=== PATIENT | male | born 1960 | race Hispanic/Latino ===

== ENCOUNTER → 2022-01-26 | Outpatient (CLI) | payer OTHER, MEDICARE ==
[~2022-01-26] MED LIST: LIDOCAINE HCL 4% LTA SOL 4 ML VIAL ONE
== END ==
LOC: WHH 10:49
PROVIDERS: ATTEND Family Medicine
DX: T87.89 Other complications of amputation stump (principal); E11.621 Type 2 diabetes mellitus with foot ulcer; I70.235 Atherosclerosis of native arteries of right leg with ulceration of other part of foot; L97.515 Non-pressure chronic ulcer of other part of right foot with muscle involvement without evidence of necrosis; I70.202 Unspecified atherosclerosis of native arteries of extremities, left leg; E11.51 Type 2 diabetes mellitus with diabetic peripheral angiopathy without gangrene; I10 Essential (primary) hypertension; E78.5 Hyperlipidemia, unspecified; E66.9 Obesity, unspecified; F17.210 Nicotine dependence, cigarettes, uncomplicated; Z79.84 Long term (current) use of oral hypoglycemic drugs; Z79.899 Other long term (current) drug therapy; Y83.5 Amputation of limb(s) as the cause of abnormal reaction of the patient, or of later complication, without mention of misadventure at the time of the procedure
CPT/HCPCS: 15275; A6196; A6207; Q4133

== ENCOUNTER → 2022-02-02 | Outpatient (CLI) | payer OTHER, MEDICARE | END | disposition home or self-care (01) | LOC: WHH 10:39 | PROVIDERS: ATTEND Family Medicine | DX: T87.89 Other complications of amputation stump (principal); E11.621 Type 2 diabetes mellitus with foot ulcer; I70.235 Atherosclerosis of native arteries of right leg with ulceration of other part of foot; L97.515 Non-pressure chronic ulcer of other part of right foot with muscle involvement without evidence of necrosis; I70.202 Unspecified atherosclerosis of native arteries of extremities, left leg; E11.51 Type 2 diabetes mellitus with diabetic peripheral angiopathy without gangrene; I10 Essential (primary) hypertension; E78.5 Hyperlipidemia, unspecified; E66.9 Obesity, unspecified; F17.210 Nicotine dependence, cigarettes, uncomplicated; Z79.84 Long term (current) use of oral hypoglycemic drugs; Z79.899 Other long term (current) drug therapy; Y83.5 Amputation of limb(s) as the cause of abnormal reaction of the patient, or of later complication, without mention of misadventure at the time of the procedure | CPT/HCPCS: 15275; A6197; A6207; Q4133 ==

== ENCOUNTER → 2022-02-09 | Outpatient (CLI) | payer OTHER, MEDICARE | END | disposition home or self-care (01) | LOC: WHH 08:48 | PROVIDERS: ATTEND Family Medicine | DX: T87.89 Other complications of amputation stump (principal); E11.621 Type 2 diabetes mellitus with foot ulcer; I70.235 Atherosclerosis of native arteries of right leg with ulceration of other part of foot; L97.515 Non-pressure chronic ulcer of other part of right foot with muscle involvement without evidence of necrosis; I70.202 Unspecified atherosclerosis of native arteries of extremities, left leg; E11.51 Type 2 diabetes mellitus with diabetic peripheral angiopathy without gangrene; I10 Essential (primary) hypertension; E78.5 Hyperlipidemia, unspecified; E66.9 Obesity, unspecified; F17.210 Nicotine dependence, cigarettes, uncomplicated; Z79.84 Long term (current) use of oral hypoglycemic drugs; Z79.899 Other long term (current) drug therapy; Y83.5 Amputation of limb(s) as the cause of abnormal reaction of the patient, or of later complication, without mention of misadventure at the time of the procedure | CPT/HCPCS: 15275; A6197; A6207; Q4133 ==

== ENCOUNTER → 2022-02-16 | Outpatient (CLI) | payer OTHER, MEDICARE | END | disposition home or self-care (01) | LOC: WHH 10:15 | PROVIDERS: ATTEND Family Medicine | DX: T87.89 Other complications of amputation stump (principal); E11.621 Type 2 diabetes mellitus with foot ulcer; I70.235 Atherosclerosis of native arteries of right leg with ulceration of other part of foot; L97.515 Non-pressure chronic ulcer of other part of right foot with muscle involvement without evidence of necrosis; I70.202 Unspecified atherosclerosis of native arteries of extremities, left leg; E11.51 Type 2 diabetes mellitus with diabetic peripheral angiopathy without gangrene; I10 Essential (primary) hypertension; E78.5 Hyperlipidemia, unspecified; E66.9 Obesity, unspecified; F17.210 Nicotine dependence, cigarettes, uncomplicated; Z79.84 Long term (current) use of oral hypoglycemic drugs; Z79.899 Other long term (current) drug therapy; Y83.5 Amputation of limb(s) as the cause of abnormal reaction of the patient, or of later complication, without mention of misadventure at the time of the procedure | CPT/HCPCS: 15275; A6197; A6207; Q4133 ==

== ENCOUNTER → 2022-02-23 | Outpatient (CLI) | payer OTHER, MEDICARE | END | disposition home or self-care (01) | LOC: WHH 09:13 | PROVIDERS: ATTEND Family Medicine | DX: T87.89 Other complications of amputation stump (principal); E11.621 Type 2 diabetes mellitus with foot ulcer; I70.235 Atherosclerosis of native arteries of right leg with ulceration of other part of foot; L97.515 Non-pressure chronic ulcer of other part of right foot with muscle involvement without evidence of necrosis; I70.202 Unspecified atherosclerosis of native arteries of extremities, left leg; E11.51 Type 2 diabetes mellitus with diabetic peripheral angiopathy without gangrene; I10 Essential (primary) hypertension; E78.5 Hyperlipidemia, unspecified; E66.9 Obesity, unspecified; F17.210 Nicotine dependence, cigarettes, uncomplicated; Z79.84 Long term (current) use of oral hypoglycemic drugs; Z79.899 Other long term (current) drug therapy; Y83.5 Amputation of limb(s) as the cause of abnormal reaction of the patient, or of later complication, without mention of misadventure at the time of the procedure | CPT/HCPCS: 15275; A6197; A6207; Q4133 ==

== ENCOUNTER → 2022-03-03 | Outpatient (CLI) | payer OTHER, MEDICARE | END | disposition home or self-care (01) | LOC: WHH 09:03 | PROVIDERS: ATTEND Family Medicine | DX: T87.89 Other complications of amputation stump (principal); E11.621 Type 2 diabetes mellitus with foot ulcer; I70.235 Atherosclerosis of native arteries of right leg with ulceration of other part of foot; L97.515 Non-pressure chronic ulcer of other part of right foot with muscle involvement without evidence of necrosis; I70.202 Unspecified atherosclerosis of native arteries of extremities, left leg; E11.51 Type 2 diabetes mellitus with diabetic peripheral angiopathy without gangrene; I10 Essential (primary) hypertension; E78.5 Hyperlipidemia, unspecified; E66.9 Obesity, unspecified; F17.210 Nicotine dependence, cigarettes, uncomplicated; Z79.84 Long term (current) use of oral hypoglycemic drugs; Z79.899 Other long term (current) drug therapy; Y83.5 Amputation of limb(s) as the cause of abnormal reaction of the patient, or of later complication, without mention of misadventure at the time of the procedure | CPT/HCPCS: 15275; A6197; A6207; Q4133 ==

== ENCOUNTER → 2022-03-09 | Outpatient (CLI) | payer OTHER, MEDICARE | END | disposition home or self-care (01) | LOC: WHH 08:30 | PROVIDERS: ATTEND Family Medicine | DX: T87.89 Other complications of amputation stump (principal); E11.621 Type 2 diabetes mellitus with foot ulcer; I70.235 Atherosclerosis of native arteries of right leg with ulceration of other part of foot; L97.515 Non-pressure chronic ulcer of other part of right foot with muscle involvement without evidence of necrosis; I70.202 Unspecified atherosclerosis of native arteries of extremities, left leg; E11.51 Type 2 diabetes mellitus with diabetic peripheral angiopathy without gangrene; I10 Essential (primary) hypertension; E78.5 Hyperlipidemia, unspecified; E66.9 Obesity, unspecified; F17.210 Nicotine dependence, cigarettes, uncomplicated; Z79.84 Long term (current) use of oral hypoglycemic drugs; Z79.899 Other long term (current) drug therapy; Y83.5 Amputation of limb(s) as the cause of abnormal reaction of the patient, or of later complication, without mention of misadventure at the time of the procedure | CPT/HCPCS: 15275; 87070; 87077 ×2; 87186 ×2; A6197; A6207; Q4133 ==

== ENCOUNTER → 2022-03-16 | Outpatient (CLI) | payer OTHER, MEDICARE | END | disposition home or self-care (01) | LOC: WHH 10:06 | PROVIDERS: ATTEND Family Medicine | DX: T87.89 Other complications of amputation stump (principal); E11.621 Type 2 diabetes mellitus with foot ulcer; I70.235 Atherosclerosis of native arteries of right leg with ulceration of other part of foot; L97.515 Non-pressure chronic ulcer of other part of right foot with muscle involvement without evidence of necrosis; I70.202 Unspecified atherosclerosis of native arteries of extremities, left leg; E11.51 Type 2 diabetes mellitus with diabetic peripheral angiopathy without gangrene; I10 Essential (primary) hypertension; E78.5 Hyperlipidemia, unspecified; E66.9 Obesity, unspecified; F17.210 Nicotine dependence, cigarettes, uncomplicated; Z68.31 Body mass index [BMI] 31.0-31.9, adult; Z79.84 Long term (current) use of oral hypoglycemic drugs; Z79.899 Other long term (current) drug therapy; Y83.5 Amputation of limb(s) as the cause of abnormal reaction of the patient, or of later complication, without mention of misadventure at the time of the procedure | CPT/HCPCS: 15275; A4450; A6197; A6207; Q4133 ==

== ENCOUNTER → 2022-03-23 | Outpatient (CLI) | payer OTHER, MEDICARE | END | disposition home or self-care (01) | LOC: WHH 10:01 | PROVIDERS: ATTEND Family Medicine | DX: T87.89 Other complications of amputation stump (principal); E11.621 Type 2 diabetes mellitus with foot ulcer; I70.235 Atherosclerosis of native arteries of right leg with ulceration of other part of foot; L97.515 Non-pressure chronic ulcer of other part of right foot with muscle involvement without evidence of necrosis; I70.202 Unspecified atherosclerosis of native arteries of extremities, left leg; E11.51 Type 2 diabetes mellitus with diabetic peripheral angiopathy without gangrene; I10 Essential (primary) hypertension; E78.5 Hyperlipidemia, unspecified; E66.9 Obesity, unspecified; F17.210 Nicotine dependence, cigarettes, uncomplicated; Z68.31 Body mass index [BMI] 31.0-31.9, adult; Z79.84 Long term (current) use of oral hypoglycemic drugs; Z79.899 Other long term (current) drug therapy; Y83.5 Amputation of limb(s) as the cause of abnormal reaction of the patient, or of later complication, without mention of misadventure at the time of the procedure | CPT/HCPCS: 15275; A6196; A6207; Q4133 ==

== ENCOUNTER → 2022-03-30 | Outpatient (CLI) | payer OTHER, MEDICARE | END | disposition home or self-care (01) | LOC: WHH 08:14 | PROVIDERS: ATTEND Family Medicine | DX: T87.89 Other complications of amputation stump (principal); E11.621 Type 2 diabetes mellitus with foot ulcer; I70.235 Atherosclerosis of native arteries of right leg with ulceration of other part of foot; L97.515 Non-pressure chronic ulcer of other part of right foot with muscle involvement without evidence of necrosis; L84 Corns and callosities; I70.202 Unspecified atherosclerosis of native arteries of extremities, left leg; E11.51 Type 2 diabetes mellitus with diabetic peripheral angiopathy without gangrene; I10 Essential (primary) hypertension; E78.5 Hyperlipidemia, unspecified; E66.9 Obesity, unspecified; F17.210 Nicotine dependence, cigarettes, uncomplicated; Z68.31 Body mass index [BMI] 31.0-31.9, adult; Z79.84 Long term (current) use of oral hypoglycemic drugs; Z79.899 Other long term (current) drug therapy; Y83.5 Amputation of limb(s) as the cause of abnormal reaction of the patient, or of later complication, without mention of misadventure at the time of the procedure | CPT/HCPCS: 11042; A6021; A6197 ==

== ENCOUNTER → 2022-04-13 | Outpatient (CLI) | payer OTHER, MEDICARE | END | disposition home or self-care (01) | LOC: WHH 08:58 | PROVIDERS: ATTEND Family Medicine | DX: T87.89 Other complications of amputation stump (principal); E11.621 Type 2 diabetes mellitus with foot ulcer; I70.235 Atherosclerosis of native arteries of right leg with ulceration of other part of foot; L97.515 Non-pressure chronic ulcer of other part of right foot with muscle involvement without evidence of necrosis; I70.202 Unspecified atherosclerosis of native arteries of extremities, left leg; E11.51 Type 2 diabetes mellitus with diabetic peripheral angiopathy without gangrene; I10 Essential (primary) hypertension; E78.5 Hyperlipidemia, unspecified; E66.9 Obesity, unspecified; F17.210 Nicotine dependence, cigarettes, uncomplicated; Z68.31 Body mass index [BMI] 31.0-31.9, adult; Z79.84 Long term (current) use of oral hypoglycemic drugs; Z79.899 Other long term (current) drug therapy; Y83.5 Amputation of limb(s) as the cause of abnormal reaction of the patient, or of later complication, without mention of misadventure at the time of the procedure | CPT/HCPCS: 11042; A6021; A6197 ==

== ENCOUNTER → 2022-05-11 | Outpatient (CLI) | payer OTHER, MEDICARE | END | disposition home or self-care (01) | LOC: WHH 09:12 | PROVIDERS: ATTEND Family Medicine | DX: T87.89 Other complications of amputation stump (principal); E11.621 Type 2 diabetes mellitus with foot ulcer; I70.235 Atherosclerosis of native arteries of right leg with ulceration of other part of foot; L97.515 Non-pressure chronic ulcer of other part of right foot with muscle involvement without evidence of necrosis; I70.202 Unspecified atherosclerosis of native arteries of extremities, left leg; E11.51 Type 2 diabetes mellitus with diabetic peripheral angiopathy without gangrene; I10 Essential (primary) hypertension; E78.5 Hyperlipidemia, unspecified; E66.9 Obesity, unspecified; F17.210 Nicotine dependence, cigarettes, uncomplicated; Z68.30 Body mass index [BMI] 30.0-30.9, adult; Z79.84 Long term (current) use of oral hypoglycemic drugs; Z79.899 Other long term (current) drug therapy; Y83.5 Amputation of limb(s) as the cause of abnormal reaction of the patient, or of later complication, without mention of misadventure at the time of the procedure | CPT/HCPCS: 11042; A6021; A6197; A4450 ==

== ENCOUNTER → 2022-05-18 | Outpatient (CLI) | payer OTHER, MEDICARE | END | disposition home or self-care (01) | LOC: WHH 07:54 | PROVIDERS: ATTEND Family Medicine | DX: T87.89 Other complications of amputation stump (principal); E11.621 Type 2 diabetes mellitus with foot ulcer; I70.235 Atherosclerosis of native arteries of right leg with ulceration of other part of foot; L97.515 Non-pressure chronic ulcer of other part of right foot with muscle involvement without evidence of necrosis; I70.202 Unspecified atherosclerosis of native arteries of extremities, left leg; E11.51 Type 2 diabetes mellitus with diabetic peripheral angiopathy without gangrene; I10 Essential (primary) hypertension; E78.5 Hyperlipidemia, unspecified; E66.9 Obesity, unspecified; F17.210 Nicotine dependence, cigarettes, uncomplicated; Z68.30 Body mass index [BMI] 30.0-30.9, adult; Z79.84 Long term (current) use of oral hypoglycemic drugs; Z79.899 Other long term (current) drug therapy; Y83.5 Amputation of limb(s) as the cause of abnormal reaction of the patient, or of later complication, without mention of misadventure at the time of the procedure | CPT/HCPCS: 11042; A6021; A6197 ==

== ENCOUNTER → 2022-05-25 | Outpatient (CLI) | payer OTHER, MEDICARE | END | disposition home or self-care (01) | LOC: WHH 08:28 | PROVIDERS: ATTEND Family Medicine | DX: T87.89 Other complications of amputation stump (principal); E11.621 Type 2 diabetes mellitus with foot ulcer; I70.235 Atherosclerosis of native arteries of right leg with ulceration of other part of foot; L97.515 Non-pressure chronic ulcer of other part of right foot with muscle involvement without evidence of necrosis; I70.202 Unspecified atherosclerosis of native arteries of extremities, left leg; E11.51 Type 2 diabetes mellitus with diabetic peripheral angiopathy without gangrene; I10 Essential (primary) hypertension; E78.5 Hyperlipidemia, unspecified; E66.9 Obesity, unspecified; F17.210 Nicotine dependence, cigarettes, uncomplicated; Z68.30 Body mass index [BMI] 30.0-30.9, adult; Z79.84 Long term (current) use of oral hypoglycemic drugs; Z79.899 Other long term (current) drug therapy; Y83.5 Amputation of limb(s) as the cause of abnormal reaction of the patient, or of later complication, without mention of misadventure at the time of the procedure | CPT/HCPCS: 11042; A6021; A6197 ==

== ENCOUNTER → 2022-06-01 | Outpatient (CLI) | payer OTHER, MEDICARE ==
[~2022-06-01] MED LIST changes: -LIDOCAINE HCL 4% LTA SOL 4 ML VIAL ONE; +LIDOCAINE HCL 4% LTA SOL 4 ML VIAL TP ONE
== END | disposition home or self-care (01) ==
LOC: WHH 08:17
PROVIDERS: ATTEND Family Medicine
DX: T87.89 Other complications of amputation stump (principal); E11.621 Type 2 diabetes mellitus with foot ulcer; I70.235 Atherosclerosis of native arteries of right leg with ulceration of other part of foot; L97.515 Non-pressure chronic ulcer of other part of right foot with muscle involvement without evidence of necrosis; I70.202 Unspecified atherosclerosis of native arteries of extremities, left leg; E11.51 Type 2 diabetes mellitus with diabetic peripheral angiopathy without gangrene; I10 Essential (primary) hypertension; E78.5 Hyperlipidemia, unspecified; E66.9 Obesity, unspecified; F17.210 Nicotine dependence, cigarettes, uncomplicated; Z68.30 Body mass index [BMI] 30.0-30.9, adult; Z79.84 Long term (current) use of oral hypoglycemic drugs; Z79.899 Other long term (current) drug therapy; Y83.5 Amputation of limb(s) as the cause of abnormal reaction of the patient, or of later complication, without mention of misadventure at the time of the procedure
CPT/HCPCS: 11042; A6021; A6197

== ENCOUNTER → 2022-06-09 | Outpatient (CLI) | payer OTHER, MEDICARE | END | disposition home or self-care (01) | LOC: WHH 08:14 | PROVIDERS: ATTEND Family Medicine | DX: T87.89 Other complications of amputation stump (principal); E11.621 Type 2 diabetes mellitus with foot ulcer; I70.235 Atherosclerosis of native arteries of right leg with ulceration of other part of foot; L97.515 Non-pressure chronic ulcer of other part of right foot with muscle involvement without evidence of necrosis; I70.202 Unspecified atherosclerosis of native arteries of extremities, left leg; E11.51 Type 2 diabetes mellitus with diabetic peripheral angiopathy without gangrene; I10 Essential (primary) hypertension; E78.5 Hyperlipidemia, unspecified; E66.9 Obesity, unspecified; F17.210 Nicotine dependence, cigarettes, uncomplicated; Z68.30 Body mass index [BMI] 30.0-30.9, adult; Z79.84 Long term (current) use of oral hypoglycemic drugs; Z79.899 Other long term (current) drug therapy; Y83.5 Amputation of limb(s) as the cause of abnormal reaction of the patient, or of later complication, without mention of misadventure at the time of the procedure | CPT/HCPCS: 11042; A6021; A6197 ==

== ENCOUNTER → 2022-06-15 | Outpatient (CLI) | payer OTHER, MEDICARE | END | disposition home or self-care (01) | LOC: WHH 08:19 | PROVIDERS: ATTEND Family Medicine | DX: T87.89 Other complications of amputation stump (principal); E11.621 Type 2 diabetes mellitus with foot ulcer; I70.235 Atherosclerosis of native arteries of right leg with ulceration of other part of foot; L97.515 Non-pressure chronic ulcer of other part of right foot with muscle involvement without evidence of necrosis; I70.202 Unspecified atherosclerosis of native arteries of extremities, left leg; E11.51 Type 2 diabetes mellitus with diabetic peripheral angiopathy without gangrene; I10 Essential (primary) hypertension; E78.5 Hyperlipidemia, unspecified; E66.9 Obesity, unspecified; F17.210 Nicotine dependence, cigarettes, uncomplicated; Z68.30 Body mass index [BMI] 30.0-30.9, adult; Z79.84 Long term (current) use of oral hypoglycemic drugs; Z79.899 Other long term (current) drug therapy; Y83.5 Amputation of limb(s) as the cause of abnormal reaction of the patient, or of later complication, without mention of misadventure at the time of the procedure | CPT/HCPCS: 11042; A6021; A6197 ==

== ENCOUNTER → 2022-06-22 | Outpatient (CLI) | payer OTHER, MEDICARE | END | disposition home or self-care (01) | LOC: WHH 08:24 | PROVIDERS: ATTEND Family Medicine | DX: T87.89 Other complications of amputation stump (principal); E11.621 Type 2 diabetes mellitus with foot ulcer; I70.235 Atherosclerosis of native arteries of right leg with ulceration of other part of foot; L97.515 Non-pressure chronic ulcer of other part of right foot with muscle involvement without evidence of necrosis; I70.202 Unspecified atherosclerosis of native arteries of extremities, left leg; E11.51 Type 2 diabetes mellitus with diabetic peripheral angiopathy without gangrene; I10 Essential (primary) hypertension; E78.5 Hyperlipidemia, unspecified; E66.9 Obesity, unspecified; F17.210 Nicotine dependence, cigarettes, uncomplicated; Z68.30 Body mass index [BMI] 30.0-30.9, adult; Z79.84 Long term (current) use of oral hypoglycemic drugs; Z79.899 Other long term (current) drug therapy; Y83.5 Amputation of limb(s) as the cause of abnormal reaction of the patient, or of later complication, without mention of misadventure at the time of the procedure | CPT/HCPCS: 11042; A6197; A6022; A4450 ==

== ENCOUNTER → 2022-06-29 | Outpatient (CLI) | payer OTHER, MEDICARE | END | disposition home or self-care (01) | LOC: WHH 08:16 | PROVIDERS: ATTEND Family Medicine | DX: T87.89 Other complications of amputation stump (principal); E11.621 Type 2 diabetes mellitus with foot ulcer; I70.235 Atherosclerosis of native arteries of right leg with ulceration of other part of foot; L97.515 Non-pressure chronic ulcer of other part of right foot with muscle involvement without evidence of necrosis; I70.202 Unspecified atherosclerosis of native arteries of extremities, left leg; E11.51 Type 2 diabetes mellitus with diabetic peripheral angiopathy without gangrene; I10 Essential (primary) hypertension; E78.5 Hyperlipidemia, unspecified; E66.9 Obesity, unspecified; F17.210 Nicotine dependence, cigarettes, uncomplicated; Z68.30 Body mass index [BMI] 30.0-30.9, adult; Z79.84 Long term (current) use of oral hypoglycemic drugs; Z79.899 Other long term (current) drug therapy; Y83.5 Amputation of limb(s) as the cause of abnormal reaction of the patient, or of later complication, without mention of misadventure at the time of the procedure | CPT/HCPCS: 11042; A6197; A6022 ==

== ENCOUNTER → 2022-07-06 | Outpatient (CLI) | payer OTHER, MEDICARE ==
[~2022-07-06] MED LIST changes: +HONEY 1 APPL/ML TUBE TP ONE
== END | disposition home or self-care (01) ==
LOC: WHH 08:23
PROVIDERS: ATTEND Family Medicine
DX: T87.89 Other complications of amputation stump (principal); E11.621 Type 2 diabetes mellitus with foot ulcer; I70.235 Atherosclerosis of native arteries of right leg with ulceration of other part of foot; L97.515 Non-pressure chronic ulcer of other part of right foot with muscle involvement without evidence of necrosis; I70.202 Unspecified atherosclerosis of native arteries of extremities, left leg; E11.51 Type 2 diabetes mellitus with diabetic peripheral angiopathy without gangrene; I10 Essential (primary) hypertension; E78.5 Hyperlipidemia, unspecified; E66.9 Obesity, unspecified; F17.210 Nicotine dependence, cigarettes, uncomplicated; Z68.30 Body mass index [BMI] 30.0-30.9, adult; Z79.84 Long term (current) use of oral hypoglycemic drugs; Z79.899 Other long term (current) drug therapy; Y83.5 Amputation of limb(s) as the cause of abnormal reaction of the patient, or of later complication, without mention of misadventure at the time of the procedure
CPT/HCPCS: G0463; A6197; A4450

== ENCOUNTER → 2022-07-13 | Outpatient (CLI) | payer OTHER, MEDICARE | END | disposition home or self-care (01) | LOC: WHH 08:05 | PROVIDERS: ATTEND Family Medicine | DX: T87.89 Other complications of amputation stump (principal); E11.621 Type 2 diabetes mellitus with foot ulcer; I70.235 Atherosclerosis of native arteries of right leg with ulceration of other part of foot; L97.518 Non-pressure chronic ulcer of other part of right foot with other specified severity; I70.202 Unspecified atherosclerosis of native arteries of extremities, left leg; E11.51 Type 2 diabetes mellitus with diabetic peripheral angiopathy without gangrene; I10 Essential (primary) hypertension; E78.5 Hyperlipidemia, unspecified; E66.9 Obesity, unspecified; F17.210 Nicotine dependence, cigarettes, uncomplicated; Z68.30 Body mass index [BMI] 30.0-30.9, adult; Z79.84 Long term (current) use of oral hypoglycemic drugs; Z79.899 Other long term (current) drug therapy; Y83.5 Amputation of limb(s) as the cause of abnormal reaction of the patient, or of later complication, without mention of misadventure at the time of the procedure | CPT/HCPCS: G0463 ==

== ENCOUNTER → 2023-04-12 | Outpatient (CLI) | payer MEDICARE, OTHER ==
[~2023-04-12] MED LIST changes: -HONEY 1 APPL/ML TUBE TP ONE
== END | disposition home or self-care (01) ==
LOC: WHH 08:14
PROVIDERS: ATTEND Nurse Practitioner Family
DX: T87.89 Other complications of amputation stump (principal); E11.621 Type 2 diabetes mellitus with foot ulcer; I70.235 Atherosclerosis of native arteries of right leg with ulceration of other part of foot; L97.511 Non-pressure chronic ulcer of other part of right foot limited to breakdown of skin; L84 Corns and callosities; I70.202 Unspecified atherosclerosis of native arteries of extremities, left leg; E11.51 Type 2 diabetes mellitus with diabetic peripheral angiopathy without gangrene; I10 Essential (primary) hypertension; E78.5 Hyperlipidemia, unspecified; E66.9 Obesity, unspecified; Z68.33 Body mass index [BMI] 33.0-33.9, adult; Z89.432 Acquired absence of left foot; Z87.891 Personal history of nicotine dependence; Z79.82 Long term (current) use of aspirin; Z79.84 Long term (current) use of oral hypoglycemic drugs; Z79.899 Other long term (current) drug therapy; Y83.5 Amputation of limb(s) as the cause of abnormal reaction of the patient, or of later complication, without mention of misadventure at the time of the procedure
CPT/HCPCS: 11055; A6250

== ENCOUNTER → 2023-04-26 | Outpatient (CLI) | payer OTHER | END | disposition home or self-care (01) | LOC: WHH 08:22 | PROVIDERS: ATTEND Nurse Practitioner Family | DX: L84 Corns and callosities (principal); T87.89 Other complications of amputation stump; E11.621 Type 2 diabetes mellitus with foot ulcer; I70.235 Atherosclerosis of native arteries of right leg with ulceration of other part of foot; L97.511 Non-pressure chronic ulcer of other part of right foot limited to breakdown of skin; I70.202 Unspecified atherosclerosis of native arteries of extremities, left leg; I10 Essential (primary) hypertension; E78.5 Hyperlipidemia, unspecified; E66.9 Obesity, unspecified; Z68.33 Body mass index [BMI] 33.0-33.9, adult; Z89.432 Acquired absence of left foot; Z87.891 Personal history of nicotine dependence; Z79.84 Long term (current) use of oral hypoglycemic drugs; Z79.899 Other long term (current) drug therapy; Y83.5 Amputation of limb(s) as the cause of abnormal reaction of the patient, or of later complication, without mention of misadventure at the time of the procedure | CPT/HCPCS: 11055 ==

== ENCOUNTER → 2024-06-22 | Outpatient (CLI) | payer OTHER ==
[2024-06-22 10:43] LABS: BASOPHILS # (AUTO) 0.06 K/uL (0.00-0.20); BASOPHILS % (AUTO) 0.5 % (0.0-5.0); EOSINOPHILS # (AUTO) 0.23 K/uL (0.00-0.70); HEMATOCRIT 45.5 % (42-54); IMMATURE GRANULOCYTE ABSOLUTE 0.05 K/uL (0-1); LYMPHOCYTES # (AUTO) 0.8 K/uL (1.0-4.8); MEAN CORPUSCULAR HGB CONC 32.3 g/dL (32.0-36.0); MEAN CORPUSCULAR VOLUME 83.6 fL (79-99); MONOCYTES # (AUTO) 0.9 K/uL (0.1-1.0); MONOCYTES % (AUTO) 7.9 % (3.0-13.0); NEUTROPHILS # (AUTO) 9.5 K/uL (1.8-7.7); NEUTROPHILS % (AUTO) 82.2 % (40.0-77.0); PLATELET COUNT (AUTO) 248 K/uL (130-400); RED BLOOD CELL COUNT(AUTO) 5.44 MIL/uL (4.50-6.20); RED CELL DISTRIBUTION WIDTH 13.7 % (11.0-15.5); WHITE BLOOD COUNT (AUTO) 11.6 K/uL (4.8-10.8)
[2024-06-22 10:51] LABS: HEMOGLOBIN A1C 10.7 % (4.0-6.0)
[2024-06-22 10:58] LABS: BILIRUBIN,TOTAL 0.8 mg/dL (0.2-1.0); CREATININE 2.2 mg/dL (0.5-1.3); POTASSIUM 5.5 mmol/L (3.5-5.1); TOTAL PROTEIN, SERUM 8.7 g/dL (6.0-8.3)
[2024-06-22 11:55] LABS: ERYTHROCYTE SEDIMENTATION RATE 65 MM/HR (0-20)
== END | disposition home or self-care (01) ==
LOC: WHH 08:19
PROVIDERS: ATTEND Family Medicine
DX: E11.621 Type 2 diabetes mellitus with foot ulcer (principal); I70.245 Atherosclerosis of native arteries of left leg with ulceration of other part of foot; L97.525 Non-pressure chronic ulcer of other part of left foot with muscle involvement without evidence of necrosis; I70.201 Unspecified atherosclerosis of native arteries of extremities, right leg; E11.22 Type 2 diabetes mellitus with diabetic chronic kidney disease; I12.9 Hypertensive chronic kidney disease with stage 1 through stage 4 chronic kidney disease, or unspecified chronic kidney disease; N18.9 Chronic kidney disease, unspecified; E11.51 Type 2 diabetes mellitus with diabetic peripheral angiopathy without gangrene; E11.42 Type 2 diabetes mellitus with diabetic polyneuropathy; E78.5 Hyperlipidemia, unspecified; N40.0 Benign prostatic hyperplasia without lower urinary tract symptoms; E66.9 Obesity, unspecified; Z68.33 Body mass index [BMI] 33.0-33.9, adult; Z87.891 Personal history of nicotine dependence
CPT/HCPCS: 11042; 71045; 83036; 80053; 85025; 85651; 87070; 87076; 87086 ×3; 87186 ×3; 86140; 36415; 73630; 93005; A4450; A6260

== ENCOUNTER → 2024-06-29 | Outpatient (CLI) | payer OTHER | END | disposition home or self-care (01) | LOC: WHH 08:13 | PROVIDERS: ATTEND Family Medicine | DX: E11.621 Type 2 diabetes mellitus with foot ulcer (principal); I70.245 Atherosclerosis of native arteries of left leg with ulceration of other part of foot; L97.525 Non-pressure chronic ulcer of other part of left foot with muscle involvement without evidence of necrosis; I70.201 Unspecified atherosclerosis of native arteries of extremities, right leg; E11.22 Type 2 diabetes mellitus with diabetic chronic kidney disease; I12.9 Hypertensive chronic kidney disease with stage 1 through stage 4 chronic kidney disease, or unspecified chronic kidney disease; N18.9 Chronic kidney disease, unspecified; E11.51 Type 2 diabetes mellitus with diabetic peripheral angiopathy without gangrene; E11.42 Type 2 diabetes mellitus with diabetic polyneuropathy; E78.5 Hyperlipidemia, unspecified; N40.0 Benign prostatic hyperplasia without lower urinary tract symptoms; E66.9 Obesity, unspecified; Z68.33 Body mass index [BMI] 33.0-33.9, adult; Z87.891 Personal history of nicotine dependence; Z79.82 Long term (current) use of aspirin; Z79.899 Other long term (current) drug therapy | CPT/HCPCS: 11042; A4450 ==

== ENCOUNTER → 2024-07-06 | Outpatient (CLI) | payer OTHER | END | disposition home or self-care (01) | LOC: RAH 08:05 | PROVIDERS: ATTEND Family Medicine | DX: M79.89 Other specified soft tissue disorders (principal); E11.621 Type 2 diabetes mellitus with foot ulcer | CPT/HCPCS: 73718 ==

== ENCOUNTER → 2024-07-06 | Outpatient (CLI) | payer OTHER | END | disposition home or self-care (01) | LOC: WHH 08:13 | PROVIDERS: ATTEND Family Medicine | DX: E11.621 Type 2 diabetes mellitus with foot ulcer (principal); I70.245 Atherosclerosis of native arteries of left leg with ulceration of other part of foot; L97.525 Non-pressure chronic ulcer of other part of left foot with muscle involvement without evidence of necrosis; I70.201 Unspecified atherosclerosis of native arteries of extremities, right leg; E11.42 Type 2 diabetes mellitus with diabetic polyneuropathy; E11.51 Type 2 diabetes mellitus with diabetic peripheral angiopathy without gangrene; E11.22 Type 2 diabetes mellitus with diabetic chronic kidney disease; I12.9 Hypertensive chronic kidney disease with stage 1 through stage 4 chronic kidney disease, or unspecified chronic kidney disease; N18.9 Chronic kidney disease, unspecified; E78.5 Hyperlipidemia, unspecified; N40.0 Benign prostatic hyperplasia without lower urinary tract symptoms; E66.9 Obesity, unspecified; Z68.33 Body mass index [BMI] 33.0-33.9, adult; Z87.891 Personal history of nicotine dependence; Z79.82 Long term (current) use of aspirin; Z79.899 Other long term (current) drug therapy | CPT/HCPCS: 11042; A6250; A4450 ==

== ENCOUNTER → 2024-07-13 | Outpatient (CLI) | payer OTHER | END | disposition home or self-care (01) | LOC: WHH 08:52 | PROVIDERS: ATTEND Family Medicine | DX: E11.621 Type 2 diabetes mellitus with foot ulcer (principal); I70.245 Atherosclerosis of native arteries of left leg with ulceration of other part of foot; L97.526 Non-pressure chronic ulcer of other part of left foot with bone involvement without evidence of necrosis; I70.201 Unspecified atherosclerosis of native arteries of extremities, right leg; E11.51 Type 2 diabetes mellitus with diabetic peripheral angiopathy without gangrene; E11.42 Type 2 diabetes mellitus with diabetic polyneuropathy; E11.22 Type 2 diabetes mellitus with diabetic chronic kidney disease; I12.9 Hypertensive chronic kidney disease with stage 1 through stage 4 chronic kidney disease, or unspecified chronic kidney disease; N18.9 Chronic kidney disease, unspecified; N40.0 Benign prostatic hyperplasia without lower urinary tract symptoms; E78.5 Hyperlipidemia, unspecified; E66.9 Obesity, unspecified; Z68.33 Body mass index [BMI] 33.0-33.9, adult; Z87.891 Personal history of nicotine dependence; Z79.82 Long term (current) use of aspirin; Z79.899 Other long term (current) drug therapy; Z89.432 Acquired absence of left foot; Z89.431 Acquired absence of right foot | CPT/HCPCS: 87086; 87186; 87070; G0463 ==

== ENCOUNTER → 2024-07-20 | Outpatient (CLI) | payer OTHER | END | disposition home or self-care (01) | LOC: WHH 08:58 | PROVIDERS: ATTEND Family Medicine | DX: E11.621 Type 2 diabetes mellitus with foot ulcer (principal); I70.245 Atherosclerosis of native arteries of left leg with ulceration of other part of foot; L97.526 Non-pressure chronic ulcer of other part of left foot with bone involvement without evidence of necrosis; I70.201 Unspecified atherosclerosis of native arteries of extremities, right leg; E11.51 Type 2 diabetes mellitus with diabetic peripheral angiopathy without gangrene; E11.42 Type 2 diabetes mellitus with diabetic polyneuropathy; E11.22 Type 2 diabetes mellitus with diabetic chronic kidney disease; I12.9 Hypertensive chronic kidney disease with stage 1 through stage 4 chronic kidney disease, or unspecified chronic kidney disease; N18.9 Chronic kidney disease, unspecified; N40.0 Benign prostatic hyperplasia without lower urinary tract symptoms; E78.5 Hyperlipidemia, unspecified; E66.9 Obesity, unspecified; Z68.33 Body mass index [BMI] 33.0-33.9, adult; Z87.891 Personal history of nicotine dependence; Z79.82 Long term (current) use of aspirin; Z79.899 Other long term (current) drug therapy; Z89.432 Acquired absence of left foot; Z89.431 Acquired absence of right foot | CPT/HCPCS: G0463; A6196 ==

== ENCOUNTER → 2024-07-27 | Outpatient (CLI) | payer OTHER | END | disposition home or self-care (01) | LOC: WHH 08:03 | PROVIDERS: ATTEND Family Medicine | DX: E11.621 Type 2 diabetes mellitus with foot ulcer (principal); I70.245 Atherosclerosis of native arteries of left leg with ulceration of other part of foot; L97.526 Non-pressure chronic ulcer of other part of left foot with bone involvement without evidence of necrosis; I70.201 Unspecified atherosclerosis of native arteries of extremities, right leg; E11.51 Type 2 diabetes mellitus with diabetic peripheral angiopathy without gangrene; E11.42 Type 2 diabetes mellitus with diabetic polyneuropathy; E11.22 Type 2 diabetes mellitus with diabetic chronic kidney disease; I12.9 Hypertensive chronic kidney disease with stage 1 through stage 4 chronic kidney disease, or unspecified chronic kidney disease; N18.9 Chronic kidney disease, unspecified; N40.0 Benign prostatic hyperplasia without lower urinary tract symptoms; E78.5 Hyperlipidemia, unspecified; E66.9 Obesity, unspecified; Z68.33 Body mass index [BMI] 33.0-33.9, adult; Z87.891 Personal history of nicotine dependence; Z79.82 Long term (current) use of aspirin; Z79.899 Other long term (current) drug therapy; Z89.432 Acquired absence of left foot; Z89.431 Acquired absence of right foot | CPT/HCPCS: G0463; A6250; A6196 ==

== ENCOUNTER → 2024-08-01 | Outpatient (CLI) | payer OTHER ==
[~2024-08-01] MED LIST changes: +ASPI-1197 PO; +ATOR10TA69 PO; +EMPA25TA PO; -LIDOCAINE HCL 4% LTA SOL 4 ML VIAL TP ONE; +LISI10TA24 PO; +NIFE20CA9 PO
== END | disposition home or self-care (01) ==
LOC: WHH 08:30
PROVIDERS: ATTEND Family Medicine
DX: E11.621 Type 2 diabetes mellitus with foot ulcer (principal); I70.245 Atherosclerosis of native arteries of left leg with ulceration of other part of foot; L97.526 Non-pressure chronic ulcer of other part of left foot with bone involvement without evidence of necrosis; I70.201 Unspecified atherosclerosis of native arteries of extremities, right leg; E11.51 Type 2 diabetes mellitus with diabetic peripheral angiopathy without gangrene; E11.42 Type 2 diabetes mellitus with diabetic polyneuropathy; I12.9 Hypertensive chronic kidney disease with stage 1 through stage 4 chronic kidney disease, or unspecified chronic kidney disease; N18.9 Chronic kidney disease, unspecified; N40.0 Benign prostatic hyperplasia without lower urinary tract symptoms; E78.5 Hyperlipidemia, unspecified; E66.9 Obesity, unspecified; Z68.33 Body mass index [BMI] 33.0-33.9, adult; Z87.891 Personal history of nicotine dependence; Z89.432 Acquired absence of left foot; Z89.431 Acquired absence of right foot; Z79.82 Long term (current) use of aspirin; Z79.899 Other long term (current) drug therapy
CPT/HCPCS: 82948 ×2; G0277; A6197

== ENCOUNTER → 2024-08-02 | Outpatient (CLI) | payer OTHER | END | disposition home or self-care (01) | LOC: WHH 07:57 | PROVIDERS: ATTEND Family Medicine | DX: E11.621 Type 2 diabetes mellitus with foot ulcer (principal); I70.245 Atherosclerosis of native arteries of left leg with ulceration of other part of foot; L97.526 Non-pressure chronic ulcer of other part of left foot with bone involvement without evidence of necrosis; I70.201 Unspecified atherosclerosis of native arteries of extremities, right leg; E11.51 Type 2 diabetes mellitus with diabetic peripheral angiopathy without gangrene; E11.42 Type 2 diabetes mellitus with diabetic polyneuropathy; E11.22 Type 2 diabetes mellitus with diabetic chronic kidney disease; I12.9 Hypertensive chronic kidney disease with stage 1 through stage 4 chronic kidney disease, or unspecified chronic kidney disease; N18.9 Chronic kidney disease, unspecified; E78.5 Hyperlipidemia, unspecified; E66.9 Obesity, unspecified; Z68.33 Body mass index [BMI] 33.0-33.9, adult; Z87.891 Personal history of nicotine dependence; Z89.432 Acquired absence of left foot; Z89.431 Acquired absence of right foot; Z79.899 Other long term (current) drug therapy | CPT/HCPCS: 82948 ×2; G0277; A6197 ==

== ENCOUNTER → 2024-08-03 | Outpatient (CLI) | payer OTHER | END | disposition home or self-care (01) | LOC: WHH 08:10 | PROVIDERS: ATTEND Family Medicine | DX: E11.621 Type 2 diabetes mellitus with foot ulcer (principal); I70.245 Atherosclerosis of native arteries of left leg with ulceration of other part of foot; L97.526 Non-pressure chronic ulcer of other part of left foot with bone involvement without evidence of necrosis; I70.201 Unspecified atherosclerosis of native arteries of extremities, right leg; E11.51 Type 2 diabetes mellitus with diabetic peripheral angiopathy without gangrene; E11.42 Type 2 diabetes mellitus with diabetic polyneuropathy; E11.22 Type 2 diabetes mellitus with diabetic chronic kidney disease; I12.9 Hypertensive chronic kidney disease with stage 1 through stage 4 chronic kidney disease, or unspecified chronic kidney disease; N18.9 Chronic kidney disease, unspecified; N40.0 Benign prostatic hyperplasia without lower urinary tract symptoms; E78.5 Hyperlipidemia, unspecified; E66.9 Obesity, unspecified; Z68.33 Body mass index [BMI] 33.0-33.9, adult; Z87.891 Personal history of nicotine dependence; Z79.82 Long term (current) use of aspirin; Z89.432 Acquired absence of left foot; Z89.431 Acquired absence of right foot; Z79.899 Other long term (current) drug therapy | CPT/HCPCS: 82948; G0277; A6021; A6196 ==

== ENCOUNTER 2024-08-04 23:41 | Inpatient (IN) | payer OTHER, MEDICARE ==
[~2024-08-04] VITALS: Ht 160 cm; Wt 102.5 kg
[2024-08-05] VITALS (7 sets, daily range): BP systolic 112–130; BP diastolic 51–70; PULSE 76–116; RESP 18–24; TEMP 98.1–101.3; O2SAT 99
[2024-08-05] MEDS: [UNRECOGNIZED DRUG - OTHER] IV ONE (00:07)
[2024-08-05] MEDS: acetaMINOPHEN 500 MG TABLET PO ONE (00:08)
[2024-08-05] MEDS: ondanSETRON 4MG INJ IVP ONE (00:08)
[2024-08-05 00:24] LABS: BASOPHILS # (AUTO) 0.04 K/uL (0.00-0.20); BASOPHILS % (AUTO) 0.3 % (0.0-5.0); EOSINOPHILS # (AUTO) 0.12 K/uL (0.00-0.70); EOSINOPHILS % (AUTO) 0.8 % (0.0-8.0); HEMATOCRIT 38.7 % (42-54); IMMATURE GRANULOCYTE ABSOLUTE 0.06 K/uL (0-1); LYMPHOCYTES # (AUTO) 0.9 K/uL (1.0-4.8); LYMPHOCYTES % (AUTO) 5.9 % (21.0-51.0); MEAN CORPUSCULAR HEMOGLOBIN 26.5 pg (27.0-33.0); MEAN CORPUSCULAR HGB CONC 33.6 g/dL (32.0-36.0); MONOCYTES # (AUTO) 1.4 K/uL (0.1-1.0); MONOCYTES % (AUTO) 9.3 % (3.0-13.0); NEUTROPHILS # (AUTO) 12.2 K/uL (1.8-7.7); NEUTROPHILS % (AUTO) 83.3 % (40.0-77.0); PLATELET COUNT (AUTO) 237 K/uL (130-400); RED CELL DISTRIBUTION WIDTH 14.2 % (11.0-15.5); WHITE BLOOD COUNT (AUTO) 14.6 K/uL (4.8-10.8)
[2024-08-05] MEDS: ZOSYN 3.375GM +NS 50ML IV ONE (00:42)
[2024-08-05 00:45] LABS: CREATININE 2.4 mg/dL (0.5-1.3); POTASSIUM 3.8 mmol/L (3.5-5.1)
--- NOTE | 2024-08-05 00:45 | ERN ---
General Chief Complaint: Sepsis Stated Complaint: HIGH BLOOD SUGAR, CHILLS, NAUSEA, FEVER Time Seen by MD: 23:49 History of Present Illness Initial Comments 64-year-old male who presents for chills and fever. Patient reports that tonight he developed chills, episodes of nausea with vomiting and generalized aches. She denies any cough, sore throat, earaches, diarrhea, abdominal pain, or dysuria. He does have an ulcer to the bottom of his left foot which is well healing. No sick contacts. Medical history: Bilateral metatarsal amputation, diabetes, hypertension Allergies: Coded Allergies: No Allergy Information Available (Verified Allergy, Unknown, 06/01/22) No Known Drug Allergies (Unverified Allergy, Unknown, 08/05/24) Past Medical History Past Medical History: Diabetes-Type I, Diabetes-Type II, Hypertension, Other Medical History Other: ESBL, GNB Past Surgical History: Other Surgical History Other: FEET ROS Dictation CONSTITUTIONAL: Fever and chills HEAD/FACE: No signs of trauma. EENT: No eye pain, no blurred vision, no tearing, no double vision, no ear pain, no ear discharge, no nose pain, no nasal congestion, no throat pain, no throat swelling, no mouth pain. RESPIRATORY: No cough, no orthopnea, no SOB, no stridor, no wheezing. CARDIOVASCULAR: No chest pain, no edema, no palpitations, no syncope. GASTROINTESTINAL/ABDOMINAL: Vomits GENITOURINARY: No abnormal discharge, no dysuria, no frequent urination, no hematuria. No complaints of pain in the genitals. MUSCULOSKELETAL: No back pain, no gout, no joint pain, no joint swelling, no muscle pain, no muscle stiffness, no neck pain. INTEGUMENTARY: No change in color, no change in hair/nails, no dryness, no lesion, no lumps, no rash. NEUROLOGICAL/PSYCH: No anxiety, not depressed, no emotional problem, no headache, no numbness, no pre-existing deficit, no history of seizures, no tremors, no weakness. HEMATOLOGIC/LYMPHATIC: Not anemic, no history of blood clots, no apparent bleeding, no bruising, glands not swollen. All Systems Negative, Except as Noted. Physical Exam Physical Exam Dictation VITAL SIGNS: Reviewed. GENERAL APPEARANCE: Moderate distress HEAD AND FACE: Non-traumatic. EYES: PERRL, pink conjunctivas, eyelid no trauma, anterior chamber clear. EARS: Pinnas intact and no signs of trauma or erythema. Ear canals clear and no discharge. TMs no erythema. NOSE: No discharge, no bleeding. OROPHARYNX: Mouth normal, teeth no caries, tongue pink. Pharynx clear, no erythema. Tonsils no exudates, no abscesses noted. Mucous membrane moist. NECK: Supple, non-tender, no thyromegaly, no masses, no JVD, no bruits. BREAST: Deferred. CHEST: No tenderness, no crepitus, no paradoxical movement, no retractions. LUNGS: Clear, well-ventilated, symmetric, no rales, no wheezing, no rhonchi, no stridor, good breath sounds bilaterally. HEART: Regular rate, regular rhythm, no murmur, no gallops. VASCULAR: No peripheral edema. ABDOMEN: Soft, positive bowel sounds, nondistended, no guarding, nontender, no rebound, no masses no hepatomegaly, no splenomegaly, no Marshall's sign, no hernias. RECTAL: Deferred. GENITAL: Deferred. NEUROLOGICAL: Normal speech, gross motor function intact, gross sensory function intact. MUSCULOSKELETAL: Neck nontender, full range of motion, back nontender, full range of motion. EXTREMITIES: Nontender, full range of motion. SKIN: Color pink, dry, no turgor, no rash, no lacerations, no abrasions, no contusions. LYMPHATICS: Deferred. Results Laboratory and Microbiology Lab and Micro Result Laboratory Tests Test 08/05/24 00:03 08/05/24 00:50 White Blood Count 14.6 K/uL (4.8-10.8) H Red Blood Count 4.90 MIL/uL (4.50-6.20) Hemoglobin 13.0 g/dL (14.0-18.0) L Hematocrit 38.7 % (42-54) L Mean Corpuscular Volume 79.0 fL (79-99) Mean Corpuscular Hemoglobin 26.5 pg (27.0-33.0) L Mean Corpuscular Hemoglobin Concent 33.6 g/dL (32.0-36.0) Red Cell Distribution Width 14.2 % (11.0-15.5) Platelet Count 237 K/uL (130-400) Mean Platelet Volume 10.1 fL (7.5-10.5) Immature Granulocyte % (Auto) 0.4 % (0-1) Neutrophils (%) (Auto) 83.3 % (40.0-77.0) H Lymphocytes (%) (Auto) 5.9 % (21.0-51.0) L Monocytes (%) (Auto) 9.3 % (3.0-13.0) Eosinophils (%) (Auto) 0.8 % (0.0-8.0) Basophils (%) (Auto) 0.3 % (0.0-5.0) Neutrophils # (Auto) 12.2 K/uL (1.8-7.7) H Lymphocytes # (Auto) 0.9 K/uL (1.0-4.8) L Monocytes # (Auto) 1.4 K/uL (0.1-1.0) H Eosinophils # (Auto) 0.12 K/uL (0.00-0.70) Basophils # (Auto) 0.04 K/uL (0.00-0.20) Absolute Immature Granulocyte (auto 0.06 K/uL (0-1) Nucleated Red Blood Cells 0.0 % (0.0-0.19) White Cell Morphology Comment See comments Sodium Level 129 mmol/L (136-145) L Potassium Level 3.8 mmol/L (3.5-5.1) Chloride Level 94 mmol/L (101-111) L Carbon Dioxide Level 26 mmol/L (21-32) Blood Urea Nitrogen 44 mg/dL (7-18) H Creatinine 2.4 mg/dL (0.5-1.3) H Glomerular Filtration Rate Calc 29 mL/min (>90) Random Glucose 288 mg/dL (70-105) H Lactic Acid Level 2.3 mmol/L (0.8-2.5) Total Calcium 9.0 mg/dL (8.5-10.1) Total Bilirubin 1.1 mg/dL (0.2-1.0) H Direct Bilirubin 0.2 mg/dL (0.0-0.3) Aspartate Amino Transf (AST/SGOT) 15 U/L (10-37) Alanine Aminotransferase (ALT/SGPT) 23 U/L (12-78) Alkaline Phosphatase 114 U/L (50-136) Total Creatine Kinase 154 U/L (21-232) Troponin I High Sensitivity 38 ng/L (4-75) Total Protein 8.7 g/dL (6.0-8.3) H Albumin 3.0 g/dL (3.5-5.0) L Procalcitonin 0.64 ng/mL (0.05-0.5) H Urine Color LIGHT-YELLOW (YELLOW) Urine Appearance CLEAR (CLEAR) Urine pH 5.5 (5.0-8.0) Urine Specific [place] 1.021 (1.001-1.031) Urine Protein 70 mg/dL (NEGATIVE) H Urine Glucose (UA) >=1000 mg/dL (NEGATIVE) H Urine Ketones NEGATIVE mg/dL (NEGATIVE) Urine Occult Blood SMALL (NEGATIVE) H Urine Nitrate NEGATIVE (NEGATIVE) Urine Bilirubin NEGATIVE mg/dL (NEGATIVE) Urine Urobilinogen 0.2 mg/dL (0.2-1.0) Urine Leukocyte Esterase NEGATIVE Alex/uL Urine RBC 0-1 /HPF (0-1) Urine WBC 2-5 /HPF (0-1) H Urine Squamous Epithelial Cells RARE /HPF (0-2) Urine Bacteria None /HPF (None Seen) Influenza Type A Antigen Negative For Type A Influenza Type B Antigen Negative For Type B SARS-CoV-2 Antigen (Rapid) PRESUMPTIVE NEGATIVE MDM CC: Fever, body aches Historian: Patient Comorbidities: Diabetes, hypertension Initial concern for sepsis including pyelonephritis, URI, GI infection. Initial vital signs: Heart rate 102.6, pulse 112. Blood pressure stable. Labs show leukocytosis 14.6 1000 with a left shift and no bands. Chemistry panel shows a sodium 129 and a chloride at 94, consistent with dehydration. Creatinine is 2.4 and BUN is 44. Elevated blood glucose 288. Lactic acid 2.3. I have performed an external chart review, I did find a previous set of labs from about a year ago that showed a creatinine at 2.2, he likely has CKD. Liver enzymes are all stable. Troponin is stable. Procalcitonin elevated at 0.64. Urinalysis shows glucose but otherwise no overt signs of infection. Chest x-ray: No cardiomegaly or focal infiltrates as interpreted by me. Patient has fever of unknown source. He received 30 cc/kg of normal saline as well as Zosyn and vancomycin. He has received Toradol and Tylenol here in the ER with some Zofran. On sepsis focused re-evaluation after the fluids and antibiotics the patient has stable perfusion, stable vital signs. I consulted Dr. Esposito for admission. He agrees. Patient agrees. ED Course Orders Procedure Category Date Status Time Cbc With Differential LAB 08/04/24 Complete 23:58 Blood Cult BÁRBARA 08/04/24 In Process 23:58 Culture Urine BÁRBARA 08/04/24 In Process 23:58 0.9%Nacl 1000ml (Ns PHA 08/05/24 In Process 1000ml) 00:00 Creatine Kinase, Total LAB 08/04/24 Complete 23:58 Troponin I High LAB 08/04/24 Complete Sensitivity 23:58 Lactic Acid LAB 08/04/24 Complete 23:58 Basic Metabolic Panel LAB 08/04/24 Complete 23:58 Hepatic Function Panel LAB 08/04/24 Complete 23:58 Influenza Type A & B, LAB 08/04/24 Complete Rapid 23:58 Covid19 (Sars Antigen LAB 08/04/24 Complete Rapid) 23:58 Acetaminophen 500mg PHA 08/05/24 Complete Tab (Tylenol 500mg T 00:00 Ondansetron 4mg Inj PHA 08/05/24 Complete (Zofran 4mg Inj) 00:00 Procalcitonin LAB 08/04/24 Complete 23:58 Chest 1vw RAD 08/05/24 Taken 00:07 Vancomycin 1g/250ml PHA 08/05/24 Complete Kit (Vancomycin 1g/2 00:30 Zosyn 3.375gm+Ns 50ml PHA 08/05/24 Complete (Zosyn 3.375gm+Ns 00:30 Ketorolac PHA 08/05/24 Complete Tromethamine 15mg/Ml 01:00 Urinalysis LAB 08/05/24 Complete W/Microscopic 00:50 Vital Signs(Adult CPOE 08/05/24 Transmitted Hospitalist) 01:59 Nurse To Enter Home CPOE 08/05/24 Transmitted Medication 01:59 Admit Orders ADM 08/05/24 Transmitted 01:59 Current Medications Medications (Trade) Dose Ordered Sig/Violeta Route PRN Reason Start Time Stop Time Status Last Admin Dose Admin Acetaminophen (TYLenol 500MG TAB) 1,000 mg ONCE ONCE PO 08/05/24 00:00 08/05/24 00:01 DC 08/05/24 00:08 Ketorolac Tromethamine (toRADol) 15 mg ONCE ONCE IM 08/05/24 01:00 11/2/24 01:01 DC 08/05/24 01:02 Ondansetron HCl (zoFRAN 4MG INJ) 4 mg ONCE ONCE IVP 08/05/24 00:00 08/05/24 00:01 DC 08/05/24 00:08 Piperacillin Sod/ Tazobactam Sod (Zosyn 3.375gm+NS 50ml) 3.375 gm ONCE ONCE IV 08/05/24 00:30 08/05/24 00:31 DC 08/05/24 00:42 Sodium Chloride 2,817 ml @ 939 mls/hr ONCE ONCE IV 08/05/24 00:00 08/05/24 02:59 08/05/24 00:07 Vancomycin HCl (Vancomycin 1g/ 250ml Kit) 1 gm ONCE ONCE IV 08/05/24 00:30 08/05/24 00:31 DC 08/05/24 01:02 Vital Signs Date Time Temp Pulse Resp B/P (MAP) Pulse Ox O2 Delivery O2 Flow Rate FiO2 08/05/24 00:15 100.9 113 16 134/68 97 Room Air* 0 21 08/05/24 00:08 100.9 08/04/24 23:44 102.6 112 20 124/68 98 Room Air DX & DISP Disposition: Inpatient Departure Impression: Primary Impression: Sepsis Additional Impressions: CKD (chronic kidney disease), Dehydration, Diabetes mellitus with hyperglycemia, Hyponatremia Critical Time: 30 minutes (Critical Care Procedure NoteAuthorized and Performed by: meTotal critical care time: Approximately 36 minutesDue to a high probability of clinically significant, life threatening deterioration, the patient required my highest level of preparedness to intervene emergently and I personally spent this critical care time directly and personally managing the patient. This critical care time included obtaining a history; examining the patient; pulse oximetry; ordering and review of studies; arranging urgent treatment with development of a management plan; evaluation of patient's response to treatment; frequent reassessment; and, discussions with other providers.This critical care time was performed to assess and manage the high probability of imminent, life-threatening deterioration that could result in multi-organ failure. It was exclusive of separately billable procedures and treating other patients and teaching time.Please see MDM section and the rest of the note for further information on patient assessment and treatment.) Condition: Stable Referrals: IGOR AMES MD (PCP) DEANNA GONSALVES DO Aug 05, 2024 00:45
[2024-08-05 00:49] LABS: BILIRUBIN,DIRECT 0.2 mg/dL (0.0-0.3); BILIRUBIN,TOTAL 1.1 mg/dL (0.2-1.0); TOTAL PROTEIN, SERUM 8.7 g/dL (6.0-8.3)
[2024-08-05] MEDS: ketOROlac 15MG/ML VIAL (15MG/ML) IM ONE (01:02)
[2024-08-05] MEDS: VANCOMYCIN KIT 1 GM/250 ML IV.KIT IV ONE (01:02)
[2024-08-05 01:32] LABS: APPEARANCE,URINE CLEAR (CLEAR); BILIRUBIN,URINE NEGATIVE (NEGATIVE); COLOR,URINE LIGHT-YELLOW (YELLOW); GLUCOSE, URINE (UA) >=1000 mg/dL (NEGATIVE); KETONES,URINE NEGATIVE (NEGATIVE); LEUKOCYTE ESTERASE ,URINE NEGATIVE Leu/uL (NEGATIVE); MUCUS,URINE RARE LPF (None Seen); NITRATE,URINE NEGATIVE (NEGATIVE); OCCULT BLOOD,URINE SMALL (NEGATIVE); PH,URINE 5.5 (5.0-8.0); PROTEIN,URINE 70 mg/dL (NEGATIVE); RBC,URINE 0-1 /HPF (0-1); SQUAMOUS EPITHELIAL CELL,UR RARE /HPF (0-2); UROBILINOGEN,URINE 0.2 mg/dL (0.2-1.0)
[2024-08-05 01:34] LABS: COVID19 (SARS ANTIGEN RAPID) PRESUMPTIVE NEGATIVE (NEGATIVE); INFLUENZA TYPE A Negative For Type A (NEGATIVE); INFLUENZA TYPE B Negative For Type B (NEGATIVE)
[2024-08-05] MEDS ORDERED: VANCOMYCIN PROTOCOL PER PHARMACY IV SCH (02:30)
[2024-08-05] MEDS ORDERED: DEXTROSE 50%-WATER 50 ML DISP.SYRIN IV PRN (02:30)
[2024-08-05] MEDS ORDERED: GLUCAGON 1MG KIT 1 MG ML IM PRN (02:30)
[2024-08-05] MEDS: ceFEPime HCL 1 GM VIAL IVPB SCH (02:32)
--- NOTE | 2024-08-05 03:54 | NUR ---
PATIENT SLEEPING, NO DISTRESS.
--- NOTE | 2024-08-05 05:28 | NUR ---
NURSE BUSY FOR REPORT AT THIS TIME.
[2024-08-05 06:18] LABS: HEMATOCRIT 34.4 % (42-54); MEAN CORPUSCULAR HEMOGLOBIN 26.2 pg (27.0-33.0); MEAN CORPUSCULAR HGB CONC 32.8 g/dL (32.0-36.0); MEAN CORPUSCULAR VOLUME 79.6 fL (79-99); RED BLOOD CELL COUNT(AUTO) 4.32 MIL/uL (4.50-6.20); WHITE BLOOD COUNT (AUTO) 12.2 K/uL (4.8-10.8)
[2024-08-05 06:19] LABS: CREATININE 2.2 mg/dL (0.5-1.3); MAGNESIUM 1.6 mg/dL (1.80-2.40); POTASSIUM 3.9 mmol/L (3.5-5.1)
[2024-08-05] MEDS: INSULIN LISpro 100 UNIT/ML 3ML SQ SCH (06:24)
--- NOTE | 2024-08-05 08:22 | HMCIMG ---
PORTABLE CHEST RADIOGRAPH INDICATION: fever COMPARISON: 06/22/2024 FINDINGS: pvc monitor leads overlie the field of view. Heart size is normal. The pulmonary vascularity and sriram appear normal. No abnormal pulmonary parenchymal opacity or consolidation identified. No significant pleural effusion noted. No pneumothorax detected. IMPRESSION: No radiographic evidence for any acute cardiopulmonary process.
[2024-08-05] MEDS: ENOXAPARIN SODIUM 30 MG/0.3 ML SQ SCH (08:54)
--- NOTE | 2024-08-05 12:07 | NUR ---
PATIENT LEFT FLOOR FOR MRI PROCEDURE Addendum: 08/05/24 at 1207 by DEVIN CARMEN LVN RN MRI SCAN
[2024-08-05] MEDS ORDERED: ATOR10TA69 PO (12:50)
[2024-08-05] MEDS ORDERED: EMPA25TA PO (12:50)
[2024-08-05] MEDS ORDERED: ASPI-1197 PO (12:50)
[2024-08-05] MEDS ORDERED: NIFE20CA9 PO (12:50)
[2024-08-05] MEDS ORDERED: LISI10TA24 PO (12:52)
--- NOTE | 2024-08-05 12:54 | HMCIMG ---
MRI LEFT ANKLE WITHOUT CONTRAST INDICATION: Plantar soft tissue ulcer. COMPARISON: None TECHNIQUE: Long and short axis fat and water weighted sequences were obtained through the left ankle. FINDINGS: Transmetatarsal amputation changes. Abnormal coalescent low T1 signal obscuring the cortices of the plantar lateral fifth metatarsal stump, and subjacent reactive marrow edema noted. 1 cm perhaps infected fluid collection overlies the same level. No high-grade ligamentous or tendinous abnormality detected. Midfoot alignment is well maintained, and Lisfranc ligament is intact. Subcentimeter plantar calcaneal spur without plantar fasciitis. Subcentimeter traction enthesophyte arises off the posterior calcaneus at the Achilles tendon attachment. Generalized mild midfoot osteoarthropathy. No abnormal soft tissue mass or ganglion. No evidence for muscle atrophy, fatty infiltration, or denervation myoedema. No evidence for fracture. IMPRESSION: Acute osteomyelitis involving the residual fifth metatarsal bone as described, including overlying 1.0 cm, perhaps infected, fluid collection.
[2024-08-05] MEDS: acetaMINOPHEN 325 MG TAB PO PRN (13:14)
--- NOTE | 2024-08-05 13:46 | CONS ---
CONSULTATION NOTE Date of Service: Aug 05, 2024 Reason for Consultation: Abnormal Renal Function HISTORY OF PRESENT ILLNESS: 64 y/o male with a PMH of Diabetes type II, HTN, Anemia and partial amputation to L foot. Presented to the ER due to episodes of nausea with vomiting and ge neralized aches. Also has wound to Right foot and hyponatremic. When speaking to patient stating does no see a Nephrologists o/p. Last known renal function [id number] GFR 32 and Cr 2.2. Denies fever chills and pain. REVIEW OF SYSTEMS CONSTITUTIONAL: Denies fever, chills, or fatigue. HEAD/FACE: No signs of trauma. EENT: Denies eye pain, blurred vision, double vision, or light sensitivity. RESPIRATORY: Denies shortness of breath, cough, wheezing CARDIOVASCULAR: Denies chest pain, palpitation, syncope GASTROINTESTINAL/ABDOMINAL: Denies abdominal pain, constipation, diarrhea, nausea or vomiting GENITOURINARY: Denies dysuria or hematuria. MUSCULOSKELETAL: Denies joint pain, tenderness, or trauma. INTEGUMENTARY: Denies rash or itchiness NEUROLOGICAL/PSYCH: Denies anxiety, depression, heat or cold intolerance. PAST MEDICAL HISTORY: Refer to HPI Coded Allergies: No Allergy Information Available (Verified Allergy, Unknown, 06/01/22) No Known Drug Allergies (Unverified Allergy, Unknown, 08/05/24) PHYSICAL EXAM EYES: Anicteric. Pupils equal and reactive. HENT: No oral thrush seen, moist Oral mucosa NECK: Supple, no JVD or thyromegaly. LUNGS: Good air entry. No rales, no rhonchi. CARDIOVASCULAR: S1, S2 regular. No murmur heard. ABDOMEN: Soft, non tender, bowel sounds present, no organomegaly CENTRAL NERVOUS SYSTEM: Awake, alert, oriented x 3. No focal deficits. SKIN: No rashes, no swelling. LYMPHATICS: No peripheral lymphadenopathy MUSCULOSKELETAL: No joint swelling, erythema or tenderness. EXTREMITIES: No cyanosis or clubbing BACK: No deformity, no pressure ulcer. GENITOURINARY: No dysuria or hematuria Vital Sign (Last 24 Hours) 08/05/24 08/05/24 06:37 12:00 Temp 98.8 Pulse 90 Resp 18 B/P (MAP) 125/70 Pulse Ox 98 O2 Delivery Room Air O2 Flow Rate 0 FiO2 21 Intake & Output (last 24hrs) 08/04/24 08/04/24 08/05/24 15:00 23:00 07:00 Output Total 775 ml Balance -775 ml LABS: Laboratory: Test 08/05/24 10:45 08/05/24 05:55 08/05/24 00:50 08/05/24 00:03 Range/Units Whole Blood Glucose 224 H 70-110 MG/DL White Blood Count 12.2 H 4.8-10.8 K/uL Red Blood Count 4.32 L 4.50-6.20 MIL/uL Hemoglobin 11.3 L 14.0-18.0 g/dL Hematocrit 34.4 L 42-54 % Mean Corpuscular Volume 79.6 79-99 fL Mean Corpuscular Hemoglobin 26.2 L 27.0-33.0 pg Mean Corpuscular Hemoglobin Concent 32.8 32.0-36.0 g/dL Red Cell Distribution Width 14.0 11.0-15.5 % Platelet Count 206 130-400 K/uL Mean Platelet Volume 10.2 7.5-10.5 fL Nucleated Red Blood Cells 0.0 0.0-0.19 % Sodium Level 134 L 136-145 mmol/L Potassium Level 3.9 3.5-5.1 mmol/L Chloride Level 101 101-111 mmol/L Carbon Dioxide Level 26 21-32 mmol/L Blood Urea Nitrogen 40 H 7-18 mg/dL Creatinine 2.2 H 0.5-1.3 mg/dL Glomerular Filtration Rate Calc 32 >90 mL/min Random Glucose 193 H 70-105 mg/dL Lactic Acid Level 1.1 0.8-2.5 mmol/L Total Calcium 8.3 L 8.5-10.1 mg/dL Magnesium Level 1.60 L 1.80-2.40 mg/dL Urine Color LIGHT-YELLOW YELLOW Urine Appearance CLEAR CLEAR Urine pH 5.5 5.0-8.0 Urine Specific [place] 1.021 1.001-1.031 Urine Protein 70 H NEGATIVE mg/dL Urine Glucose (UA) >=1000 H NEGATIVE mg/dL Urine Ketones NEGATIVE NEGATIVE mg/dL Urine Occult Blood SMALL H NEGATIVE Urine Nitrate NEGATIVE NEGATIVE Urine Bilirubin NEGATIVE NEGATIVE mg/dL Urine Urobilinogen 0.2 0.2-1.0 mg/dL Urine Leukocyte Esterase NEGATIVE NEGATIVE Alex/uL Urine RBC 0-1 0-1 /HPF Urine WBC 2-5 H 0-1 /HPF Urine Squamous Epithelial Cells RARE 0-2 /HPF Urine Bacteria None None Seen /HPF Influenza Type A Antigen Negative For Type A NEGATIVE Influenza Type B Antigen Negative For Type B NEGATIVE SARS-CoV-2 Antigen (Rapid) PRESUMPTIVE NEGATIVE NEGATIVE Immature Granulocyte % (Auto) 0.4 0-1 % Neutrophils (%) (Auto) 83.3 H 40.0-77.0 % Lymphocytes (%) (Auto) 5.9 L 21.0-51.0 % Monocytes (%) (Auto) 9.3 3.0-13.0 % Eosinophils (%) (Auto) 0.8 0.0-8.0 % Basophils (%) (Auto) 0.3 0.0-5.0 % Neutrophils # (Auto) 12.2 H 1.8-7.7 K/uL Lymphocytes # (Auto) 0.9 L 1.0-4.8 K/uL Monocytes # (Auto) 1.4 H 0.1-1.0 K/uL Eosinophils # (Auto) 0.12 0.00-0.70 K/uL Basophils # (Auto) 0.04 0.00-0.20 K/uL Absolute Immature Granulocyte (auto 0.06 0-1 K/uL White Cell Morphology Comment See comments Total Bilirubin 1.1 H 0.2-1.0 mg/dL Direct Bilirubin 0.2 0.0-0.3 mg/dL Aspartate Amino Transf (AST/SGOT) 15 10-37 U/L Alanine Aminotransferase (ALT/SGPT) 23 12-78 U/L Alkaline Phosphatase 114 50-136 U/L Total Creatine Kinase 154 21-232 U/L Troponin I High Sensitivity 38 4-75 ng/L Total Protein 8.7 H 6.0-8.3 g/dL Albumin 3.0 L 3.5-5.0 g/dL Procalcitonin 0.64 H 0.05-0.5 ng/mL DIAGNOSTICS / RADIOLOGY: PORTABLE CHEST RADIOGRAPH INDICATION: fever COMPARISON: 06/22/2024 FINDINGS: alarm security or surveillance monitor leads overlie the field of view. Heart size is normal. The pulmonary vascularity and sriram appear normal. No abnormal pulmonary parenchymal opacity or consolidation identified. No significant pleural effusion noted. No pneumothorax detected. IMPRESSION: No radiographic evidence for any acute cardiopulmonary process. ASSESSMENT: DUARTE on CKD3b, last known renal function [id number] GFR 32 and Cr. 2.2, presented with a Cr 2.4 and GFR 29 HTN likely renal manifestation Dm2 with likely nephropathy Mild Anemia Hyponatremia ATN dehydration PLAN: Monitor Renal Function Dose to renal function Fluid intake 1.5L QD Monitor I's and O's Renal diet Continue anti-microbials No need PATTERN CHART WRITER KELLEN FARMER Aug 05, 2024 13:46
[2024-08-05] MEDS: morPHINE 2 MG SYG IVP PRN (16:26)
--- NOTE | 2024-08-05 16:57 | NUR ---
DR LOZANO MADE AWARE OF MRI RESULTS, ORDERS TO CONTINUE ANTIBIOTICS.
--- NOTE | 2024-08-05 18:05 | NUR ---
INITIAL/DCP HOME Met w pt and spouse this afternoon to discuss dcp. Pt admitted w a dx of sepsis. EC is spouse Ene Kolb [phone]. PCP Dr Saxena. Pt lives w his . He uses a cane or rollator for ambulation. He is independent w ADLs. Pt mentions that he was receiving HH for woundcare but can not recall name of agency. He sees Dr Long @ the wound care center. Other DME includes: wc, chair. Discharge goal is to return home. Addendum: 08/05/24 at 1809 by JALEN LAIRD CM Amended: Links added.
[2024-08-05] MEDS: atorVAStatin 10 MG TABLET PO SCH (19:43)
[2024-08-05] MEDS: VANCOMYCIN 750MG VIAL IVPB SCH (23:54)
[2024-08-06] VITALS (8 sets, daily range): BP systolic 110–160; BP diastolic 52–74; PULSE 85–105; RESP 19–20; TEMP 98.2–100.6; O2SAT 94–96
[2024-08-06] MEDS: ondanSETRON 4MG INJ IVP PRN (01:28)
--- NOTE | 2024-08-06 04:21 | HP ---
DATE OF SERVICE: 08/05/2024 HISTORY AND PHYSICAL PRESENTING COMPLAINT: Elevated blood glucose, chills, and fever. HISTORY OF PRESENT ILLNESS: This is A 64-year-old male with history of morbid obesity, hypertension, and diabetes mellitus, who presented to the Emergency Room with the above complaint. The patient claims he has been having fever and chills at home. T-max in the ER was 102.6. Still complain of some nausea and vomiting. The patient noticed left foot ulcer with purulent drainage, had been admitted. Influenza and COVID antigen came back negative. Denied dysuria or urinary frequency. PAST MEDICAL HISTORY: * Diabetes mellitus. * Morbid obesity. * Hypertension. * Bilateral foot osteomyelitis. PAST SURGICAL HISTORY: * Bilateral transmetatarsal amputation. * Angiogram of lower extremities. ALLERGIES: No known drug allergy. MEDICATIONS: To be reviewed. SOCIAL HISTORY: No alcohol, tobacco or illicit drug use. FAMILY HISTORY: Positive for diabetes mellitus. REVIEW OF SYSTEMS: CONSTITUTIONAL: Positive for fever and chills. No weight loss or night sweats. EYES: No eye pain, no photophobia or diplopia. HENT: No sore throat, no rhinorrhea or earache. NECK: No neck pain or neck swelling. RESPIRATORY: No cough, no hemoptysis or pleuritic pain. CARDIOVASCULAR: No chest pain, no palpitation or orthopnea. GASTROINTESTINAL: Positive for nausea and vomiting. No diarrhea, no abdominal pain. GENITOURINARY: No dysuria, urgency or urinary frequency. CENTRAL NERVOUS SYSTEM: No headache, dizziness or slurred speech. PSYCHIATRY: No depression. No suicidal ideation. MUSCULOSKELETAL: Positive for left foot ulcer and drainage. PHYSICAL EXAMINATION: GENERAL: Elderly male, awake, ill looking. VITAL SIGNS: Temperature 102.6, pulse 112, respiratory rate 20, and BP 124/68. EYES: No icterus. No conjunctival hemorrhage. HENT: No oral thrush seen. Moist oral mucosa. NECK: Supple, no JVD or thyromegaly. LUNGS: Good air entry. No rales, no rhonchi. CARDIOVASCULAR: S1, S2 regular. No murmur heard. ABDOMEN: Obese, soft, and nontender. Bowel sounds present. CENTRAL NERVOUS SYSTEM: Awake, alert and oriented x 3. No focal deficits. SKIN: No rashes, no itchiness. LYMPHATIC: There is left inguinal lymphadenopathy. BACK: No deformity, no pressure ulcer. EXTREMITIES: Ulcer involving mid lateral aspect of the left foot, which has some purulent drainage. LABORATORY DATA: Sodium 134, potassium 3.9, BUN 40, and creatinine 2.2. WBC 14.6, hemoglobin 13.0, and platelet 237. Urinalysis: Wbc 5, leukocyte esterase negative. Influenza antigen negative. COVID antigen negative. ASSESSMENT: A 64-year-old male presenting with fever and chills. CURRENT PROBLEMS: Include: * Sepsis. * Possible left foot osteomyelitis. * Left foot diabetic ulcer and abscess. * [id number] renal failure. * Obesity. * Hypertension. * Diabetes mellitus. PLAN: * Admit the patient to medical floor. * Obtain MRI of the left foot. * Start the patient on cefepime. * Start the patient on vancomycin. * Wound culture will be sent. * Tylenol as needed for pain or fever. * Zofran as needed for nausea and vomiting. * Home medication will be reconciled. * Monitor electrolytes and correct as needed. TID: [id number] RECEIPT: [id number]
[2024-08-06 05:28] LABS: HEMATOCRIT 32.7 % (42-54); MEAN CORPUSCULAR HEMOGLOBIN 26.1 pg (27.0-33.0); MEAN CORPUSCULAR HGB CONC 32.4 g/dL (32.0-36.0); MEAN CORPUSCULAR VOLUME 80.5 fL (79-99); RED BLOOD CELL COUNT(AUTO) 4.06 MIL/uL (4.50-6.20); RED CELL DISTRIBUTION WIDTH 14.2 % (11.0-15.5); WHITE BLOOD COUNT (AUTO) 14.5 K/uL (4.8-10.8)
[2024-08-06 05:41] LABS: CREATININE 2.1 mg/dL (0.5-1.3); MAGNESIUM 1.5 mg/dL (1.80-2.40); POTASSIUM 3.8 mmol/L (3.5-5.1)
[2024-08-06] MEDS: ASPIRIN 81MG CHEW TAB PO SCH (08:28)
[2024-08-06] MEDS: nifeDIPine ER 30 MG TAB PO SCH (08:28)
[2024-08-06] MEDS: EMPAGLIFLOZIN 25MG TABLET PO SCH (08:28)
[2024-08-06] MEDS: LISINOPRIL 10 MG TABLET PO SCH (08:28)
--- NOTE | 2024-08-06 08:55 | PN ---
INFECTIOUS DISEASE PROGRESS NOTE Date of Service: Aug 06, 2024 SUBJECTIVE: Patient was seen and examined at bedside in room 401. Patient is awake, alert and competent to make decisions. Left foot MRI came back positive for acute osteomyelitis involving the residual 5th metatarsal bone. Patient was updated with these findings. Patient declined consult with Dr. Burger. Offerred to refer him with another orthopedic surgeon but patient declined any other orthopedic surgeon referral until he gets evaluated by Dr. Darshan Long with the wound care who has been managing his left foot wound as outpatient. Nursing to contact the wound care team. Family member are present at bedside and aware o f patient's decision. Patient had a low-grade fever at midnight last night of 100.4, no fever this morning temperature is 98.2. The WBC remains slightly elevated at 14.5. No reports of nausea or vomiting. Patient continues on cefepime and vancomycin IV. We will continue to monitor patient. PHYSICAL EXAM EYES: Anicteric. Pupils equal and reactive. HENT: No oral thrush seen, moist Oral mucosa NECK: Supple, no JVD or thyromegaly. LUNGS: Good air entry. No rales, no rhonchi. CARDIOVASCULAR: S1, S2 regular. No murmur heard. ABDOMEN: Soft, non tender, bowel sounds present, no organomegaly. CENTRAL NERVOUS SYSTEM: Awake, alert, oriented x 3. SKIN: No rashes, no swelling. LYMPHATICS: No peripheral lymphadenopathy. MUSCULOSKELETAL: No joint swelling, erythema or tenderness. EXTREMITIES: No cyanosis or clubbing. BACK: No deformity, no pressure ulcer. GENITOURINARY: No dysuria or hematuria. Vital Sign (Last 12 Hours) 08/06/24 08/06/24 08/06/24 00:00 04:00 08:08 Temp 100.4 99.9 98.2 Pulse 103 89 85 Resp 20 20 19 B/P (MAP) 110/52 131/65 139/72 Pulse Ox 95 97 96 O2 Delivery Room Air Room Air Room Air Intake & Output (last 24hrs) 08/05/24 08/05/24 08/06/24 15:00 23:00 07:00 Intake Total 1000 ml Output Total 900 ml 1200 ml Balance -900 ml 1000 ml -1200 ml LABS: Laboratory: Test 08/06/24 05:38 08/06/24 05:06 08/05/24 05:55 08/05/24 00:50 Range/Units Whole Blood Glucose 179 H 70-110 MG/DL White Blood Count 14.5 H 4.8-10.8 K/uL Red Blood Count 4.06 L 4.50-6.20 MIL/uL Hemoglobin 10.6 L 14.0-18.0 g/dL Hematocrit 32.7 L 42-54 % Mean Corpuscular Volume 80.5 79-99 fL Mean Corpuscular Hemoglobin 26.1 L 27.0-33.0 pg Mean Corpuscular Hemoglobin Concent 32.4 32.0-36.0 g/dL Red Cell Distribution Width 14.2 11.0-15.5 % Platelet Count 225 130-400 K/uL Mean Platelet Volume 10.0 7.5-10.5 fL Nucleated Red Blood Cells 0.0 0.0-0.19 % Sodium Level 133 L 136-145 mmol/L Potassium Level 3.8 3.5-5.1 mmol/L Chloride Level 99 L 101-111 mmol/L Carbon Dioxide Level 22 21-32 mmol/L Blood Urea Nitrogen 35 H 7-18 mg/dL Creatinine 2.1 H 0.5-1.3 mg/dL Glomerular Filtration Rate Calc 34 >90 mL/min Random Glucose 172 H 70-105 mg/dL Total Calcium 8.5 8.5-10.1 mg/dL Magnesium Level 1.50 L 1.80-2.40 mg/dL Lactic Acid Level 1.1 0.8-2.5 mmol/L Urine Color LIGHT-YELLOW YELLOW Urine Appearance CLEAR CLEAR Urine pH 5.5 5.0-8.0 Urine Specific [place] 1.021 1.001-1.031 Urine Protein 70 H NEGATIVE mg/dL Urine Glucose (UA) >=1000 H NEGATIVE mg/dL Urine Ketones NEGATIVE NEGATIVE mg/dL Urine Occult Blood SMALL H NEGATIVE Urine Nitrate NEGATIVE NEGATIVE Urine Bilirubin NEGATIVE NEGATIVE mg/dL Urine Urobilinogen 0.2 0.2-1.0 mg/dL Urine Leukocyte Esterase NEGATIVE NEGATIVE Alex/uL Urine RBC 0-1 0-1 /HPF Urine WBC 2-5 H 0-1 /HPF Urine Squamous Epithelial Cells RARE 0-2 /HPF Urine Bacteria None None Seen /HPF Influenza Type A Antigen Negative For Type A NEGATIVE Influenza Type B Antigen Negative For Type B NEGATIVE SARS-CoV-2 Antigen (Rapid) PRESUMPTIVE NEGATIVE NEGATIVE Test 08/05/24 00:03 Range/Units Immature Granulocyte % (Auto) 0.4 0-1 % Neutrophils (%) (Auto) 83.3 H 40.0-77.0 % Lymphocytes (%) (Auto) 5.9 L 21.0-51.0 % Monocytes (%) (Auto) 9.3 3.0-13.0 % Eosinophils (%) (Auto) 0.8 0.0-8.0 % Basophils (%) (Auto) 0.3 0.0-5.0 % Neutrophils # (Auto) 12.2 H 1.8-7.7 K/uL Lymphocytes # (Auto) 0.9 L 1.0-4.8 K/uL Monocytes # (Auto) 1.4 H 0.1-1.0 K/uL Eosinophils # (Auto) 0.12 0.00-0.70 K/uL Basophils # (Auto) 0.04 0.00-0.20 K/uL Absolute Immature Granulocyte (auto 0.06 0-1 K/uL White Cell Morphology Comment See comments Total Bilirubin 1.1 H 0.2-1.0 mg/dL Direct Bilirubin 0.2 0.0-0.3 mg/dL Aspartate Amino Transf (AST/SGOT) 15 10-37 U/L Alanine Aminotransferase (ALT/SGPT) 23 12-78 U/L Alkaline Phosphatase 114 50-136 U/L Total Creatine Kinase 154 21-232 U/L Troponin I High Sensitivity 38 4-75 ng/L Total Protein 8.7 H 6.0-8.3 g/dL Albumin 3.0 L 3.5-5.0 g/dL Procalcitonin 0.64 H 0.05-0.5 ng/mL ASSESSMENT: Left foot osteomyelitis. Left foot diabetic ulcer and abscess. Sepsis. Leukocytosis. Diabetes mellitus. Acute on chronic renal failure. PLAN: Patient declined consult with Dr. Burger and declining any other orthopedic surgeon referral until he gets evaluated by Dr. Darshan Long with the wound care. Continue vancomycin. Continue cefepime IV. Continue pain management. Continue wound care. We will follow up on the wound cultures. Pending evaluation of the wound care team. Glucometer checks a.c./hs and cover with insulin per sliding scale protocol.. We will monitor electrolytes. This case was reviewed and discussed with my supervising physician and the above assessment and plan was formulated and agreed upon. ATTESTATION BY PHYSICIAN I have seen and examined the patient. I reviewed the documentation, medical decision making, and treatment plan as noted by the mid-level provider above. I agree with the findings and plan of care. PANCHITO LOZANO MD, [facility] Aug 06, 2024 08:54
[2024-08-06] MEDS: ceFEPime HCL 1 GM VIAL IVPB SCH (10:15)
[2024-08-06] MEDS: MAGNESIUM 2GM PREMIX 50ML 50 ML IV PRN (13:07)
--- NOTE | 2024-08-06 13:40 | PN ---
PROGRESS NOTE Date of Service: Aug 06, 2024 Time of Service: 13:35 SUBJECTIVE: No new concerns. Examined at bedside. Denies fever chills and pain. No acute events reported in the last 24hours. REVIEW OF SYSTEMS CONSTITUTIONAL: Denies fever, chills, or fatigue. HEAD/FACE: No signs of trauma. EENT: Denies eye pain, blurred vision, double vision, or light sensitivity. RESPIRATORY: Denies shortness of breath, cough, wheezing CARDIOVASCULAR: Denies chest pain, palpitation, syncope GASTROINTESTINAL/ABDOMINAL: Denies abdominal pain, constipation, diarrhea, nausea or vomiting GENITOURINARY: Denies dysuria or hematuria. MUSCULOSKELETAL: Denies joint pain, tenderness, or trauma. INTEGUMENTARY: Denies rash or itchiness NEUROLOGICAL/PSYCH: Denies anxiety, depression, heat or cold intolerance. PHYSICAL EXAM EYES: Anicteric. Pupils equal and reactive. HENT: No oral thrush seen, moist Oral mucosa NECK: Supple, no JVD or thyromegaly. LUNGS: Good air entry. No rales, no rhonchi. CARDIOVASCULAR: S1, S2 regular. No murmur heard. ABDOMEN: Soft, non tender, bowel sounds present, no organomegaly CENTRAL NERVOUS SYSTEM: Awake, alert, oriented x 3. No focal deficits. SKIN: No rashes, no swelling. LYMPHATICS: No peripheral lymphadenopathy MUSCULOSKELETAL: No joint swelling, erythema or tenderness. EXTREMITIES: No cyanosis or clubbing BACK: No deformity, no pressure ulcer. GENITOURINARY: No dysuria or hematuria Vital Signs (last 8hr) Date Time Temp Pulse Resp B/P (MAP) Pulse Ox O2 Delivery O2 Flow Rate FiO2 08/06/24 12:09 99.0 85 19 140/66 96 Room Air 08/06/24 08:08 98.2 85 19 139/72 96 Room Air 08/06/24 08:00 96 Room Air* 0 21 LABS: Laboratory: Test 08/06/24 11:22 08/06/24 05:06 08/05/24 05:55 08/05/24 00:50 Range/Units Whole Blood Glucose 171 H 70-110 MG/DL White Blood Count 14.5 H 4.8-10.8 K/uL Red Blood Count 4.06 L 4.50-6.20 MIL/uL Hemoglobin 10.6 L 14.0-18.0 g/dL Hematocrit 32.7 L 42-54 % Mean Corpuscular Volume 80.5 79-99 fL Mean Corpuscular Hemoglobin 26.1 L 27.0-33.0 pg Mean Corpuscular Hemoglobin Concent 32.4 32.0-36.0 g/dL Red Cell Distribution Width 14.2 11.0-15.5 % Platelet Count 225 130-400 K/uL Mean Platelet Volume 10.0 7.5-10.5 fL Nucleated Red Blood Cells 0.0 0.0-0.19 % Sodium Level 133 L 136-145 mmol/L Potassium Level 3.8 3.5-5.1 mmol/L Chloride Level 99 L 101-111 mmol/L Carbon Dioxide Level 22 21-32 mmol/L Blood Urea Nitrogen 35 H 7-18 mg/dL Creatinine 2.1 H 0.5-1.3 mg/dL Glomerular Filtration Rate Calc 34 >90 mL/min Random Glucose 172 H 70-105 mg/dL Total Calcium 8.5 8.5-10.1 mg/dL Magnesium Level 1.50 L 1.80-2.40 mg/dL Lactic Acid Level 1.1 0.8-2.5 mmol/L Urine Color LIGHT-YELLOW YELLOW Urine Appearance CLEAR CLEAR Urine pH 5.5 5.0-8.0 Urine Specific [place] 1.021 1.001-1.031 Urine Protein 70 H NEGATIVE mg/dL Urine Glucose (UA) >=1000 H NEGATIVE mg/dL Urine Ketones NEGATIVE NEGATIVE mg/dL Urine Occult Blood SMALL H NEGATIVE Urine Nitrate NEGATIVE NEGATIVE Urine Bilirubin NEGATIVE NEGATIVE mg/dL Urine Urobilinogen 0.2 0.2-1.0 mg/dL Urine Leukocyte Esterase NEGATIVE NEGATIVE Alex/uL Urine RBC 0-1 0-1 /HPF Urine WBC 2-5 H 0-1 /HPF Urine Squamous Epithelial Cells RARE 0-2 /HPF Urine Bacteria None None Seen /HPF Influenza Type A Antigen Negative For Type A NEGATIVE Influenza Type B Antigen Negative For Type B NEGATIVE SARS-CoV-2 Antigen (Rapid) PRESUMPTIVE NEGATIVE NEGATIVE Test 08/05/24 00:03 Range/Units Immature Granulocyte % (Auto) 0.4 0-1 % Neutrophils (%) (Auto) 83.3 H 40.0-77.0 % Lymphocytes (%) (Auto) 5.9 L 21.0-51.0 % Monocytes (%) (Auto) 9.3 3.0-13.0 % Eosinophils (%) (Auto) 0.8 0.0-8.0 % Basophils (%) (Auto) 0.3 0.0-5.0 % Neutrophils # (Auto) 12.2 H 1.8-7.7 K/uL Lymphocytes # (Auto) 0.9 L 1.0-4.8 K/uL Monocytes # (Auto) 1.4 H 0.1-1.0 K/uL Eosinophils # (Auto) 0.12 0.00-0.70 K/uL Basophils # (Auto) 0.04 0.00-0.20 K/uL Absolute Immature Granulocyte (auto 0.06 0-1 K/uL White Cell Morphology Comment See comments Total Bilirubin 1.1 H 0.2-1.0 mg/dL Direct Bilirubin 0.2 0.0-0.3 mg/dL Aspartate Amino Transf (AST/SGOT) 15 10-37 U/L Alanine Aminotransferase (ALT/SGPT) 23 12-78 U/L Alkaline Phosphatase 114 50-136 U/L Total Creatine Kinase 154 21-232 U/L Troponin I High Sensitivity 38 4-75 ng/L Total Protein 8.7 H 6.0-8.3 g/dL Albumin 3.0 L 3.5-5.0 g/dL Procalcitonin 0.64 H 0.05-0.5 ng/mL DIAGNOSTICS / RADIOLOGY: PORTABLE CHEST RADIOGRAPH INDICATION: fever COMPARISON: 06/22/2024 FINDINGS: cafeteria monitor leads overlie the field of view. Heart size is normal. The pulmonary vascularity and sriram appear normal. No abnormal pulmonary parenchymal opacity or consolidation identified. No significant pleural effusion noted. No pneumothorax detected. IMPRESSION: No radiographic evidence for any acute cardiopulmonary process. ASSESSMENT: DUARTE on CKD3b, last known renal function [id number] GFR 32 and Cr. 2.2, presented with a Cr 2.4 and GFR 29 HTN likely renal manifestation Dm2 with likely nephropathy Mild Anemia Hyponatremia ATN dehydration PLAN: Monitor Renal Function: somewhat improvement in the last 24hours Dose to renal function Fluid intake 1.5L QD Monitor I's and O's Renal diet Continue anti-microbials No need SECURITY COORDINATOR KELLEN FARMER Aug 06, 2024 13:40
[2024-08-06] MEDS: HONEY 1 APPL/ML TUBE TP SCH (15:08)
[2024-08-06] MEDS: traMADol HCL 50 MG TABLET PO PRN (15:08)
--- NOTE | 2024-08-06 16:39 | NUR ---
PER DR LOZANO AND DR LARSON CONSULT DR OCHOA BECAUSE THAT IS WHO THE PATIENT SEES. DR OCHOA IS AWARE PATIENT IS HERE. TRAFFIC MANAGER LAUNCHING PAD MECHANIC IS DR Korin AUGUSTIN. SPOKE WITH DR Lenny AUGUSTIN. IS AWARE OF CONSULT AND WILL SEE PATIENT FIRST THING IN THE MORNING.
[2024-08-06] MEDS: GABApentin 100 MG CAPSULE PO SCH (22:32)
[2024-08-07] VITALS (8 sets, daily range): BP systolic 122–148; BP diastolic 54–76; PULSE 98–117; RESP 18–20; TEMP 97.6–100.7; O2SAT 94–95
--- NOTE | 2024-08-07 09:57 | CONS ---
[facility] CARDIOLOGY CONSULTATION NOTE Date Patient Seen: Aug 07, 2024 Time of Visit: 09:31 Reason for Consultation: [PVD ] History of Present Illness: [64-year-old male patient that follows up clinic with Dr. Owusu ( last seen 07-26-24 ) with a past medical history of hypertension, hyperlipidemia, type 2 diabetes mellitus, CKD stage IIIB , PAD status post directional atherectomy and angioplasty in the proximal mid and distal left SFA done in 2019, directional atherectomy ([employer]) and DCB angioplasty ([employer]tr[employer] InPact 6.0x40mm) to the ostial left SFA done 02/14/[address] Combs, directional atherectomy ([employer]) and DCB angioplasty of the distal right SFA done on 05/01/[address] Owusu, residual bilateral infrapopliteal disease, and s/p bi lateral TMAs, who on his lasT clinic visit was endorsing a non-healing ulcer affecting the left foot of 1 1/2 month in duration. The ulcer began as a blister and over the ensuing timeframe, progressively worsened, increased in size, and has failed to heal despite routine wound care, he has a prior Left lower extremity arterial Doppler 05/24/2024: Monophasic waveforms throughout the left lower extremity arterial system with the exception of the left mid SFA and left posterior tibial artery which identifies occlusion. On the patient's last evaluation by Dr. Owusu at clinic the patient was referred for a lower extremity peripheral angiogram with possible intervention on 08/09/2024 but the patient presented to the ED on 08/05/2024 endorsing new onset of chills and fever upon initial assessment the patient was found with a glucose above 300 mg, and presence of left foot ulcer with purulent discharge , the patient underwent left foot MRI that revealed acute osteomyelitis involving the residual 5th metatarsal bone including overlying 1.0 cm, perhaps infected, fluid collection. Remarkable lab results with a creatinine of 2.2 that has downtrended 2.1, presenting WBC 14.6, glucose averaging 250-300 mg troponin 38, upon physical exam in his remarkable left foot DP pulses are almost nonpalpable the foot appears to be warm. Since admission the patient was started on broad-spectrum antibiotics, currently no fevers have reported, the patient is endorsing [id number] left foot pain. Cardiology was consulted for PVD Past Medical History: [Refer to chart ] Past Surgical History: [Refer to HPI ] Family History: [Refer to HPI ] Social History: [Refer to HPI ] Habits: [Never] smoker. [Denies] alcohol consumption. [Denies] illicit drug use Review of Systems: A review of 12 point systems was negative set per HPI Physical Examination: GENERAL: [No acute distress.] HEAD: [Normal with no signs of head trauma.] EYES: [PERRLA, EOMI, conjunctiva and sclera normal.] ENT: [Hearing grossly intact, normal oropharynx.] NECK: [Supple without JVD. There is no tenderness, lymphadenopathy, or masses. No thyromegaly. Normal carotid upstrokes without bruits.] LUNGS: [Clear breath sounds bilaterally. No wheezes, or rhonchi.] HEART: [Normal rate and rhythm. Normal S1 and S2 without mumurs, gallop or rub.] VASC: [Peripheral pulses +2 bilaterally.] ABD: [Bowel sounds normal, soft, nontender, no masses, no organomegaly. No a udible bruits.] : [Not examined] LYMPH: [No lymphadenopathy noted.] EXT: [Faint pulses noted in left popliteal and dorsalis pedis arteries left foot is wrapped in the dressing.] SKIN: [No rashes or lesions noted.] NEURO: [Awake, alert, and oriented x3. No focal sensory or strength deficits noted.] Vital Signs (last 8hr) Date Time Temp Pulse Resp B/P (MAP) Pulse Ox O2 Delivery O2 Flow Rate FiO2 08/07/24 07:00 98.2 104 20 130/70 93 Room Air 21 08/07/24 04:00 99.9 110 20 148/54 92 Room Air Laboratory: [ ] Hematology Labs: Test 08/06/24 05:06 Range/Units White Blood Count 14.5 H 4.8-10.8 K/uL Red Blood Count 4.06 L 4.50-6.20 MIL/uL Hemoglobin 10.6 L 14.0-18.0 g/dL Hematocrit 32.7 L 42-54 % Mean Corpuscular Volume 80.5 79-99 fL Mean Corpuscular Hemoglobin 26.1 L 27.0-33.0 pg Mean Corpuscular Hemoglobin Concent 32.4 32.0-36.0 g/dL Red Cell Distribution Width 14.2 11.0-15.5 % Platelet Count 225 130-400 K/uL Mean Platelet Volume 10.0 7.5-10.5 fL Nucleated Red Blood Cells 0.0 0.0-0.19 % Chemistry Labs: Test 08/07/24 05:10 08/07/24 03:32 08/06/24 05:06 Range/Units Whole Blood Glucose 204 H 70-110 MG/DL Magnesium Level 1.90 1.80-2.40 mg/dL Sodium Level 133 L 136-145 mmol/L Potassium Level 3.8 3.5-5.1 mmol/L Chloride Level 99 L 101-111 mmol/L Carbon Dioxide Level 22 21-32 mmol/L Blood Urea Nitrogen 35 H 7-18 mg/dL Creatinine 2.1 H 0.5-1.3 mg/dL Glomerular Filtration Rate Calc 34 >90 mL/min Random Glucose 172 H 70-105 mg/dL Total Calcium 8.5 8.5-10.1 mg/dL Diagnostics / Radiology: [Copy/Paste Echos/Imaging Report here] Assessment: [Left foot osteomyelitis. Peripheral arterial disease Left foot diabetic ulcer on abscess. Sepsis. Leukocytosis. Diabetes mellitus. CKD stage IIIB Type 2 diabetes mellitus Hypertension Hyperlipidemia ] Plan: [#PAD, Vee V Status post directional atherectomy and angioplasty in the proximal mid and distal left SFA done in 2019, directional atherectomy ([employer]) and DCB angioplasty ([employer]tr[employer] InPact 6.0x40mm) to the ostial left SFA done 02/14/[address] Combs, Directional atherectomy ([employer]) and DCB angioplasty of the distal right SFA done on 05/01/[address] Owusu, residual bilateral infrapopliteal disease, and s/p bilateral TMAs Left lower extremity arterial Doppler 05/24/2024: Monophasic waveforms throughout the left lower extremity arterial system with the exception of the left mid SFA and left posterior tibial artery which identifies occlusion The patient was scheduled to undergo peripheral angiogram with possible intervention by Dr. Owusu on 10/09/2023 The patient presented to the emergency department on 08/05/2024 endorsing new onset of chills and fever with purulent Discharge from left foot ulcer on initial assessment he was found hyperglycemic (> 300 mg) Presenting lab results with WBCs 14.6, glucose 331, creatinine 2.2. Troponin 38 Left foot MRI revealed 5th digit osteomyelitis and concern for abscess At this time we will recommend the patient continue antibiotic and wound care with tight glycemic control We will continue watching his kidney function, nephrology is following along We will discuss this case with to plan for peripheral angiogram but we will need to control his sepsis and severe hyperglycemia and renal function prior to proceeding At this time there is no need for further testing, the patient has a prior arterial Doppler from 05/24/2024, as noted above Start IV heparin infusion as per protocol Continue ASA 81 mg daily Plavix 75 mg daily , and atorvastatin 40 mg daily Thank you for this consult cardiology will continue to follow along Darwin Rowe MD ] ATTESTATION BY PHYSICIAN I have seen and examined the patient, reviewed the above documentation, participated in medical decision making, made necessary modifications, and agree with the treatment plan as documented by my mid-level provider above. MD DEMETRIA Buckley JAMES R MD Aug 07, 2024 09:57
[2024-08-07] MEDS: HONEY 1 APPL/ML TUBE TP SCH (11:09)
[2024-08-07] MEDS: acetaMINOPHEN 325 MG TAB PO PRN (13:15)
--- NOTE | 2024-08-07 13:56 | PN ---
INFECTIOUS DISEASE PROGRESS NOTE Date of Service: Aug 07, 2024 SUBJECTIVE: Patient was seen and examined at bedside in room 401. Patient is awake, alert and oriented x3. Patient is sitting up on the edge of the bed having lunch. Patient had a low-grade fever of 100.8 last night and current temperature is 98.2. WBC remains slightly elevated at 14.5. Patient continues on cefepime and vancomycin. No reports of nausea or vomiting. Cardiology has evaluated patient and has recommended for patient to be started on heparin drip. Patient continues to declined glue plant operator evaluation until seen by Dr. Darshan Long with the wound care team. We will continue to monitor patient. PHYSICAL EXAM EYES: Anicteric. Pupils equal and reactive. HENT: No oral thrush seen, moist Oral mucosa. NECK: Supple, no JVD or thyromegaly. LUNGS: Good air entry. No rales, no rhonchi. CARDIOVASCULAR: S1, S2 regular. No murmur heard. ABDOMEN: Soft, non tender, bowel sounds present, no organomegaly. CENTRAL NERVOUS SYSTEM: Awake, alert, oriented x 3. SKIN: No rashes, no swelling. LYMPHATICS: No peripheral lymphadenopathy. MUSCULOSKELETAL: No joint swelling, erythema or tenderness. EXTREMITIES: No cyanosis or clubbing. Left foot diabetic ulcer with osteomyelitis. BACK: No deformity, no pressure ulcer. GENITOURINARY: No dysuria or hematuria. Vital Sign (Last 12 Hours) 08/07/24 08/07/24 04:00 07:00 Temp 99.9 98.2 Pulse 110 104 Resp 20 20 B/P (MAP) 148/54 130/70 Pulse Ox 92 93 O2 Delivery Room Air Room Air FiO2 21 Intake & Output (last 24hrs) 08/06/24 08/06/24 08/07/24 15:00 23:00 07:00 Intake Total 400 ml Output Total 400 ml 500 ml Balance 0 ml -500 ml LABS: Laboratory: Test 08/07/24 09:55 08/07/24 03:32 08/06/24 05:06 Range/Units Whole Blood Glucose 244 H 70-110 MG/DL Magnesium Level 1.90 1.80-2.40 mg/dL White Blood Count 14.5 H 4.8-10.8 K/uL Red Blood Count 4.06 L 4.50-6.20 MIL/uL Hemoglobin 10.6 L 14.0-18.0 g/dL Hematocrit 32.7 L 42-54 % Mean Corpuscular Volume 80.5 79-99 fL Mean Corpuscular Hemoglobin 26.1 L 27.0-33.0 pg Mean Corpuscular Hemoglobin Concent 32.4 32.0-36.0 g/dL Red Cell Distribution Width 14.2 11.0-15.5 % Platelet Count 225 130-400 K/uL Mean Platelet Volume 10.0 7.5-10.5 fL Nucleated Red Blood Cells 0.0 0.0-0.19 % Sodium Level 133 L 136-145 mmol/L Potassium Level 3.8 3.5-5.1 mmol/L Chloride Level 99 L 101-111 mmol/L Carbon Dioxide Level 22 21-32 mmol/L Blood Urea Nitrogen 35 H 7-18 mg/dL Creatinine 2.1 H 0.5-1.3 mg/dL Glomerular Filtration Rate Calc 34 >90 mL/min Random Glucose 172 H 70-105 mg/dL Total Calcium 8.5 8.5-10.1 mg/dL ASSESSMENT: Left foot osteomyelitis. Left foot diabetic ulcer and abscess. Sepsis. Leukocytosis. Diabetes mellitus. Acute on chronic renal failure. PLAN: Patient declined consult with Dr. Burger and declining any other glue plant operator referral until he gets evaluated by Dr. Darshan Long with the wound care. Continue vancomycin. Continue cefepime IV. We will follow up on the wound cultures collected. Cardiology has been consulted and recommended heparin drip per protocol. Continue pain management. Continue wound care. Pending evaluation of the wound care team. Glucometer checks a.c./hs and cover with insulin per sliding scale protocol.. We will monitor electrolytes. This case was reviewed and discussed with my supervising physician and the above assessment and plan was formulated and agreed upon. ATTESTATION BY PHYSICIAN I have seen and examined the patient. I reviewed the documentation, medical decision making, and treatment plan as noted by the mid-level provider above. I agree with the findings and plan of care. PANCHITO LOZANO MD, [facility] Aug 07, 2024 13:56
--- NOTE | 2024-08-07 15:56 | NUR ---
[facility] Consult: Patient assessed by wound healing team. See wound assessment. Assessment and recommendations provided to primary nurse. Education provided. Wound care done. Addendum: 08/08/24 at 1544 by DAVID VALDEZ RN RN/ Amended: Links added.
--- NOTE | 2024-08-07 19:30 | NUR ---
rug dry room attendant let dr. rangel know about consult. he will see the patient today.
[2024-08-07] MEDS: atorVAStatin 40 MG TABLET PO SCH (20:26)
[2024-08-07] MEDS: HEParin 25,000 UNITS/250ML D5W 250 ML IV SCH (20:37)
[2024-08-07] MEDS: HEParin 5,000 UNIT VIAL ONE (20:42)
--- NOTE | 2024-08-07 20:55 | PN ---
FOLLOWUP NOTE SUBJECTIVE: The patient offers no major complaints. No major events reported by nurses. OBJECTIVE: GENERAL: The patient is not in any major acute distress. VITAL SIGNS: Blood pressure 130/70, respirations 20, pulse 104, temperature 98.2. LUNGS: Clear on auscultation and inspection. HEART: Normal cardiac sound. ABDOMEN: Soft, nondistended. EXTREMITIES: No edema. LABORATORY DATA: The WBC count is 14.5, hemoglobin 10.6. Sodium of 133, potassium 3.8, BUN 35, creatinine of 2.1. ASSESSMENT: * Acute kidney injury due to acute tubular necrosis. The patient is admitted with sepsis. Renal function is improving. * Diabetes mellitus, type 2. * Diabetic foot infection, affecting the left foot with an ulcer and abscess. * Hypertension. PLAN: The plan is to continue present plan of care. Adequate hydration. Continue antimicrobials. Wound care. Monitor renal function and electrolytes on and off. Further recommendations as I follow the patient. TID: [id number] RECEIPT: [id number]
[2024-08-08] VITALS (8 sets, daily range): BP systolic 102–146; BP diastolic 48–68; PULSE 77–115; RESP 17–20; TEMP 97.9–102.8; O2SAT 94–95
[2024-08-08] MEDS ORDERED: VANCOMYCIN HCL 1.25 GM/250 ML BAG IV SCH
[2024-08-08] MEDS: VANCOMYCIN 1.25 GM/250 ML BAG 250 ML IV SCH (00:32)
[2024-08-08 03:29] LABS: BASOPHILS # (AUTO) 0.04 K/uL (0.00-0.20); BASOPHILS % (AUTO) 0.3 % (0.0-5.0); EOSINOPHILS # (AUTO) 0.02 K/uL (0.00-0.70); EOSINOPHILS % (AUTO) 0.1 % (0.0-8.0); HEMATOCRIT 31.7 % (42-54); IMMATURE GRANULOCYTE ABSOLUTE 0.13 K/uL (0-1); LYMPHOCYTES # (AUTO) 0.6 K/uL (1.0-4.8); LYMPHOCYTES % (AUTO) 3.9 % (21.0-51.0); MEAN CORPUSCULAR HEMOGLOBIN 26.3 pg (27.0-33.0); MEAN CORPUSCULAR HGB CONC 33.1 g/dL (32.0-36.0); MEAN CORPUSCULAR VOLUME 79.3 fL (79-99); MONOCYTES # (AUTO) 1.7 K/uL (0.1-1.0); MONOCYTES % (AUTO) 10.9 % (3.0-13.0); NEUTROPHILS # (AUTO) 13.2 K/uL (1.8-7.7); PLATELET COUNT (AUTO) 230 K/uL (130-400); RED CELL DISTRIBUTION WIDTH 14.4 % (11.0-15.5); WHITE BLOOD COUNT (AUTO) 15.8 K/uL (4.8-10.8)
[2024-08-08 03:36] LABS: CREATININE 2.2 mg/dL (0.5-1.3); POTASSIUM 3.8 mmol/L (3.5-5.1)
[2024-08-08 03:39] LABS: INR 1.23 (0.85-1.15); PROTHROMBIN TIME 13.1 SEC (9.6-11.6)
[2024-08-08 03:41] LABS: PARTIAL THROMBOPLASTIN TIME 76.9 SEC (26.3-35.5)
--- NOTE | 2024-08-08 07:39 | CONS ---
CONSULTATION NOTE Date of Service: Aug 08, 2024 Reason for Consultation: 64 years old male was seen in consultation courtesy of Dr. Loo for evaluation of ulceration and osteomyelitis of the lateral foot left Requesting Physician:Dr. Loo HISTORY OF PRESENT ILLNESS: Patient has a history of bilateral transmetatarsal amputation secondary to peripheral vascular disease and secondary to diabetes on control and poor compliance the patient developed ulceration to the left transmetatarsal foot ulcer on the lateral aspect of the foot was noted been [facility] with hyperbaric treatments and local wound care ulcer IV antibiotics he was a former patient of Dr. Burger. At this time the patient requesting a 2nd opinion for the treatment of his foot. Patient has been admitted to the hospital secondary to fever chills and uncontrolled blood sugars. REVIEW OF SYSTEMS CONSTITUTIONAL: Denies fever, chills, or fatigue. HEAD/FACE: No signs of trauma. EENT: Denies eye pain, blurred vision, double vision, or light sensitivity. RESPIRATORY: Denies shortness of breath, cough, wheezing CARDIOVASCULAR: Denies chest pain, palpitation, syncope underlying peripheral vascular disease. GASTROINTESTINAL/ABDOMINAL: Denies abdominal pain, constipation, diarrhea, nausea or vomiting GENITOURINARY: Denies dysuria or hematuria. MUSCULOSKELETAL: Denies joint pain, tenderness, or trauma. INTEGUMENTARY: Ulceration lateral aspect plantar foot left. NEUROLOGICAL/PSYCH: Denies anxiety, depression, heat or cold intolerance. PAST MEDICAL HISTORY: Diabetes hypertension PAST SURGICAL HISTORY: Bilateral transmetatarsal amputations bilateral feet. PAST SOCIAL HISTORY: He denies any smoking or drinking or illicit drugs. FAMILY HISTORY: Noncontributory Coded Allergies: No Known Drug Allergies (Unverified Allergy, Unknown, 08/05/24) PHYSICAL EXAM EYES: Anicteric. Pupils equal and reactive. HENT: No oral thrush seen, moist Oral mucosa NECK: Supple, no JVD or thyromegaly. LUNGS: Good air entry. No rales, no rhonchi. CARDIOVASCULAR: S1, S2 regular. No murmur heard. Peripheral vascular disease bilateral lower extremity nonpalpable pulses by hand. ABDOMEN: Soft, non tender, bowel sounds present, no organomegaly CENTRAL NERVOUS SYSTEM: Awake, alert, oriented x 3. No focal deficits. SKIN: No rashes, no swelling. Ulceration to the plantar lateral aspect of the left foot. LYMPHATICS: No peripheral lymphadenopathy MUSCULOSKELETAL: No joint swelling, erythema or tenderness. Positive acute osteomyelitis on the MRI results for the 5th metatarsal bone lateral aspect EXTREMITIES: No cyanosis or clubbing BACK: No deformity, no pressure ulcer. GENITOURINARY: No dysuria or hematuria Vital Sign (Last 24 Hours) 08/07/24 19:10 O2 Flow Rate 0 FiO2 21 Intake & Output (last 24hrs) 08/07/24 08/07/24 08/08/24 15:00 23:00 07:00 Intake Total 1189.0 ml Output Total 600 ml 900 ml Balance -600 ml 289.0 ml LABS: Laboratory: Test 08/08/24 05:27 08/08/24 03:22 08/07/24 22:50 Range/Units Whole Blood Glucose 207 H 70-110 MG/DL White Blood Count 15.8 H 4.8-10.8 K/uL Red Blood Count 4.00 L 4.50-6.20 MIL/uL Hemoglobin 10.5 L 14.0-18.0 g/dL Hematocrit 31.7 L 42-54 % Mean Corpuscular Volume 79.3 79-99 fL Mean Corpuscular Hemoglobin 26.3 L 27.0-33.0 pg Mean Corpuscular Hemoglobin Concent 33.1 32.0-36.0 g/dL Red Cell Distribution Width 14.4 11.0-15.5 % Platelet Count 230 130-400 K/uL Mean Platelet Volume 9.9 7.5-10.5 fL Immature Granulocyte % (Auto) 0.8 0-1 % Neutrophils (%) (Auto) 84.0 H 40.0-77.0 % Lymphocytes (%) (Auto) 3.9 L 21.0-51.0 % Monocytes (%) (Auto) 10.9 3.0-13.0 % Eosinophils (%) (Auto) 0.1 0.0-8.0 % Basophils (%) (Auto) 0.3 0.0-5.0 % Neutrophils # (Auto) 13.2 H 1.8-7.7 K/uL Lymphocytes # (Auto) 0.6 L 1.0-4.8 K/uL Monocytes # (Auto) 1.7 H 0.1-1.0 K/uL Eosinophils # (Auto) 0.02 0.00-0.70 K/uL Basophils # (Auto) 0.04 0.00-0.20 K/uL Absolute Immature Granulocyte (auto 0.13 0-1 K/uL Nucleated Red Blood Cells 0.0 0.0-0.19 % Prothrombin Time 13.1 H 9.6-11.6 SEC Prothromb Time International Ratio 1.23 H 0.85-1.15 Activated Partial Thromboplast Time 76.9 H 26.3-35.5 SEC Sodium Level 124 L 136-145 mmol/L Potassium Level 3.8 3.5-5.1 mmol/L Chloride Level 93 L 101-111 mmol/L Carbon Dioxide Level 22 21-32 mmol/L Blood Urea Nitrogen 34 H 7-18 mg/dL Creatinine 2.2 H 0.5-1.3 mg/dL Glomerular Filtration Rate Calc 32 >90 mL/min Random Glucose 217 H 70-105 mg/dL Total Calcium 8.5 8.5-10.1 mg/dL Magnesium Level 2.00 1.80-2.40 mg/dL Vancomycin Level Trough 9.2 L 10.0-20.0 UG/ML DIAGNOSTICS / RADIOLOGY: PORTABLE CHEST RADIOGRAPH INDICATION: fever COMPARISON: 06/22/2024 FINDINGS: distribution clerk leads overlie the field of view. Heart size is normal. The pulmonary vascularity and sriram appear normal. No abnormal pulmonary parenchymal opacity or consolidation identified. No significant pleural effusion noted. No pneumothorax detected. IMPRESSION: No radiographic evidence for any acute cardiopulmonary process. ASSESSMENT: DUARTE on CKD3b, last known renal function [id number] GFR 32 and Cr. 2.2, presented with a Cr 2.4 and GFR 29 HTN likely renal manifestation Dm2 with likely nephropathy Mild Anemia Hyponatremia ATN dehydration Osteomyelitis of the 5th metatarsal left foot Diabetic foot ulcer PLAN: Plan to discuss case with the patient patient may need surgery removal of the 5th metatarsal debridement of the bone and incision and drainage of possible abscess on the lateral aspect of the foot he will need continued IV antibiotics and local wound care prognosis is guarded secondary to underlying medical problems. Discussed the patient to plan the surgery either tomorrow or . Case on prognosis has been explained to the patient we will inform him of results and plan. Possible plan for surgery tomorrow or . BETTY QUINTEROS DPM Aug 08, 2024 07:39
--- NOTE | 2024-08-08 08:00 | NUR ---
PODIATRY CONSULT DR. Tamie QUINTEROS CONSULT. NO NEW ORDERS GIVEN AT THIS TIME, MD STATES HE WILL SEE AT WHAT PROCEDURES HAVE ALREADY BEEN DONE TO MOVE FORWARD WITH CARE.
[2024-08-08] MEDS: ASPIRIN 81 MG EC TAB PO SCH (08:40)
[2024-08-08] MEDS: cloPIDOgrel 75MG TAB PO SCH (08:41)
--- NOTE | 2024-08-08 08:50 | NUR ---
LAB RESULTS CALLED DR. BEDOYA TO REPORT PT POSITIVE ESBL PER YVONNE SONG IN LAB. RECEIVED NEW ORDER TO DC CEFEPIME AND START MEROPENEM 1G IV Q12. ORDER NOTED AND CARRIED OUT. WILL CONT TO MONITOR
[2024-08-08] MEDS ORDERED: COMPOUND IV MISC 1 EACH IVSOLN MISC PRN (09:30)
[2024-08-08] MEDS: MEROPENEM 1 GM in 0.9%NACL 100ML 100 ML IV SCH (09:52)
--- NOTE | 2024-08-08 10:50 | NUR ---
WOUND CARE DR. Korin LARSON ROUNDING. NO ORDERS GIVEN AT THIS TIME
[2024-08-08 10:51] LABS: INR 1.17 (0.85-1.15); PROTHROMBIN TIME 12.5 SEC (9.6-11.6)
[2024-08-08 10:52] LABS: PARTIAL THROMBOPLASTIN TIME 53.8 SEC (26.3-35.5)
--- NOTE | 2024-08-08 11:16 | PN ---
[facility] CARDIOLOGY PROGRESS NOTE Cardiology Progress Note dictated for Dr. Jesus Manuel Ochoa MD Date Patient Seen: Aug 08, 2024 Interval History: This is a 64y/o male who was seen and evaluated at the bedside today. The patient complains of intermittent left foot pain, but denies any chest pain, chest pressure, palpitations, or shortness of breath. As per the nurse, there were no overnight events. Physical Examination: GENERAL: No acute distress. Easily winded with movement in bed but recovers quickly. HEAD: Normal with no signs of head trauma. EYES: PERRLA, EOMI, conjunctiva and sclera normal. NECK: Supple without JVD. There is no tenderness, lymphadenopathy, or masses. No thyromegaly. Normal carotid upstrokes without bruits. LUNGS: Clear breath sounds bilaterally. No wheezes, or rhonchi. HEART: Normal rate and rhythm. Normal S1 and S2 without murmurs, gallop or rub. VASC: Right TMA with 1+ DP pulse. Left TMA with bulky dressing in place. LLE with warmth to touch, erythema, and 1-2+ edema. NEURO: Awake, alert, and oriented x3. No focal neurological deficits noted. Laboratory: Hematology Labs: Test 08/08/24 03:22 Range/Units White Blood Count 15.8 H 4.8-10.8 K/uL Red Blood Count 4.00 L 4.50-6.20 MIL/uL Hemoglobin 10.5 L 14.0-18.0 g/dL Hematocrit 31.7 L 42-54 % Mean Corpuscular Volume 79.3 79-99 fL Mean Corpuscular Hemoglobin 26.3 L 27.0-33.0 pg Mean Corpuscular Hemoglobin Concent 33.1 32.0-36.0 g/dL Red Cell Distribution Width 14.4 11.0-15.5 % Platelet Count 230 130-400 K/uL Mean Platelet Volume 9.9 7.5-10.5 fL Immature Granulocyte % (Auto) 0.8 0-1 % Neutrophils (%) (Auto) 84.0 H 40.0-77.0 % Lymphocytes (%) (Auto) 3.9 L 21.0-51.0 % Monocytes (%) (Auto) 10.9 3.0-13.0 % Eosinophils (%) (Auto) 0.1 0.0-8.0 % Basophils (%) (Auto) 0.3 0.0-5.0 % Neutrophils # (Auto) 13.2 H 1.8-7.7 K/uL Lymphocytes # (Auto) 0.6 L 1.0-4.8 K/uL Monocytes # (Auto) 1.7 H 0.1-1.0 K/uL Eosinophils # (Auto) 0.02 0.00-0.70 K/uL Basophils # (Auto) 0.04 0.00-0.20 K/uL Absolute Immature Granulocyte (auto 0.13 0-1 K/uL Nucleated Red Blood Cells 0.0 0.0-0.19 % Chemistry Labs: Test 08/08/24 05:27 08/08/24 03:22 Range/Units Whole Blood Glucose 207 H 70-110 MG/DL Sodium Level 124 L 136-145 mmol/L Potassium Level 3.8 3.5-5.1 mmol/L Chloride Level 93 L 101-111 mmol/L Carbon Dioxide Level 22 21-32 mmol/L Blood Urea Nitrogen 34 H 7-18 mg/dL Creatinine 2.2 H 0.5-1.3 mg/dL Glomerular Filtration Rate Calc 32 >90 mL/min Random Glucose 217 H 70-105 mg/dL Total Calcium 8.5 8.5-10.1 mg/dL Magnesium Level 2.00 1.80-2.40 mg/dL Coagulation Labs: Test 08/08/24 10:16 Range/Units Prothrombin Time 12.5 H 9.6-11.6 SEC Prothromb Time International Ratio 1.17 H 0.85-1.15 Activated Partial Thromboplast Time 53.8 #H 26.3-35.5 SEC Diagnostics / Radiology: Assessment: -Sepsis -Leukocytosis -Nonhealing ulcer (NGR) surround cellulitis and osteomyelitis affecting the left foot -PAD, Vee category 5 symptoms (LLE) -CKD stage IIIB -PAD s/p directional atherectomy and angioplasty in the proximal mid and distal left SFA done on 10/20/2019, directional atherectomy ([employer]) and DCB angioplasty (Medtronic InPact 6.0x40mm) to the ostial left SFA done 02/14/[address] Combs, directional atherectomy ([employer]) and DCB angioplasty of the distal right SFA done on 05/01/[address] Ochoa, residual bilateral infrapopliteal disease, and s/p bilateral TMAs -Poorly controlled DM2 -HTN -HLP -Obesity Plan: 1. PAD, Stanton category 5 symptoms (LLE) -Stable -PE: The left TMA is wrapped in a bulky dressing but erythema is noted to the level of the ankle above the dressing. -Left lower extremity arterial Doppler 05/24/2024: Monophasic waveforms throughout the left lower extremity arterial system with the exception of the left mid SFA and left posterior tibial artery which identifies occlusion -Of concern, is that the patient's underlying PAD is impacting wound healing to the left lower extremity. In order to optimize peripheral blood flow and improve the patient's chances of wound healing, we will refer him for a left lower extremity peripheral angiogram with possible intervention. The risks and benefits of the procedure have been explained to the patient and he wishes to proceed. -We will schedule the procedure for tomorrow morning. Access: Right CUSTODY ASSISTANT. -Please keep the patient NPO after midnight. -In light of the patient has baseline CKD IIIB, we will start him on NS @ 50mL/hr -In the meantime, we will stop the IV heparin infusion and the patient will continue on aspirin 81 mg daily, clopidogrel 75 mg daily and atorvastatin 40 mg QHS. -In addition, the patient should continue with aggressive wound care and antibiotic therapy. Physician Attestation: I attest that I was physically present for the pradhan portions of the service and evaluated the patient with NYDIA Corbett, and we have reviewed and discussed the case and I agree with the findings and plans of care as documented above. -MD EFRAIN Guthrie VALERIE L FNP Aug 08, 2024 11:16 JESUS MANUEL OCHOA MD Aug 09, 2024 00:36
--- NOTE | 2024-08-08 13:50 | PN ---
PROGRESS NOTE Date of Service: Aug 08, 2024 Time of Service: 13:47 SUBJECTIVE: No new concerns. Examined at bedside. Denies fever chills and pain. No acute events reported in the last 24hours. REVIEW OF SYSTEMS CONSTITUTIONAL: Denies fever, chills, or fatigue. HEAD/FACE: No signs of trauma. EENT: Denies eye pain, blurred vision, double vision, or light sensitivity. RESPIRATORY: Denies shortness of breath, cough, wheezing CARDIOVASCULAR: Denies chest pain, palpitation, syncope underlying peripheral vascular disease. GASTROINTESTINAL/ABDOMINAL: Denies abdominal pain, constipation, diarrhea, nausea or vomiting GENITOURINARY: Denies dysuria or hematuria. MUSCULOSKELETAL: Denies joint pain, tenderness, or trauma. INTEGUMENTARY: Ulceration lateral aspect plantar foot left. NEUROLOGICAL/PSYCH: Denies anxiety, depression, heat or cold intolerance. PHYSICAL EXAM EYES: Anicteric. Pupils equal and reactive. HENT: No oral thrush seen, moist Oral mucosa NECK: Supple, no JVD or thyromegaly. LUNGS: Good air entry. No rales, no rhonchi. CARDIOVASCULAR: S1, S2 regular. No murmur heard. Peripheral vascular disease bilateral lower extremity nonpalpable pulses by hand. ABDOMEN: Soft, non tender, bowel sounds present, no organomegaly CENTRAL NERVOUS SYSTEM: Awake, alert, oriented x 3. No focal deficits. SKIN: No rashes, no swelling. Ulceration to the plantar lateral aspect of the left foot. LYMPHATICS: No peripheral lymphadenopathy MUSCULOSKELETAL: No joint swelling, erythema or tenderness. Positive acute osteomyelitis on the MRI results for the 5th metatarsal bone lateral aspect EXTREMITIES: No cyanosis or clubbing BACK: No deformity, no pressure ulcer. GENITOURINARY: No dysuria or hematuria Vital Signs (last 8hr) Date Time Temp Pulse Resp B/P (MAP) Pulse Ox O2 Delivery O2 Flow Rate FiO2 08/08/24 12:01 100.6 112 19 102/48 94 Room Air 21 08/08/24 08:44 97.9 77 17 112/58 95 Room Air 21 LABS: Laboratory: Test 08/08/24 11:02 08/08/24 10:16 08/08/24 03:22 08/07/24 22:50 Range/Units Whole Blood Glucose 207 H 70-110 MG/DL Prothrombin Time 12.5 H 9.6-11.6 SEC Prothromb Time International Ratio 1.17 H 0.85-1.15 Activated Partial Thromboplast Time 53.8 #H 26.3-35.5 SEC White Blood Count 15.8 H 4.8-10.8 K/uL Red Blood Count 4.00 L 4.50-6.20 MIL/uL Hemoglobin 10.5 L 14.0-18.0 g/dL Hematocrit 31.7 L 42-54 % Mean Corpuscular Volume 79.3 79-99 fL Mean Corpuscular Hemoglobin 26.3 L 27.0-33.0 pg Mean Corpuscular Hemoglobin Concent 33.1 32.0-36.0 g/dL Red Cell Distribution Width 14.4 11.0-15.5 % Platelet Count 230 130-400 K/uL Mean Platelet Volume 9.9 7.5-10.5 fL Immature Granulocyte % (Auto) 0.8 0-1 % Neutrophils (%) (Auto) 84.0 H 40.0-77.0 % Lymphocytes (%) (Auto) 3.9 L 21.0-51.0 % Monocytes (%) (Auto) 10.9 3.0-13.0 % Eosinophils (%) (Auto) 0.1 0.0-8.0 % Basophils (%) (Auto) 0.3 0.0-5.0 % Neutrophils # (Auto) 13.2 H 1.8-7.7 K/uL Lymphocytes # (Auto) 0.6 L 1.0-4.8 K/uL Monocytes # (Auto) 1.7 H 0.1-1.0 K/uL Eosinophils # (Auto) 0.02 0.00-0.70 K/uL Basophils # (Auto) 0.04 0.00-0.20 K/uL Absolute Immature Granulocyte (auto 0.13 0-1 K/uL Nucleated Red Blood Cells 0.0 0.0-0.19 % Sodium Level 124 L 136-145 mmol/L Potassium Level 3.8 3.5-5.1 mmol/L Chloride Level 93 L 101-111 mmol/L Carbon Dioxide Level 22 21-32 mmol/L Blood Urea Nitrogen 34 H 7-18 mg/dL Creatinine 2.2 H 0.5-1.3 mg/dL Glomerular Filtration Rate Calc 32 >90 mL/min Random Glucose 217 H 70-105 mg/dL Total Calcium 8.5 8.5-10.1 mg/dL Magnesium Level 2.00 1.80-2.40 mg/dL Vancomycin Level Trough 9.2 L 10.0-20.0 UG/ML DIAGNOSTICS / RADIOLOGY: PORTABLE CHEST RADIOGRAPH INDICATION: fever COMPARISON: 06/22/2024 FINDINGS: hospital monitor leads overlie the field of view. Heart size is normal. The pulmonary vascularity and sriram appear normal. No abnormal pulmonary parenchymal opacity or consolidation identified. No significant pleural effusion noted. No pneumothorax detected. IMPRESSION: No radiographic evidence for any acute cardiopulmonary process. ASSESSMENT: DUARTE on CKD3b, last known renal function [id number] GFR 32 and Cr. 2.2, presented with a Cr 2.4 and GFR 29 HTN likely renal manifestation Dm2 with likely nephropathy Mild Anemia Hyponatremia ATN dehydration PLAN: Monitor Renal Function: no change Monitor electrolytes Na 124, started on IV NS Dose to renal function Fluid intake 1.5L QD Monitor I's and O's Renal diet Continue anti-microbials No need VARITYPE OPERATOR KELLEN FARMER Aug 08, 2024 13:50
[2024-08-08] MEDS: 0.9%NACL 1000ML 1,000 ML IV SCH (14:12)
--- NOTE | 2024-08-08 15:33 | NUR ---
NEW ORDERS CALLED DR. FERNANDEZ TO REPORT PT HAS SHIVERS AND ELEVATED TEMP. ORDERED BLOOD CULTURES. PT TREATED WITH ACETAMINOPHEN ORDERED. WILL CONT TO MONITOR
--- NOTE | 2024-08-08 16:00 | NUR ---
SX DATE CHANGE CALLED DR. QUINTEROS TO REPORT PT HAS AN EXISTING PROCEDURE SCHEDULED ON 08/09/24. STATED HE WILL BE CHANGING DEBRIDEMENT OF LT FOOT FOR 08/11/24
[2024-08-08 16:31] LABS: INR 1.2 (0.85-1.15); PROTHROMBIN TIME 12.8 SEC (9.6-11.6)
[2024-08-08 16:32] LABS: PARTIAL THROMBOPLASTIN TIME 50.3 SEC (26.3-35.5)
--- NOTE | 2024-08-08 17:49 | PN ---
INFECTIOUS DISEASE PROGRESS NOTE Date of Service: Aug 08, 2024 SUBJECTIVE: Patient was seen and examined at bedside in room 401. Patient is awake, alert and oriented x3. The WBC slightly elevated at 15.8 but no reports of fever, temperature is 97.9. The left foot wound cultures came back positive for ESBL E coli. Patient will continue on meropenem and vancomycin. Dr. Sorensen has evaluated patient and recommended removal of the 5th metatarsal debridement of the bone and incision and drainage of possible abscess on the lateral aspect of the foot. We will continue to monitor patient. PHYSICAL EXAM EYES: Anicteric. Pupils equal and reactive. HENT: No oral thrush seen, moist Oral mucosa. NECK: Supple, no JVD or thyromegaly. LUNGS: Good air entry. No rales, no rhonchi. CARDIOVASCULAR: S1, S2 regular. No murmur heard. ABDOMEN: Soft, non tender, bowel sounds present, no organomegaly. CENTRAL NERVOUS SYSTEM: Awake, alert, oriented x 3. SKIN: No rashes, no swelling. LYMPHATICS: No peripheral lymphadenopathy. MUSCULOSKELETAL: No joint swelling, erythema or tenderness. EXTREMITIES: No cyanosis or clubbing. Left foot diabetic ulcer with osteomyelitis. BACK: No deformity, no pressure ulcer. GENITOURINARY: No dysuria or hematuria. Vital Sign (Last 12 Hours) 08/08/24 08/08/24 08/08/24 08/08/24 08:44 12:01 15:41 16:22 Temp 97.9 100.6 102.9 102.7 Pulse 77 112 113 Resp 17 19 19 B/P (MAP) 112/58 102/48 119/68 Pulse Ox 95 94 92 O2 Delivery Room Air Room Air Room Air FiO2 21 21 21 Intake & Output (last 24hrs) 08/07/24 08/07/24 08/08/24 15:00 23:00 07:00 Intake Total 1189.0 ml Output Total 600 ml 900 ml Balance -600 ml 289.0 ml LABS: Laboratory: Test 08/08/24 16:00 08/08/24 15:24 08/08/24 03:22 08/07/24 22:50 Range/Units Prothrombin Time 12.8 H 9.6-11.6 SEC Prothromb Time International Ratio 1.20 H 0.85-1.15 Activated Partial Thromboplast Time 50.3 H 26.3-35.5 SEC Whole Blood Glucose 240 H 70-110 MG/DL White Blood Count 15.8 H 4.8-10.8 K/uL Red Blood Count 4.00 L 4.50-6.20 MIL/uL Hemoglobin 10.5 L 14.0-18.0 g/dL Hematocrit 31.7 L 42-54 % Mean Corpuscular Volume 79.3 79-99 fL Mean Corpuscular Hemoglobin 26.3 L 27.0-33.0 pg Mean Corpuscular Hemoglobin Concent 33.1 32.0-36.0 g/dL Red Cell Distribution Width 14.4 11.0-15.5 % Platelet Count 230 130-400 K/uL Mean Platelet Volume 9.9 7.5-10.5 fL Immature Granulocyte % (Auto) 0.8 0-1 % Neutrophils (%) (Auto) 84.0 H 40.0-77.0 % Lymphocytes (%) (Auto) 3.9 L 21.0-51.0 % Monocytes (%) (Auto) 10.9 3.0-13.0 % Eosinophils (%) (Auto) 0.1 0.0-8.0 % Basophils (%) (Auto) 0.3 0.0-5.0 % Neutrophils # (Auto) 13.2 H 1.8-7.7 K/uL Lymphocytes # (Auto) 0.6 L 1.0-4.8 K/uL Monocytes # (Auto) 1.7 H 0.1-1.0 K/uL Eosinophils # (Auto) 0.02 0.00-0.70 K/uL Basophils # (Auto) 0.04 0.00-0.20 K/uL Absolute Immature Granulocyte (auto 0.13 0-1 K/uL Nucleated Red Blood Cells 0.0 0.0-0.19 % Sodium Level 124 L 136-145 mmol/L Potassium Level 3.8 3.5-5.1 mmol/L Chloride Level 93 L 101-111 mmol/L Carbon Dioxide Level 22 21-32 mmol/L Blood Urea Nitrogen 34 H 7-18 mg/dL Creatinine 2.2 H 0.5-1.3 mg/dL Glomerular Filtration Rate Calc 32 >90 mL/min Random Glucose 217 H 70-105 mg/dL Total Calcium 8.5 8.5-10.1 mg/dL Magnesium Level 2.00 1.80-2.40 mg/dL Vancomycin Level Trough 9.2 L 10.0-20.0 UG/ML ASSESSMENT: Left foot osteomyelitis. Left foot diabetic ulcer and abscess with E coli infection. Infection with multidrug resistant organism. Sepsis. Leukocytosis. Diabetes mellitus. Acute on chronic renal failure. PLAN: Dr. Sorensen has evaluated patient Discontinue cefepime IV. Start meropenem IV. Continue on vancomycin per pharmacy protocol. Cardiology following patient. Continue pain management. Continue wound care. Glucometer checks a.c./hs and cover with insulin per sliding scale protocol.. We will monitor electrolytes. This case was reviewed and discussed with my supervising physician and the above assessment and plan was formulated and agreed upon. ATTESTATION BY PHYSICIAN I have seen and examined the patient. I reviewed the documentation, medical decision making, and treatment plan as noted by the mid-level provider above. I agree with the findings and plan of care. PANCHITO LOZANO MD, [facility] Aug 08, 2024 17:49
--- NOTE | 2024-08-08 20:21 | NUR ---
NEW ORDERS RECEIVED ORDERS FROM THALIA BAUER TO DC HEPARIN TODAY. MAY GIVE B/P, ASA, AND PLAVIX, HOLD DIABETIC MEDICATION,MORNING OF ANGIOGRAM. CONSENT SIGNED
--- NOTE | 2024-08-08 21:00 | NUR ---
TEMPERATURE PATIENT HAVING FEVERS. LET DR. LOZANO KNOW THAT WE ARE GIVING TYLENOL AND ICE PACKS. HE ORDERED COVID AND FLU SWABS.
[2024-08-08 23:14] LABS: SARS-CoV-2, RNA, NAAT NEGATIVE SARS CoV-2 (NEGATIVE)
[2024-08-08 23:38] LABS: INFLUENZA TYPE A Negative For Type A (NEGATIVE); INFLUENZA TYPE B Negative For Type B (NEGATIVE)
[2024-08-09] VITALS (28 sets, daily range): BP systolic 99–159; BP diastolic 46–98; PULSE 81–117; RESP 13–35; TEMP 98.4–101.7; O2SAT 8–99
--- NOTE | 2024-08-09 01:09 | NUR ---
fever 101.7 patient still with chills and fever. called dr. dial and he ordered to transfer to icu and consult critical care. report given to lauren tam. patient taken to room 210
[2024-08-09 05:36] LABS: HEMATOCRIT 30.4 % (42-54); MEAN CORPUSCULAR HEMOGLOBIN 25.7 pg (27.0-33.0); MEAN CORPUSCULAR HGB CONC 32.2 g/dL (32.0-36.0); MEAN CORPUSCULAR VOLUME 79.8 fL (79-99); RED BLOOD CELL COUNT(AUTO) 3.81 MIL/uL (4.50-6.20); RED CELL DISTRIBUTION WIDTH 14.8 % (11.0-15.5); WHITE BLOOD COUNT (AUTO) 16.3 K/uL (4.8-10.8)
[2024-08-09 05:50] LABS: INR 1.26 (0.85-1.15); PROTHROMBIN TIME 13.4 SEC (9.6-11.6)
[2024-08-09 05:51] LABS: CREATININE 2.3 mg/dL (0.5-1.3); POTASSIUM 4.2 mmol/L (3.5-5.1)
[2024-08-09] MEDS ORDERED: NITROGLYCERIN 50MG VIAL ONE (07:38)
[2024-08-09] MEDS ORDERED: HEParin-NS 1,000 UNIT/500 ML 1,000 ML IV ONE (07:38)
[2024-08-09] MEDS ORDERED: LIDOCAINE HCL 400MG/20ML VIAL ONE (07:38)
[2024-08-09] MEDS ORDERED: IODIXANOL 320 MG/ML 100 ML VIAL ONE (07:38)
[2024-08-09] MEDS ORDERED: HEParin 10,000 UNIT/10ML (1,000 UNIT/ML) VIAL ONE (07:38)
--- NOTE | 2024-08-09 07:56 | NUR ---
Patient taken to cathodic protection technician via stretcher to perform angiogram by Dr. Owusu
[2024-08-09] MEDS ORDERED: FENTanyl CITRate PF 50 MCG/1 ML 2ML VIAL ONE (08:11)
[2024-08-09] MEDS ORDERED: MIDAZOLAM HCL 1 MG/ML 2ML VIAL ONE (08:12)
--- NOTE | 2024-08-09 08:55 | CONS ---
[facility] CONSULTATION NOTE Date Patient Seen: Aug 09, 2024 Time of Visit: 08:55 Supervising Physician: Jacobo Long MD Reason for Consultation: Critical care severe sepsis Primary Care Physician: Odessa Holland MD Outpatient Specialists: Inpatient Consults: PROBLEM LIST: Sepsis 2/2 left foot osteomyelitis with left foot abscess Ketoacidosis likely from Jardiance Acute metabolic acidosis 2/2 from above MDRO infection to left foot + [place]ri[place]ia coli Leukocytosis, POA Chronic anemia from chronic illness, POA Hyperglycemia in the presence of type 2 diabetes mellitus, POA CKD, POA Glucosuria, POA Protein unit, POA HPI: This is a 64-year-old male with history of diabetes mellitus type 2, obesity, hypotension, and CKD who came in to ED on 08/05/24 for elevated blood sugars, chills and fevers with associated nausea and vomiting. Patient arrived with a left foot ulcer with purulent drainage. He was admitted by the [facility] team for suspected osteomyelitis, sepsis and left foot diabetic ulcer and abscess. Overnight he was upgraded to the ICU and we were consulted for critical Care. Patient is awake alert and oriented x3 assess post left lower extremity angiogram, coming off sedation. Nauseated was given Zofran and Phenergan IM with slight improvement. He denies any chest pain, shortness of breath or palpitations. Left foot MRI showed acute osteomyelitis involving the residual 5th metatarsal bone as described including overlying 1 cm perhaps infected fluid collection. Patient was evaluated by Dr. Sorensen who recommended surgery 5th metatarsal debridement of the bone and incision and drainage of possible abscess on the lateral aspect of the foot and to continue antibiotics. Today he underwent left lower extremity angiogram with lower extremity arterial runoff per Cardiology, unsuccessful attempt at crossing DIRECT MARKETING ANALYST in the ostial left superficial femoral artery. And consulted CT vascular surgery for left femoral popliteal bypass consideration. Cultures of left foot growing MDRO E coli susceptible to meropenem. On laboratory WBCs are 16.3 H&H is 9.8/30.4 platelet count is normal. Chemistry shows sodium of 127 chloride 94 CO2 19 BUN 38 creatinine 2.3 GFR of 31 glucose 163 point has per dL total calcium 8.1 ketones of 4.3 likely from Jardiance. ABG results: PH 7.34 pCO2 27 PO2 73 bicarb 14.4, base excess -9. Ketones are 4.3, patient has been receiving Jardiance 25 mg p.o. daily likely ketoacidosis from Jardiance. Added sodium bicarb 650 mg 3 times a day. PAST MEDICAL HX: Severe PVD Obesity CKD Hypertension Foot ulcer PAST SURGICAL HX: noncontributory SOCIAL HISTORY: No tobacco, ETOH, or illicit drug use Coded Allergies: No Known Drug Allergies (Unverified Allergy, Unknown, 08/05/24) REVIEW OF SYSTEMS: 12 point ROS reviewed with patient. Pertinent positives mentioned above. Otherwise negative. PHYSICAL EXAM: GENERAL: alert, weak, awake oriented x 3 HEENT: EOMI, Sclera non icteric, moist mucosa NECK: Supple, no JVD, trachea midline LUNGS: Clear breath sounds bilaterally. No wheezes HEART: Regular rate and rhythm. Normal S1 and S2, without murmurs ABD: Abdomen soft, nontender. Bowel sounds present EXT: No clubbing cyanosis or edema NEURO: Alert and oriented to person, follows commands Vital Signs (last 8hr) Date Time Temp Pulse Resp B/P (MAP) Pulse Ox O2 Delivery O2 Flow Rate FiO2 08/09/24 07:00 98.4 101 23 130/74 96 Room Air 08/09/24 05:00 105 19 139/90 97 Room Air 08/09/24 04:00 8 Room Air* 0 21 08/09/24 04:00 99 21 157/73 95 Room Air 08/09/24 03:00 98.8 100 22 131/69 95 Room Air 08/09/24 02:00 99.3 106 25 134/58 93 Room Air 08/09/24 01:00 95 Room Air* 0 21 08/09/24 01:00 99.7 81 35 131/94 96 Room Air LABS: Hematology Labs: Test 08/09/24 05:10 08/08/24 03:22 Range/Units White Blood Count 16.3 H 4.8-10.8 K/uL Red Blood Count 3.81 L 4.50-6.20 MIL/uL Hemoglobin 9.8 L 14.0-18.0 g/dL Hematocrit 30.4 L 42-54 % Mean Corpuscular Volume 79.8 79-99 fL Mean Corpuscular Hemoglobin 25.7 L 27.0-33.0 pg Mean Corpuscular Hemoglobin Concent 32.2 32.0-36.0 g/dL Red Cell Distribution Width 14.8 11.0-15.5 % Platelet Count 225 130-400 K/uL Mean Platelet Volume 10.2 7.5-10.5 fL Nucleated Red Blood Cells 0.0 0.0-0.19 % Immature Granulocyte % (Auto) 0.8 0-1 % Neutrophils (%) (Auto) 84.0 H 40.0-77.0 % Lymphocytes (%) (Auto) 3.9 L 21.0-51.0 % Monocytes (%) (Auto) 10.9 3.0-13.0 % Eosinophils (%) (Auto) 0.1 0.0-8.0 % Basophils (%) (Auto) 0.3 0.0-5.0 % Neutrophils # (Auto) 13.2 H 1.8-7.7 K/uL Lymphocytes # (Auto) 0.6 L 1.0-4.8 K/uL Monocytes # (Auto) 1.7 H 0.1-1.0 K/uL Eosinophils # (Auto) 0.02 0.00-0.70 K/uL Basophils # (Auto) 0.04 0.00-0.20 K/uL Absolute Immature Granulocyte (auto 0.13 0-1 K/uL Chemistry Labs: Test 08/09/24 05:10 08/09/24 02:45 08/08/24 03:22 Range/Units Sodium Level 127 L 136-145 mmol/L Potassium Level 4.2 3.5-5.1 mmol/L Chloride Level 94 L 101-111 mmol/L Carbon Dioxide Level 19 L 21-32 mmol/L Blood Urea Nitrogen 38 H 7-18 mg/dL Creatinine 2.3 H 0.5-1.3 mg/dL Glomerular Filtration Rate Calc 31 >90 mL/min Random Glucose 163 H 70-105 mg/dL Total Calcium 8.1 L 8.5-10.1 mg/dL Whole Blood Glucose 115 #H 70-110 MG/DL Magnesium Level 2.00 1.80-2.40 mg/dL Coagulation Labs: Test 08/09/24 05:10 Range/Units Prothrombin Time 13.4 H 9.6-11.6 SEC Prothromb Time International Ratio 1.26 H 0.85-1.15 Activated Partial Thromboplast Time 41.0 H 26.3-35.5 SEC DIAGNOSTICS / RADIOLOGY RESULTS: PATIENT: KAROLYN ZUNIGA MR#: [id number] : 1960 SEX: M AGE: 64 LOCATION: H ORDER 4 STATUS: ADM IN REPORT#: [id number] SERVICE 0 REASON: R/O OSTEOMYELITIS ORDERING PHYSICIAN: PANCHITO LOZANO MD PROCEDURE: FT LT WO - MR FOOT LEFT WO MRI LEFT ANKLE WITHOUT CONTRAST INDICATION: Plantar soft tissue ulcer. COMPARISON: None TECHNIQUE: Long and short axis fat and water weighted sequences were obtained through the left ankle. FINDINGS: Transmetatarsal amputation changes. Abnormal coalescent low T1 signal obscuring the cortices of the plantar lateral fifth metatarsal stump, and subjacent reactive marrow edema noted. 1 cm perhaps infected fluid collection overlies the same level. No high-grade ligamentous or tendinous abnormality detected. Midfoot alignment is well maintained, and Lisfranc ligament is intact. Subcentimeter plantar calcaneal spur without plantar fasciitis. Subcentimeter traction enthesophyte arises off the posterior calcaneus at the Achilles tendon attachment. Generalized mild midfoot osteoarthropathy. No abnormal soft tissue mass or ganglion. No evidence for muscle atrophy, fatty infiltration, or denervation myoedema. No evidence for fracture. IMPRESSION: Acute osteomyelitis involving the residual fifth metatarsal bone as described, including overlying 1.0 cm, perhaps infected, fluid collection. DICTATED BY: PURA MANJARREZ MD DATE: 08/05/24 1249 ELECTRONICALLY SIGNED BY: PURA MANJARREZ MD DATE: 08/05/24 1254 PLAN NEURO: Minimize central acting medications as possible. Fall Precautions. Well lighted room through the day and minimize interruptions through the night to prevent acute delirium. PULMONARY: Supplemental 02 as needed Titrate Fio2 to keep Spo2 > or = 90% DuoNebs and CPT as needed IS hourly while awake for pulmonary hygiene Out of bed to chair as tolerated VAP Bundle Vent/BIPAP Settings: [ ] Driving pressure: [ ] P Plat: [ ] Static C: [ ] Static R: [ ] P/F Ratio: [ ] CARDIOVASCULAR: Follow hemodynamics. Titrate vasopressor to keep MAP >65 or systolic blood pressure >95mmHg DIPS: None LINES: PIV GI & NUTRITION: Continue nutritional support Aspirations precautions Prokinetic agents and laxatives as needed KIDNEYS & ELECTROLYTES: Strict monitoring of intake and output Daily weights Avoid nephrotoxic agents Monitor electrolytes and replace as needed Goal urine output of 30mL/hr or 0.5mL/kg/hr Urine output: [ ] Fluid Balance: [ ] ENDOCRINE: Maintain blood glucose between 100-180 at all times. Insulin sliding scale for blood glucose management INFECTIOUS DISEASE: Trend temperature. Victor-culture if febrile. Micro: [ ] Left foot wound E coli Antibiotics: [ Meropenem Vanco HEMATOLOGY & COAGULATION: Monitor H&H. Keep Hgb > 7 Transfuse 1 unit of PRBC for Hgb < 7 Transfuse 1 pack of platelets of platelets < 20, 000 Watch for any signs and symptoms of bleeding SKIN: Pressure ulcer prevention per facility protocol Rehab: PT/OT Prophylaxis: GI: Protonix DVT: Heparin Code Status: Full Resuscitation Disposition: ICU Other: Total patient care time exceeds 35 minutes excluding all procedures. Case was discussed and seen with my supervising physician. The above plan was formulated and agreed upon. PEG DO [facility] Aug 09, 2024 08:55
[2024-08-09] MEDS ORDERED: cloPIDOgrel 300MG TAB ONE (09:06)
[2024-08-09] MEDS ORDERED: ASPIRIN 81MG CHEW TAB ONE (09:07)
[2024-08-09] MEDS ORDERED: ondanSETRON 4MG INJ ONE (09:16)
[2024-08-09] MEDS ORDERED: DEXTROSE 50%-WATER 50 ML DISP.SYRIN IV PRN (10:00)
[2024-08-09] MEDS ORDERED: GLUCAGON 1MG KIT 1 MG ML IM PRN (10:00)
--- NOTE | 2024-08-09 10:07 | PRN ---
Procedure:Peripheral Angiogram Procedure Note Procedure Note: Peripheral Angiogram Date/Time of Service: 08/09/2024 Referring Physician: Dr. Long Procedures Performed: Lower abdominal aortogram, peripheral angiogram with lower extremity arterial runoff, unsuccessful attempt at crossing GLOBAL CLIMATE CHANGE RESEARCHER in the ostial left superficial femoral artery Indications for Procedure: PAD, [place] category five symptoms (left lower extremity) PAD, severe stenosis in the left superficial femoral artery status post treatment with directional atherectomy and drug coated balloon angioplasty by Dr. Henry Combs in 2020 Description of Procedure: [After informed consent was obtained the patient was prepped and draped in the usual sterile fashion a 6 [place] arterial sheath with a hemostatic valve was inserted into the right common femoral artery using a modified VidBid techni que on the first past front wall puncture. A 5 [place] Omni Flush catheter was then advanced over a soft angled Glidewire into the abdominal aorta and a lower abdominal aortogram with runoff was obtained. The findings are listed below. The Omni flush catheter was then advanced to the left common femoral artery in the left lower extremity arteriogram was obtained. The findings are listed below.] Findings: Lower abdominal aorta: patent Right common iliac artery: patent Right external iliac artery: patent Right internal iliac artery: patent Right common femoral artery: patent Right profunda artery: patent Left common iliac artery: patent Left external iliac artery: patent Left internal iliac artery: patent Left common femoral artery: patent Left profunda artery: patent Left superficial femoral artery: 100% stenosis (GLOBAL CLIMATE CHANGE RESEARCHER > 240mm) in the ostial segment of the artery. The GLOBAL CLIMATE CHANGE RESEARCHER appears to be the result of the healed dissection that extends from the proximal, mid, and distal segments of the artery. The artery reconstitutes distally via collateral blood flow Left popliteal artery: patent Left anterior tibial artery: patent Left peroneal artery: patent Left posterior tibial artery: 100% stenosis (GLOBAL CLIMATE CHANGE RESEARCHER = 150mm) in the proximal segment of the artery. Pedal arch: patent, with slow 2 vessel run-off supplying the anterior and posterior segments of the left pedal arch. Intervention: After reviewing the above-mentioned findings the decision was made to intervene on the left superficial femoral artery. The soft angled Glidewire was inserted into the Omni flush catheter and was advanced to the distal left profunda artery. We then removed the Omni flush catheter and exchanged the short six [place] arterial sheath for a 45 cm six [place] destination arterial sheath, which was placed in the left common femoral artery. We then administered heparin 75 units/kg and clopidogrel 300 mg x 1 dose. We then attempted to cross the GLOBAL CLIMATE CHANGE RESEARCHER in the ostial left superficial femoral artery, using a 0.018 command 18 guidewire and 0.018 quick cross guide catheter, but despite multiple attempts we were unsuccessful. The wire kept going into the false lumen that was created after his previous intervention in 2020. The decision was then made to stop and refer the patient for left femoral - popliteal bypass consideration. The 0.018 command 18 guidewire and 0.018 quick cross guide catheter and 45 cm six [place] destination arterial sheath, were then removed and the arteriotomy site in the right common femoral artery was successfully closed using a six [place] Angio- Seal device. The patient tolerated the procedure well and without issue. Estimated Blood Loss: [30]mL Complications: [ None] Conclusion: 1. PAD, V[place] category five symptoms (left lower extremity), 100% stenosis in the ostial left superficial femoral artery s/p unsuccessful attempt at crossing the GLOBAL CLIMATE CHANGE RESEARCHER. The GLOBAL CLIMATE CHANGE RESEARCHER appears to be the result of the healed dissection that extends from the proximal, mid, and distal segments of the artery that developed after his peripheral intervention that was done in 2020 2. Nonhealing ulcer on the lateral aspect of the left foot 3. PAD, s/p successful intervention of the right SFA done in 2021 4. Osteomyelitis in the right foot status post successful TMA Recommendations/Instructions: 1. Continue Goal-directed medical therapy. 2. Stop Plavix 75 mg daily. Continue aspirin 81 mg daily 3. Groin precautions 4. Or hours and bedrest 5. Start NS at 100 mL/hour times 4 hours 6. We will consult CT/vascular surgery for left femoral-popliteal bypass consideration. 7. Continue aggressive wound care MANUEL OCHOA MD Aug 09, 2024 10:07
[2024-08-09] MEDS: 0.9%NACL 1000ML 1,000 ML IV SCH ×2 (10:29→14:00)
--- NOTE | 2024-08-09 10:56 | PN ---
PROGRESS NOTE Date of Service: Aug 09, 2024 Time of Service: 10:51 SUBJECTIVE: This 64 years old male was seen for follow up evaluation on cellulitis and infection with osteomyelitis to the left foot lateral aspect the patient underwent angiogram with recommendations for cardiovascular surgery for possible bypass surgery on the lower extremity at this time she will continue with infection the patient has been transferred to ICU secondary to episode of sepsis and has been continue with IV antibiotics with localized cellulitis to the foot now extending towards the ankle. REVIEW OF SYSTEMS CONSTITUTIONAL: Denies fever, chills, or fatigue. HEAD/FACE: No signs of trauma. EENT: Denies eye pain, blurred vision, double vision, or light sensitivity. RESPIRATORY: Denies shortness of breath, cough, wheezing CARDIOVASCULAR: Denies chest pain, palpitation, syncope underlying peripheral vascular disease. GASTROINTESTINAL/ABDOMINAL: Denies abdominal pain, constipation, diarrhea, nausea or vomiting GENITOURINARY: Denies dysuria or hematuria. MUSCULOSKELETAL: Denies joint pain, tenderness, or trauma. Osteomyelitis of the 5th metatarsal lateral foot left. INTEGUMENTARY: Ulceration lateral aspect plantar foot left. Cellulitis of the foot and ankle NEUROLOGICAL/PSYCH: Denies anxiety, depression, heat or cold intolerance. PHYSICAL EXAM EYES: Anicteric. Pupils equal and reactive. HENT: No oral thrush seen, moist Oral mucosa NECK: Supple, no JVD or thyromegaly. LUNGS: Good air entry. No rales, no rhonchi. CARDIOVASCULAR: S1, S2 regular. No murmur heard. Peripheral vascular disease bilateral lower extremity nonpalpable pulses by hand. ABDOMEN: Soft, non tender, bowel sounds present, no organomegaly CENTRAL NERVOUS SYSTEM: Awake, alert, oriented x 3. No focal deficits. SKIN: No rashes, no swelling. Ulceration to the plantar lateral aspect of the left foot. Cellulitis extending to the ankle medial and lateral. LYMPHATICS: No peripheral lymphadenopathy MUSCULOSKELETAL: No joint swelling, erythema or tenderness. Positive acute osteomyelitis on the MRI results for the 5th metatarsal bone lateral aspect EXTREMITIES: No cyanosis or clubbing BACK: No deformity, no pressure ulcer. GENITOURINARY: No dysuria or hematuria Vital Signs (last 8hr) Date Time Temp Pulse Resp B/P (MAP) Pulse Ox O2 Delivery O2 Flow Rate FiO2 08/09/24 10:30 98.4 94 13 113/65 97 Room Air 08/09/24 10:15 100 25 134/57 91 Room Air 08/09/24 07:10 99 Room Air* 0 08/09/24 07:00 98.4 101 23 130/74 96 Room Air 08/09/24 05:00 105 19 139/90 97 Room Air 08/09/24 04:00 8 Room Air* 0 08/09/24 04:00 99 21 157/73 95 Room Air 08/09/24 03:00 98.8 100 22 131/69 95 Room Air LABS: Laboratory: Test 08/09/24 05:10 08/09/24 02:45 08/08/24 22:57 08/08/24 03:22 Range/Units White Blood Count 16.3 H 4.8-10.8 K/uL Red Blood Count 3.81 L 4.50-6.20 MIL/uL Hemoglobin 9.8 L 14.0-18.0 g/dL Hematocrit 30.4 L 42-54 % Mean Corpuscular Volume 79.8 79-99 fL Mean Corpuscular Hemoglobin 25.7 L 27.0-33.0 pg Mean Corpuscular Hemoglobin Concent 32.2 32.0-36.0 g/dL Red Cell Distribution Width 14.8 11.0-15.5 % Platelet Count 225 130-400 K/uL Mean Platelet Volume 10.2 7.5-10.5 fL Nucleated Red Blood Cells 0.0 0.0-0.19 % Prothrombin Time 13.4 H 9.6-11.6 SEC Prothromb Time International Ratio 1.26 H 0.85-1.15 Activated Partial Thromboplast Time 41.0 H 26.3-35.5 SEC Sodium Level 127 L 136-145 mmol/L Potassium Level 4.2 3.5-5.1 mmol/L Chloride Level 94 L 101-111 mmol/L Carbon Dioxide Level 19 L 21-32 mmol/L Blood Urea Nitrogen 38 H 7-18 mg/dL Creatinine 2.3 H 0.5-1.3 mg/dL Glomerular Filtration Rate Calc 31 >90 mL/min Random Glucose 163 H 70-105 mg/dL Total Calcium 8.1 L 8.5-10.1 mg/dL Whole Blood Glucose 115 #H 70-110 MG/DL Influenza Type A Antigen Negative For Type A NEGATIVE Influenza Type B Antigen Negative For Type B NEGATIVE SARS-CoV-2, RNA, NAAT NEGATIVE SARS CoV-2 NEGATIVE Immature Granulocyte % (Auto) 0.8 0-1 % Neutrophils (%) (Auto) 84.0 H 40.0-77.0 % Lymphocytes (%) (Auto) 3.9 L 21.0-51.0 % Monocytes (%) (Auto) 10.9 3.0-13.0 % Eosinophils (%) (Auto) 0.1 0.0-8.0 % Basophils (%) (Auto) 0.3 0.0-5.0 % Neutrophils # (Auto) 13.2 H 1.8-7.7 K/uL Lymphocytes # (Auto) 0.6 L 1.0-4.8 K/uL Monocytes # (Auto) 1.7 H 0.1-1.0 K/uL Eosinophils # (Auto) 0.02 0.00-0.70 K/uL Basophils # (Auto) 0.04 0.00-0.20 K/uL Absolute Immature Granulocyte (auto 0.13 0-1 K/uL Magnesium Level 2.00 1.80-2.40 mg/dL Test 08/07/24 22:50 Range/Units Vancomycin Level Trough 9.2 L 10.0-20.0 UG/ML DIAGNOSTICS / RADIOLOGY: PORTABLE CHEST RADIOGRAPH INDICATION: fever COMPARISON: 06/22/2024 FINDINGS: laboratory monitor leads overlie the field of view. Heart size is normal. The pulmonary vascularity and sriram appear normal. No abnormal pulmonary parenchymal opacity or consolidation identified. No significant pleural effusion noted. No pneumothorax detected. IMPRESSION: No radiographic evidence for any acute cardiopulmonary process. ASSESSMENT: DUARTE on CKD3b, last known renal function [id number] GFR 32 and Cr. 2.2, presented with a Cr 2.4 and GFR 29 HTN likely renal manifestation Dm2 with likely nephropathy Mild Anemia Hyponatremia ATN dehydration Osteomyelitis of the lateral 5th metatarsal left foot. Cellulitis of the foot and ankle Abscess of the left foot PLAN: Endovascular has been recommending cardiovascular surgeon for possible bypass surgery of the left lower extremity. At this time in view of the presence of abscess and osteomyelitis of the 5th metatarsal lateral aspect with an ulceration will recommend excisional debridement of this ulcer to be done tomorrow and aggressive local wound care with IV antibiotics until further cardiovascular surgery can be done. This is an attempt to salvage the limb and prevented continue it sepsis. NPO post mean and patient will be scheduled for tomorrow for debridement of bone and soft tissue lateral aspect of the left foot. BETTY QUINTEROS DPM Aug 09, 2024 10:56
[2024-08-09 11:38] LABS: ABG BASE EXCESS -9.9 mmol/L (-2.0-3.0); ABG HCO3 14.4 mmol/L (21.0-28.0); ABG OXYGEN SATURATION 93.9 % (94.0-98.0); ABG PCO2 27 mmHg (35-48); ABG PH 7.344 (7.350-7.450); CARBON MONOXIDE 0.6 % (0.5-1.5); HHb 6.1; PO2, ARTERIAL BG 73.1 mmHg (83.0-108.0); VENT MODE, BG RA (ROOM AIR)
--- NOTE | 2024-08-09 13:00 | NUR ---
Dr. Lamar is aware of CV consult
[2024-08-09] MEDS: PROMETHAZINE HCL 25 MG/ML 1ML AMPULE IM ONE (13:22)
[2024-08-09] MEDS: SODIUM BICARBONATE 650 MG TAB PO SCH (15:01)
[2024-08-09 16:02] LABS: CREATININE 2.1 mg/dL (0.5-1.3); POTASSIUM 4.2 mmol/L (3.5-5.1)
--- NOTE | 2024-08-09 16:13 | PN ---
INFECTIOUS DISEASE PROGRESS NOTE Date of Service: Aug 09, 2024 SUBJECTIVE: Patient was seen and examined in the ICU room 210. Patient is awake, alert and oriented x 3. Patient had a fever of 101.7 last night and at midnight, current temperature this morning is 98.4. Patient is status post peripheral angiogram today with findings of 100% stenosis in the ostial left superficial femoral artery s/p unsuccessful attempt. Cardiovascular surgeon has been consulted. The WBC is still elevated at 16.3. The left foot culture came back positive for ESBL E coli. Patient will continue on meropenem and vancomycin. Dr. Sorensen has evaluated patient and recommended excisional debridement. We will continue to monitor patient. PHYSICAL EXAM EYES: Anicteric. Pupils equal and reactive. HENT: No oral thrush seen, moist Oral mucosa. NECK: Supple, no JVD or thyromegaly. LUNGS: Good air entry. No rales, no rhonchi. CARDIOVASCULAR: S1, S2 regular. No murmur heard. ABDOMEN: Soft, non tender, bowel sounds present, no organomegaly. CENTRAL NERVOUS SYSTEM: Awake, alert, oriented x 3. SKIN: No rashes, no swelling. LYMPHATICS: No peripheral lymphadenopathy. MUSCULOSKELETAL: No joint swelling, erythema or tenderness. EXTREMITIES: No cyanosis or clubbing. Left foot diabetic ulcer with osteomyelitis. BACK: No deformity, no pressure ulcer. GENITOURINARY: No dysuria or hematuria. Vital Sign (Last 12 Hours) 08/09/24 08/09/24 08/09/24 08/09/24 05:00 07:00 07:10 10:15 Temp 98.4 Pulse 105 101 100 Resp 19 23 25 B/P (MAP) 139/90 130/74 134/57 Pulse Ox 97 96 99 91 O2 Delivery Room Air Room Air Room Air* Room Air O2 Flow Rate 0 FiO2 21 08/09/24 08/09/24 08/09/24 08/09/24 10:30 10:45 11:00 11:15 Temp 98.4 Pulse 94 97 99 98 Resp 13 24 19 33 B/P (MAP) 113/65 110/54 109/56 116/67 Pulse Ox 97 93 97 96 O2 Delivery Room Air Room Air Room Air Room Air 08/09/24 08/09/24 08/09/24 08/09/24 11:30 12:00 13:00 14:00 Temp 99.0 Pulse 103 102 101 100 Resp 16 25 22 25 B/P (MAP) 159/58 134/98 130/64 123/56 Pulse Ox 97 96 95 97 O2 Delivery Room Air Room Air Room Air Room Air 08/09/24 15:00 Pulse 99 Resp 22 B/P (MAP) 113/67 Pulse Ox 96 O2 Delivery Room Air Intake & Output (last 24hrs) 08/08/24 08/08/24 08/09/24 15:00 23:00 07:00 Intake Total 300.0 ml Output Total 700 ml Balance -400.0 ml LABS: Laboratory: Test 08/09/24 11:36 08/09/24 11:05 08/09/24 10:36 08/09/24 05:10 Range/Units Blood Gas Specimen Type Arterial Arterial Blood pH 7.344 L 7.350-7.450 Arterial Blood Partial Pressure CO2 27 L 35-48 mmHg Arterial Blood Partial Pressure O2 73.1 L 83.0-108.0 mmHg Arterial Blood HCO3 14.4 L 21.0-28.0 mmol/L Arterial Blood Oxygen Saturation 93.9 L 94.0-98.0 % Arterial Blood Base Excess -9.9 L -2.0-3.0 mmol/L Hemoglobin (Blood Gas) 11.3 L 13.5-17.5 g/dL Sodium (Blood Gas) 128 L 136-145 MMOL/L Bedside Potassium (Blood Gas) 4.2 3.4-4.5 MMOL/L Bedside Chloride (Blood Gas) 99 98-107 MMOL/L Bedside Glucose (Blood Gas) 174 H 65-95 MG/DL Bedside Ionized Calcium (Blood Gas) 1.14 L 1.15-1.33 MMOL/L Bedside Lactic Acid (Blood Gas) 1.36 H 0.36-0.75 MMOL/L Blood Gas Temperature 37.0 35.5-37.0 CELSIUS Blood Gas Vent Mode RA ROOM AIR FiO2 21.0 % Blood Gas Specimen Comment RR ARTHUR Whole Blood Glucose 169 H 70-110 MG/DL Whole Blood Ketones Quantitative 4.3 H 0.0-0.6 mmol/L White Blood Count 16.3 H 4.8-10.8 K/uL Red Blood Count 3.81 L 4.50-6.20 MIL/uL Hemoglobin 9.8 L 14.0-18.0 g/dL Hematocrit 30.4 L 42-54 % Mean Corpuscular Volume 79.8 79-99 fL Mean Corpuscular Hemoglobin 25.7 L 27.0-33.0 pg Mean Corpuscular Hemoglobin Concent 32.2 32.0-36.0 g/dL Red Cell Distribution Width 14.8 11.0-15.5 % Platelet Count 225 130-400 K/uL Mean Platelet Volume 10.2 7.5-10.5 fL Nucleated Red Blood Cells 0.0 0.0-0.19 % Prothrombin Time 13.4 H 9.6-11.6 SEC Prothromb Time International Ratio 1.26 H 0.85-1.15 Activated Partial Thromboplast Time 41.0 H 26.3-35.5 SEC Sodium Level 127 L 136-145 mmol/L Potassium Level 4.2 3.5-5.1 mmol/L Chloride Level 94 L 101-111 mmol/L Carbon Dioxide Level 19 L 21-32 mmol/L Blood Urea Nitrogen 38 H 7-18 mg/dL Creatinine 2.3 H 0.5-1.3 mg/dL Glomerular Filtration Rate Calc 31 >90 mL/min Random Glucose 163 H 70-105 mg/dL Total Calcium 8.1 L 8.5-10.1 mg/dL Test 08/08/24 22:57 08/08/24 03:22 08/07/24 22:50 Range/Units Influenza Type A Antigen Negative For Type A NEGATIVE Influenza Type B Antigen Negative For Type B NEGATIVE SARS-CoV-2, RNA, NAAT NEGATIVE SARS CoV-2 NEGATIVE Immature Granulocyte % (Auto) 0.8 0-1 % Neutrophils (%) (Auto) 84.0 H 40.0-77.0 % Lymphocytes (%) (Auto) 3.9 L 21.0-51.0 % Monocytes (%) (Auto) 10.9 3.0-13.0 % Eosinophils (%) (Auto) 0.1 0.0-8.0 % Basophils (%) (Auto) 0.3 0.0-5.0 % Neutrophils # (Auto) 13.2 H 1.8-7.7 K/uL Lymphocytes # (Auto) 0.6 L 1.0-4.8 K/uL Monocytes # (Auto) 1.7 H 0.1-1.0 K/uL Eosinophils # (Auto) 0.02 0.00-0.70 K/uL Basophils # (Auto) 0.04 0.00-0.20 K/uL Absolute Immature Granulocyte (auto 0.13 0-1 K/uL Magnesium Level 2.00 1.80-2.40 mg/dL Vancomycin Level Trough 9.2 L 10.0-20.0 UG/ML ASSESSMENT: Left foot osteomyelitis. Left foot diabetic ulcer and abscess with E coli infection. Infection with multidrug resistant organism. Sepsis. Leukocytosis. Diabetes mellitus. Acute on chronic renal failure. PLAN: Dr. Sorensen has evaluated patient and recommended excisional debridement. Continue meropenem. Continue on vancomycin per pharmacy protocol. Continue critical care. Cardiology following patient. Continue pain management. Continue wound care. Glucometer checks a.c./hs and cover with insulin per sliding scale protocol. We will monitor electrolytes. This case was reviewed and discussed with my supervising physician and the above assessment and plan was formulated and agreed upon. ATTESTATION BY PHYSICIAN I have seen and examined the patient. I reviewed the documentation, medical decision making, and treatment plan as noted by the mid-level provider above. I agree with the findings and plan of care. PANCHITO LOZANO MD, [facility] Aug 09, 2024 16:13
[2024-08-09] MEDS: INSULIN humuLIN R 100 UNIT/ML 3ML SQ SCH (17:22)
[2024-08-09] MEDS: HEParin 5,000 UNIT VIAL SQ SCH (17:25)
[2024-08-09] MEDS: metoCLOPRAmide 10 MG/2 ML VIAL IVP PRN (20:26)
[2024-08-09] MEDS: INSULIN GLARgine 100 UNITS/ML 10 ML VIAL SQ SCH (20:29)
[2024-08-10] VITALS (28 sets, daily range): BP systolic 95–149; BP diastolic 47–87; PULSE 69–108; RESP 7–29; TEMP 97–100.6; O2SAT 96–98
[2024-08-10 04:33] LABS: BASOPHILS # (AUTO) 0.04 K/uL (0.00-0.20); BASOPHILS % (AUTO) 0.2 % (0.0-5.0); EOSINOPHILS # (AUTO) 0.07 K/uL (0.00-0.70); EOSINOPHILS % (AUTO) 0.4 % (0.0-8.0); HEMATOCRIT 29.5 % (42-54); LYMPHOCYTES # (AUTO) 0.3 K/uL (1.0-4.8); LYMPHOCYTES % (AUTO) 1.7 % (21.0-51.0); MEAN CORPUSCULAR HEMOGLOBIN 26.2 pg (27.0-33.0); MEAN CORPUSCULAR HGB CONC 33.2 g/dL (32.0-36.0); MEAN CORPUSCULAR VOLUME 78.9 fL (79-99); MONOCYTES # (AUTO) 1.4 K/uL (0.1-1.0); MONOCYTES % (AUTO) 8.2 % (3.0-13.0); NEUTROPHILS # (AUTO) 15.3 K/uL (1.8-7.7); NEUTROPHILS % (AUTO) 88.3 % (40.0-77.0); PLATELET COUNT (AUTO) 309 K/uL (130-400); RED BLOOD CELL COUNT(AUTO) 3.74 MIL/uL (4.50-6.20); RED CELL DISTRIBUTION WIDTH 15.4 % (11.0-15.5); WHITE BLOOD COUNT (AUTO) 17.3 K/uL (4.8-10.8)
[2024-08-10 04:55] LABS: ALBUMIN 1.7 g/dL (3.5-5.0); CREATININE 2.1 mg/dL (0.5-1.3); POTASSIUM 3.7 mmol/L (3.5-5.1); TOTAL PROTEIN, SERUM 6.5 g/dL (6.0-8.3)
[2024-08-10] MEDS ORDERED: MIDAZOLAM HCL 1 MG/ML 2ML VIAL ONE (06:48)
[2024-08-10] MEDS ORDERED: LIDOCAINE PF 100MG/5ML (2%) SYRINGE 5ML ONE (06:48)
[2024-08-10] MEDS ORDERED: proPOFol 10 MG/ML 20ML VIAL IV ONE ×2 (06:48→07:27)
[2024-08-10] MEDS ORDERED: FENTanyl CITRate PF 50 MCG/1 ML 2ML VIAL ONE (06:49)
[2024-08-10] MEDS ORDERED: LIDOCAINE HCL 400MG/20ML VIAL ONE (07:00)
[2024-08-10] MEDS ORDERED: ondanSETRON 4MG INJ ONE (07:10)
[2024-08-10] MEDS ORDERED: dexaMETHasone SOD PHOSPHATE 4 MG/ML 1ML VIAL ONE (07:11)
[2024-08-10] MEDS: LIDOCAINE HCL-MPF 2% 10ML AMP IJ ONE (07:30)
--- NOTE | 2024-08-10 07:55 | OP ---
Operative Note: DATE OF PROCEDURE: 08/10/24 SURGEON: BETTY QUINTEROS DPM COLLATOR HAND: Or tech ANESTHESIA: General and local infiltration 1% xylocaine 0.25% Marcaine a total of 20 cc plain ANESTHESIOLOGIST/STORE KEEPER: Mr. Parsons STORE KEEPER PREOPERATIVE DIAGNOSIS: Diabetic foot ulcer lateral foot left with osteomyelitis of the 5th metatarsal POSTOPERATIVE DIAGNOSIS: Diabetic foot ulcer lateral left with osteomyelitis 5th metatarsal SYNOPSIS: This 64 years old male admitted to the hospital with sepsis cellulitis and an ulceration with acute osteomyelitis of the 5th metatarsal undergoing IV antibiotic therapy decision was made for excisional of the 5th metatarsal and an incision and drainage of abscess in the area and debridement of the ulcer this is an attempt to control this infection patient has peripheral vascular disease and has been admitted secondary to the sepsis. Undergoing for revascularization consultations and further process. PROCEDURE: Excisional debridement of bone 5th metatarsal left foot and ulcer left foot ESTIMATED BLOOD LOSS: Less than 5 cc INDICATIONS: Acute osteomyelitis with cellulitis and sepsis. DESCRIPTION OF PROCEDURE: Patient was brought into the operating room table placed in the supine position on the IV sedation local anesthesia also was achieved via local infiltration 1% xylocaine 0.25% Marcaine at this time the foot was prepped and draped in the usual sterile fashion. At this time attention was directed dorsal lateral aspect of the foot lineal incision was performed along the 5th metatarsal area on the lateral foot extending distally and proximally to expose the 5th metatarsal bone. Periosteal and soft tissue dissection was continued at this moment the for bone was noted to be deformed secondary to the chronic and acute osteomyelitis this time utilizing a sharp dissection the bone was excised from the surgical site all tendons and ligaments attached to this area were dissected at this time and resected at this moment the area was flushed utilizing copious amount of saline solution cultures and sensitivity were taken and abscess formation was noted over the dorsal aspect of the 5th metatarsal along the 5th metatarsal base this was drained and cleans gone with copious amount of saline solution approximately 1 L this time decision although the dorsal aspect of the foot the level of the 5th metatarsal was reapproximated utilizing 2-0 nylon on the horizontal mattress and simple mattress fashion the ulceration was debrided on the plantar aspect of the 5th metatarsal base I cleanser and pack at this moment utilizing iodoform packing cultures and sensitivity and bone was sent for pathologic examination. Patient tolerated procedure well dressing was applied utilizing 4x4s and Kerlix patient tolerated procedure and anesthesia well was sent to recovery room and then to the floor for continued with IV antibiotics medical management and cardiovascular consultation for possible bypass surgery due to peripheral vascular disease. BETTY QUINTEROS DPM Aug 10, 2024 07:55
[2024-08-10] MEDS: PANTOPrazole 40 MG/VIAL IVP SCH (08:25)
[2024-08-10] MEDS: furoSEMIDE 20MG VIAL IV ONE (08:41)
--- NOTE | 2024-08-10 08:55 | PN ---
[facility] PROGRESS NOTE Date Patient Seen: Aug 10, 2024 Time of Visit: 08:55 Supervising Physician: Dr. Iván Fontanez MD Primary Care Physician: Odessa Holland MD Outpatient Specialists: Inpatient Consults: PROBLEM LIST: Sepsis 2/2 left foot osteomyelitis with left foot abscess + Prevotella Bivia Ketoacidosis likely from Jardiance Acute metabolic acidosis 2/2 from above MDRO infection to left foot + Escheriachia coli Leukocytosis, POA Chronic anemia from chronic illness, POA Hyperglycemia in the presence of type 2 diabetes mellitus, POA CKD, POA Glucosuria, POA Protein unit, POA INTERVAL HISTORY: Patient was seen after surgical procedure today post I&D of left foot. He is coming off sedation drowsy lethargic. He is hemodynamically stable with a blood pressure 132/59 heart rate in the 80s respiratory rate of 14 unlabored saturating 95% on room air. Patient continues with fevers overnight he had a T- max of 100.6 and a T low of 97.9 in the last 24 hours. On laboratory white 7017.3 H&H is 9.8/29.5 with a platelet count of 978663. Sodium 129, improved from yesterday. Chloride 97 carbon dioxide is 19 with a BUN of 45 and a creatinine of 2.1 GFR of 34. Glucose 173 mg/dL total calcium 8.2 AST 128 ALT 103 alkaline phosphatase 307. Chest x-ray shows prominent interstitial markings seen post possible superimposed infiltrates. 2D echo shows EF of 50-55% with stage I diastolic dysfunction no pericardial effusion. We will continue follow patient closely alongside primary team. REVIEW OF SYSTEMS: General: No malaise or fever. Neurological: No fainting episodes or seizures. HEENT: No nasal congestion or nasal secretion. Respiratory: No cough, shortness of breath, or wheezing Cardiac: No chest pain or palpitations. Gastrointestinal: No vomiting or diarrhea. Genitourinary: No dysuria hematuria. Skin: No rashes or lesions. Hematological: No bruises or bleeding. Musculoskeletal: No joint pains or arthralgias. Psychiatric: No depression or panic attacks. PHYSICAL EXAM: GENERAL: alert, weak, awake oriented x 3 HEENT: EOMI, Sclera non icteric, moist mucosa NECK: Supple, no JVD, trachea midline LUNGS: Clear breath sounds bilaterally. No wheezes HEART: Regular rate and rhythm. Normal S1 and S2, without murmurs ABD: Abdomen soft, nontender. Bowel sounds present EXT: No clubbing cyanosis or edema NEURO: Alert and oriented to person, follows commands Vital Signs (last 8hr) Date Time Temp Pulse Resp B/P (MAP) Pulse Ox O2 Delivery O2 Flow Rate FiO2 08/10/24 06:00 104 7 136/69 96 Nasal Cannula 2.0 08/10/24 05:00 104 22 149/72 96 Nasal Cannula 2.0 08/10/24 04:00 108 22 136/65 98 Nasal Cannula 2.0 08/10/24 04:00 96 Nasal Cannula* 2 28 08/10/24 03:21 100.6 08/10/24 03:00 100.6 93 29 132/61 97 Nasal Cannula 2.0 08/10/24 02:00 90 23 105/53 95 Nasal Cannula 2.0 08/10/24 01:00 101 22 147/87 97 Nasal Cannula 2.0 LABS: Hematology Labs: Test 08/10/24 04:09 Range/Units White Blood Count 17.3 H 4.8-10.8 K/uL Red Blood Count 3.74 L 4.50-6.20 MIL/uL Hemoglobin 9.8 L 14.0-18.0 g/dL Hematocrit 29.5 L 42-54 % Mean Corpuscular Volume 78.9 L 79-99 fL Mean Corpuscular Hemoglobin 26.2 L 27.0-33.0 pg Mean Corpuscular Hemoglobin Concent 33.2 32.0-36.0 g/dL Red Cell Distribution Width 15.4 11.0-15.5 % Platelet Count 309 # 130-400 K/uL Mean Platelet Volume 10.5 7.5-10.5 fL Immature Granulocyte % (Auto) 1.2 H 0-1 % Neutrophils (%) (Auto) 88.3 H 40.0-77.0 % Lymphocytes (%) (Auto) 1.7 L 21.0-51.0 % Monocytes (%) (Auto) 8.2 3.0-13.0 % Eosinophils (%) (Auto) 0.4 0.0-8.0 % Basophils (%) (Auto) 0.2 0.0-5.0 % Neutrophils # (Auto) 15.3 H 1.8-7.7 K/uL Lymphocytes # (Auto) 0.3 L 1.0-4.8 K/uL Monocytes # (Auto) 1.4 H 0.1-1.0 K/uL Eosinophils # (Auto) 0.07 0.00-0.70 K/uL Basophils # (Auto) 0.04 0.00-0.20 K/uL Absolute Immature Granulocyte (auto 0.20 0-1 K/uL Nucleated Red Blood Cells 0.0 0.0-0.19 % Chemistry Labs: Test 08/10/24 08:14 08/10/24 04:09 08/09/24 10:36 Range/Units Whole Blood Glucose 198 H 70-110 MG/DL Sodium Level 129 L 136-145 mmol/L Potassium Level 3.7 3.5-5.1 mmol/L Chloride Level 97 L 101-111 mmol/L Carbon Dioxide Level 19 L 21-32 mmol/L Blood Urea Nitrogen 45 H 7-18 mg/dL Creatinine 2.1 H 0.5-1.3 mg/dL Glomerular Filtration Rate Calc 34 >90 mL/min Random Glucose 173 H 70-105 mg/dL Lactic Acid Level 1.6 0.8-2.5 mmol/L Total Calcium 8.2 L 8.5-10.1 mg/dL Total Bilirubin 1.0 0.2-1.0 mg/dL Aspartate Amino Transf (AST/SGOT) 128 H 10-37 U/L Alanine Aminotransferase (ALT/SGPT) 103 H 12-78 U/L Alkaline Phosphatase 207 H 50-136 U/L Total Protein 6.5 6.0-8.3 g/dL Albumin 1.7 L 3.5-5.0 g/dL Procalcitonin 3.43 H 0.05-0.5 ng/mL Whole Blood Ketones Quantitative 4.3 H 0.0-0.6 mmol/L Coagulation Labs: Test 08/09/24 05:10 Range/Units Prothrombin Time 13.4 H 9.6-11.6 SEC Prothromb Time International Ratio 1.26 H 0.85-1.15 Activated Partial Thromboplast Time 41.0 H 26.3-35.5 SEC DIAGNOSTICS / RADIOLOGY RESULTS: IMAGING REPORT Signed PATIENT: KAROLYN ZUNIGA MR#: [id number] : 1960 SEX: M AGE: 64 LOCATION: [facility] ORDER 3 STATUS: ADM IN REPORT#: [id number] SERVICE REASON: suspect acute on chronic chf ORDERING PHYSICIAN: PEG DO PROCEDURE: CXR1VW - CHEST 1VW CHEST 1VW HISTORY: CHF COMPARISON: 08/05/2024 FINDINGS: A frontal projection of the chest was obtained. Prominent interstitial markings are seen with possible superimposed infiltrates. The heart is borderline enlarged. Degenerative changes are seen. No evidence of aortic calcification is seen. IMPRESSION: 1. Prominent interstitial markings are seen with possible superimposed infiltrates. DICTATED BY: NIKA RÍOS MD DATE: 08/10/241012 ELECTRONICALLY SIGNED BY: NIKA RÍOS MD DATE: 08/10/24 101 PLAN NEURO: Minimize central acting medications as possible. Fall Precautions. Well lighted room through the day and minimize interruptions through the night to prevent acute delirium. PULMONARY: Supplemental 02 as needed Titrate Fio2 to keep Spo2 > or = 90% DuoNebs and CPT as needed IS hourly while awake for pulmonary hygiene Out of bed to chair as tolerated VAP Bundle Vent/BIPAP Settings: [ ] Driving pressure: [ ] P Plat: [ ] Static C: [ ] Static R: [ ] P/F Ratio: [ ] CARDIOVASCULAR: Follow hemodynamics. Titrate vasopressor to keep MAP >65 or systolic blood pressure >95mmHg DIPS: None LINES: PIV GI & NUTRITION: Continue nutritional support Aspirations precautions Prokinetic agents and laxatives as needed KIDNEYS & ELECTROLYTES: Strict monitoring of intake and output Daily weights Avoid nephrotoxic agents Monitor electrolytes and replace as needed Goal urine output of 30mL/hr or 0.5mL/kg/hr Urine output: [ ] Fluid Balance: [ ] ENDOCRINE: Maintain blood glucose between 100-180 at all times. Insulin sliding scale for blood glucose management INFECTIOUS DISEASE: Trend temperature. Victor-culture if febrile. Micro: [ ] Left foot wound E coli Left foot +Prevotella Bivia Antibiotics: [ Meropenem Vanco HEMATOLOGY & COAGULATION: Monitor H&H. Keep Hgb > 7 Transfuse 1 unit of PRBC for Hgb < 7 Transfuse 1 pack of platelets of platelets < 20, 000 Watch for any signs and symptoms of bleeding SKIN: Pressure ulcer prevention per facility protocol Rehab: PT/OT Prophylaxis: GI: Protonix DVT: Heparin Code Status: Full Resuscitation Disposition: ICU Other: Total patient care time exceeds 35 minutes excluding all procedures. Case was discussed and seen with my supervising physician. The above plan was formulated and agreed upon. PEG DO LABOR UTILIZATION SUPERINTENDENT Aug 10, 2024 08:55
[2024-08-10] MEDS ORDERED: PoTASSium chl 10% ELIXIR 20MEQ 20 MEQ/15 ML UDCUP PO PRN (09:00)
[2024-08-10] MEDS ORDERED: PoTASSium chloRIDE 10MEQ/100ML 100 ML IV PRN ×2 (09:00)
--- NOTE | 2024-08-10 09:55 | PN ---
Cardiology Progress Note Date of Service: 08/10/2024 Attending Door Technician: Dr. Jesus Manuel Owusu Reason for Consult: PAD Problem List: -Severe sepsis -Leukocytosis -Nonhealing ulcer (E coli, Prevotella Bivia) surround cellulitis and osteomyelitis affecting the left foot s/p excisional debridement of the left 5th metatarsal bone and left foot ulcer done on 08/10/[address] Sorensen -PAD, [place] category 5 symptoms s/p left lower extremity peripheral angiogram done on 08/09/2024 which identified 100% stenosis (DIRECT MAIL MANAGER) in the ostial SFA and 100% stenosis (DIRECT MAIL MANAGER) in the proximal SKIN CARE THERAPIST, pending Vascular surgery consult for left fem-pop bypass -Acute hypoxemic respiratory failure -CKD stage IIIB -PAD s/p directional atherectomy and angioplasty in the proximal mid and distal left SFA done on 10/20/2019, directional atherectomy ([employer]) and DCB angioplasty (Medtronic InPact 6.0x40mm) to the ostial left SFA done 02/14/[address] Combs, directional atherectomy ([employer]) and DCB angioplasty of the distal right SFA done on 05/01/[address] Owusu, residual bilateral infrapopliteal disease, and s/p bilateral TMAs -Poorly controlled DM2 -Metabolic acidosis -Elevated LFTs -Hypoalbuminemia -Microcytic hypochromic anemia -HTN -HLP -Obesity Vitals/Labs Vital Signs Date Time Temp Pulse Resp B/P (MAP) Pulse Ox O2 Delivery O2 Flow Rate FiO2 08/10/24 09:00 95 19 147/56 96 Room Air 08/10/24 08:00 100 08/10/24 07:41 98.4 08/10/24 06:00 2.0 General: Awake and alert. No acute distress. HEENT: Normocephalic, atraumatic. EOMI. Oral mucosa was moist. Neck: No masses, JVD, or carotid bruits noted. Lungs: No respiratory distress. Symmetric chest movement. Bilateral air entry. Cardiac: Regular rate. Normal S1 and S2, +S4. No other obvious murmurs, rubs, or gallops noted. Abdomen: Soft, nontender, nondistended. No organomegaly. Normal active bowel sounds x 4 quadrants. Extremities: No edema, clubbing, or cyanosis. Bilateral TMAs. The left TMA is wrapped in a bulky dressing so we are unable to assess distal pulses. The right groin access site is soft to palpation. Neuro: Cranial nerves II-XII are grossly intact. No obvious focal deficits identified. Laboratory Tests 08/09/24 15:15 08/10/24 04:09 Assessment: -Severe sepsis -Leukocytosis -Nonhealing ulcer (E coli, Prevotella Bivia) surround cellulitis and osteomyelitis affecting the left foot s/p excisional debridement of the left 5th metatarsal bone and left foot ulcer done on 08/10/[address] Sorensen -PAD, [place] category 5 symptoms s/p left lower extremity peripheral angiogram done on 08/09/2024 which identified 100% stenosis (DIRECT MAIL MANAGER) in the ostial SFA and 100% stenosis (DIRECT MAIL MANAGER) in the proximal SKIN CARE THERAPIST, pending Vascular surgery consult for left fem-pop bypass -Acute hypoxemic respiratory failure -CKD stage IIIB -PAD s/p directional atherectomy and angioplasty in the proximal mid and distal left SFA done on 10/20/2019, directional atherectomy ([employer]) and DCB angioplasty (Medtronic InPact 6.0x40mm) to the ostial left SFA done 02/14/[address] Combs, directional atherectomy ([employer]) and DCB angioplasty of the distal right SFA done on 05/01/[address] Owusu, residual bilateral infrapopliteal disease, and s/p bilateral TMAs -Poorly controlled DM2 -Metabolic acidosis -Elevated LFTs -Hypoalbuminemia -Microcytic hypochromic anemia -HTN -HLP -Obesity Plan: 1. PAD, [place] category 5 symptoms s/p left lower extremity peripheral angiogram done on 08/09/2024 which identified 100% stenosis (DIRECT MAIL MANAGER) in the ostial SFA and 100% stenosis (DIRECT MAIL MANAGER) in the proximal SKIN CARE THERAPIST, pending Vascular surgery consult for left fem-pop bypass -The patient underwent excisional debridement of the left 5th metatarsal bone and left foot ulcer done this morning by Dr. Sorensen. -We are pending Vascular surgery to evaluate the patient for a left femoral- popliteal bypass in order to improve peripheral blood flow and improve the patient's chances of wound healing to the left foot. -In the meantime, we will stop clopidogrel and the patient will continue on aspirin 81 mg daily and atorvastatin 40 mg QHS. -In addition, he should continue will aggressive wound care and IV antibiotic therapy. This case was discussed with my Supervising Physician, Dr. Jesus Manuel Owusu, and the above mentioned plan was formulated and agreed upon. -Progress note written by Thalia Dewey, MSN, HAND FUR CLEANER, AGACNP- THALIA DEWEY NP Aug 10, 2024 09:55
--- NOTE | 2024-08-10 10:15 | HMCIMG ---
CHEST 1VW HISTORY: CHF COMPARISON: 08/05/2024 FINDINGS: A frontal projection of the chest was obtained. Prominent interstitial markings are seen with possible superimposed infiltrates. The heart is borderline enlarged. Degenerative changes are seen. No evidence of aortic calcification is seen. IMPRESSION: 1. Prominent interstitial markings are seen with possible superimposed infiltrates.
--- NOTE | 2024-08-10 10:27 | PN ---
INFECTIOUS DISEASE PROGRESS NOTE Date of Service: Aug 10, 2024 SUBJECTIVE: Patient was seen and examined in the ICU room 210. Patient is awake, alert and oriented x 3. Patient is status post Excisional debridement of the 5th metatarsal bone and ulcer of the left foot today. Dressing is intact, clean and no bleeding. Patient had a low-grade fever of 100.6 at 3:00 a.m. this morning. Current temperature however is 98.4. Slight increase on the WBC to 17.3. The left foot culture came back positive for ESBL E coli and Prevotella Bivia. We will continue to monitor patient. PHYSICAL EXAM EYES: Anicteric. Pupils equal and reactive. HENT: No oral thrush seen, moist Oral mucosa. NECK: Supple, no JVD or thyromegaly. LUNGS: Good air entry. No rales, no rhonchi. CARDIOVASCULAR: S1, S2 regular. No murmur heard. ABDOMEN: Soft, non tender, bowel sounds present, no organomegaly. CENTRAL NERVOUS SYSTEM: Awake, alert, oriented x 3. SKIN: No rashes, no swelling. LYMPHATICS: No peripheral lymphadenopathy. MUSCULOSKELETAL: No joint swelling, erythema or tenderness. EXTREMITIES: No cyanosis or clubbing. Left foot diabetic ulcer with osteomyelitis. BACK: No deformity, no pressure ulcer. GENITOURINARY: No dysuria or hematuria. Vital Sign (Last 12 Hours) 08/09/24 08/10/24 08/10/24 08/10/24 23:00 00:00 00:00 01:00 Temp 99.9 Pulse 102 96 101 Resp 20 17 22 B/P (MAP) 101/52 118/70 147/87 Pulse Ox 96 96 89 97 O2 Delivery Nasal Cannula Nasal Cannula* Nasal Cannula Nasal Cannula O2 Flow Rate 2.0 2 2.0 2.0 FiO2 28 08/10/24 08/10/24 08/10/24 08/10/24 02:00 03:00 03:21 04:00 Temp 100.6 100.6 Pulse 90 93 Resp 23 29 B/P (MAP) 105/53 132/61 Pulse Ox 95 97 96 O2 Delivery Nasal Cannula Nasal Cannula Nasal Cannula* O2 Flow Rate 2.0 2.0 2 FiO2 28 08/10/24 08/10/24 08/10/24 08/10/24 04:00 05:00 06:00 07:41 Temp 98.4 Pulse 108 104 104 100 Resp 22 22 7 29 B/P (MAP) 136/65 149/72 136/69 121/47 Pulse Ox 98 96 96 98 O2 Delivery Nasal Cannula Nasal Cannula Nasal Cannula Nonrebreathing Mask O2 Flow Rate 2.0 2.0 2.0 FiO2 100 08/10/24 08/10/24 08:00 09:00 Pulse 94 95 Resp 24 19 B/P (MAP) 137/53 147/56 Pulse Ox 98 96 O2 Delivery Nonrebreathing Mask Room Air FiO2 100 Intake & Output (last 24hrs) 08/09/24 08/09/24 08/10/24 15:00 23:00 07:00 Intake Total 633.2 ml 1050.0 ml 750.0 ml Output Total 700 ml 500 ml Balance 633.2 ml 350.0 ml 250.0 ml LABS: Laboratory: Test 08/10/24 08:14 08/10/24 04:09 08/09/24 11:36 08/09/24 10:36 Range/Units Whole Blood Glucose 198 H 70-110 MG/DL White Blood Count 17.3 H 4.8-10.8 K/uL Red Blood Count 3.74 L 4.50-6.20 MIL/uL Hemoglobin 9.8 L 14.0-18.0 g/dL Hematocrit 29.5 L 42-54 % Mean Corpuscular Volume 78.9 L 79-99 fL Mean Corpuscular Hemoglobin 26.2 L 27.0-33.0 pg Mean Corpuscular Hemoglobin Concent 33.2 32.0-36.0 g/dL Red Cell Distribution Width 15.4 11.0-15.5 % Platelet Count 309 # 130-400 K/uL Mean Platelet Volume 10.5 7.5-10.5 fL Immature Granulocyte % (Auto) 1.2 H 0-1 % Neutrophils (%) (Auto) 88.3 H 40.0-77.0 % Lymphocytes (%) (Auto) 1.7 L 21.0-51.0 % Monocytes (%) (Auto) 8.2 3.0-13.0 % Eosinophils (%) (Auto) 0.4 0.0-8.0 % Basophils (%) (Auto) 0.2 0.0-5.0 % Neutrophils # (Auto) 15.3 H 1.8-7.7 K/uL Lymphocytes # (Auto) 0.3 L 1.0-4.8 K/uL Monocytes # (Auto) 1.4 H 0.1-1.0 K/uL Eosinophils # (Auto) 0.07 0.00-0.70 K/uL Basophils # (Auto) 0.04 0.00-0.20 K/uL Absolute Immature Granulocyte (auto 0.20 0-1 K/uL Nucleated Red Blood Cells 0.0 0.0-0.19 % Sodium Level 129 L 136-145 mmol/L Potassium Level 3.7 3.5-5.1 mmol/L Chloride Level 97 L 101-111 mmol/L Carbon Dioxide Level 19 L 21-32 mmol/L Blood Urea Nitrogen 45 H 7-18 mg/dL Creatinine 2.1 H 0.5-1.3 mg/dL Glomerular Filtration Rate Calc 34 >90 mL/min Random Glucose 173 H 70-105 mg/dL Lactic Acid Level 1.6 0.8-2.5 mmol/L Total Calcium 8.2 L 8.5-10.1 mg/dL Total Bilirubin 1.0 0.2-1.0 mg/dL Aspartate Amino Transf (AST/SGOT) 128 H 10-37 U/L Alanine Aminotransferase (ALT/SGPT) 103 H 12-78 U/L Alkaline Phosphatase 207 H 50-136 U/L Total Protein 6.5 6.0-8.3 g/dL Albumin 1.7 L 3.5-5.0 g/dL Procalcitonin 3.43 H 0.05-0.5 ng/mL Blood Gas Specimen Type Arterial Arterial Blood pH 7.344 L 7.350-7.450 Arterial Blood Partial Pressure CO2 27 L 35-48 mmHg Arterial Blood Partial Pressure O2 73.1 L 83.0-108.0 mmHg Arterial Blood HCO3 14.4 L 21.0-28.0 mmol/L Arterial Blood Oxygen Saturation 93.9 L 94.0-98.0 % Arterial Blood Base Excess -9.9 L -2.0-3.0 mmol/L Hemoglobin (Blood Gas) 11.3 L 13.5-17.5 g/dL Sodium (Blood Gas) 128 L 136-145 MMOL/L Bedside Potassium (Blood Gas) 4.2 3.4-4.5 MMOL/L Bedside Chloride (Blood Gas) 99 98-107 MMOL/L Bedside Glucose (Blood Gas) 174 H 65-95 MG/DL Bedside Ionized Calcium (Blood Gas) 1.14 L 1.15-1.33 MMOL/L Bedside Lactic Acid (Blood Gas) 1.36 H 0.36-0.75 MMOL/L Blood Gas Temperature 37.0 35.5-37.0 CELSIUS Blood Gas Vent Mode RA ROOM AIR FiO2 21.0 % Blood Gas Specimen Comment RR ARTHUR Whole Blood Ketones Quantitative 4.3 H 0.0-0.6 mmol/L Test 08/09/24 05:10 08/08/24 22:57 Range/Units Prothrombin Time 13.4 H 9.6-11.6 SEC Prothromb Time International Ratio 1.26 H 0.85-1.15 Activated Partial Thromboplast Time 41.0 H 26.3-35.5 SEC Influenza Type A Antigen Negative For Type A NEGATIVE Influenza Type B Antigen Negative For Type B NEGATIVE SARS-CoV-2, RNA, NAAT NEGATIVE SARS CoV-2 NEGATIVE ASSESSMENT: Left foot osteomyelitis. Left foot diabetic ulcer with abscess, status post Excisional debridement of the 5th metatarsal bone and ulcer of the left foot today. with E coli infection and Prevotella Bivia. Infection with multidrug resistant organism. Sepsis. Leukocytosis. Diabetes mellitus. Acute on chronic renal failure. PLAN: Continue meropenem IV. Continue on vancomycin per pharmacy protocol. Cardiology following patient. Continue pain management. Continue wound care. Glucometer checks a.c./hs and cover with insulin per sliding scale protocol.. We will monitor electrolytes. This case was reviewed and discussed with my supervising physician and the above assessment and plan was formulated and agreed upon. ATTESTATION BY PHYSICIAN I have seen and examined the patient. I reviewed the documentation, medical decision making, and treatment plan as noted by the mid-level provider above. I agree with the findings and plan of care. PANCHITO LOZANO MD, [facility] Aug 10, 2024 10:27
--- NOTE | 2024-08-10 12:48 | HMCIMG ---
US ABDOMINAL RUQ\E\LTD HISTORY: Elevated liver function tests COMPARISON: None TECHNIQUE: Right upper quadrant abdominal ultrasound study was performed. FINDINGS: Abdominal aorta and inferior vena cava are unremarkable. Pancreas is not well seen due to overlying bowel gas. Liver is echogenic consistent with liver parenchymal disease. Liver measures 19 cm. Gallstones are seen in the gallbladder. Common duct measures 6 mm. No evidence of gallbladder wall thickening is seen. Right kidney measures 10.9 x 5.3 x 4.4 cm. No hydronephrosis is seen of the right kidney. IMPRESSION: 1. Gallstones. Borderline ductal dilatation is seen. 2. No hydronephrosis is seen.
--- NOTE | 2024-08-10 14:12 | PN ---
PROGRESS NOTE Date of Service: Aug 10, 2024 Time of Service: 14:07 SUBJECTIVE: No new concerns. Denies fever chills and pain. Procedure for today. No acute events reported in the last 24hours. REVIEW OF SYSTEMS CONSTITUTIONAL: Denies fever, chills, or fatigue. HEAD/FACE: No signs of trauma. EENT: Denies eye pain, blurred vision, double vision, or light sensitivity. RESPIRATORY: Denies shortness of breath, cough, wheezing CARDIOVASCULAR: Denies chest pain, palpitation, syncope underlying peripheral vascular disease. GASTROINTESTINAL/ABDOMINAL: Denies abdominal pain, constipation, diarrhea, nausea or vomiting GENITOURINARY: Denies dysuria or hematuria. MUSCULOSKELETAL: Denies joint pain, tenderness, or trauma. Osteomyelitis of the 5th metatarsal lateral foot left. INTEGUMENTARY: Ulceration lateral aspect plantar foot left. Cellulitis of the foot and ankle NEUROLOGICAL/PSYCH: Denies anxiety, depression, heat or cold intolerance. PHYSICAL EXAM EYES: Anicteric. Pupils equal and reactive. HENT: No oral thrush seen, moist Oral mucosa NECK: Supple, no JVD or thyromegaly. LUNGS: Good air entry. No rales, no rhonchi. CARDIOVASCULAR: S1, S2 regular. No murmur heard. Peripheral vascular disease bilateral lower extremity nonpalpable pulses by hand. ABDOMEN: Soft, non tender, bowel sounds present, no organomegaly CENTRAL NERVOUS SYSTEM: Awake, alert, oriented x 3. No focal deficits. SKIN: No rashes, no swelling. Ulceration to the plantar lateral aspect of the left foot. Cellulitis extending to the ankle medial and lateral. LYMPHATICS: No peripheral lymphadenopathy MUSCULOSKELETAL: No joint swelling, erythema or tenderness. Positive acute osteomyelitis on the MRI results for the 5th metatarsal bone lateral aspect EXTREMITIES: No cyanosis or clubbing BACK: No deformity, no pressure ulcer. GENITOURINARY: No dysuria or hematuria Vital Signs (last 8hr) Date Time Temp Pulse Resp B/P (MAP) Pulse Ox O2 Delivery O2 Flow Rate FiO2 08/10/24 14:00 75 15 125/64 96 Room Air 08/10/24 13:00 78 15 126/68 98 Room Air 08/10/24 12:00 97 Room Air* 0 21 08/10/24 12:00 99.1 82 16 120/53 94 Room Air 08/10/24 11:00 88 22 121/78 91 Room Air 08/10/24 10:00 87 14 132/59 95 Room Air 08/10/24 09:00 95 19 147/56 96 Room Air 08/10/24 08:00 94 24 137/53 98 Nonrebreathing Mask 100 08/10/24 08:00 96 Non-Rebreather+ 15 100 08/10/24 07:41 98.4 100 29 121/47 98 Nonrebreathing Mask 100 LABS: Laboratory: Test 08/10/24 11:29 08/10/24 04:09 08/09/24 11:36 08/09/24 10:36 Range/Units Whole Blood Glucose 229 H 70-110 MG/DL White Blood Count 17.3 H 4.8-10.8 K/uL Red Blood Count 3.74 L 4.50-6.20 MIL/uL Hemoglobin 9.8 L 14.0-18.0 g/dL Hematocrit 29.5 L 42-54 % Mean Corpuscular Volume 78.9 L 79-99 fL Mean Corpuscular Hemoglobin 26.2 L 27.0-33.0 pg Mean Corpuscular Hemoglobin Concent 33.2 32.0-36.0 g/dL Red Cell Distribution Width 15.4 11.0-15.5 % Platelet Count 309 # 130-400 K/uL Mean Platelet Volume 10.5 7.5-10.5 fL Immature Granulocyte % (Auto) 1.2 H 0-1 % Neutrophils (%) (Auto) 88.3 H 40.0-77.0 % Lymphocytes (%) (Auto) 1.7 L 21.0-51.0 % Monocytes (%) (Auto) 8.2 3.0-13.0 % Eosinophils (%) (Auto) 0.4 0.0-8.0 % Basophils (%) (Auto) 0.2 0.0-5.0 % Neutrophils # (Auto) 15.3 H 1.8-7.7 K/uL Lymphocytes # (Auto) 0.3 L 1.0-4.8 K/uL Monocytes # (Auto) 1.4 H 0.1-1.0 K/uL Eosinophils # (Auto) 0.07 0.00-0.70 K/uL Basophils # (Auto) 0.04 0.00-0.20 K/uL Absolute Immature Granulocyte (auto 0.20 0-1 K/uL Nucleated Red Blood Cells 0.0 0.0-0.19 % Sodium Level 129 L 136-145 mmol/L Potassium Level 3.7 3.5-5.1 mmol/L Chloride Level 97 L 101-111 mmol/L Carbon Dioxide Level 19 L 21-32 mmol/L Blood Urea Nitrogen 45 H 7-18 mg/dL Creatinine 2.1 H 0.5-1.3 mg/dL Glomerular Filtration Rate Calc 34 >90 mL/min Random Glucose 173 H 70-105 mg/dL Lactic Acid Level 1.6 0.8-2.5 mmol/L Total Calcium 8.2 L 8.5-10.1 mg/dL Total Bilirubin 1.0 0.2-1.0 mg/dL Aspartate Amino Transf (AST/SGOT) 128 H 10-37 U/L Alanine Aminotransferase (ALT/SGPT) 103 H 12-78 U/L Alkaline Phosphatase 207 H 50-136 U/L Total Protein 6.5 6.0-8.3 g/dL Albumin 1.7 L 3.5-5.0 g/dL Procalcitonin 3.43 H 0.05-0.5 ng/mL Blood Gas Specimen Type Arterial Arterial Blood pH 7.344 L 7.350-7.450 Arterial Blood Partial Pressure CO2 27 L 35-48 mmHg Arterial Blood Partial Pressure O2 73.1 L 83.0-108.0 mmHg Arterial Blood HCO3 14.4 L 21.0-28.0 mmol/L Arterial Blood Oxygen Saturation 93.9 L 94.0-98.0 % Arterial Blood Base Excess -9.9 L -2.0-3.0 mmol/L Hemoglobin (Blood Gas) 11.3 L 13.5-17.5 g/dL Sodium (Blood Gas) 128 L 136-145 MMOL/L Bedside Potassium (Blood Gas) 4.2 3.4-4.5 MMOL/L Bedside Chloride (Blood Gas) 99 98-107 MMOL/L Bedside Glucose (Blood Gas) 174 H 65-95 MG/DL Bedside Ionized Calcium (Blood Gas) 1.14 L 1.15-1.33 MMOL/L Bedside Lactic Acid (Blood Gas) 1.36 H 0.36-0.75 MMOL/L Blood Gas Temperature 37.0 35.5-37.0 CELSIUS Blood Gas Vent Mode RA ROOM AIR FiO2 21.0 % Blood Gas Specimen Comment RR ARTHUR Whole Blood Ketones Quantitative 4.3 H 0.0-0.6 mmol/L Test 08/09/24 05:10 08/08/24 22:57 Range/Units Prothrombin Time 13.4 H 9.6-11.6 SEC Prothromb Time International Ratio 1.26 H 0.85-1.15 Activated Partial Thromboplast Time 41.0 H 26.3-35.5 SEC Influenza Type A Antigen Negative For Type A NEGATIVE Influenza Type B Antigen Negative For Type B NEGATIVE SARS-CoV-2, RNA, NAAT NEGATIVE SARS CoV-2 NEGATIVE DIAGNOSTICS / RADIOLOGY: PORTABLE CHEST RADIOGRAPH INDICATION: fever COMPARISON: 06/22/2024 FINDINGS: child monitor leads overlie the field of view. Heart size is normal. The pulmonary vascularity and sriram appear normal. No abnormal pulmonary parenchymal opacity or consolidation identified. No significant pleural effusion noted. No pneumothorax detected. IMPRESSION: No radiographic evidence for any acute cardiopulmonary process. ASSESSMENT: DUARTE on CKD3b, last known renal function [id number] GFR 32 and Cr. 2.2, presented with a Cr 2.4 and GFR 29 HTN likely renal manifestation Dm2 with likely nephropathy Mild Anemia Hyponatremia ATN dehydration Osteomyelitis of the lateral 5th metatarsal left foot. 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
--- NOTE | 2024-08-10 17:27 | NUR ---
Attempted PT eval, pt asleep and snoring, difficult to awake. Pt wakes up and PT asks patient if he feels ok, pt responds that he is tired and falls back asleep and snoring before therapist can speak further. PT team to follow. Nurse aware.
--- NOTE | 2024-08-10 17:55 | HMCSR ---
APPROVED REPORT EXAM: Two-dimensional and M-mode echocardiogram with Doppler and color Doppler. Study Details: Hx: DM, morbid obesity, HTN INDICATION ICD: Rule out Acute on chonic congestive heart failure 2D Dimensions RVDd3.9 cmLVEF(%)57.0 (>50%)LVED Vol(simp.)125.0 mL IVSd0.9 (0.7-1.1cm)FS(%)30 %LVES Vol(simp.)61.3 mL LVDd5.3 (3.8-5.6cm)LA (2D)3.6 (1.6-4.0cm)LVEF(%, simp.)51 % PWd1.0 (0.7-1.1cm)Ao Root(2D)4.0 (2.0-3.7cm)LA ESV INDEX (4CH)25.20 mL/m2 IVSs1.1 cmLVOT diam2.6 (1.8-2.4cm)LA ESV INDEX (2CH)28.20 mL/m2 LVDs3.7 (2.5-4.0cm)LA ESV INDEX (BP)28.60 mL/m2 PWs1.2 cm M-Mode Dimensions EPSS0.8 cm LA (MM)4.2 (1.6-4.0cm) Ao Root(MM)3.9 (2.0-3.7cm) Aortic Valve AoV VTI0.3 mAo Mean GR5.0 mmHgLVOT VTI0.22 m MELISSA (VMAX)4.1 cm2AVA (VTI) 4.1 cm2 Mitral Valve MV E Vmax81.5 cm/sDECEL Sjqu675 ms MV A Rdty259.9 cm/sP 1/2 T48 ms E/A ratio0.8MVA (PHT)4.6 cm2 TDI E/E' Azhxab44.1E/E' Yuevhco39.7 Medial E' Peak V5.80 cm/sLateral E' Peak V5.20 cm/s Tricuspid Valve RAP (EST) 8 mmHgRVSP8.0 mmHg Left Ventricle Left ventricular cavity size is normal. No regional wall motion abnormalities noted. There is normal left ventricular wall thickness. LVEF is 50-55%. Stage I diastolic dysfunction. Right Ventricle The right ventricle is normal size. The right ventricular systolic function is normal. Atria The left atrium size is normal. The right atrium is borderline dilated. Aortic Valve The aortic valve is normal in structure and function. No aortic regurgitation is present. There is no aortic valvular stenosis. Mitral Valve Mitral valve leaflets appear normal. Mitral valve leaflets open well. There is trace of mitral valve regurgitation noted. There is no mitral valve stenosis. Tricuspid Valve The tricuspid valve is normal in structure and function. There is no tricuspid valve regurgitation no joseph. Pulmonic Valve The pulmonary valve is normal in structure and function. There is no pulmonic valvular regurgitation. Great Vessels The aortic root is normal in size. IVC is normal in size and collapses <50% with inspiration. Pericardium No pericardial effusion. Other Information Quality : Fair Conclusion LVEF is 50-55%. No regional wall motion abnormalities noted. Stage I diastolic dysfunction. The aortic root is normal in size. No pericardial effusion.
--- NOTE | 2024-08-10 19:17 | NUR ---
CM NOTE/[facility] REFERRAL CM spoke to patient and spouse regarding d/c planning. CM explained LTAC level of care and length of stay. Patient agreeable to referral. CM obtained [facility] for [facility] and referral sent. Patient still pending surgery eval for possible distal bypass.
[2024-08-11] VITALS (20 sets, daily range): BP systolic 87–139; BP diastolic 31–80; PULSE 81–99; RESP 16–26; TEMP 98.5–99.1; O2SAT 94
[2024-08-11 04:02] LABS: BASOPHILS # (AUTO) 0.02 K/uL (0.00-0.20); BASOPHILS % (AUTO) 0.1 % (0.0-5.0); HEMATOCRIT 28.7 % (42-54); LYMPHOCYTES # (AUTO) 0.4 K/uL (1.0-4.8); LYMPHOCYTES % (AUTO) 2.4 % (21.0-51.0); MEAN CORPUSCULAR HEMOGLOBIN 25.8 pg (27.0-33.0); MEAN CORPUSCULAR HGB CONC 32.8 g/dL (32.0-36.0); MEAN CORPUSCULAR VOLUME 78.6 fL (79-99); MONOCYTES # (AUTO) 1.2 K/uL (0.1-1.0); MONOCYTES % (AUTO) 6.6 % (3.0-13.0); NEUTROPHILS # (AUTO) 16.4 K/uL (1.8-7.7); NEUTROPHILS % (AUTO) 89.8 % (40.0-77.0); PLATELET COUNT (AUTO) 312 K/uL (130-400); RED BLOOD CELL COUNT(AUTO) 3.65 MIL/uL (4.50-6.20); RED CELL DISTRIBUTION WIDTH 15.7 % (11.0-15.5); WHITE BLOOD COUNT (AUTO) 18.3 K/uL (4.8-10.8)
[2024-08-11 04:18] LABS: ALBUMIN 1.7 g/dL (3.5-5.0); BILIRUBIN,TOTAL 0.6 mg/dL (0.2-1.0); CREATININE 2.1 mg/dL (0.5-1.3); POTASSIUM 3.6 mmol/L (3.5-5.1); TOTAL PROTEIN, SERUM 6.5 g/dL (6.0-8.3)
[2024-08-11 04:27] LABS: B-TYPE NATRIURETIC PEPTIDE 118 pg/mL (0-100)
--- NOTE | 2024-08-11 09:02 | PN ---
NEPHROLOGY FOLLOWUP SUBJECTIVE: The patient offers no major complaints. No fever, no chills. He has no complaint. No pain on the foot. OBJECTIVE: GENERAL: No any major acute distress. He is awake, alert. VITAL SIGNS: Blood pressure of 87/55, respirations 18, pulse 89, temperature 97.0. LUNGS: Clear to auscultation. HEART: Normal cardiac sound. ABDOMEN: Soft, nondistended. EXTREMITIES: No edema. LABORATORY DATA: The sodium is 139, potassium 3.6. The AST is 122, ALT of 105, albumin 1.7. Serum creatinine is 2.1. WBC count is 18.3, hemoglobin 9.4. ASSESSMENT: * Acute kidney injury on chronic kidney disease stage IIIB. There is some improvement on kidney function basically at baseline kidney function. * Hypertension with renal manifestation. * Diabetes mellitus type 2 with nephropathy. * Hyponatremia. * ATN. * Osteomyelitis on the fifth metatarsal, left foot, status post removal of amputation of that toe. * Diabetic foot infection. PLAN: Just to continue present plan of care. Antimicrobials. Wound care. Maintain adequate hydration. Monitor electrolytes on and off. No change in current medications. TID: [id number] RECEIPT: [id number]
--- NOTE | 2024-08-11 10:47 | PN ---
INFECTIOUS DISEASE PROGRESS NOTE Date of Service: Aug 11, 2024 SUBJECTIVE: Patient was seen and examined in the ICU room 210. Patient is awake, alert and oriented x 3. Patient is s/p Excisional debridement of the 5th metatarsal bone and ulcer of the left foot day #1. WBC remains elevated at 18.3 and continues with a low-grade fevers of 100.6 throughout the night, Current temperature however is 98.8. Patient continues on vancomycin and meropenem. Patient was sitting up to the bedside chair and tolerating well. We will continue to monitor patient. PHYSICAL EXAM EYES: Anicteric. Pupils equal and reactive. HENT: No oral thrush seen, moist Oral mucosa. NECK: Supple, no JVD or thyromegaly. LUNGS: Good air entry. No rales, no rhonchi. CARDIOVASCULAR: S1, S2 regular. No murmur heard. ABDOMEN: Soft, non tender, bowel sounds present, no organomegaly. CENTRAL NERVOUS SYSTEM: Awake, alert, oriented x 3. SKIN: No rashes, no swelling. LYMPHATICS: No peripheral lymphadenopathy. MUSCULOSKELETAL: No joint swelling, erythema or tenderness. EXTREMITIES: No cyanosis or clubbing. Left foot diabetic ulcer with osteomyelitis. BACK: No deformity, no pressure ulcer. GENITOURINARY: No dysuria or hematuria. Vital Sign (Last 12 Hours) 08/10/24 08/11/24 08/11/24 08/11/24 23:00 00:00 00:00 01:00 Pulse 92 92 92 Resp 25 21 22 B/P (MAP) 144/72 120/68 125/69 Pulse Ox 93 94 95 94 O2 Delivery Room Air Room Air* Room Air Room Air O2 Flow Rate 0 FiO2 21 08/11/24 08/11/24 08/11/24 08/11/24 02:00 03:00 04:00 04:00 Pulse 83 81 81 Resp 21 17 17 B/P (MAP) 111/52 101/45 96/49 Pulse Ox 91 91 91 94 O2 Delivery Room Air Room Air Room Air Nasal Cannula* O2 Flow Rate 3 FiO2 32 08/11/24 08/11/24 08/11/24 08/11/24 05:03 07:00 08:00 08:00 Temp 98.8 Pulse 89 81 94 Resp 18 18 16 B/P (MAP) 87/55 91/31 139/72 Pulse Ox 92 96 96 94 O2 Delivery Room Air Room Air Room Air Nasal Cannula* O2 Flow Rate 3 FiO2 32 Intake & Output (last 24hrs) 08/10/24 08/10/24 08/11/24 15:00 23:00 07:00 Intake Total 486.2 ml 256.0 ml Output Total 400 ml Balance 486.2 ml -144.0 ml LABS: Laboratory: Test 08/11/24 06:32 08/11/24 03:42 08/10/24 22:35 08/10/24 04:09 Range/Units Whole Blood Glucose 217 H 70-110 MG/DL White Blood Count 18.3 H 4.8-10.8 K/uL Red Blood Count 3.65 L 4.50-6.20 MIL/uL Hemoglobin 9.4 L 14.0-18.0 g/dL Hematocrit 28.7 L 42-54 % Mean Corpuscular Volume 78.6 L 79-99 fL Mean Corpuscular Hemoglobin 25.8 L 27.0-33.0 pg Mean Corpuscular Hemoglobin Concent 32.8 32.0-36.0 g/dL Red Cell Distribution Width 15.7 H 11.0-15.5 % Platelet Count 312 130-400 K/uL Mean Platelet Volume 10.0 7.5-10.5 fL Immature Granulocyte % (Auto) 1.1 H 0-1 % Neutrophils (%) (Auto) 89.8 H 40.0-77.0 % Lymphocytes (%) (Auto) 2.4 L 21.0-51.0 % Monocytes (%) (Auto) 6.6 3.0-13.0 % Eosinophils (%) (Auto) 0.0 0.0-8.0 % Basophils (%) (Auto) 0.1 0.0-5.0 % Neutrophils # (Auto) 16.4 H 1.8-7.7 K/uL Lymphocytes # (Auto) 0.4 L 1.0-4.8 K/uL Monocytes # (Auto) 1.2 H 0.1-1.0 K/uL Eosinophils # (Auto) 0.00 0.00-0.70 K/uL Basophils # (Auto) 0.02 0.00-0.20 K/uL Absolute Immature Granulocyte (auto 0.20 0-1 K/uL Nucleated Red Blood Cells 0.0 0.0-0.19 % Sodium Level 129 L 136-145 mmol/L Potassium Level 3.6 3.5-5.1 mmol/L Chloride Level 98 L 101-111 mmol/L Carbon Dioxide Level 21 21-32 mmol/L Blood Urea Nitrogen 47 H 7-18 mg/dL Creatinine 2.1 H 0.5-1.3 mg/dL Glomerular Filtration Rate Calc 34 >90 mL/min Random Glucose 171 H 70-105 mg/dL Total Calcium 8.5 8.5-10.1 mg/dL Total Bilirubin 0.6 # 0.2-1.0 mg/dL Aspartate Amino Transf (AST/SGOT) 122 H 10-37 U/L Alanine Aminotransferase (ALT/SGPT) 105 H 12-78 U/L Alkaline Phosphatase 194 H 50-136 U/L B-Type Natriuretic Peptide 118 H 0-100 pg/mL Total Protein 6.5 6.0-8.3 g/dL Albumin 1.7 L 3.5-5.0 g/dL Procalcitonin 2.47 H 0.05-0.5 ng/mL Vancomycin Level Trough 22.7 #H 10.0-20.0 UG/ML Lactic Acid Level 1.6 0.8-2.5 mmol/L Test 08/09/24 11:36 Range/Units Blood Gas Specimen Type Arterial Arterial Blood pH 7.344 L 7.350-7.450 Arterial Blood Partial Pressure CO2 27 L 35-48 mmHg Arterial Blood Partial Pressure O2 73.1 L 83.0-108.0 mmHg Arterial Blood HCO3 14.4 L 21.0-28.0 mmol/L Arterial Blood Oxygen Saturation 93.9 L 94.0-98.0 % Arterial Blood Base Excess -9.9 L -2.0-3.0 mmol/L Hemoglobin (Blood Gas) 11.3 L 13.5-17.5 g/dL Sodium (Blood Gas) 128 L 136-145 MMOL/L Bedside Potassium (Blood Gas) 4.2 3.4-4.5 MMOL/L Bedside Chloride (Blood Gas) 99 98-107 MMOL/L Bedside Glucose (Blood Gas) 174 H 65-95 MG/DL Bedside Ionized Calcium (Blood Gas) 1.14 L 1.15-1.33 MMOL/L Bedside Lactic Acid (Blood Gas) 1.36 H 0.36-0.75 MMOL/L Blood Gas Temperature 37.0 35.5-37.0 CELSIUS Blood Gas Vent Mode RA ROOM AIR FiO2 21.0 % Blood Gas Specimen Comment RR ARTHUR ASSESSMENT: Left foot osteomyelitis. Left foot diabetic ulcer with abscess, status post Excisional debridement of the 5th metatarsal bone and ulcer of the left foot. with E coli infection and Prevotella Bivia. Infection with multidrug resistant organism. Sepsis. Leukocytosis. Diabetes mellitus. Acute on chronic renal failure. PLAN: Continue meropenem IV. Continue on vancomycin per pharmacy protocol. Cardiology following patient. Continue pain management. Continue wound care. Glucometer checks a.c./hs and cover with insulin per sliding scale protocol.. We will monitor electrolytes. This case was reviewed and discussed with my supervising physician and the above assessment and plan was formulated and agreed upon. ATTESTATION BY PHYSICIAN I have seen and examined the patient. I reviewed the documentation, medical decision making, and treatment plan as noted by the mid-level provider above. I agree with the findings and plan of care. PANCHITO LOZANO MD, [facility] Aug 11, 2024 10:47
--- NOTE | 2024-08-11 11:59 | PN ---
[facility] PROGRESS NOTE Date Patient Seen: Aug 11, 2024 Time of Visit: 11:59 Supervising Physician: Iván Fontanez MD Primary Care Physician: Odessa Holland MD Outpatient Specialists: Inpatient Consults: PROBLEM LIST: Sepsis 2/2 left foot osteomyelitis with left foot abscess + Prevotella Bivia S/P excisional debridement of bone 5th metatarsal left foot and ulcer of the left foot 08/10/24 Ketoacidosis likely from Jardiance Acute metabolic acidosis 2/2 from above MDRO infection to left foot + Escheriachia coli Leukocytosis, POA Chronic anemia from chronic illness, POA Hyperglycemia in the presence of type 2 diabetes mellitus, POA CKD, POA Glucosuria, POA Protein unit, POA INTERVAL HISTORY: 08/10-Patient was seen after surgical procedure today post I&D of left foot. He is coming off sedation drowsy lethargic. He is hemodynamically stable with a blood pressure 132/59 heart rate in the 80s respiratory rate of 14 unlabored saturating 95% on room air. Patient continues with fevers overnight he had a T- max of 100.6 and a T low of 97.9 in the last 24 hours. On laboratory white 7017.3 H&H is 9.8/29.5 with a platelet count of 835117. Sodium 129, improved from yesterday. Chloride 97 carbon dioxide is 19 with a BUN of 45 and a creatinine of 2.1 GFR of 34. Glucose 173 mg/dL total calcium 8.2 AST 128 ALT 103 alkaline phosphatase 307. Chest x-ray shows prominent interstitial markings seen post possible superimposed infiltrates. 2D echo shows EF of 50-55% with stage I diastolic dysfunction no pericardial effusion. We will continue follow patient closely alongside primary team. 08/11- patient is awake alert and oriented x3 dressing to left foot clean dry and intact. Day one status post excisional debridement of bone 5th metatarsal left foot and ulcer of the left foot. Patient denies any fever, chills or pain at this time. He has been afebrile with a T-max of 99.1. Hemodynamically stable with a blood pressure of 129/67 with a heart rate in the 80s respiratory rate is 20 unlabored saturating 94% on room air. Patient reports voiding well he had a bowel movement yesterday. On laboratory WBCs are similar to yesterday 18.3 H&H is 9.4/28.7 platelet count is 800137. He continues to receive antibiotics per ID who is attending. Sodium 129 chloride 98 BUN 47 creatinine of 2.1 and a GFR of 34, kidneys function seems to have plateaued and appears to be baseline. Glucose 171 mg/dL. Liver enzymes improving BNP 118. Total protein 6.5 albumin 1.7 procalcitonin trending down 2.47 today compared to yesterday which was 3.43. Pending CBC recommendation for fem-pop bypass to left lower extremity. REVIEW OF SYSTEMS: General: No malaise or fever. Neurological: No fainting episodes or seizures. HEENT: No nasal congestion or nasal secretion. Respiratory: No cough, shortness of breath, or wheezing Cardiac: No chest pain or palpitations. Gastrointestinal: No vomiting or diarrhea. Genitourinary: No dysuria hematuria. Skin: No rashes or lesions. Hematological: No bruises or bleeding. Musculoskeletal: No joint pains or arthralgias. Psychiatric: No depression or panic attacks. PHYSICAL EXAM: GENERAL: alert, weak, awake oriented x 3 HEENT: EOMI, Sclera non icteric, moist mucosa NECK: Supple, no JVD, trachea midline LUNGS: Clear breath sounds bilaterally. No wheezes HEART: Regular rate and rhythm. Normal S1 and S2, without murmurs ABD: Abdomen soft, nontender. Bowel sounds present EXT: No clubbing cyanosis or edema NEURO: Alert and oriented to person, follows commands Vital Signs (last 8hr) Date Time Temp Pulse Resp B/P (MAP) Pulse Ox O2 Delivery O2 Flow Rate FiO2 08/11/24 08:00 94 Nasal Cannula* 3 32 08/11/24 08:00 98.8 94 16 139/72 96 Room Air 08/11/24 07:00 81 18 91/31 96 Room Air 08/11/24 05:03 89 18 87/55 92 Room Air 08/11/24 04:00 94 Nasal Cannula* 3 32 08/11/24 04:00 81 17 96/49 91 Room Air LABS: Hematology Labs: Test 08/11/24 03:42 Range/Units White Blood Count 18.3 H 4.8-10.8 K/uL Red Blood Count 3.65 L 4.50-6.20 MIL/uL Hemoglobin 9.4 L 14.0-18.0 g/dL Hematocrit 28.7 L 42-54 % Mean Corpuscular Volume 78.6 L 79-99 fL Mean Corpuscular Hemoglobin 25.8 L 27.0-33.0 pg Mean Corpuscular Hemoglobin Concent 32.8 32.0-36.0 g/dL Red Cell Distribution Width 15.7 H 11.0-15.5 % Platelet Count 312 130-400 K/uL Mean Platelet Volume 10.0 7.5-10.5 fL Immature Granulocyte % (Auto) 1.1 H 0-1 % Neutrophils (%) (Auto) 89.8 H 40.0-77.0 % Lymphocytes (%) (Auto) 2.4 L 21.0-51.0 % Monocytes (%) (Auto) 6.6 3.0-13.0 % Eosinophils (%) (Auto) 0.0 0.0-8.0 % Basophils (%) (Auto) 0.1 0.0-5.0 % Neutrophils # (Auto) 16.4 H 1.8-7.7 K/uL Lymphocytes # (Auto) 0.4 L 1.0-4.8 K/uL Monocytes # (Auto) 1.2 H 0.1-1.0 K/uL Eosinophils # (Auto) 0.00 0.00-0.70 K/uL Basophils # (Auto) 0.02 0.00-0.20 K/uL Absolute Immature Granulocyte (auto 0.20 0-1 K/uL Nucleated Red Blood Cells 0.0 0.0-0.19 % Chemistry Labs: Test 08/11/24 11:02 08/11/24 03:42 08/10/24 04:09 Range/Units Whole Blood Glucose 270 H 70-110 MG/DL Sodium Level 129 L 136-145 mmol/L Potassium Level 3.6 3.5-5.1 mmol/L Chloride Level 98 L 101-111 mmol/L Carbon Dioxide Level 21 21-32 mmol/L Blood Urea Nitrogen 47 H 7-18 mg/dL Creatinine 2.1 H 0.5-1.3 mg/dL Glomerular Filtration Rate Calc 34 >90 mL/min Random Glucose 171 H 70-105 mg/dL Total Calcium 8.5 8.5-10.1 mg/dL Total Bilirubin 0.6 # 0.2-1.0 mg/dL Aspartate Amino Transf (AST/SGOT) 122 H 10-37 U/L Alanine Aminotransferase (ALT/SGPT) 105 H 12-78 U/L Alkaline Phosphatase 194 H 50-136 U/L B-Type Natriuretic Peptide 118 H 0-100 pg/mL Total Protein 6.5 6.0-8.3 g/dL Albumin 1.7 L 3.5-5.0 g/dL Procalcitonin 2.47 H 0.05-0.5 ng/mL Lactic Acid Level 1.6 0.8-2.5 mmol/L DIAGNOSTICS / RADIOLOGY RESULTS: [ ] PLAN NEURO: Minimize central acting medications as possible. Maintain fall precautions, adequate lighting during the day PULMONARY: Supplemental 02 as needed. Maintain aspiration precautions at all times Maintain O2 sats above 92% CPAP at night p.r.n. CARDIOVASCULAR: Follow hemodynamics. Vital signs per facility protocol GI & NUTRITION: Continue with nutritional support. Continue stool softeners and laxatives as needed. Renal diet KIDNEYS & ELECTROLYTES: Strict monitoring of intake, output and overall fluid balance. Avoid nephrotoxic medications to the extent possible. Medications to be dosed according to renal function. Monitor electrolytes and replace as needed ENDOCRINE: Maintain blood glucose between 100-180 at all times. Hypoglycemia protocol in place INFECTIOUS DISEASE: Trend temperature, WBC and procalcitonin level Follow cultures, deescalate antibiotics as soon as possible. Panculture if new onset fever Continue antibiotics with vancomycin and meropenem per ID ONCOLOGY/HEMATOLOGY/COAGULATION: Monitor for s/s of bleeding Monitor hemoglobin, coagulation studies as needed SKIN: Pressure ulcer prevention per facility protocol Specialty mattress ORTHO/REHAB: Continue PT/OT Prophylaxis: Continue GI and DVT prophylaxis Protonix and heparin subQ Code Status: Full Resuscitation Disposition: TBD Other: Total patient care time exceeds 35 minutes excluding all procedures. PEG DO [facility] Aug 11, 2024 11:59
[2024-08-11] MEDS ORDERED: miDODRine HCL 5 MG TABLET PO PRN (12:00)
--- NOTE | 2024-08-11 12:15 | NUR ---
As per nurseJered, librado WB restrictions. Requested clearance from surgeon. Addendum: 08/11/24 at 1255 by RAINER PIZARRO PT Amended: Links added.
--- NOTE | 2024-08-11 14:02 | PN ---
Cardiology Progress Note Date of Service: 08/11/2024 Attending Rn Clinical Coordinator: Dr. Jesus Manuel Owusu Reason for Consult: PAD Problem List: -Severe sepsis -Leukocytosis -Nonhealing ulcer (E coli, Prevotella Bivia) surround cellulitis and osteomyelitis affecting the left foot s/p excisional debridement of the left 5th metatarsal bone and left foot ulcer done on 08/10/[address] Sorensen -PAD, Coal category 5 symptoms s/p left lower extremity peripheral angiogram done on 08/09/2024 which identified 100% stenosis (DIRECTOR SOCIAL) in the ostial SFA and 100% stenosis (DIRECTOR SOCIAL) in the proximal SKID WORKER, pending Vascular surgery consult for left fem-pop bypass -Acute hypoxemic respiratory failure -CKD stage IIIB -PAD s/p directional atherectomy and angioplasty in the proximal mid and distal left SFA done on 10/20/2019, directional atherectomy ([employer]) and DCB angioplasty (Medtronic InPact 6.0x40mm) to the ostial left SFA done 02/14/[address] Combs, directional atherectomy ([employer]) and DCB angioplasty of the distal right SFA done on 05/01/[address] Owusu, residual bilateral infrapopliteal disease, and s/p bilateral TMAs -Poorly controlled DM2 -Metabolic acidosis -Elevated LFTs -Hypoalbuminemia -Microcytic hypochromic anemia -HTN -HLP -Obesity Subjective: This is a 64y/o male who was seen and evaluated at the bedside today. The patient continues to complain of intermittent left foot pain, but denies any other active complaints including chest pain, chest pressure, palpitations, or shortness of breath. As per the nurse, there were no overnight events. The patient is pending Vascular surgery evaluation in order to determine his candidacy for left lower extremity peripheral bypass. Vitals/Labs Vital Signs Date Time Temp Pulse Resp B/P (MAP) Pulse Ox O2 Delivery O2 Flow Rate FiO2 08/11/24 12:00 99.1 88 18 136/66 94 Room Air 08/11/24 08:00 3 32 General: Awake and alert. No acute distress. Chronically ill appearing. HEENT: Normocephalic, atraumatic. EOMI. Oral mucosa was moist. Neck: No masses, JVD, or carotid bruits noted. Lungs: No respiratory distress. Symmetric chest movement. Bilateral air entry. No obvious wheezing, rales, or rhonchi noted. Cardiac: Regular rate. Normal S1 and S2, +S4. No other obvious murmurs, rubs, or gallops noted. Abdomen: Soft, nontender, nondistended. No organomegaly. Normal active bowel sounds x 4 quadrants. Extremities: No edema, clubbing, or cyanosis. Bilateral TMAs. The left TMA is wrapped in a bulky dressing so we are unable to assess distal pulses. Neuro: Cranial nerves II-XII are grossly intact. No obvious focal deficits identified. Laboratory Tests 08/11/24 03:42 Assessment: -Severe sepsis -Leukocytosis -Nonhealing ulcer (E coli, Prevotella Bivia) surround cellulitis and osteomyelitis affecting the left foot s/p excisional debridement of the left 5th metatarsal bone and left foot ulcer done on 08/10/[address] Sorensen -PAD, Vee category 5 symptoms s/p left lower extremity peripheral angiogram done on 08/09/2024 which identified 100% stenosis (DIRECTOR SOCIAL) in the ostial SFA and 100% stenosis (DIRECTOR SOCIAL) in the proximal SKID WORKER, pending Vascular surgery consult for left fem-pop bypass -Acute hypoxemic respiratory failure -CKD stage IIIB -PAD s/p directional atherectomy and angioplasty in the proximal mid and distal left SFA done on 10/20/2019, directional atherectomy ([employer]) and DCB angioplasty (Medtronic InPact 6.0x40mm) to the ostial left SFA done 02/14/[address] Combs, directional atherectomy ([employer]) and DCB angioplasty of the distal right SFA done on 05/01/[address] Owusu, residual bilateral infrapopliteal disease, and s/p bilateral TMAs -Poorly controlled DM2 -Metabolic acidosis -Elevated LFTs -Hypoalbuminemia -Microcytic hypochromic anemia -HTN -HLP -Obesity Plan: 1. PAD, Coal category 5 symptoms s/p left lower extremity peripheral angiogram done on 08/09/2024 which identified 100% stenosis (DIRECTOR SOCIAL) in the ostial SFA and 100% stenosis (DIRECTOR SOCIAL) in the proximal SKID WORKER, pending Vascular surgery consult for left fem-pop bypass -The patient is pending Vascular surgery evaluation for a left femoral-popliteal bypass in order to improve peripheral blood flow and improve the patient's chances of wound healing to the left foot. -In the meantime, he will continue on conservative medical therapy which includes aspirin 81 mg daily and atorvastatin 40 mg QHS. -In addition, he should continue will aggressive wound care and IV antibiotic therapy. This case was discussed with my Supervising Physician, Dr. Jesus Manuel Owusu, and the above mentioned plan was formulated and agreed upon. -Progress note written by Thalia Dewey, MSN, EVENT LIGHTING SPECIALIST, AGACNP-BC THALIA DEWEY NP Aug 11, 2024 14:02
[2024-08-11] MEDS: HYDROcodone/APAP 5/325 1 TAB TABLET PO PRN (15:12)
--- NOTE | 2024-08-11 15:20 | NUR ---
cm note per julia balbuena at [facility], states pt is still pending insurance approval.
--- NOTE | 2024-08-11 18:25 | NUR ---
DR. MIKA RAMIRES ON PATIENT, WOUND CARE DONE TO THE LEFT FOOT BY AT BEDSIDE. Addendum: 08/11/24 at 1905 by MARIO ALBERTO LEVY RN RN DR. QUINTEROS PODIATRY IKE ON PATIENT, WOUND CARE DONE TO THE LEFT FOOT BY AT BEDSIDE
--- NOTE | 2024-08-11 18:26 | PN ---
PROGRESS NOTE Date of Service: Aug 11, 2024 Time of Service: 18:23 SUBJECTIVE: Patient is 64 years old status post 5th metatarsal ostectomy and debridement of wound to the left foot no drainage decreased edema and decreased erythema to the foot patient is still with leukocytosis. REVIEW OF SYSTEMS CONSTITUTIONAL: Denies fever, chills, or fatigue. HEAD/FACE: No signs of trauma. EENT: Denies eye pain, blurred vision, double vision, or light sensitivity. RESPIRATORY: Denies shortness of breath, cough, wheezing CARDIOVASCULAR: Denies chest pain, palpitation, syncope underlying peripheral vascular disease. GASTROINTESTINAL/ABDOMINAL: Denies abdominal pain, constipation, diarrhea, nausea or vomiting GENITOURINARY: Denies dysuria or hematuria. MUSCULOSKELETAL: Denies joint pain, tenderness, or trauma. Osteomyelitis of the 5th metatarsal lateral foot left. INTEGUMENTARY: Ulceration lateral aspect plantar foot left. Cellulitis of the foot and ankle NEUROLOGICAL/PSYCH: Denies anxiety, depression, heat or cold intolerance. PHYSICAL EXAM EYES: Anicteric. Pupils equal and reactive. HENT: No oral thrush seen, moist Oral mucosa NECK: Supple, no JVD or thyromegaly. LUNGS: Good air entry. No rales, no rhonchi. CARDIOVASCULAR: S1, S2 regular. No murmur heard. Peripheral vascular disease bilateral lower extremity nonpalpable pulses by hand. ABDOMEN: Soft, non tender, bowel sounds present, no organomegaly CENTRAL NERVOUS SYSTEM: Awake, alert, oriented x 3. No focal deficits. SKIN: No rashes, no swelling. Ulceration to the plantar lateral aspect of the left foot. Cellulitis decreased edema decreased erythema ankle medial and lateral. LYMPHATICS: No peripheral lymphadenopathy MUSCULOSKELETAL: No joint swelling, erythema or tenderness. Status post 5th metatarsus exostectomy EXTREMITIES: No cyanosis or clubbing BACK: No deformity, no pressure ulcer. GENITOURINARY: No dysuria or hematuria Vital Signs (last 8hr) Date Time Temp Pulse Resp B/P (MAP) Pulse Ox O2 Delivery O2 Flow Rate FiO2 08/11/24 16:00 98.8 92 17 121/42 94 Room Air 08/11/24 15:00 92 17 126/70 94 Room Air 08/11/24 14:00 94 17 139/67 94 Room Air 08/11/24 13:00 93 18 121/80 95 Room Air 08/11/24 12:00 99.1 88 18 136/66 94 Room Air 08/11/24 11:00 89 24 129/67 94 Room Air LABS: Laboratory: Test 08/11/24 15:52 08/11/24 03:42 08/10/24 22:35 08/10/24 04:09 Range/Units Whole Blood Glucose 252 H 70-110 MG/DL White Blood Count 18.3 H 4.8-10.8 K/uL Red Blood Count 3.65 L 4.50-6.20 MIL/uL Hemoglobin 9.4 L 14.0-18.0 g/dL Hematocrit 28.7 L 42-54 % Mean Corpuscular Volume 78.6 L 79-99 fL Mean Corpuscular Hemoglobin 25.8 L 27.0-33.0 pg Mean Corpuscular Hemoglobin Concent 32.8 32.0-36.0 g/dL Red Cell Distribution Width 15.7 H 11.0-15.5 % Platelet Count 312 130-400 K/uL Mean Platelet Volume 10.0 7.5-10.5 fL Immature Granulocyte % (Auto) 1.1 H 0-1 % Neutrophils (%) (Auto) 89.8 H 40.0-77.0 % Lymphocytes (%) (Auto) 2.4 L 21.0-51.0 % Monocytes (%) (Auto) 6.6 3.0-13.0 % Eosinophils (%) (Auto) 0.0 0.0-8.0 % Basophils (%) (Auto) 0.1 0.0-5.0 % Neutrophils # (Auto) 16.4 H 1.8-7.7 K/uL Lymphocytes # (Auto) 0.4 L 1.0-4.8 K/uL Monocytes # (Auto) 1.2 H 0.1-1.0 K/uL Eosinophils # (Auto) 0.00 0.00-0.70 K/uL Basophils # (Auto) 0.02 0.00-0.20 K/uL Absolute Immature Granulocyte (auto 0.20 0-1 K/uL Nucleated Red Blood Cells 0.0 0.0-0.19 % Sodium Level 129 L 136-145 mmol/L Potassium Level 3.6 3.5-5.1 mmol/L Chloride Level 98 L 101-111 mmol/L Carbon Dioxide Level 21 21-32 mmol/L Blood Urea Nitrogen 47 H 7-18 mg/dL Creatinine 2.1 H 0.5-1.3 mg/dL Glomerular Filtration Rate Calc 34 >90 mL/min Random Glucose 171 H 70-105 mg/dL Serum Osmolality 290 278-305 mOsm/kg Total Calcium 8.5 8.5-10.1 mg/dL Magnesium Level 1.90 1.6-2.6 mg/dL Total Bilirubin 0.6 # 0.2-1.0 mg/dL Aspartate Amino Transf (AST/SGOT) 122 H 10-37 U/L Alanine Aminotransferase (ALT/SGPT) 105 H 12-78 U/L Alkaline Phosphatase 194 H 50-136 U/L B-Type Natriuretic Peptide 118 H 0-100 pg/mL Total Protein 6.5 6.0-8.3 g/dL Albumin 1.7 L 3.5-5.0 g/dL Procalcitonin 2.47 H 0.05-0.5 ng/mL Vancomycin Level Trough 22.7 #H 10.0-20.0 UG/ML Lactic Acid Level 1.6 0.8-2.5 mmol/L DIAGNOSTICS / RADIOLOGY: PORTABLE CHEST RADIOGRAPH INDICATION: fever COMPARISON: 06/22/2024 FINDINGS: library monitor leads overlie the field of view. Heart size is normal. The pulmonary vascularity and sriram appear normal. No abnormal pulmonary parenchymal opacity or consolidation identified. No significant pleural effusion noted. No pneumothorax detected. IMPRESSION: No radiographic evidence for any acute cardiopulmonary process. ASSESSMENT: DUARTE on CKD3b, last known renal function [id number] GFR 32 and Cr. 2.2, presented with a Cr 2.4 and GFR 29 HTN likely renal manifestation Dm2 with likely nephropathy Mild Anemia Hyponatremia ATN dehydration Osteomyelitis of the lateral 5th metatarsal left foot. Cellulitis of the foot and ankle Abscess of the left foot Postop day 1. Status post ostectomy 5th metatarsal and debridement of ulcer l ateral aspect of the left foot. PLAN: Continue local wound care. Wound packing with iodoform and flushing with normal saline daily. Wound care down today wound packing applied at this time iodoform packing wound flushed with saline solution we will noted to be clean no drainage no abscess formation decreased edema and erythema. BETTY QUINTEROS DPM Aug 11, 2024 18:26
--- NOTE | 2024-08-11 20:44 | CONS ---
HISTORY OF PRESENT ILLNESS: This is a 64-year-old gentleman, patient of Dr. Owusu who underwent attempted percutaneous revascularization, was not successful. He is referred for surgical revascularization. I have had the opportunity to review the films and discussed the case with Dr. Owusu both agreed surgical bypass is indicated and we have recommended. I discussed with the patient indications for surgery as well as the potential complications of the operation including but not limited to postoperative bleeding, infection, stroke and/or and due to the fact that ultimately, he may lose his extremity and he wished to proceed with surgical revascularization by means of a left fem-pop. TID: [id number] RECEIPT: [id number]
[2024-08-12] VITALS (19 sets, daily range): BP systolic 108–179; BP diastolic 59–88; PULSE 91–108; RESP 19–30; TEMP 98–103.3; O2SAT 92–95
[2024-08-12] MEDS: VANCOMYCIN 1G/250ML KIT 250 ML IV SCH (03:54)
[2024-08-12 04:08] LABS: BASOPHILS # (AUTO) 0.05 K/uL (0.00-0.20); BASOPHILS % (AUTO) 0.3 % (0.0-5.0); EOSINOPHILS # (AUTO) 0.08 K/uL (0.00-0.70); EOSINOPHILS % (AUTO) 0.5 % (0.0-8.0); HEMATOCRIT 28.9 % (42-54); IMMATURE GRANULOCYTE ABSOLUTE 0.16 K/uL (0-1); LYMPHOCYTES # (AUTO) 0.7 K/uL (1.0-4.8); LYMPHOCYTES % (AUTO) 4.3 % (21.0-51.0); MEAN CORPUSCULAR HEMOGLOBIN 25.9 pg (27.0-33.0); MEAN CORPUSCULAR HGB CONC 32.5 g/dL (32.0-36.0); MEAN CORPUSCULAR VOLUME 79.6 fL (79-99); MONOCYTES # (AUTO) 1.3 K/uL (0.1-1.0); MONOCYTES % (AUTO) 7.8 % (3.0-13.0); NEUTROPHILS # (AUTO) 14.3 K/uL (1.8-7.7); NEUTROPHILS % (AUTO) 86.1 % (40.0-77.0); PLATELET COUNT (AUTO) 338 K/uL (130-400); RED BLOOD CELL COUNT(AUTO) 3.63 MIL/uL (4.50-6.20); RED CELL DISTRIBUTION WIDTH 15.6 % (11.0-15.5); WHITE BLOOD COUNT (AUTO) 16.6 K/uL (4.8-10.8)
[2024-08-12 04:38] LABS: ALBUMIN 1.7 g/dL (3.5-5.0); BILIRUBIN,TOTAL 0.6 mg/dL (0.2-1.0); CREATININE 2.1 mg/dL (0.5-1.3); MAGNESIUM 1.6 mg/dL (1.80-2.40); POTASSIUM 3.5 mmol/L (3.5-5.1); TOTAL PROTEIN, SERUM 6.6 g/dL (6.0-8.3)
--- NOTE | 2024-08-12 08:21 | PN ---
-Severe sepsis -Leukocytosis -Nonhealing ulcer (E coli, Prevotella Bivia) surround cellulitis and osteomyelitis affecting the left foot s/p excisional debridement of the left 5th metatarsal bone and left foot ulcer done on 08/10/[address] Sorensen -PAD, [place] category 5 symptoms s/p left lower extremity peripheral angiogram done on 08/09/2024 which identified 100% stenosis (CIRCULAR SAWYER STONE) in the ostial SFA and 100% stenosis (CIRCULAR SAWYER STONE) in the proximal FELT HANGER, pending Vascular surgery consult for left fem-pop bypass -Acute hypoxemic respiratory failure -CKD stage IIIB -PAD s/p directional atherectomy and angioplasty in the proximal mid and distal left SFA done on 10/20/2019, directional atherectomy (M-AudiokOAtlassian) and DCB angioplasty (ShieldEffecttronic InPact 6.0x40mm) to the ostial left SFA done 02/14/[address] Combs, directional atherectomy (M-AudiokOne) and DCB angioplasty of the distal right SFA done on 05/01/[address] Owusu, residual bilateral infrapopliteal disease, and s/p bilateral TMAs -Poorly controlled DM2 -Metabolic acidosis -Elevated LFTs -Hypoalbuminemia -Microcytic hypochromic anemia -HTN -HLP -Obesity Patient offers no symptomatic complaints today, denies shortness of breath or chest pain or chest pressure. Peripheral vascular issues are to be assessed by vascular surgery and it appears in the chart as though that evaluation is pending. Physical exam shows no rales or rhonchi, nonlabored respiration, normal S1 and S2, no edema. Impression: Medically improved, awaiting resolution of vascular issues Vitals/Labs Vital Signs Date Time Temp Pulse Resp B/P (MAP) Pulse Ox O2 Delivery O2 Flow Rate FiO2 08/12/24 04:05 98.6 106 27 118/75 85 Room Air 08/12/24 00:00 3 32 Laboratory Tests 08/12/24 04:00 Medications Current Medications Sodium Chloride 2,817 ml @ 939 mls/hr ONCE ONCE IV Last administered on 08/05/24at 00:07; Start 08/05/24 at 00:00; Stop 08/05/24 at 02:59; Status DC Acetaminophen 1,000 mg ONCE ONCE PO Last administered on 08/05/24at 00:08; Start 08/05/24 at 00:00; Stop 08/05/24 at 00:01; Status DC Ondansetron HCl 4 mg ONCE ONCE IVP Last administered on 08/05/24at 00:08; Start 08/05/24 at 00:00; Stop 08/05/24 at 00:01; Status DC Vancomycin HCl 1 gm ONCE ONCE IV Last administered on 08/05/24at 01:02; Start 08/05/24 at 00:30; Stop 08/05/24 at 00:31; Status DC Piperacillin Sod/ Tazobactam Sod 3.375 gm ONCE ONCE IV Last administered on 08/05/24at 00:42; Start 08/05/24 at 00:30; Stop 08/05/24 at 00:31; Status DC Ketorolac Tromethamine 15 mg ONCE ONCE IM Last administered on 08/05/24at 01:02; Start 08/05/24 at 01:00; Stop 08/05/24 at 01:01; Status DC Vancomycin HCl 1 each AD IV; Start 08/05/24 at 02:30; Stop 08/19/24 at 02:29 Cefepime HCl 1 gm Q8H IVPB Last administered on 08/05/24at 11:40; Start 08/05/24 at 02:30; Stop 08/05/24 at 13:15; Status DC Acetaminophen 650 mg Q4H PRN PO Last administered on 08/11/24at 14:05; Start 08/05/24 at 02:30; Stop 09/04/24 at 02:29 Acetaminophen 650 mg Q6H PRN PO Last administered on 08/10/24at 18:06; Start 08/05/24 at 02:30; Stop 09/04/24 at 02:29 Ondansetron HCl 4 mg Q6H PRN IVP Last administered on 08/10/24at 08:06; Start 08/05/24 at 02:30; Stop 09/04/24 at 02:29 Insulin Human Lispro INSULIN SLIDING SCAL... ACHS SQ Last administered on 08/08/24at 20:51; Start 08/05/24 at 07:30; Stop 08/09/24 at 15:11; Status DC Dextrose 50 ml AD PRN IV; Start 08/05/24 at 02:30; Stop 08/09/24 at 10:23; Status DC Glucagon 1 mg AD PRN IM; Start 08/05/24 at 02:30; Stop 08/09/24 at 10:23; Status DC Enoxaparin Sodium 30 mg DAILY SQ Last administered on 08/07/24at 10:58; Start 08/05/24 at 09:00; Stop 08/07/24 at 19:16; Status DC Vancomycin HCl 750 mg Q24H IVPB Last administered on 08/07/24at 00:00; Start 08/06/24 at 00:30; Stop 08/07/24 at 23:50; Status DC Aspirin 81 mg DAILY PO Last administered on 08/07/24at 10:59; Start 08/06/24 at 09:00; Stop 08/07/24 at 19:20; Status DC Atorvastatin Calcium 10 mg HS PO Last administered on 08/06/24at 22:30; Start 08/05/24 at 21:00; Stop 08/07/24 at 19:20; Status DC Empaglifozin 25 mg DAILY PO Last administered on 08/08/24at 08:40; Start 08/06/24 at 09:00; Stop 08/09/24 at 11:43; Status DC Lisinopril 10 mg DAILY PO Last administered on 08/07/24at 10:59; Start 08/06/24 at 09:00; Stop 08/07/24 at 21:47; Status DC Nifedipine 30 mg DAILY PO Last administered on 08/11/24at 08:12; Start 08/06/24 at 09:00; Stop 09/05/24 at 08:59 Cefepime HCl 1 gm Q24H IVPB Last administered on 08/07/24at 10:59; Start 08/06/24 at 10:30; Stop 08/08/24 at 09:03; Status DC Morphine Sulfate 2 mg Q6H PRN IVP Last administered on 08/09/24at 03:33; Start 08/05/24 at 15:45; Stop 08/10/24 at 18:44; Status DC Magnesium Sulfate 50 ml @ 0 mls/hr PROTOCOL PRN IV Last administered on 08/07/24at 06:23; Start 08/06/24 at 09:00; Stop 09/05/24 at 08:59 Leptospermum Honey 1 APPLICATION ONCE TP Last administered on 08/06/24at 15:08; Start 08/06/24 at 15:00; Stop 08/06/24 at 18:00; Status DC Leptospermum Honey 1 APPLICATION DAILY TP Last administered on 08/08/24at 12:04; Start 08/07/24 at 08:00; Stop 08/10/24 at 09:04; Status DC Tramadol HCl 50 mg Q8H PRN PO Last administered on 08/11/24at 14:05; Start 08/06/24 at 15:00; Stop 08/11/24 at 14:59; Status DC Gabapentin 100 mg TID PO Last administered on 08/11/24at 20:15; Start 08/06/24 at 21:00; Stop 09/05/24 at 20:59 Heparin Sodium/ Dextrose 250 ml @ 0 mls/hr PROTOCOL IV Last administered on 08/07/24at 20:37; Start 08/07/24 at 19:30; Stop 08/08/24 at 17:13; Status DC Aspirin 81 mg DAILY PO Last administered on 08/11/24at 08:12; Start 08/08/24 at 09:00; Stop 09/07/24 at 08:59 Clopidogrel Bisulfate 75 mg DAILY PO Last administered on 08/10/24at 08:40; Start 08/08/24 at 09:00; Stop 08/10/24 at 09:17; Status DC Atorvastatin Calcium 40 mg HS PO Last administered on 08/11/24at 20:15; Start 08/07/24 at 21:00; Stop 09/06/24 at 20:59 Heparin Sodium (Porcine) 5,000 unit STK-MED ONCE .ROUTE Last administered on 08/07/24at 20:42; Start 08/07/24 at 20:39; Stop 08/07/24 at 20:39; Status DC Vancomycin HCl 1.25 gm Q24H IV; Start 08/08/24 at 00:00; Stop 08/07/24 at 23:59; Status DC Vancomycin HCl 250 ml @ 125 mls/hr Q24H IV Last administered on 08/09/24at 23:26; Start 08/08/24 at 00:00; Stop 08/10/24 at 23:32; Status DC Meropenem 1 gm/ Sodium Chloride 100 ml @ 33.333 mls/ hr Q12H IV Last administered on 08/11/24at 20:16; Start 08/08/24 at 09:30; Stop 08/18/24 at 09:29 Sodium Chloride 1,000 ml @ 50 mls/hr Q20H IV Last administered on 08/08/24at 14:12; Start 08/08/24 at 10:00; Stop 08/09/24 at 10:23; Status DC Lidocaine HCl 20 ml STK-MED ONCE .ROUTE; Start 08/09/24 at 07:38; Stop 08/09/24 at 07:38; Status DC Iodixanol 100 ml STK-MED ONCE .ROUTE; Start 08/09/24 at 07:38; Stop 08/09/24 at 07:38; Status DC Heparin Sodium (Porcine) 10,000 unit STK-MED ONCE .ROUTE; Start 08/09/24 at 07:38; Stop 08/09/24 at 07:38; Status DC Heparin Sodium/ Sodium Chloride 1,000 ml @ As Directed STK-MED ONCE IV; Start 08/09/24 at 07:38; Stop 08/09/24 at 07:38; Status DC Nitroglycerin 50 mg STK-MED ONCE .ROUTE; Start 08/09/24 at 07:38; Stop 08/09/24 at 07:39; Status DC Fentanyl Citrate 100 mcg STK-MED ONCE .ROUTE; Start 08/09/24 at 08:11; Stop 08/09/24 at 08:12; Status DC Midazolam HCl 2 mg STK-MED ONCE .ROUTE; Start 08/09/24 at 08:12; Stop 08/09/24 at 08:12; Status DC Clopidogrel Bisulfate 300 mg STK-MED ONCE .ROUTE; Start 08/09/24 at 09:06; Stop 08/09/24 at 09:06; Status DC Aspirin 81 mg STK-MED ONCE .ROUTE; Start 08/09/24 at 09:07; Stop 08/09/24 at 09:07; Status DC Ondansetron HCl 4 mg STK-MED ONCE .ROUTE; Start 08/09/24 at 09:16; Stop 08/09/24 at 09:16; Status DC Sodium Chloride 1,000 ml @ 100 mls/hr Q10H IV Last administered on 08/09/24at 10:29; Start 08/09/24 at 10:00; Stop 08/09/24 at 12:05; Status DC Dextrose 50 ml AD PRN IV; Start 08/09/24 at 10:00; Stop 09/08/24 at 09:59 Glucagon 1 mg AD PRN IM; Start 08/09/24 at 10:00; Stop 09/08/24 at 09:59 Sodium Chloride 1,000 ml @ 100 mls/hr Q10H IV Last administered on 08/09/24at 23:27; Start 08/09/24 at 14:00; Stop 08/10/24 at 08:36; Status DC Promethazine HCl 25 mg ONCE ONCE IM Last administered on 08/09/24at 13:22; Start 08/09/24 at 13:30; Stop 08/09/24 at 13:31; Status DC Metoclopramide HCl 5 mg BID PRN IVP Last administered on 08/10/24at 08:06; Start 08/09/24 at 15:00; Stop 09/08/24 at 14:59 Sodium Bicarbonate 650 mg TID PO Last administered on 08/11/24at 20:16; Start 08/09/24 at 15:00; Stop 09/08/24 at 14:59 Insulin Human Regular INSULIN SLIDING SCAL... ACHS SQ Last administered on 08/11/24at 20:20; Start 08/09/24 at 16:30; Stop 09/08/24 at 16:29 Insulin Glargine 15 units BID@0730,2100 SQ Last administered on 08/11/24at 20:23; Start 08/09/24 at 21:00; Stop 09/08/24 at 20:59 Heparin Sodium (Porcine) 5,000 unit Q8H SQ Last administered on 08/11/24at 23:30; Start 08/09/24 at 15:30; Stop 09/08/24 at 15:29 Pantoprazole Sodium 40 mg DAILY IVP Last administered on 08/11/24at 08:12; Start 08/10/24 at 09:00; Stop 09/09/24 at 08:59 Lidocaine HCl 100 mg STK-MED ONCE .ROUTE; Start 08/10/24 at 06:48; Stop 08/10/24 at 06:48; Status DC Midazolam HCl 2 mg STK-MED ONCE .ROUTE; Start 08/10/24 at 06:48; Stop 08/10/24 at 06:49; Status DC Propofol 200 mg STK-MED ONCE IV; Start 08/10/24 at 06:48; Stop 08/10/24 at 06:49; Status DC Fentanyl Citrate 100 mcg STK-MED ONCE .ROUTE; Start 08/10/24 at 06:49; Stop 08/10/24 at 06:49; Status DC Lidocaine HCl 20 ml STK-MED ONCE .ROUTE; Start 08/10/24 at 07:00; Stop 08/10/24 at 07:00; Status DC Bupivacaine HCl 5 mg STK-MED ONCE .ROUTE; Start 08/10/24 at 07:00; Stop 08/10/24 at 07:00; Status DC Ondansetron HCl 4 mg STK-MED ONCE .ROUTE; Start 08/10/24 at 07:10; Stop 08/10/24 at 07:10; Status DC Dexamethasone Sodium Phosphate 4 mg STK-MED ONCE .ROUTE; Start 08/10/24 at 07:11; Stop 08/10/24 at 07:11; Status DC Propofol 200 mg STK-MED ONCE IV; Start 08/10/24 at 07:27; Stop 08/10/24 at 07:27; Status DC Lidocaine HCl 10 ml STK-MED ONCE IJ Last administered on 08/10/24at 07:30; Start 08/10/24 at 07:30; Stop 08/10/24 at 08:16; Status DC Bupivacaine HCl 75 mg STK-MED ONCE INJ Last administered on 08/10/24at 07:30; Start 08/10/24 at 07:30; Stop 08/10/24 at 08:16; Status DC Furosemide 20 mg ONCE ONCE IV Last administered on 08/10/24at 08:41; Start 08/10/24 at 09:00; Stop 08/10/24 at 09:01; Status DC Potassium Chloride 100 ml @ 100 mls/hr AD PRN IV; Start 08/10/24 at 09:00; Stop 09/09/24 at 08:59 Potassium Chloride 10 meq AD PRN PO; Start 08/10/24 at 09:00; Stop 09/09/24 at 08:59 Potassium Chloride 10 meq AD PRN PO; Start 08/10/24 at 09:00; Stop 09/09/24 at 08:59 Potassium Chloride 100 ml @ 100 mls/hr AD PRN IV; Start 08/10/24 at 09:00; Stop 08/10/24 at 08:44; Status DC Vancomycin HCl 250 ml @ 125 mls/hr Q24H IV Last administered on 08/12/24at 03:54; Start 08/12/24 at 00:01; Stop 09/02/24 at 00:00 Midodrine 5 mg TID PRN PO; Start 08/11/24 at 12:00; Stop 09/10/24 at 11:59 Acetaminophen/ Hydrocodone Bitart 1 tab Q6H PRN PO Last administered on 08/12/24at 04:09; Start 08/11/24 at 15:00; Stop 08/16/24 at 14:59 Lactulose 20 gm BID PRN PO; Start 08/11/24 at 15:00; Stop 09/10/24 at 14:59 RAJWINDER JAQUEZ MD Aug 12, 2024 08:21
[2024-08-12] MEDS: hydroMORPHone 0.5 MG SYG (0.5MG/0.5ML) IVP PRN (08:48)
[2024-08-12] MEDS: PoTASSium chloRIDE 10MEQ SR 10 MEQ/TAB TAB.SR.24H PO PRN (08:51)
--- NOTE | 2024-08-12 10:08 | PN ---
[facility] PROGRESS NOTE Date Patient Seen: Aug 12, 2024 Time of Visit: 10:07 Supervising Physician: Koby Zaidi MD Primary Care Physician: Odessa Holland MD Outpatient Specialists: Inpatient Consults: PROBLEM LIST: Sepsis 2/2 left foot osteomyelitis with left foot abscess + Prevotella Bivia S/P excisional debridement of bone 5th metatarsal left foot and ulcer of the left foot 08/10/24 Ketoacidosis likely from [place] Acute metabolic acidosis 2/2 from above MDRO infection to left foot + Escheriachia coli Leukocytosis, POA Chronic anemia from chronic illness, POA Hyperglycemia in the presence of type 2 diabetes mellitus, POA CKD, POA Glucosuria, POA Protein unit, POA INTERVAL HISTORY: 08/10-Patient was seen after surgical procedure today post I&D of left foot. He is coming off sedation drowsy lethargic. He is hemodynamically stable with a blood pressure 132/59 heart rate in the 80s respiratory rate of 14 unlabored saturating 95% on room air. Patient continues with fevers overnight he had a T- max of 100.6 and a T low of 97.9 in the last 24 hours. On laboratory white 7017.3 H&H is 9.8/29.5 with a platelet count of 773482. Sodium 129, improved from yesterday. Chloride 97 carbon dioxide is 19 with a BUN of 45 and a creatinine of 2.1 GFR of 34. Glucose 173 mg/dL total calcium 8.2 AST 128 ALT 103 alkaline phosphatase 307. Chest x-ray shows prominent interstitial markings seen post possible superimposed infiltrates. 2D echo shows EF of 50-55% with stage I diastolic dysfunction no pericardial effusion. We will continue follow patient closely alongside primary team. 08/11- patient is awake alert and oriented x3 dressing to left foot clean dry and intact. Day one status post excisional debridement of bone 5th metatarsal left foot and ulcer of the left foot. Patient denies any fever, chills or pain at this time. He has been afebrile with a T-max of 99.1. Hemodynamically stable with a blood pressure of 129/67 with a heart rate in the 80s respiratory rate is 20 unlabored saturating 94% on room air. Patient reports voiding well he had a bowel movement yesterday. On laboratory WBCs are similar to yesterday 18.3 H&H is 9.4/28.7 platelet count is [id number]. He continues to receive antibiotics per ID who is attending. Sodium 129 chloride 98 BUN 47 creatinine of 2.1 and a GFR of 34, kidneys function seems to have plateaued and appears to be baseline. Glucose 171 mg/dL. Liver enzymes improving BNP 118. Total protein 6.5 albumin 1.7 procalcitonin trending down 2.47 today compared to yesterday which was 3.43. Pending CBC recommendation for fem-pop bypass to left lower extremity. 08/12- Patient is awake alert and oriented x3. He reports pain to left lower extremity. As per patient worsened after physical therapy stood him up to transfer to wheelchair. Patient does have a walker and used it at the time of the transfer. Otherwise patient denies any nausea vomiting or chest pain. No further fevers in the last 24 hours with a T-max of 99.1 Dressing clean dry and intact. WBCs trending down today 16.6 H&H 9.4/28.9 with a platelet count of 657539. Chemistries sodium 125 creatinine of 2.1 GFR of 34 similar to yesterday glucose of 166 mg/dL total calcium is eight magnesium is 1.6 covered per protocol liver enzymes mildly elevated. Albumin 1.7. Awaiting CV surgery for left fem-pop bypass possibly for Wednesday. REVIEW OF SYSTEMS: General: No malaise or fever. Neurological: No fainting episodes or seizures. HEENT: No nasal congestion or nasal secretion. Respiratory: No cough, shortness of breath, or wheezing Cardiac: No chest pain or palpitations. Gastrointestinal: No vomiting or diarrhea. Genitourinary: No dysuria hematuria. Skin: No rashes or lesions. Hematological: No bruises or bleeding. Musculoskeletal: No joint pains or arthralgias. Psychiatric: No depression or panic attacks. PHYSICAL EXAM: GENERAL: alert, weak, awake oriented x 3 HEENT: EOMI, Sclera non icteric, moist mucosa NECK: Supple, no JVD, trachea midline LUNGS: Clear breath sounds bilaterally. No wheezes HEART: Regular rate and rhythm. Normal S1 and S2, without murmurs ABD: Abdomen soft, nontender. Bowel sounds present EXT: No clubbing cyanosis or edema NEURO: Alert and oriented to person, follows commands Vital Signs (last 8hr) Date Time Temp Pulse Resp B/P (MAP) Pulse Ox O2 Delivery O2 Flow Rate FiO2 08/12/24 08:00 108 25 158/79 94 Room Air 08/12/24 07:00 94 25 90 08/12/24 04:05 98.6 106 27 118/75 85 Room Air 08/12/24 02:48 101 23 127/62 96 Room Air LABS: Hematology Labs: Test 08/12/24 04:00 Range/Units White Blood Count 16.6 H 4.8-10.8 K/uL Red Blood Count 3.63 L 4.50-6.20 MIL/uL Hemoglobin 9.4 L 14.0-18.0 g/dL Hematocrit 28.9 L 42-54 % Mean Corpuscular Volume 79.6 79-99 fL Mean Corpuscular Hemoglobin 25.9 L 27.0-33.0 pg Mean Corpuscular Hemoglobin Concent 32.5 32.0-36.0 g/dL Red Cell Distribution Width 15.6 H 11.0-15.5 % Platelet Count 338 130-400 K/uL Mean Platelet Volume 9.8 7.5-10.5 fL Immature Granulocyte % (Auto) 1.0 0-1 % Neutrophils (%) (Auto) 86.1 H 40.0-77.0 % Lymphocytes (%) (Auto) 4.3 L 21.0-51.0 % Monocytes (%) (Auto) 7.8 3.0-13.0 % Eosinophils (%) (Auto) 0.5 0.0-8.0 % Basophils (%) (Auto) 0.3 0.0-5.0 % Neutrophils # (Auto) 14.3 H 1.8-7.7 K/uL Lymphocytes # (Auto) 0.7 L 1.0-4.8 K/uL Monocytes # (Auto) 1.3 H 0.1-1.0 K/uL Eosinophils # (Auto) 0.08 0.00-0.70 K/uL Basophils # (Auto) 0.05 0.00-0.20 K/uL Absolute Immature Granulocyte (auto 0.16 0-1 K/uL Nucleated Red Blood Cells 0.0 0.0-0.19 % White Cell Morphology Comment See comments Chemistry Labs: Test 08/12/24 08:39 11/9/24 04:00 08/11/24 03:42 Range/Units Whole Blood Glucose 157 H 70-110 MG/DL Sodium Level 125 L 136-145 mmol/L Potassium Level 3.5 3.5-5.1 mmol/L Chloride Level 95 L 101-111 mmol/L Carbon Dioxide Level 22 21-32 mmol/L Blood Urea Nitrogen 44 H 7-18 mg/dL Creatinine 2.1 H 0.5-1.3 mg/dL Glomerular Filtration Rate Calc 34 >90 mL/min Random Glucose 166 H 70-105 mg/dL Total Calcium 8.0 L 8.5-10.1 mg/dL Magnesium Level 1.60 L 1.80-2.40 mg/dL Total Bilirubin 0.6 0.2-1.0 mg/dL Aspartate Amino Transf (AST/SGOT) 127 H 10-37 U/L Alanine Aminotransferase (ALT/SGPT) 114 H 12-78 U/L Alkaline Phosphatase 204 H 50-136 U/L Total Protein 6.6 6.0-8.3 g/dL Albumin 1.7 L 3.5-5.0 g/dL Serum Osmolality 290 278-305 mOsm/kg B-Type Natriuretic Peptide 118 H 0-100 pg/mL Procalcitonin 2.47 H 0.05-0.5 ng/mL DIAGNOSTICS / RADIOLOGY RESULTS: [ ] PLAN NEURO: Minimize central acting medications as possible. Maintain fall precautions, adequate lighting during the day PULMONARY: Supplemental 02 as needed. Maintain aspiration precautions at all times Maintain O2 sats above 92% CPAP at night p.r.n. CARDIOVASCULAR: Follow hemodynamics. Vital signs per facility protocol GI & NUTRITION: Continue with nutritional support. Continue stool softeners and laxatives as needed. Renal diet KIDNEYS & ELECTROLYTES: Strict monitoring of intake, output and overall fluid balance. Avoid nephrotoxic medications to the extent possible. Medications to be dosed according to renal function. Monitor electrolytes and replace as needed ENDOCRINE: Maintain blood glucose between 100-180 at all times. Hypoglycemia protocol in place INFECTIOUS DISEASE: Trend temperature, WBC and procalcitonin level Follow cultures, deescalate antibiotics as soon as possible. Panculture if new onset fever Continue antibiotics with vancomycin and meropenem per ID ONCOLOGY/HEMATOLOGY/COAGULATION: Monitor for s/s of bleeding Monitor hemoglobin, coagulation studies as needed SKIN: Pressure ulcer prevention per facility protocol Specialty mattress ORTHO/REHAB: Continue PT/OT Prophylaxis: Continue GI and DVT prophylaxis Protonix and heparin subQ Code Status: Full Resuscitation Disposition: TBD Other: Total patient care time exceeds 35 minutes excluding all procedures. PEG DO [facility] Aug 12, 2024 10:08
[2024-08-12] MEDS: LACTULOSE 20 GM/30 ML UDCUP PO PRN (10:56)
[2024-08-12] MEDS: acetaMINOPHEN 500 MG TABLET PO ONE (12:54)
--- NOTE | 2024-08-12 13:36 | PN ---
INFECTIOUS DISEASE PROGRESS NOTE Date of Service: Aug 12, 2024 SUBJECTIVE: This 64 year old male patient is being seen today in ICU. Awake, alert and oriented x3. Patient remains on antibiotics tolerating well. Continues with wound care. WBC trending down. Denies chest pain, or shortness of breath. Currently on oxygen via nasal canula. Patient is awaiting possible left fem-pop bypass at the beginning of week. at bedside. Questions and concerns were answered. No other issues at this time. PHYSICAL EXAM EYES: Anicteric. Pupils equal and reactive. HENT: No oral thrush seen, moist Oral mucosa. NECK: Supple, no JVD or thyromegaly. LUNGS: Good air entry. No rales, no rhonchi. on o2 via nasal canula CARDIOVASCULAR: S1, S2 regular. No murmur heard. ABDOMEN: Soft, non tender, bowel sounds present, no organomegaly. CENTRAL NERVOUS SYSTEM: Awake, alert, oriented x 3. SKIN: No rashes, no swelling. LYMPHATICS: No peripheral lymphadenopathy. MUSCULOSKELETAL: No joint swelling, erythema or tenderness. EXTREMITIES: No cyanosis or clubbing. Left foot diabetic ulcer with osteomyelitis. Dry dressing noted. BACK: No deformity, no pressure ulcer. GENITOURINARY: No dysuria or hematuria. Vital Sign (Last 12 Hours) 08/12/24 08/12/24 08/12/24 08/12/24 01:48 02:04 02:48 04:05 Temp 98.6 Pulse 101 108 101 106 Resp 24 25 23 27 B/P (MAP) 179/88 158/71 127/62 118/75 Pulse Ox 96 96 96 85 O2 Delivery Room Air Room Air Room Air Room Air 08/12/24 08/12/24 08/12/24 08/12/24 07:00 08:00 11:54 12:54 Temp 101.3 101.3 Pulse 94 108 Resp 25 25 B/P (MAP) 158/79 Pulse Ox 90 94 O2 Delivery Room Air Intake & Output (last 24hrs) 08/11/24 08/11/24 08/12/24 15:00 23:00 07:00 Output Total 950 ml 300 ml Balance -950 ml -300 ml LABS: Laboratory: Test 08/12/24 11:44 08/12/24 04:00 08/11/24 22:43 08/11/24 03:42 Range/Units Whole Blood Glucose 173 H 70-110 MG/DL White Blood Count 16.6 H 4.8-10.8 K/uL Red Blood Count 3.63 L 4.50-6.20 MIL/uL Hemoglobin 9.4 L 14.0-18.0 g/dL Hematocrit 28.9 L 42-54 % Mean Corpuscular Volume 79.6 79-99 fL Mean Corpuscular Hemoglobin 25.9 L 27.0-33.0 pg Mean Corpuscular Hemoglobin Concent 32.5 32.0-36.0 g/dL Red Cell Distribution Width 15.6 H 11.0-15.5 % Platelet Count 338 130-400 K/uL Mean Platelet Volume 9.8 7.5-10.5 fL Immature Granulocyte % (Auto) 1.0 0-1 % Neutrophils (%) (Auto) 86.1 H 40.0-77.0 % Lymphocytes (%) (Auto) 4.3 L 21.0-51.0 % Monocytes (%) (Auto) 7.8 3.0-13.0 % Eosinophils (%) (Auto) 0.5 0.0-8.0 % Basophils (%) (Auto) 0.3 0.0-5.0 % Neutrophils # (Auto) 14.3 H 1.8-7.7 K/uL Lymphocytes # (Auto) 0.7 L 1.0-4.8 K/uL Monocytes # (Auto) 1.3 H 0.1-1.0 K/uL Eosinophils # (Auto) 0.08 0.00-0.70 K/uL Basophils # (Auto) 0.05 0.00-0.20 K/uL Absolute Immature Granulocyte (auto 0.16 0-1 K/uL Nucleated Red Blood Cells 0.0 0.0-0.19 % White Cell Morphology Comment See comments Sodium Level 125 L 136-145 mmol/L Potassium Level 3.5 3.5-5.1 mmol/L Chloride Level 95 L 101-111 mmol/L Carbon Dioxide Level 22 21-32 mmol/L Blood Urea Nitrogen 44 H 7-18 mg/dL Creatinine 2.1 H 0.5-1.3 mg/dL Glomerular Filtration Rate Calc 34 >90 mL/min Random Glucose 166 H 70-105 mg/dL Total Calcium 8.0 L 8.5-10.1 mg/dL Magnesium Level 1.60 L 1.80-2.40 mg/dL Total Bilirubin 0.6 0.2-1.0 mg/dL Aspartate Amino Transf (AST/SGOT) 127 H 10-37 U/L Alanine Aminotransferase (ALT/SGPT) 114 H 12-78 U/L Alkaline Phosphatase 204 H 50-136 U/L Total Protein 6.6 6.0-8.3 g/dL Albumin 1.7 L 3.5-5.0 g/dL Vancomycin Level Trough 15.6 # 10.0-20.0 UG/ML Serum Osmolality 290 278-305 mOsm/kg B-Type Natriuretic Peptide 118 H 0-100 pg/mL Procalcitonin 2.47 H 0.05-0.5 ng/mL ASSESSMENT: Left foot osteomyelitis. Left foot diabetic ulcer with abscess, status post Excisional debridement of the 5th metatarsal bone and ulcer of the left foot. with E coli infection and Prevotella Bivia. Infection with multidrug resistant organism. Sepsis. Leukocytosis, improving. Diabetes mellitus. Acute on chronic renal failure. PLAN: Continue meropenem IV. Continue on vancomycin per pharmacy protocol. Cardiology following patient. Continue pain management. Continue wound care. Glucometer checks a.c./hs and cover with insulin per sliding scale protocol.. We will monitor electrolytes. This case was reviewed and discussed with my supervising physician and the above assessment and plan was formulated and agreed upon. MICHI W[facility]SON [facility] Aug 12, 2024 13:36
--- NOTE | 2024-08-12 18:24 | PN ---
PROGRESS NOTE Date of Service: Aug 12, 2024 Time of Service: 18:21 SUBJECTIVE: Patient seen and examined at bedside. Family in room. Denies fever chills and pain. no acute events reported in the last 24hours. REVIEW OF SYSTEMS CONSTITUTIONAL: Denies fever, chills, or fatigue. HEAD/FACE: No signs of trauma. EENT: Denies eye pain, blurred vision, double vision, or light sensitivity. RESPIRATORY: Denies shortness of breath, cough, wheezing CARDIOVASCULAR: Denies chest pain, palpitation, syncope underlying peripheral vascular disease. GASTROINTESTINAL/ABDOMINAL: Denies abdominal pain, constipation, diarrhea, nausea or vomiting GENITOURINARY: Denies dysuria or hematuria. MUSCULOSKELETAL: Denies joint pain, tenderness, or trauma. Osteomyelitis of the 5th metatarsal lateral foot left. INTEGUMENTARY: Ulceration lateral aspect plantar foot left. Cellulitis of the foot and ankle NEUROLOGICAL/PSYCH: Denies anxiety, depression, heat or cold intolerance. PHYSICAL EXAM EYES: Anicteric. Pupils equal and reactive. HENT: No oral thrush seen, moist Oral mucosa NECK: Supple, no JVD or thyromegaly. LUNGS: Good air entry. No rales, no rhonchi. CARDIOVASCULAR: S1, S2 regular. No murmur heard. Peripheral vascular disease bilateral lower extremity nonpalpable pulses by hand. ABDOMEN: Soft, non tender, bowel sounds present, no organomegaly CENTRAL NERVOUS SYSTEM: Awake, alert, oriented x 3. No focal deficits. SKIN: No rashes, no swelling. Ulceration to the plantar lateral aspect of the left foot. Cellulitis decreased edema decreased erythema ankle medial and lateral. LYMPHATICS: No peripheral lymphadenopathy MUSCULOSKELETAL: No joint swelling, erythema or tenderness. Status post 5th metatarsus exostectomy EXTREMITIES: No cyanosis or clubbing BACK: No deformity, no pressure ulcer. GENITOURINARY: No dysuria or hematuria Vital Signs (last 8hr) Date Time Temp Pulse Resp B/P (MAP) Pulse Ox O2 Delivery O2 Flow Rate FiO2 08/12/24 16:20 98.2 98 29 111/63 95 Nasal Cannula 2.0 08/12/24 15:00 98.1 101 24 98 Nasal Cannula 2.0 08/12/24 12:54 101.3 08/12/24 11:54 101.3 08/12/24 11:49 101.3 103 23 140/71 92 Nasal Cannula 2.0 08/12/24 10:48 102 23 125/71 95 Nasal Cannula 2.0 LABS: Laboratory: Test 08/12/24 16:07 08/12/24 04:00 08/11/24 22:43 08/11/24 03:42 Range/Units Whole Blood Glucose 241 H 70-110 MG/DL White Blood Count 16.6 H 4.8-10.8 K/uL Red Blood Count 3.63 L 4.50-6.20 MIL/uL Hemoglobin 9.4 L 14.0-18.0 g/dL Hematocrit 28.9 L 42-54 % Mean Corpuscular Volume 79.6 79-99 fL Mean Corpuscular Hemoglobin 25.9 L 27.0-33.0 pg Mean Corpuscular Hemoglobin Concent 32.5 32.0-36.0 g/dL Red Cell Distribution Width 15.6 H 11.0-15.5 % Platelet Count 338 130-400 K/uL Mean Platelet Volume 9.8 7.5-10.5 fL Immature Granulocyte % (Auto) 1.0 0-1 % Neutrophils (%) (Auto) 86.1 H 40.0-77.0 % Lymphocytes (%) (Auto) 4.3 L 21.0-51.0 % Monocytes (%) (Auto) 7.8 3.0-13.0 % Eosinophils (%) (Auto) 0.5 0.0-8.0 % Basophils (%) (Auto) 0.3 0.0-5.0 % Neutrophils # (Auto) 14.3 H 1.8-7.7 K/uL Lymphocytes # (Auto) 0.7 L 1.0-4.8 K/uL Monocytes # (Auto) 1.3 H 0.1-1.0 K/uL Eosinophils # (Auto) 0.08 0.00-0.70 K/uL Basophils # (Auto) 0.05 0.00-0.20 K/uL Absolute Immature Granulocyte (auto 0.16 0-1 K/uL Nucleated Red Blood Cells 0.0 0.0-0.19 % White Cell Morphology Comment See comments Sodium Level 125 L 136-145 mmol/L Potassium Level 3.5 3.5-5.1 mmol/L Chloride Level 95 L 101-111 mmol/L Carbon Dioxide Level 22 21-32 mmol/L Blood Urea Nitrogen 44 H 7-18 mg/dL Creatinine 2.1 H 0.5-1.3 mg/dL Glomerular Filtration Rate Calc 34 >90 mL/min Random Glucose 166 H 70-105 mg/dL Total Calcium 8.0 L 8.5-10.1 mg/dL Magnesium Level 1.60 L 1.80-2.40 mg/dL Total Bilirubin 0.6 0.2-1.0 mg/dL Aspartate Amino Transf (AST/SGOT) 127 H 10-37 U/L Alanine Aminotransferase (ALT/SGPT) 114 H 12-78 U/L Alkaline Phosphatase 204 H 50-136 U/L Total Protein 6.6 6.0-8.3 g/dL Albumin 1.7 L 3.5-5.0 g/dL Vancomycin Level Trough 15.6 # 10.0-20.0 UG/ML Serum Osmolality 290 278-305 mOsm/kg B-Type Natriuretic Peptide 118 H 0-100 pg/mL Procalcitonin 2.47 H 0.05-0.5 ng/mL DIAGNOSTICS / RADIOLOGY: PORTABLE CHEST RADIOGRAPH INDICATION: fever COMPARISON: 06/22/2024 FINDINGS: court recording monitor leads overlie the field of view. Heart size is normal. The pulmonary vascularity and sriram appear normal. No abnormal pulmonary parenchymal opacity or consolidation identified. No significant pleural effusion noted. No pneumothorax detected. IMPRESSION: No radiographic evidence for any acute cardiopulmonary process. Assessment: Acute kidney injury on chronic kidney disease stage IIIB. There is some improvement on kidney function basically at baseline kidney function. Hypertension with renal manifestation. Diabetes mellitus type 2 with nephropathy. Hyponatremia. ATN. Osteomyelitis on the fifth metatarsal, left foot, status post removal of amputation of that toe. Diabetic foot infection. PLAN: Continue present plan of care. Monitor Renal Function: no change in the last 48hours Continue Antimicrobials. Wound care. Maintain adequate hydration. Monitor electrolytes on and off. No change in current medications. KELLEN FARMER AGGIAN Aug 12, 2024 18:24
[2024-08-12] MEDS: INSULIN GLARgine 100 UNITS/ML 10 ML VIAL SQ SCH (20:10)
[2024-08-13] VITALS (14 sets, daily range): BP systolic 100–134; BP diastolic 47–72; PULSE 85–104; RESP 14–26; TEMP 98.1–101.5; O2SAT 93–94
--- NOTE | 2024-08-13 00:22 | PN ---
SUBJECTIVE: This gentleman was admitted for peripheral vascular workup, underwent an angiogram and attempted percutaneous revascularization, which was unsuccessful, the patient was referred for a femoropopliteal bypass surgery. I explained to the patient the indications for surgery as well as the potential complications of the procedure. He agrees and consents for surgery next week. TID: [id number] RECEIPT: [id number]
[2024-08-13 04:29] LABS: BASOPHILS # (AUTO) 0.06 K/uL (0.00-0.20); BASOPHILS % (AUTO) 0.3 % (0.0-5.0); EOSINOPHILS # (AUTO) 0.19 K/uL (0.00-0.70); EOSINOPHILS % (AUTO) 0.9 % (0.0-8.0); HEMATOCRIT 26.9 % (42-54); IMMATURE GRANULOCYTE ABSOLUTE 0.49 K/uL (0-1); LYMPHOCYTES # (AUTO) 1.1 K/uL (1.0-4.8); LYMPHOCYTES % (AUTO) 5.4 % (21.0-51.0); MEAN CORPUSCULAR HEMOGLOBIN 25.9 pg (27.0-33.0); MEAN CORPUSCULAR HGB CONC 32.7 g/dL (32.0-36.0); MEAN CORPUSCULAR VOLUME 79.1 fL (79-99); MONOCYTES # (AUTO) 1.2 K/uL (0.1-1.0); MONOCYTES % (AUTO) 5.9 % (3.0-13.0); NEUTROPHILS # (AUTO) 17.1 K/uL (1.8-7.7); NEUTROPHILS % (AUTO) 85.1 % (40.0-77.0); PLATELET COUNT (AUTO) 299 K/uL (130-400); RED CELL DISTRIBUTION WIDTH 15.7 % (11.0-15.5); WHITE BLOOD COUNT (AUTO) 20.1 K/uL (4.8-10.8)
[2024-08-13 05:01] LABS: ALBUMIN 1.5 g/dL (3.5-5.0); BILIRUBIN,TOTAL 0.7 mg/dL (0.2-1.0); CREATININE 2.1 mg/dL (0.5-1.3); POTASSIUM 3.6 mmol/L (3.5-5.1); TOTAL PROTEIN, SERUM 6.2 g/dL (6.0-8.3)
--- NOTE | 2024-08-13 10:36 | PN ---
-Severe sepsis -Leukocytosis -Nonhealing ulcer (E coli, Prevotella Bivia) surround cellulitis and osteomyelitis affecting the left foot s/p excisional debridement of the left 5th metatarsal bone and left foot ulcer done on 08/10/[address] Sorensen -PAD, [place] category 5 symptoms s/p left lower extremity peripheral angiogram done on 08/09/2024 which identified 100% stenosis (POLICE ACADEMY PROGRAM COORDINATOR) in the ostial SFA and 100% stenosis (POLICE ACADEMY PROGRAM COORDINATOR) in the proximal RIDDLER OPERATOR, pending Vascular surgery consult for left fem-pop bypass -Acute hypoxemic respiratory failure -CKD stage IIIB -PAD s/p directional atherectomy and angioplasty in the proximal mid and distal left SFA done on 10/20/2019, directional atherectomy (VesselkOAlwaysFashion) and DCB angioplasty (Novaposttronic InPact 6.0x40mm) to the ostial left SFA done 02/14/[address] Combs, directional atherectomy (VesselkOne) and DCB angioplasty of the distal right SFA done on 05/01/[address] Owusu, residual bilateral infrapopliteal disease, and s/p bilateral TMAs -Poorly controlled DM2 -Metabolic acidosis -Elevated LFTs -Hypoalbuminemia -Microcytic hypochromic anemia -HTN -HLP -Obesity Offers no cardiac complaints of any kind, denies chest pain or chest pressure or dyspnea. Obese gentleman with no rales or rhonchi, normal S1 and S2, regular rhythm, protuberant abdomen without tympany, normal bowel sounds. Peripheral vascular issues previously well documented and patient has a plan for surgery tomorrow. I am very pleased that our vascular surgeons could assist in this manner. Vitals/Labs Vital Signs Date Time Temp Pulse Resp B/P (MAP) Pulse Ox O2 Delivery O2 Flow Rate FiO2 08/13/24 08:19 101.5 08/13/24 08:00 93 Nasal Cannula* 2 28 08/13/24 07:00 104 24 100/55 Laboratory Tests 08/13/24 04:15 Medications Current Medications Sodium Chloride 2,817 ml @ 939 mls/hr ONCE ONCE IV Last administered on 08/05/24at 00:07; Start 08/05/24 at 00:00; Stop 08/05/24 at 02:59; Status DC Acetaminophen 1,000 mg ONCE ONCE PO Last administered on 08/05/24at 00:08; Start 08/05/24 at 00:00; Stop 08/05/24 at 00:01; Status DC Ondansetron HCl 4 mg ONCE ONCE IVP Last administered on 08/05/24at 00:08; Start 08/05/24 at 00:00; Stop 08/05/24 at 00:01; Status DC Vancomycin HCl 1 gm ONCE ONCE IV Last administered on 08/05/24at 01:02; Start 08/05/24 at 00:30; Stop 08/05/24 at 00:31; Status DC Piperacillin Sod/ Tazobactam Sod 3.375 gm ONCE ONCE IV Last administered on 08/05/24at 00:42; Start 08/05/24 at 00:30; Stop 08/05/24 at 00:31; Status DC Ketorolac Tromethamine 15 mg ONCE ONCE IM Last administered on 08/05/24at 01:02; Start 08/05/24 at 01:00; Stop 08/05/24 at 01:01; Status DC Vancomycin HCl 1 each AD IV; Start 08/05/24 at 02:30; Stop 08/19/24 at 02:29 Cefepime HCl 1 gm Q8H IVPB Last administered on 08/05/24at 11:40; Start 08/05/24 at 02:30; Stop 08/05/24 at 13:15; Status DC Acetaminophen 650 mg Q4H PRN PO Last administered on 08/13/24at 08:19; Start 08/05/24 at 02:30; Stop 09/04/24 at 02:29 Acetaminophen 650 mg Q6H PRN PO Last administered on 08/10/24at 18:06; Start 08/05/24 at 02:30; Stop 09/04/24 at 02:29 Ondansetron HCl 4 mg Q6H PRN IVP Last administered on 08/10/24at 08:06; Start 08/05/24 at 02:30; Stop 09/04/24 at 02:29 Insulin Human Lispro INSULIN SLIDING SCAL... ACHS SQ Last administered on 08/08/24at 20:51; Start 08/05/24 at 07:30; Stop 08/09/24 at 15:11; Status DC Dextrose 50 ml AD PRN IV; Start 08/05/24 at 02:30; Stop 08/09/24 at 10:23; Status DC Glucagon 1 mg AD PRN IM; Start 08/05/24 at 02:30; Stop 08/09/24 at 10:23; Status DC Enoxaparin Sodium 30 mg DAILY SQ Last administered on 08/07/24at 10:58; Start 08/05/24 at 09:00; Stop 08/07/24 at 19:16; Status DC Vancomycin HCl 750 mg Q24H IVPB Last administered on 08/07/24at 00:00; Start 08/06/24 at 00:30; Stop 08/07/24 at 23:50; Status DC Aspirin 81 mg DAILY PO Last administered on 08/07/24at 10:59; Start 08/06/24 at 09:00; Stop 08/07/24 at 19:20; Status DC Atorvastatin Calcium 10 mg HS PO Last administered on 08/06/24at 22:30; Start 08/05/24 at 21:00; Stop 08/07/24 at 19:20; Status DC Empaglifozin 25 mg DAILY PO Last administered on 08/08/24at 08:40; Start 08/06/24 at 09:00; Stop 08/09/24 at 11:43; Status DC Lisinopril 10 mg DAILY PO Last administered on 08/07/24at 10:59; Start 08/06/24 at 09:00; Stop 08/07/24 at 21:47; Status DC Nifedipine 30 mg DAILY PO Last administered on 08/13/24at 09:36; Start 08/06/24 at 09:00; Stop 09/05/24 at 08:59 Cefepime HCl 1 gm Q24H IVPB Last administered on 08/07/24at 10:59; Start 08/06/24 at 10:30; Stop 08/08/24 at 09:03; Status DC Morphine Sulfate 2 mg Q6H PRN IVP Last administered on 08/09/24at 03:33; Start 08/05/24 at 15:45; Stop 08/10/24 at 18:44; Status DC Magnesium Sulfate 50 ml @ 0 mls/hr PROTOCOL PRN IV Last administered on 08/12/24at 08:51; Start 08/06/24 at 09:00; Stop 09/05/24 at 08:59 Leptospermum Honey 1 APPLICATION ONCE TP Last administered on 08/06/24at 15:08; Start 08/06/24 at 15:00; Stop 08/06/24 at 18:00; Status DC Leptospermum Honey 1 APPLICATION DAILY TP Last administered on 08/08/24at 12:04; Start 08/07/24 at 08:00; Stop 08/10/24 at 09:04; Status DC Tramadol HCl 50 mg Q8H PRN PO Last administered on 08/11/24at 14:05; Start 08/06/24 at 15:00; Stop 08/11/24 at 14:59; Status DC Gabapentin 100 mg TID PO Last administered on 08/13/24at 08:17; Start 08/06/24 at 21:00; Stop 09/05/24 at 20:59 Heparin Sodium/ Dextrose 250 ml @ 0 mls/hr PROTOCOL IV Last administered on 08/07/24at 20:37; Start 08/07/24 at 19:30; Stop 08/08/24 at 17:13; Status DC Aspirin 81 mg DAILY PO Last administered on 08/13/24at 08:19; Start 08/08/24 at 09:00; Stop 09/07/24 at 08:59 Clopidogrel Bisulfate 75 mg DAILY PO Last administered on 08/10/24at 08:40; Start 08/08/24 at 09:00; Stop 08/10/24 at 09:17; Status DC Atorvastatin Calcium 40 mg HS PO Last administered on 08/12/24at 20:12; Start 08/07/24 at 21:00; Stop 09/06/24 at 20:59 Heparin Sodium (Porcine) 5,000 unit STK-MED ONCE .ROUTE Last administered on 08/07/24at 20:42; Start 08/07/24 at 20:39; Stop 08/07/24 at 20:39; Status DC Vancomycin HCl 1.25 gm Q24H IV; Start 08/08/24 at 00:00; Stop 08/07/24 at 23:59; Status DC Vancomycin HCl 250 ml @ 125 mls/hr Q24H IV Last administered on 08/09/24at 23:26; Start 08/08/24 at 00:00; Stop 08/10/24 at 23:32; Status DC Meropenem 1 gm/ Sodium Chloride 100 ml @ 33.333 mls/ hr Q12H IV Last administered on 08/13/24at 09:56; Start 08/08/24 at 09:30; Stop 08/18/24 at 09:29 Sodium Chloride 1,000 ml @ 50 mls/hr Q20H IV Last administered on 08/08/24at 14:12; Start 08/08/24 at 10:00; Stop 08/09/24 at 10:23; Status DC Lidocaine HCl 20 ml STK-MED ONCE .ROUTE; Start 08/09/24 at 07:38; Stop 08/09/24 at 07:38; Status DC Iodixanol 100 ml STK-MED ONCE .ROUTE; Start 08/09/24 at 07:38; Stop 08/09/24 at 07:38; Status DC Heparin Sodium (Porcine) 10,000 unit STK-MED ONCE .ROUTE; Start 08/09/24 at 07:38; Stop 08/09/24 at 07:38; Status DC Heparin Sodium/ Sodium Chloride 1,000 ml @ As Directed STK-MED ONCE IV; Start 08/09/24 at 07:38; Stop 08/09/24 at 07:38; Status DC Nitroglycerin 50 mg STK-MED ONCE .ROUTE; Start 08/09/24 at 07:38; Stop 08/09/24 at 07:39; Status DC Fentanyl Citrate 100 mcg STK-MED ONCE .ROUTE; Start 08/09/24 at 08:11; Stop 08/09/24 at 08:12; Status DC Midazolam HCl 2 mg STK-MED ONCE .ROUTE; Start 08/09/24 at 08:12; Stop 08/09/24 at 08:12; Status DC Clopidogrel Bisulfate 300 mg STK-MED ONCE .ROUTE; Start 08/09/24 at 09:06; Stop 08/09/24 at 09:06; Status DC Aspirin 81 mg STK-MED ONCE .ROUTE; Start 08/09/24 at 09:07; Stop 08/09/24 at 09:07; Status DC Ondansetron HCl 4 mg STK-MED ONCE .ROUTE; Start 08/09/24 at 09:16; Stop 08/09/24 at 09:16; Status DC Sodium Chloride 1,000 ml @ 100 mls/hr Q10H IV Last administered on 08/09/24at 10:29; Start 08/09/24 at 10:00; Stop 08/09/24 at 12:05; Status DC Dextrose 50 ml AD PRN IV; Start 08/09/24 at 10:00; Stop 09/08/24 at 09:59 Glucagon 1 mg AD PRN IM; Start 08/09/24 at 10:00; Stop 09/08/24 at 09:59 Sodium Chloride 1,000 ml @ 100 mls/hr Q10H IV Last administered on 08/09/24at 23:27; Start 08/09/24 at 14:00; Stop 08/10/24 at 08:36; Status DC Promethazine HCl 25 mg ONCE ONCE IM Last administered on 08/09/24at 13:22; Start 08/09/24 at 13:30; Stop 08/09/24 at 13:31; Status DC Metoclopramide HCl 5 mg BID PRN IVP Last administered on 08/10/24at 08:06; Start 08/09/24 at 15:00; Stop 09/08/24 at 14:59 Sodium Bicarbonate 650 mg TID PO Last administered on 08/13/24at 08:19; Start 08/09/24 at 15:00; Stop 09/08/24 at 14:59 Insulin Human Regular INSULIN SLIDING SCAL... ACHS SQ Last administered on 08/13/24at 07:05; Start 08/09/24 at 16:30; Stop 09/08/24 at 16:29 Insulin Glargine 15 units BID@0730,2100 SQ Last administered on 08/12/24at 08:59; Start 08/09/24 at 21:00; Stop 08/12/24 at 19:02; Status DC Heparin Sodium (Porcine) 5,000 unit Q8H SQ Last administered on 08/13/24at 06:51; Start 08/09/24 at 15:30; Stop 09/08/24 at 15:29 Pantoprazole Sodium 40 mg DAILY IVP Last administered on 08/13/24at 08:19; Start 08/10/24 at 09:00; Stop 09/09/24 at 08:59 Lidocaine HCl 100 mg STK-MED ONCE .ROUTE; Start 08/10/24 at 06:48; Stop 08/10/24 at 06:48; Status DC Midazolam HCl 2 mg STK-MED ONCE .ROUTE; Start 08/10/24 at 06:48; Stop 08/10/24 at 06:49; Status DC Propofol 200 mg STK-MED ONCE IV; Start 08/10/24 at 06:48; Stop 08/10/24 at 06:49; Status DC Fentanyl Citrate 100 mcg STK-MED ONCE .ROUTE; Start 08/10/24 at 06:49; Stop 08/10/24 at 06:49; Status DC Lidocaine HCl 20 ml STK-MED ONCE .ROUTE; Start 08/10/24 at 07:00; Stop 08/10/24 at 07:00; Status DC Bupivacaine HCl 5 mg STK-MED ONCE .ROUTE; Start 08/10/24 at 07:00; Stop 08/10/24 at 07:00; Status DC Ondansetron HCl 4 mg STK-MED ONCE .ROUTE; Start 08/10/24 at 07:10; Stop 08/10/24 at 07:10; Status DC Dexamethasone Sodium Phosphate 4 mg STK-MED ONCE .ROUTE; Start 08/10/24 at 07:11; Stop 08/10/24 at 07:11; Status DC Propofol 200 mg STK-MED ONCE IV; Start 08/10/24 at 07:27; Stop 08/10/24 at 07:27; Status DC Lidocaine HCl 10 ml STK-MED ONCE IJ Last administered on 08/10/24at 07:30; Start 08/10/24 at 07:30; Stop 08/10/24 at 08:16; Status DC Bupivacaine HCl 75 mg STK-MED ONCE INJ Last administered on 08/10/24at 07:30; Start 08/10/24 at 07:30; Stop 08/10/24 at 08:16; Status DC Furosemide 20 mg ONCE ONCE IV Last administered on 08/10/24at 08:41; Start 08/10/24 at 09:00; Stop 08/10/24 at 09:01; Status DC Potassium Chloride 100 ml @ 100 mls/hr AD PRN IV; Start 08/10/24 at 09:00; Stop 09/09/24 at 08:59 Potassium Chloride 10 meq AD PRN PO; Start 08/10/24 at 09:00; Stop 09/09/24 at 08:59 Potassium Chloride 10 meq AD PRN PO Last administered on 08/12/24at 08:51; Start 08/10/24 at 09:00; Stop 09/09/24 at 08:59 Potassium Chloride 100 ml @ 100 mls/hr AD PRN IV; Start 08/10/24 at 09:00; Stop 08/10/24 at 08:44; Status DC Vancomycin HCl 250 ml @ 125 mls/hr Q24H IV Last administered on 08/13/24at 00:03; Start 08/12/24 at 00:01; Stop 09/02/24 at 00:00 Midodrine 5 mg TID PRN PO; Start 08/11/24 at 12:00; Stop 09/10/24 at 11:59 Acetaminophen/ Hydrocodone Bitart 1 tab Q6H PRN PO Last administered on 08/12/24at 04:09; Start 08/11/24 at 15:00; Stop 08/16/24 at 14:59; Status Hold Lactulose 20 gm BID PRN PO Last administered on 08/12/24at 10:56; Start 08/11/24 at 15:00; Stop 09/10/24 at 14:59 Hydromorphone HCl 0.5 mg Q6H PRN IVP Last administered on 08/13/24at 08:17; Start 08/12/24 at 08:33; Stop 08/17/24 at 08:32 Acetaminophen 1,000 mg ONCE ONCE PO Last administered on 08/12/24at 12:54; Start 08/12/24 at 12:30; Stop 08/12/24 at 12:31; Status DC Insulin Glargine 20 units BID@0730,2100 SQ Last administered on 08/13/24at 07:06; Start 08/12/24 at 21:00; Stop 09/11/24 at 20:59 RAJWINDER JAQUEZ MD Aug 13, 2024 10:36
--- NOTE | 2024-08-13 11:51 | PN ---
[facility] PROGRESS NOTE Date Patient Seen: Aug 13, 2024 Time of Visit: 11:50 Supervising Physician: Koby Zaidi MD Primary Care Physician: Odessa Holland MD Outpatient Specialists: Inpatient Consults: PROBLEM LIST: Persistent Sepsis 2/2 left foot osteomyelitis with left foot abscess + Prevotella Bivia S/P excisional debridement of bone 5th metatarsal left foot and ulcer of the left foot 08/10/24 Severe PVD Leukocytosis Ketoacidosis 2/2 from Jardiance Acute metabolic acidosis 2/2 from above, resolved MDRO infection to left foot + Escheriachia coli Leukocytosis, POA Chronic anemia from chronic illness, POA Hyperglycemia in the presence of type 2 diabetes mellitus, POA CKD stage III, POA Glucosuria, POA Proteinuria POA INTERVAL HISTORY: 08/10-Patient was seen after surgical procedure today post I&D of left foot. He is coming off sedation drowsy lethargic. He is hemodynamically stable with a blood pressure 132/59 heart rate in the 80s respiratory rate of 14 unlabored saturating 95% on room air. Patient continues with fevers overnight he had a T- max of 100.6 and a T low of 97.9 in the last 24 hours. On laboratory white 7017.3 H&H is 9.8/29.5 with a platelet count of 631176. Sodium 129, improved from yesterday. Chloride 97 carbon dioxide is 19 with a BUN of 45 and a creatinine of 2.1 GFR of 34. Glucose 173 mg/dL total calcium 8.2 AST 128 ALT 103 alkaline phosphatase 307. Chest x-ray shows prominent interstitial markings seen post possible superimposed infiltrates. 2D echo shows EF of 50-55% with stage I diastolic dysfunction no pericardial effusion. We will continue follow patient closely alongside primary team. 08/11- patient is awake alert and oriented x3 dressing to left foot clean dry and intact. Day one status post excisional debridement of bone 5th metatarsal left foot and ulcer of the left foot. Patient denies any fever, chills or pain at this time. He has been afebrile with a T-max of 99.1. Hemodynamically stable with a blood pressure of 129/67 with a heart rate in the 80s respiratory rate is 20 unlabored saturating 94% on room air. Patient reports voiding well he had a bowel movement yesterday. On laboratory WBCs are similar to yesterday 18.3 H&H is 9.4/28.7 platelet count is 089711. He continues to receive antibiotics per ID who is attending. Sodium 129 chloride 98 BUN 47 creatinine of 2.1 and a GFR of 34, kidneys function seems to have plateaued and appears to be baseline. Glucose 171 mg/dL. Liver enzymes improving BNP 118. Total protein 6.5 albumin 1.7 procalcitonin trending down 2.47 today compared to yesterday which was 3.43. Pending CBC recommendation for fem-pop bypass to left lower extremity. 08/12- Patient is awake alert and oriented x3. He reports pain to left lower extremity. As per patient worsened after physical therapy stood him up to transfer to wheelchair. Patient does have a walker and used it at the time of the transfer. Otherwise patient denies any nausea vomiting or chest pain. No further fevers in the last 24 hours with a T-max of 99.1 Dressing clean dry and intact. WBCs trending down today 16.6 H&H 9.4/28.9 with a platelet count of 267662. Chemistries sodium 125 creatinine of 2.1 GFR of 34 similar to yesterday glucose of 166 mg/dL total calcium is eight magnesium is 1.6 covered per protocol liver enzymes mildly elevated. Albumin 1.7. Awaiting CV surgery for left fem-pop bypass possibly for Wednesday. 08/13-patient is awake alert and oriented. Saturating 96% at 2 L via nasal cannula hemodynamically stable heart rate in the 90s respiratory rate of 18. He has been afebrile with a T-max of 101.5 last 24 hours. Patient is pending fem- pop bypass per CV surgery likely tomorrow morning. Urine output of 1.2 L. chest x-ray showed mild bilateral airspace consolidations suggesting vascular congestion with a edema. Cardiomegaly seen. Started patient on Lasix 20 mg q.12 hours IV. On laboratory continues with leukocytosis today 20.1 H&H is 8.8/26.9 platelet count is 365972. Chemistries sodium 125 chloride 96 BUN 40 creatinine 2.1 glucose 178 mg/dL total calcium 7.8 AST 88 ALT 95 alkaline phosphatase 186 albumin 1.5. REVIEW OF SYSTEMS: General: Yes to malaise and fever. Neurological: No fainting episodes or seizures. HEENT: No nasal congestion or nasal secretion. Respiratory: No cough, shortness of breath, or wheezing Cardiac: No chest pain or palpitations. Gastrointestinal: No vomiting or diarrhea. Genitourinary: No dysuria hematuria. Skin: No rashes or lesions. Hematological: No bruises or bleeding. Musculoskeletal: Left lower extremity pain. Psychiatric: No depression or panic attacks. PHYSICAL EXAM: GENERAL: alert, weak, awake oriented x 3 HEENT: EOMI, Sclera non icteric, moist mucosa NECK: Supple, no JVD, trachea midline LUNGS: Diminished breath sounds bilaterally. No wheezes HEART: Regular rate and rhythm. Normal S1 and S2, without murmurs ABD: Abdomen soft, nontender. Bowel sounds present EXT: No clubbing cyanosis or edema, left .TMA dressing clean dry intact NEURO: Alert and oriented to person, follows commands Vital Signs (last 8hr) Date Time Temp Pulse Resp B/P (MAP) Pulse Ox O2 Delivery O2 Flow Rate FiO2 08/13/24 10:00 92 26 115/59 96 Nasal Cannula 2.0 08/13/24 09:00 100.4 93 17 125/55 97 Nasal Cannula 2.0 08/13/24 08:45 92 14 117/62 97 Nasal Cannula 2.0 08/13/24 08:19 101.5 08/13/24 08:00 101.5 08/13/24 08:00 93 Nasal Cannula* 2 28 08/13/24 07:00 104 24 100/55 97 Nasal Cannula 2.0 LABS: Hematology Labs: Test 08/13/24 04:15 08/12/24 04:00 Range/Units White Blood Count 20.1 H 4.8-10.8 K/uL Red Blood Count 3.40 L 4.50-6.20 MIL/uL Hemoglobin 8.8 L 14.0-18.0 g/dL Hematocrit 26.9 L 42-54 % Mean Corpuscular Volume 79.1 79-99 fL Mean Corpuscular Hemoglobin 25.9 L 27.0-33.0 pg Mean Corpuscular Hemoglobin Concent 32.7 32.0-36.0 g/dL Red Cell Distribution Width 15.7 H 11.0-15.5 % Platelet Count 299 130-400 K/uL Mean Platelet Volume 10.2 7.5-10.5 fL Immature Granulocyte % (Auto) 2.4 H 0-1 % Neutrophils (%) (Auto) 85.1 H 40.0-77.0 % Lymphocytes (%) (Auto) 5.4 L 21.0-51.0 % Monocytes (%) (Auto) 5.9 3.0-13.0 % Eosinophils (%) (Auto) 0.9 0.0-8.0 % Basophils (%) (Auto) 0.3 0.0-5.0 % Neutrophils # (Auto) 17.1 H 1.8-7.7 K/uL Lymphocytes # (Auto) 1.1 1.0-4.8 K/uL Monocytes # (Auto) 1.2 H 0.1-1.0 K/uL Eosinophils # (Auto) 0.19 0.00-0.70 K/uL Basophils # (Auto) 0.06 0.00-0.20 K/uL Absolute Immature Granulocyte (auto 0.49 0-1 K/uL Nucleated Red Blood Cells 0.0 0.0-0.19 % White Cell Morphology Comment See comments Chemistry Labs: Test 08/13/24 06:30 08/13/24 04:15 Range/Units Whole Blood Glucose 174 H 70-110 MG/DL Sodium Level 125 L 136-145 mmol/L Potassium Level 3.6 3.5-5.1 mmol/L Chloride Level 96 L 101-111 mmol/L Carbon Dioxide Level 21 21-32 mmol/L Blood Urea Nitrogen 40 H 7-18 mg/dL Creatinine 2.1 H 0.5-1.3 mg/dL Glomerular Filtration Rate Calc 34 >90 mL/min Random Glucose 178 H 70-105 mg/dL Total Calcium 7.8 L 8.5-10.1 mg/dL Magnesium Level 2.00 1.80-2.40 mg/dL Total Bilirubin 0.7 0.2-1.0 mg/dL Aspartate Amino Transf (AST/SGOT) 88 H 10-37 U/L Alanine Aminotransferase (ALT/SGPT) 95 H 12-78 U/L Alkaline Phosphatase 186 H 50-136 U/L Total Protein 6.2 6.0-8.3 g/dL Albumin 1.5 L 3.5-5.0 g/dL DIAGNOSTICS / RADIOLOGY RESULTS: [ ] PLAN NEURO: Minimize central acting medications as possible. Fall Precautions. Well lighted room through the day and minimize interruptions through the night to prevent acute delirium. PULMONARY: Supplemental 02 as needed Titrate Fio2 to keep Spo2 > or = 90% DuoNebs and CPT as needed IS hourly while awake for pulmonary hygiene Out of bed to chair as tolerated VAP Bundle CARDIOVASCULAR: Follow hemodynamics. Titrate vasopressor to keep MAP >65 or systolic blood pressure >95mmHg Telemetry monitoring LINES: PIV GI & NUTRITION: Continue nutritional support Aspirations precautions Prokinetic agents and laxatives as needed KIDNEYS & ELECTROLYTES: Strict monitoring of intake and output Daily weights Avoid nephrotoxic agents Monitor electrolytes and replace as needed Goal urine output of 30mL/hr or 0.5mL/kg/hr Urine output: 1.2 L Fluid Balance: [ ] ENDOCRINE: Maintain blood glucose between 100-180 at all times. Insulin sliding scale for blood glucose management INFECTIOUS DISEASE: Trend temperature. Victor-culture if febrile. Micro: [ ] Left foot wound E coli Left foot +Prevotella Bivia Antibiotics: [ Meropenem Vanco HEMATOLOGY & COAGULATION: Monitor H&H. Keep Hgb > 7 Transfuse 1 unit of PRBC for Hgb < 7 Transfuse 1 pack of platelets of platelets < 20, 000 Watch for any signs and symptoms of bleeding SKIN: Pressure ulcer prevention per facility protocol Rehab: PT/OT Prophylaxis: GI: Protonix DVT: Heparin Code Status: Full Resuscitation Disposition: ICU Other: Total patient care time exceeds 35 minutes excluding all procedures. Case was discussed and seen with my supervising physician. The above plan was formulated and agreed upon. PEG DO [facility] Aug 13, 2024 11:51
--- NOTE | 2024-08-13 12:29 | HMCIMG ---
INDICATION: hypoxia TECHNIQUE: CHEST 1VW COMPARISON: 08/10/2024 FINDINGS/IMPRESSION: Mild bilateral airspace consolidation suggesting vascular congestion/edema versus pneumonia. Cardiomegaly is seen Mild degenerative changes of the spine. The visualized upper abdomen appears unremarkable.
--- NOTE | 2024-08-13 13:33 | PN ---
PROGRESS NOTE Date of Service: Aug 13, 2024 Time of Service: 13:30 SUBJECTIVE: Patient seen and examined at bedside. Family in room. Denies fever chills and pain. no acute events reported in the last 24hours. REVIEW OF SYSTEMS CONSTITUTIONAL: Denies fever, chills, or fatigue. HEAD/FACE: No signs of trauma. EENT: Denies eye pain, blurred vision, double vision, or light sensitivity. RESPIRATORY: Denies shortness of breath, cough, wheezing CARDIOVASCULAR: Denies chest pain, palpitation, syncope underlying peripheral vascular disease. GASTROINTESTINAL/ABDOMINAL: Denies abdominal pain, constipation, diarrhea, nausea or vomiting GENITOURINARY: Denies dysuria or hematuria. MUSCULOSKELETAL: Denies joint pain, tenderness, or trauma. Osteomyelitis of the 5th metatarsal lateral foot left. INTEGUMENTARY: Ulceration lateral aspect plantar foot left. Cellulitis of the foot and ankle NEUROLOGICAL/PSYCH: Denies anxiety, depression, heat or cold intolerance. PHYSICAL EXAM EYES: Anicteric. Pupils equal and reactive. HENT: No oral thrush seen, moist Oral mucosa NECK: Supple, no JVD or thyromegaly. LUNGS: Good air entry. No rales, no rhonchi. CARDIOVASCULAR: S1, S2 regular. No murmur heard. Peripheral vascular disease bilateral lower extremity nonpalpable pulses by hand. ABDOMEN: Soft, non tender, bowel sounds present, no organomegaly CENTRAL NERVOUS SYSTEM: Awake, alert, oriented x 3. No focal deficits. SKIN: No rashes, no swelling. Ulceration to the plantar lateral aspect of the left foot. Cellulitis decreased edema decreased erythema ankle medial and lateral. LYMPHATICS: No peripheral lymphadenopathy MUSCULOSKELETAL: No joint swelling, erythema or tenderness. Status post 5th metatarsus exostectomy EXTREMITIES: No cyanosis or clubbing BACK: No deformity, no pressure ulcer. GENITOURINARY: No dysuria or hematuria Vital Signs (last 8hr) Date Time Temp Pulse Resp B/P (MAP) Pulse Ox O2 Delivery O2 Flow Rate FiO2 08/13/24 12:59 98.4 91 18 119/69 96 Room Air 08/13/24 10:00 92 26 115/59 96 Nasal Cannula 2.0 08/13/24 09:00 100.4 93 17 125/55 97 Nasal Cannula 2.0 08/13/24 08:45 92 14 117/62 97 Nasal Cannula 2.0 08/13/24 08:19 101.5 08/13/24 08:00 101.5 08/13/24 08:00 93 Nasal Cannula* 2 28 08/13/24 07:00 104 24 100/55 97 Nasal Cannula 2.0 LABS: Laboratory: Test 08/13/24 12:12 08/13/24 04:15 08/12/24 04:00 08/11/24 22:43 Range/Units Whole Blood Glucose 229 H 70-110 MG/DL White Blood Count 20.1 H 4.8-10.8 K/uL Red Blood Count 3.40 L 4.50-6.20 MIL/uL Hemoglobin 8.8 L 14.0-18.0 g/dL Hematocrit 26.9 L 42-54 % Mean Corpuscular Volume 79.1 79-99 fL Mean Corpuscular Hemoglobin 25.9 L 27.0-33.0 pg Mean Corpuscular Hemoglobin Concent 32.7 32.0-36.0 g/dL Red Cell Distribution Width 15.7 H 11.0-15.5 % Platelet Count 299 130-400 K/uL Mean Platelet Volume 10.2 7.5-10.5 fL Immature Granulocyte % (Auto) 2.4 H 0-1 % Neutrophils (%) (Auto) 85.1 H 40.0-77.0 % Lymphocytes (%) (Auto) 5.4 L 21.0-51.0 % Monocytes (%) (Auto) 5.9 3.0-13.0 % Eosinophils (%) (Auto) 0.9 0.0-8.0 % Basophils (%) (Auto) 0.3 0.0-5.0 % Neutrophils # (Auto) 17.1 H 1.8-7.7 K/uL Lymphocytes # (Auto) 1.1 1.0-4.8 K/uL Monocytes # (Auto) 1.2 H 0.1-1.0 K/uL Eosinophils # (Auto) 0.19 0.00-0.70 K/uL Basophils # (Auto) 0.06 0.00-0.20 K/uL Absolute Immature Granulocyte (auto 0.49 0-1 K/uL Nucleated Red Blood Cells 0.0 0.0-0.19 % Sodium Level 125 L 136-145 mmol/L Potassium Level 3.6 3.5-5.1 mmol/L Chloride Level 96 L 101-111 mmol/L Carbon Dioxide Level 21 21-32 mmol/L Blood Urea Nitrogen 40 H 7-18 mg/dL Creatinine 2.1 H 0.5-1.3 mg/dL Glomerular Filtration Rate Calc 34 >90 mL/min Random Glucose 178 H 70-105 mg/dL Total Calcium 7.8 L 8.5-10.1 mg/dL Magnesium Level 2.00 1.80-2.40 mg/dL Total Bilirubin 0.7 0.2-1.0 mg/dL Aspartate Amino Transf (AST/SGOT) 88 H 10-37 U/L Alanine Aminotransferase (ALT/SGPT) 95 H 12-78 U/L Alkaline Phosphatase 186 H 50-136 U/L B-Type Natriuretic Peptide 157 H 0-100 pg/mL Total Protein 6.2 6.0-8.3 g/dL Albumin 1.5 L 3.5-5.0 g/dL White Cell Morphology Comment See comments Vancomycin Level Trough 15.6 # 10.0-20.0 UG/ML DIAGNOSTICS / RADIOLOGY: PORTABLE CHEST RADIOGRAPH INDICATION: fever COMPARISON: 06/22/2024 FINDINGS: licensed insurance agent leads overlie the field of view. Heart size is normal. The pulmonary vascularity and sriram appear normal. No abnormal pulmonary parenchymal opacity or consolidation identified. No significant pleural effusion noted. No pneumothorax detected. IMPRESSION: No radiographic evidence for any acute cardiopulmonary process. Assessment: Acute kidney injury on chronic kidney disease stage IIIB. There is some improvement on kidney function basically at baseline kidney function. Hypertension with renal manifestation. Diabetes mellitus type 2 with nephropathy. Hyponatremia. ATN. Osteomyelitis on the fifth metatarsal, left foot, status post removal of amputa tion of that toe. Diabetic foot infection. PLAN: Continue present plan of care. Hyponatremia x 1 dose of NaCL Monitor Renal Function: no change in the last 48hours Continue Antimicrobials. Wound care. Maintain adequate hydration. Monitor electrolytes on and off. No change in current medications. [facility] F[facility]ER [facility] Aug 13, 2024 13:33
[2024-08-13] MEDS: furoSEMIDE 20MG VIAL IV SCH (14:42)
[2024-08-13] MEDS: SODIUM CHLORIDE 1,000 MG TAB PO ONE (14:42)
--- NOTE | 2024-08-13 15:19 | PN ---
SUBJECTIVE: The patient is a 64-year-old male with known peripheral vascular disease, having undergone a left transmetatarsal amputation in the past. The patient has osteomyelitis of the fifth metatarsal by MRI and underwent an angiogram, which revealed an occluded left superficial femoral artery. The [id number] popliteal artery reconstituted with 2 vessel runoff [id number]. OBJECTIVE: GENERAL: The patient is a pleasant elderly male in no apparent distress. HEENT: Reveals normocephalic, atraumatic. Extraocular movements are intact. HEART: S1, S2 and regular. LUNGS: Unlabored at rest on room air. ABDOMEN: Reveals some [id number] obesity with positive bowel sounds. EXTREMITIES: He has a Kerlix wrap on his left transmetatarsal amputation. He has a palpable left femoral artery pulse. However, I do not feel pulses below this on his left lower extremity. ASSESSMENT AND PLAN: Left lower extremity arterial occlusive disease with osteomyelitis, left fifth metatarsal bone. Recommended an above the knee left fem-popliteal artery bypass grafting. Risks include bleeding, transfusion, infection, limb loss and need for further surgery. TID: [id number] RECEIPT: [id number]
[2024-08-14] VITALS (49 sets, daily range): BP systolic 106–142; BP diastolic 44–74; PULSE 73–101; RESP 16–33; TEMP 96.7–100.7; O2SAT 96–98
[2024-08-14 04:50] LABS: BASOPHILS # (AUTO) 0.05 K/uL (0.00-0.20); BASOPHILS % (AUTO) 0.2 % (0.0-5.0); EOSINOPHILS % (AUTO) 1.3 % (0.0-8.0); HEMATOCRIT 28.7 % (42-54); LYMPHOCYTES % (AUTO) 4.3 % (21.0-51.0); MEAN CORPUSCULAR HEMOGLOBIN 26.3 pg (27.0-33.0); MEAN CORPUSCULAR HGB CONC 32.4 g/dL (32.0-36.0); MEAN CORPUSCULAR VOLUME 81.1 fL (79-99); MONOCYTES # (AUTO) 1.4 K/uL (0.1-1.0); MONOCYTES % (AUTO) 6.4 % (3.0-13.0); NEUTROPHILS # (AUTO) 19.3 K/uL (1.8-7.7); NEUTROPHILS % (AUTO) 85.6 % (40.0-77.0); PLATELET COUNT (AUTO) 351 K/uL (130-400); RED BLOOD CELL COUNT(AUTO) 3.54 MIL/uL (4.50-6.20); RED CELL DISTRIBUTION WIDTH 15.7 % (11.0-15.5); WHITE BLOOD COUNT (AUTO) 22.6 K/uL (4.8-10.8)
[2024-08-14 05:20] LABS: ALBUMIN 1.5 g/dL (3.5-5.0); BILIRUBIN,TOTAL 0.7 mg/dL (0.2-1.0); POTASSIUM 3.8 mmol/L (3.5-5.1); TOTAL PROTEIN, SERUM 6.5 g/dL (6.0-8.3)
[2024-08-14 05:52] LABS: INR 1.23 (0.85-1.15); PROTHROMBIN TIME 13.1 SEC (9.6-11.6)
[2024-08-14 05:53] LABS: PARTIAL THROMBOPLASTIN TIME 44.4 SEC (26.3-35.5)
[2024-08-14 05:55] LABS: HEMOGLOBIN A1C 9.4 % (4.0-6.0)
[2024-08-14 08:57] LABS: B-TYPE NATRIURETIC PEPTIDE 147 pg/mL (0-100)
--- NOTE | 2024-08-14 10:52 | PN ---
[facility] CARDIOLOGY PROGRESS NOTE Cardiology progress note dictated for Jesus Manuel Owusu MD Date Patient Seen: Aug 14, 2024 Interval History: This is a 64y/o male who was seen and evaluated at the bedside today. The patient is currently complaining of left leg pain from the thigh on downward with facial grimacing. He denies any chest pain, chest pressure, palpitations, shortness of breath or dizziness. No overnight telemetry events. The bedside nurse Rain was made aware that the patient is requesting pain medication, she verbalized understanding. Physical Examination: GENERAL: No acute distress. HEAD: Normal with no signs of head trauma. EYES: PERRLA, EOMI, conjunctiva and sclera normal. NECK: Supple without JVD. There is no tenderness, lymphadenopathy, or masses. No thyromegaly. Normal carotid upstrokes without bruits. LUNGS: Clear breath sounds bilaterally. No wheezes, or rhonchi. HEART: Normal rate and rhythm. Normal S1 and S2 without murmurs, gallop or rub. VASC: Right TMA with 2+ DP pulse. Left TMA with bulky dressing in place. LLE with warmth to touch, erythema, and trace to 1+ edema. NEURO: Awake, alert, and oriented x3. No focal neurological deficits noted. Laboratory: Hematology Labs: Test 08/14/24 04:04 Range/Units White Blood Count 22.6 H 4.8-10.8 K/uL Red Blood Count 3.54 L 4.50-6.20 MIL/uL Hemoglobin 9.3 L 14.0-18.0 g/dL Hematocrit 28.7 L 42-54 % Mean Corpuscular Volume 81.1 79-99 fL Mean Corpuscular Hemoglobin 26.3 L 27.0-33.0 pg Mean Corpuscular Hemoglobin Concent 32.4 32.0-36.0 g/dL Red Cell Distribution Width 15.7 H 11.0-15.5 % Platelet Count 351 130-400 K/uL Mean Platelet Volume 10.6 H 7.5-10.5 fL Immature Granulocyte % (Auto) 2.2 H 0-1 % Neutrophils (%) (Auto) 85.6 H 40.0-77.0 % Lymphocytes (%) (Auto) 4.3 L 21.0-51.0 % Monocytes (%) (Auto) 6.4 3.0-13.0 % Eosinophils (%) (Auto) 1.3 0.0-8.0 % Basophils (%) (Auto) 0.2 0.0-5.0 % Neutrophils # (Auto) 19.3 H 1.8-7.7 K/uL Lymphocytes # (Auto) 1.0 1.0-4.8 K/uL Monocytes # (Auto) 1.4 H 0.1-1.0 K/uL Eosinophils # (Auto) 0.30 0.00-0.70 K/uL Basophils # (Auto) 0.05 0.00-0.20 K/uL Absolute Immature Granulocyte (auto 0.50 0-1 K/uL Nucleated Red Blood Cells 0.0 0.0-0.19 % Chemistry Labs: Test 08/14/24 05:27 08/14/24 04:04 08/13/24 04:15 Range/Units Whole Blood Glucose 161 H 70-110 MG/DL Sodium Level 128 L 136-145 mmol/L Potassium Level 3.8 3.5-5.1 mmol/L Chloride Level 96 L 101-111 mmol/L Carbon Dioxide Level 25 21-32 mmol/L Blood Urea Nitrogen 37 H 7-18 mg/dL Creatinine 2.0 H 0.5-1.3 mg/dL Glomerular Filtration Rate Calc 36 >90 mL/min Random Glucose 153 H 70-105 mg/dL Hemoglobin A1c 9.4 H 4.0-6.0 % Estimated Average Glucose (eAG) 223 H 70-126 mg/dL Total Calcium 7.9 L 8.5-10.1 mg/dL Total Bilirubin 0.7 0.2-1.0 mg/dL Aspartate Amino Transf (AST/SGOT) 96 H 10-37 U/L Alanine Aminotransferase (ALT/SGPT) 88 H 12-78 U/L Alkaline Phosphatase 247 #H 50-136 U/L B-Type Natriuretic Peptide 147 H 0-100 pg/mL Total Protein 6.5 6.0-8.3 g/dL Albumin 1.5 L 3.5-5.0 g/dL Magnesium Level 2.00 1.80-2.40 mg/dL Coagulation Labs: Test 08/14/24 04:04 Range/Units Prothrombin Time 13.1 H 9.6-11.6 SEC Prothromb Time International Ratio 1.23 H 0.85-1.15 Activated Partial Thromboplast Time 44.4 H 26.3-35.5 SEC Diagnostics / Radiology: Assessment: -Sepsis -Leukocytosis -Nonhealing ulcer (E coli, Prevotella Bivia) surround cellulitis and osteomyelitis affecting the left foot s/p excisional debridement of the left 5th metatarsal bone and left foot ulcer done on 08/10/[address] Sorensen -PAD, [place] category 5 symptoms (LLE) s/p left lower extremity peripheral angiogram done on 08/09/2024 which identified 100% stenosis (AIR POLLUTION CONTROL ENGINEER) in the ostial SFA and 100% stenosis (AIR POLLUTION CONTROL ENGINEER) in the proximal LINK WIRE FABRIC MACHINE OPERATOR -CKD stage IIIB -Acute hypoxemic respiratory failure -PAD s/p directional atherectomy and angioplasty in the proximal mid and distal left SFA done on 10/20/2019, directional atherectomy ([employer]) and DCB angioplasty ([employer] 6.0x40mm) to the ostial left SFA done 02/14/[address] Combs, directional atherectomy ([employer]) and DCB angioplasty of the distal right SFA done on 05/01/[address] Owusu, residual bilateral infrapopliteal disease, and s/p bilateral TMAs -Poorly controlled DM2 -Metabolic acidosis -Elevated LFTs -Hypoalbuminemia -Microcytic hypochromic anemia -HTN -HLP -Obesity Plan: 1. PAD, [place] category 5 symptoms (LLE) -Stable -PE: The left TMA is wrapped in a bulky dressing but erythema is noted to the level of the ankle above the dressing. -Left lower extremity arterial Doppler 05/24/2024: Monophasic waveforms throughout the left lower extremity arterial system with the exception of the left mid SFA and left posterior tibial artery which identifies occlusion -S/p left lower extremity peripheral angiogram done on 08/09/2024 which identified 100% stenosis (AIR POLLUTION CONTROL ENGINEER) in the ostial SFA and 100% stenosis (AIR POLLUTION CONTROL ENGINEER) in the proximal LINK WIRE FABRIC MACHINE OPERATOR -The patient is scheduled for an above the knee left fem-popliteal artery bypass grafting today on 08/14/2024. -The patient continues on aspirin 81mg daily and atorvastatin 40mg QHS. Clopidogrel 75 mg daily is on hold. -Continue antibiotic therapy. JENA ZUNIGA SECOND OFFICER Aug 14, 2024 10:52
[2024-08-14] MEDS: metRONIDazole 500MG/100ML BAG 100 ML IVPB SCH (12:54)
--- NOTE | 2024-08-14 14:35 | NUR ---
TRANSFER OR team here to diamond picker patient for procedure. Patient transferred now to OR.
[2024-08-14] MEDS: ceFAZolin SODIUM 2 GM VIAL IVPB ONE (14:55)
[2024-08-14] MEDS ORDERED: proPOFol 10 MG/ML 20ML VIAL IV ONE (15:01)
[2024-08-14] MEDS ORDERED: FENTanyl CITRate PF 50 MCG/1 ML 2ML VIAL ONE (15:01)
[2024-08-14] MEDS ORDERED: SUCCINYLCHOLINE CHLORIDE 20 MG/ML 10 ML VIAL ONE (15:01)
[2024-08-14] MEDS ORDERED: rocuRONium bROMide 10MG/1ML 5ML VL ONE (15:02)
[2024-08-14] MEDS ORDERED: MIDAZOLAM HCL 1 MG/ML 2ML VIAL ONE (15:02)
[2024-08-14] MEDS ORDERED: acetaMINOPHEN 325 MG TAB PO PRN (15:30)
[2024-08-14] MEDS: ceFAZolin SODIUM 2 GM VIAL ONE (15:36)
[2024-08-14] MEDS: HEParin-NS 1,000 UNIT/500 ML 500 ML IV ONE (15:48)
[2024-08-14] MEDS: ceFAZolin SODIUM 1 GM VIAL ONE (15:48)
[2024-08-14] MEDS ORDERED: ketaMINE 50MG/ML SYRINGE 50 MG/ML DISP.SYRIN ONE (16:54)
[2024-08-14] MEDS ORDERED: MEPERIDINE-PF 25 MG/ML SYG ONE ×2 (17:49→17:50)
[2024-08-14] MEDS ORDERED: proPOFol 1000 MG/100 ML 100 ML IV ONE (18:23)
[2024-08-14] MEDS: morPHINE 2 MG SYG IVP PRN (20:14)
--- NOTE | 2024-08-14 20:19 | PN ---
[facility] PROGRESS NOTE Date Patient Seen: Aug 14, 2024 Time of Visit: 14:00 Supervising Physician: NEO BENNETT MD Primary Care Physician: Odessa Holland MD Outpatient Specialists: Inpatient Consults: JD PROBLEM LIST: Persistent Sepsis 2/2 left foot osteomyelitis with left foot abscess + Prevotella Bivia S/P excisional debridement of bone 5th metatarsal left foot and ulcer of the left foot 08/10/24 Severe PVD Leukocytosis Ketoacidosis 2/2 from Jardiance Acute metabolic acidosis 2/2 from above, resolved MDRO infection to left foot + Escheriachia coli Leukocytosis, POA Chronic anemia from chronic illness, POA Hyperglycemia in the presence of type 2 diabetes mellitus, POA CKD stage III, POA Glucosuria, POA Proteinuria POA INTERVAL HISTORY: 08/10-Patient was seen after surgical procedure today post I&D of left foot. He is coming off sedation drowsy lethargic. He is hemodynamically stable with a blood pressure 132/59 heart rate in the 80s respiratory rate of 14 unlabored saturating 95% on room air. Patient continues with fevers overnight he had a T- max of 100.6 and a T low of 97.9 in the last 24 hours. On laboratory white 7017.3 H&H is 9.8/29.5 with a platelet count of 127725. Sodium 129, improved fr om yesterday. Chloride 97 carbon dioxide is 19 with a BUN of 45 and a creatinine of 2.1 GFR of 34. Glucose 173 mg/dL total calcium 8.2 AST 128 ALT 103 alkaline phosphatase 307. Chest x-ray shows prominent interstitial markings seen post possible superimposed infiltrates. 2D echo shows EF of 50-55% with stage I diastolic dysfunction no pericardial effusion. We will continue follow patient closely alongside primary team. 08/11- patient is awake alert and oriented x3 dressing to left foot clean dry and intact. Day one status post excisional debridement of bone 5th metatarsal left foot and ulcer of the left foot. Patient denies any fever, chills or pain at this time. He has been afebrile with a T-max of 99.1. Hemodynamically stable with a blood pressure of 129/67 with a heart rate in the 80s respiratory rate is 20 unlabored saturating 94% on room air. Patient reports voiding well he had a bowel movement yesterday. On laboratory WBCs are similar to yesterday 18.3 H&H is 9.4/28.7 platelet count is 591321. He continues to receive antibiotics per ID who is attending. Sodium 129 chloride 98 BUN 47 creatinine of 2.1 and a GFR of 34, kidneys function seems to have plateaued and appears to be baseline. Glucose 171 mg/dL. Liver enzymes improving BNP 118. Total protein 6.5 albumin 1.7 procalcitonin trending down 2.47 today compared to yesterday which was 3.43. Pending CBC recommendation for fem-pop bypass to left lower extremity. 08/12- Patient is awake alert and oriented x3. He reports pain to left lower e xtremity. As per patient worsened after physical therapy stood him up to transfer to wheelchair. Patient does have a walker and used it at the time of the transfer. Otherwise patient denies any nausea vomiting or chest pain. No further fevers in the last 24 hours with a T-max of 99.1 Dressing clean dry and intact. WBCs trending down today 16.6 H&H 9.4/28.9 with a platelet count of 370740. Chemistries sodium 125 creatinine of 2.1 GFR of 34 similar to yesterday glucose of 166 mg/dL total calcium is eight magnesium is 1.6 covered per protocol liver enzymes mildly elevated. Albumin 1.7. Awaiting CV surgery for left fem-pop bypass possibly for Wednesday. 08/13-patient is awake alert and oriented. Saturating 96% at 2 L via nasal cannula hemodynamically stable heart rate in the 90s respiratory rate of 18. He has been afebrile with a T-max of 101.5 last 24 hours. Patient is pending fem- pop bypass per CV surgery likely tomorrow morning. Urine output of 1.2 L. chest x-ray showed mild bilateral airspace consolidations suggesting vascular congestion with a edema. Cardiomegaly seen. Started patient on Lasix 20 mg q.12 hours IV. On laboratory continues with leukocytosis today 20.1 H&H is 8.8/26.9 platelet count is 387078. Chemistries sodium 125 chloride 96 BUN 40 creatinine 2.1 glucose 178 mg/dL total calcium 7.8 AST 88 ALT 95 alkaline phosphatase 186 albumin 1.5. 08/14 Patient has been stable as per nurse report, vital signs stable, not in distress, no chest pain or SOB reported he is scheduled for Fem-Pop bypass per CV surgery today, we will follow up after procedure., continue monitoring kidney function REVIEW OF SYSTEMS: General: general malaise Neurological: No fainting episodes or seizures. HEENT: No nasal congestion or nasal secretion. Respiratory: No cough, shortness of breath, or wheezing Cardiac: No chest pain or palpitations. Gastrointestinal: No vomiting or diarrhea. Genitourinary: No dysuria hematuria. Skin: No rashes or lesions. Hematological: No bruises or bleeding. Musculoskeletal: Left lower extremity pain. Psychiatric: No depression or panic attacks. PHYSICAL EXAM: GENERAL: alert, weak, awake oriented x 3 HEENT: EOMI, Sclera non icteric, moist mucosa NECK: Supple, no JVD, trachea midline LUNGS: Diminished breath sounds bilaterally. No wheezes HEART: Regular rate and rhythm. Normal S1 and S2, without murmurs ABD: Abdomen soft, nontender. Bowel sounds present EXT: No clubbing cyanosis or edema, left .TMA dressing clean dry intact NEURO: Alert and oriented to person, follows commands Vital Signs (last 8hr) Date Time Temp Pulse Resp B/P (MAP) Pulse Ox O2 Delivery O2 Flow Rate FiO2 08/14/24 19:25 97.2 86 21 122/46 94 Nasal Cannula 4.0 124/61 08/14/24 19:20 85 17 127/49 98 Nasal Cannula 4.0 08/14/24 19:15 86 17 124/50 100 Nonrebreathing Mask 100 08/14/24 19:10 80 18 121/48 99 Nonrebreathing Mask 100 116/58 08/14/24 19:05 83 26 118/51 99 Nonrebreathing Mask 100 08/14/24 19:00 77 21 106/44 99 NRB + OPA POA TO PACU PER OFFICE CLERK ASSISTANT 100 08/14/24 18:55 97.0 78 16 97 NRB + OPA POA TO PACU PER OFFICE CLERK ASSISTANT 100 108/53 08/14/24 12:30 99.9 100 18 113/70 93 Room Air LABS: Hematology Labs: Test 08/14/24 04:04 Range/Units White Blood Count 22.6 H 4.8-10.8 K/uL Red Blood Count 3.54 L 4.50-6.20 MIL/uL Hemoglobin 9.3 L 14.0-18.0 g/dL Hematocrit 28.7 L 42-54 % Mean Corpuscular Volume 81.1 79-99 fL Mean Corpuscular Hemoglobin 26.3 L 27.0-33.0 pg Mean Corpuscular Hemoglobin Concent 32.4 32.0-36.0 g/dL Red Cell Distribution Width 15.7 H 11.0-15.5 % Platelet Count 351 130-400 K/uL Mean Platelet Volume 10.6 H 7.5-10.5 fL Immature Granulocyte % (Auto) 2.2 H 0-1 % Neutrophils (%) (Auto) 85.6 H 40.0-77.0 % Lymphocytes (%) (Auto) 4.3 L 21.0-51.0 % Monocytes (%) (Auto) 6.4 3.0-13.0 % Eosinophils (%) (Auto) 1.3 0.0-8.0 % Basophils (%) (Auto) 0.2 0.0-5.0 % Neutrophils # (Auto) 19.3 H 1.8-7.7 K/uL Lymphocytes # (Auto) 1.0 1.0-4.8 K/uL Monocytes # (Auto) 1.4 H 0.1-1.0 K/uL Eosinophils # (Auto) 0.30 0.00-0.70 K/uL Basophils # (Auto) 0.05 0.00-0.20 K/uL Absolute Immature Granulocyte (auto 0.50 0-1 K/uL Nucleated Red Blood Cells 0.0 0.0-0.19 % Chemistry Labs: Test 08/14/24 19:44 08/14/24 04:04 08/13/24 04:15 Range/Units Whole Blood Glucose 188 H 70-110 MG/DL Sodium Level 128 L 136-145 mmol/L Potassium Level 3.8 3.5-5.1 mmol/L Chloride Level 96 L 101-111 mmol/L Carbon Dioxide Level 25 21-32 mmol/L Blood Urea Nitrogen 37 H 7-18 mg/dL Creatinine 2.0 H 0.5-1.3 mg/dL Glomerular Filtration Rate Calc 36 >90 mL/min Random Glucose 153 H 70-105 mg/dL Hemoglobin A1c 9.4 H 4.0-6.0 % Estimated Average Glucose (eAG) 223 H 70-126 mg/dL Total Calcium 7.9 L 8.5-10.1 mg/dL Total Bilirubin 0.7 0.2-1.0 mg/dL Aspartate Amino Transf (AST/SGOT) 96 H 10-37 U/L Alanine Aminotransferase (ALT/SGPT) 88 H 12-78 U/L Alkaline Phosphatase 247 #H 50-136 U/L B-Type Natriuretic Peptide 147 H 0-100 pg/mL Total Protein 6.5 6.0-8.3 g/dL Albumin 1.5 L 3.5-5.0 g/dL Magnesium Level 2.00 1.80-2.40 mg/dL Coagulation Labs: Test 08/14/24 04:04 Range/Units Prothrombin Time 13.1 H 9.6-11.6 SEC Prothromb Time International Ratio 1.23 H 0.85-1.15 Activated Partial Thromboplast Time 44.4 H 26.3-35.5 SEC DIAGNOSTICS / RADIOLOGY RESULTS: [ ] PLAN FEM-POP Today by CV surgery NEURO: Minimize central acting medications as possible. Maintain fall precautions, adequate lighting during the day PULMONARY: Supplemental 02 as needed. Maintain aspiration precautions at all times Maintain O2 sats above 92% CPAP at night p.r.n. CARDIOVASCULAR: Follow hemodynamics. Vital signs per facility protocol GI & NUTRITION: Continue with nutritional support. Continue stool softeners and laxatives as needed. Renal diet KIDNEYS & ELECTROLYTES: Strict monitoring of intake, output and overall fluid balance. Avoid nephrotoxic medications to the extent possible. Medications to be dosed according to renal function. Monitor electrolytes and replace as needed ENDOCRINE: Maintain blood glucose between 100-180 at all times. Hypoglycemia protocol in place INFECTIOUS DISEASE: Trend temperature, WBC and procalcitonin level Follow cultures, deescalate antibiotics as soon as possible. Panculture if new onset fever Continue antibiotics with vancomycin and meropenem per ID ONCOLOGY/HEMATOLOGY/COAGULATION: Monitor for s/s of bleeding Monitor hemoglobin, coagulation studies as needed SKIN: Pressure ulcer prevention per facility protocol Specialty mattress ORTHO/REHAB: Continue PT/OT Prophylaxis: Continue GI and DVT prophylaxis Protonix and heparin subQ Code Status: Full Resuscitation Disposition: TBD ATTESTATION BY PHYSICIAN Documentation assistance provided by a scribe, information recorded by the scribe was done at my direction and has been reviewed and validated by me." SABRINA LARSON MD I personally scribed for SABRINA LARSON MD ([email or web address]) on 08/14/24 at 20:19. Electronically submitted by Inga Verduzco ([email or web address]). SABRINA LARSON MD Aug 14, 2024 20:19
[2024-08-15] VITALS (59 sets, daily range): BP systolic 104–158; BP diastolic 38–78; PULSE 76–112; RESP 13–33; TEMP 97–102.4; O2SAT 96–98
--- NOTE | 2024-08-15 03:25 | PN ---
DATE OF SERVICE: 08/13/2024 INFECTIOUS DISEASE FOLLOWUP NOTE SUBJECTIVE: The patient is seen and examined at bedside today. The patient has no fever or chills. The patient has been transferred out of ICU. No diarrhea. No lymphadenopathy. No rashes or itchiness. No bleeding tendencies. No palpitations or orthopnea. Appetite is good. PHYSICAL EXAMINATION: VITAL SIGNS: Temperature 97.6. EYES: No icterus. Pupils are equal and reactive. HENT: No oral thrush seen. Moist oral mucosa. NECK: Supple. No JVD or thyromegaly. LUNGS: Good air entry. No rales. No rhonchi. CARDIOVASCULAR: S1, S2 regular. No murmur heard. ABDOMEN: Full. Soft. Bowel sound is present. CENTRAL NERVOUS SYSTEM: Awake, alert, oriented x 3. No focal deficits. SKIN: No rashes. No itchiness. LYMPHATIC: No peripheral lymphadenopathy. BACK: No deformity. No pressure ulcer. EXTREMITIES: Stump ulcer, left foot surgery, intact sutures. LABORATORY DATA: WBC 20.1, hemoglobin 8.8, platelet 299. ASSESSMENT: A 64-year-old male with multiple problems which include: * E. coli sepsis. * Left foot abscess, osteomyelitis, status post surgery. * Acute on chronic renal failure. * Diabetes mellitus. * Diabetic foot ulcer. * Obesity. * Hyponatremia. PLAN: * Continue wound care. * Continue pain management. * Continue nutritional support. * Continue GI prophylaxis. * Monitor electrolytes. * Continue DVT prophylaxis. * Continue meropenem. * Continue vancomycin. TID: [id number] RECEIPT: [id number]
[2024-08-15 05:00] LABS: HEMATOCRIT 27.4 % (42-54); MEAN CORPUSCULAR HEMOGLOBIN 25.8 pg (27.0-33.0); MEAN CORPUSCULAR HGB CONC 32.5 g/dL (32.0-36.0); MEAN CORPUSCULAR VOLUME 79.4 fL (79-99); RED BLOOD CELL COUNT(AUTO) 3.45 MIL/uL (4.50-6.20); RED CELL DISTRIBUTION WIDTH 15.9 % (11.0-15.5); WHITE BLOOD COUNT (AUTO) 17.6 K/uL (4.8-10.8)
[2024-08-15 05:06] LABS: CREATININE 1.8 mg/dL (0.5-1.3); POTASSIUM 3.9 mmol/L (3.5-5.1)
--- NOTE | 2024-08-15 06:15 | OP ---
DATE OF PROCEDURE: 08/14/2024 PREOPERATIVE DIAGNOSIS: Left lower extremity arterial occlusive disease with osteomyelitis of the left foot. POSTOPERATIVE DIAGNOSIS: Left lower extremity arterial occlusive disease with osteomyelitis of the left foot. PROCEDURE PERFORMED: Left femoral to the [id number] popliteal artery bypass using a reverse autologous saphenous vein graft. OPERATING SURGEON: Urban Vegas MD FOLDED TOWEL MACHINE OPERATOR: Rojelio Kinsey MD TYPE OF ANESTHESIA: General endotracheal anesthesia delivered by [facility] [employer] [facility]. BRIEF HISTORY: The patient is a 64-year-old male who has osteomyelitis and transmetatarsal amputation. He underwent an angiogram of his left lower extremity, which revealed an occluded superficial femoral artery. Popliteal artery reconstituted above his knee with a runoff below his knee to his foot. The patient presents now for above the knee femoral artery to popliteal artery bypass grafting. FINDINGS: The patient had a rubbery, but somewhat thickened plaque at the common femoral artery. The artery, however, provided good inflow. The popliteal artery also had a rubbery somewhat eccentric plaque. DESCRIPTION OF PROCEDURE: The patient was brought to the operating room and placed on the operating table in supine position. He was given general endotracheal anesthesia. His left greater saphenous vein was harvested endoscopically. After this was completed, a transverse incision was made in the left groin. The left common femoral artery was dissected out and surrounded with vascular loop. Next, a longitudinal incision was made on the left distal medial calf, which included the site incision. The left above the knee popliteal artery was then dissected out and surrounded with vascular loop. A reverse autologous saphenous vein graft was then tunneled between the two incisions, taking care not to twist the graft. The patient was given 10,000 units of heparin. After 3 minutes circulatory time, the common femoral artery was clamped proximal and distal at the target site, which was opened on its anterior wall with #11 blade scalpel and 2 firings of 4.0 hole punch. The proximal end of the reverse saphenous vein graft was the common femoral artery using a running 6-0 Prolene suture. The clamps were released. Good flow into the graft all the way to the [id number] popliteal artery. The graft was then reclamped and cut to appropriate length to reach the popliteal artery. Clamps were placed proximal and distal to the target site on the aivsi-[id number]-[id number] popliteal artery, which was opened with #11 blade scalpel and 2 firings of 4.0 hole punch. From the distal end to popliteal artery using a running 6-0 Prolene suture. All clamps were released. There was good flow into the popliteal artery with a pulsatile bypass graft. The patient was given 50 mg of protamine. Both wounds irrigated with Betadine. Both wounds were closed with multiple layers of running Vicryl suture and the skin on both wounds were closed with intracuticular Monocryl stitches. The wounds were cleaned and dried, covered with bandages and the patient was undraped, extubated and taken to recovery room and then to the ICU in critical but stable condition. TID: [id number] RECEIPT: [id number] cc: Jesus Manuel Owusu MD, KELLEN MORRISON MD(User)
--- NOTE | 2024-08-15 07:52 | PN ---
PROGRESS NOTE Date of Service: Aug 15, 2024 Time of Service: 07:48 SUBJECTIVE: 64 years old male seen at bedside for follow up on ulceration on the left foot status post metatarsal 5th removal secondary to osteomyelitis the patient positive for cellulitis at this time he is status post bypass surgery fem-pop yesterday. Patient stable alert and well oriented running low-grade fever at this moment. REVIEW OF SYSTEMS CONSTITUTIONAL: Denies fever, chills, or fatigue. HEAD/FACE: No signs of trauma. EENT: Denies eye pain, blurred vision, double vision, or light sensitivity. RESPIRATORY: Denies shortness of breath, cough, wheezing CARDIOVASCULAR: Denies chest pain, palpitation, syncope underlying peripheral vascular disease. GASTROINTESTINAL/ABDOMINAL: Denies abdominal pain, constipation, diarrhea, nausea or vomiting GENITOURINARY: Denies dysuria or hematuria. MUSCULOSKELETAL: Denies joint pain, tenderness, or trauma. Osteomyelitis of the 5th metatarsal lateral foot left. INTEGUMENTARY: Ulceration lateral aspect plantar foot left. Cellulitis of the foot and ankle NEUROLOGICAL/PSYCH: Denies anxiety, depression, heat or cold intolerance. PHYSICAL EXAM EYES: Anicteric. Pupils equal and reactive. HENT: No oral thrush seen, moist Oral mucosa NECK: Supple, no JVD or thyromegaly. LUNGS: Good air entry. No rales, no rhonchi. CARDIOVASCULAR: S1, S2 regular. No murmur heard. Peripheral vascular disease bilateral lower extremity nonpalpable pulses by hand. ABDOMEN: Soft, non tender, bowel sounds present, no organomegaly CENTRAL NERVOUS SYSTEM: Awake, alert, oriented x 3. No focal deficits. SKIN: No rashes, no swelling. Ulceration to the plantar lateral aspect of the left foot. Cellulitis decreased edema decreased erythema ankle medial and lateral. LYMPHATICS: No peripheral lymphadenopathy MUSCULOSKELETAL: No joint swelling, erythema or tenderness. Status post 5th metatarsus exostectomy EXTREMITIES: No cyanosis or clubbing BACK: No deformity, no pressure ulcer. GENITOURINARY: No dysuria or hematuria Vital Signs (last 8hr) Date Time Temp Pulse Resp B/P (MAP) Pulse Ox O2 Delivery O2 Flow Rate FiO2 08/15/24 06:00 105 22 137/52 95 Nasal Cannula 3.0 08/15/24 05:48 105 21 133/52 95 08/15/24 05:45 106 24 135/51 96 08/15/24 05:35 109 25 117/41 97 08/15/24 05:30 107 28 121/40 97 08/15/24 05:18 107 22 114/41 98 Nasal Cannula 3.0 08/15/24 05:15 112 21 109/42 92 08/15/24 05:04 103 21 140/51 99 08/15/24 05:00 104 21 142/54 98 Nasal Cannula 3.0 08/15/24 04:48 103 17 136/52 97 08/15/24 04:45 105 33 138/51 97 08/15/24 04:33 104 18 158/54 97 08/15/24 04:30 99 18 154/53 96 08/15/24 04:18 101 24 140/53 96 08/15/24 04:15 102 21 155/54 98 08/15/24 04:03 99 20 155/53 97 08/15/24 04:00 98.8 101 14 151/62 97 Nasal Cannula 3.0 08/15/24 03:49 98 22 148/50 94 08/15/24 03:45 97 20 148/51 96 08/15/24 03:40 98 24 145/52 97 Nasal Cannula 3.0 08/15/24 03:33 94 24 144/52 98 Nasal Cannula 3.0 08/15/24 03:25 96 22 146/53 97 Nasal Cannula 3.0 08/15/24 03:18 93 16 117/52 94 Nasal Cannula 3.0 08/15/24 03:10 95 23 145/52 94 Nasal Cannula 3.0 08/15/24 03:00 96 22 152/54 98 Nasal Cannula 3.0 08/15/24 02:55 93 24 135/49 95 Nasal Cannula 3.0 08/15/24 02:48 96 20 113/62 98 Nasal Cannula 3.0 08/15/24 02:40 92 19 136/50 96 Nasal Cannula 3.0 08/15/24 02:35 94 20 146/51 96 Nasal Cannula 3.0 08/15/24 02:33 94 24 127/52 97 08/15/24 02:20 94 19 139/50 97 08/15/24 02:18 93 18 124/46 97 08/15/24 02:05 93 22 143/50 97 08/15/24 02:00 93 29 135/60 97 Nasal Cannula 3.0 08/15/24 01:50 92 21 142/51 97 Nasal Cannula 3.0 08/15/24 01:48 94 26 130/57 99 08/15/24 01:35 90 25 141/51 97 08/15/24 01:33 91 19 147/51 97 08/15/24 01:20 88 19 141/54 98 08/15/24 01:18 89 16 139/50 96 08/15/24 01:05 91 13 143/52 98 08/15/24 01:00 91 19 146/62 98 Nasal Cannula 3.0 08/15/24 00:50 89 16 129/48 98 08/15/24 00:48 85 16 113/38 99 08/15/24 00:35 92 24 144/61 98 08/15/24 00:33 92 19 124/63 98 08/15/24 00:20 81 19 139/50 97 08/15/24 00:15 82 28 136/51 99 Nasal Cannula 3.0 08/15/24 00:03 76 18 124/47 98 08/15/24 00:00 97.0 79 17 135/51 97 Nasal Cannula 3.0 LABS: Laboratory: Test 08/15/24 06:22 08/15/24 04:50 08/14/24 22:45 08/14/24 04:04 Range/Units Whole Blood Glucose 176 H 70-110 MG/DL White Blood Count 17.6 H 4.8-10.8 K/uL Red Blood Count 3.45 L 4.50-6.20 MIL/uL Hemoglobin 8.9 L 14.0-18.0 g/dL Hematocrit 27.4 L 42-54 % Mean Corpuscular Volume 79.4 79-99 fL Mean Corpuscular Hemoglobin 25.8 L 27.0-33.0 pg Mean Corpuscular Hemoglobin Concent 32.5 32.0-36.0 g/dL Red Cell Distribution Width 15.9 H 11.0-15.5 % Platelet Count 366 130-400 K/uL Mean Platelet Volume 9.8 7.5-10.5 fL Nucleated Red Blood Cells 0.0 0.0-0.19 % Sodium Level 137 136-145 mmol/L Potassium Level 3.9 3.5-5.1 mmol/L Chloride Level 102 101-111 mmol/L Carbon Dioxide Level 23 21-32 mmol/L Blood Urea Nitrogen 34 H 7-18 mg/dL Creatinine 1.8 H 0.5-1.3 mg/dL Glomerular Filtration Rate Calc 41 >90 mL/min Random Glucose 184 H 70-105 mg/dL Total Calcium 7.8 L 8.5-10.1 mg/dL Vancomycin Level Trough 16.8 10.0-20.0 UG/ML Immature Granulocyte % (Auto) 2.2 H 0-1 % Neutrophils (%) (Auto) 85.6 H 40.0-77.0 % Lymphocytes (%) (Auto) 4.3 L 21.0-51.0 % Monocytes (%) (Auto) 6.4 3.0-13.0 % Eosinophils (%) (Auto) 1.3 0.0-8.0 % Basophils (%) (Auto) 0.2 0.0-5.0 % Neutrophils # (Auto) 19.3 H 1.8-7.7 K/uL Lymphocytes # (Auto) 1.0 1.0-4.8 K/uL Monocytes # (Auto) 1.4 H 0.1-1.0 K/uL Eosinophils # (Auto) 0.30 0.00-0.70 K/uL Basophils # (Auto) 0.05 0.00-0.20 K/uL Absolute Immature Granulocyte (auto 0.50 0-1 K/uL Prothrombin Time 13.1 H 9.6-11.6 SEC Prothromb Time International Ratio 1.23 H 0.85-1.15 Activated Partial Thromboplast Time 44.4 H 26.3-35.5 SEC Hemoglobin A1c 9.4 H 4.0-6.0 % Estimated Average Glucose (eAG) 223 H 70-126 mg/dL Total Bilirubin 0.7 0.2-1.0 mg/dL Aspartate Amino Transf (AST/SGOT) 96 H 10-37 U/L Alanine Aminotransferase (ALT/SGPT) 88 H 12-78 U/L Alkaline Phosphatase 247 #H 50-136 U/L B-Type Natriuretic Peptide 147 H 0-100 pg/mL Total Protein 6.5 6.0-8.3 g/dL Albumin 1.5 L 3.5-5.0 g/dL DIAGNOSTICS / RADIOLOGY: PORTABLE CHEST RADIOGRAPH INDICATION: fever COMPARISON: 06/22/2024 FINDINGS: quality assurance monitor final leads overlie the field of view. Heart size is normal. The pulmonary vascularity and sriram appear normal. No abnormal pulmonary parenchymal opacity or consolidation identified. No significant pleural effusion noted. No pneumothorax detected. IMPRESSION: No radiographic evidence for any acute cardiopulmonary process. Assessment: Acute kidney injury on chronic kidney disease stage IIIB. There is some improvement on kidney function basically at baseline kidney function. Hypertension with renal manifestation. Diabetes mellitus type 2 with nephropathy. Hyponatremia. ATN. Osteomyelitis on the fifth metatarsal, left foot, status post removal of amputation of that toe. Diabetic foot infection. PLAN: Continue IV antibiotics for cellulitis and leukocytosis. Wound care at this time wound was done lateral foot ulcer was still noted to be open removal of sutures from previous surgery was done at this moment to open the wound further to allow drainage. Only serosanguineous drainage was noted from the area no abscess formation positive cellulitis. Area was flushed utilizing copious amounts of saline solution and pack at this moment with wet-to-dry normal saline 4x4s and Kerlix. This to be done aggressively on a daily basis. BETTY QUINTEROS DPM Aug 15, 2024 07:52
[2024-08-15 08:49] LABS: APPEARANCE,URINE CLEAR (CLEAR); BILIRUBIN,URINE NEGATIVE (NEGATIVE); COLOR,URINE LIGHT-YELLOW (YELLOW); GLUCOSE, URINE (UA) 200 mg/dL (NEGATIVE); KETONES,URINE 5 mg/dL (NEGATIVE); LEUKOCYTE ESTERASE ,URINE 250 Leu/uL (NEGATIVE); NITRATE,URINE NEGATIVE (NEGATIVE); OCCULT BLOOD,URINE LARGE (NEGATIVE); PH,URINE 5.5 (5.0-8.0); PROTEIN,URINE 50 mg/dL (NEGATIVE); UROBILINOGEN,URINE 0.2 mg/dL (0.2-1.0)
[2024-08-15 08:50] LABS: ADD UA MICROSCOPIC YES
[2024-08-15 08:56] LABS: BACTERIA,URINE FEW /HPF (None Seen); MUCUS,URINE RARE LPF (None Seen); RBC,URINE 26-50 /HPF (0-1); WBC,URINE 26-50 /HPF (0-1)
--- NOTE | 2024-08-15 09:10 | PN ---
[facility] PROGRESS NOTE Date Patient Seen: Aug 15, 2024 Time of Visit: 09:08 Supervising Physician: Dr. Jacobo Long Primary Care Physician: Odessa Holland MD Outpatient Specialists: Inpatient Consults: JD PROBLEM LIST: Persistent Sepsis 2/2 left foot osteomyelitis with left foot abscess + Prevotella Bivia, ESBL S/P excisional debridement of bone 5th metatarsal left foot and ulcer of the left foot 08/10/24 Severe PVD S/P Fem pop bypass 08/[address] Vegas Leukocytosis Ketoacidosis 2/2 from [facility] Acute metabolic acidosis 2/2 from above, resolved MDRO infection to left foot + [place] coli ESBL Leukocytosis, POA Chronic anemia from chronic illness, POA Hyperglycemia in the presence of type 2 diabetes mellitus, POA CKD stage III, POA Glucosuria, POA Proteinuria POA INTERVAL HISTORY: 08/15 patient is admitted to ICU overnight status post left fem-pop bypass yesterday. Overnight event, patient has fever up to 102.4 for which pancultures has been obtained. Continue current antibiotic with per ID. Wound care and cement finisher following. No vasopressor requirement, downgraded to PCU. REVIEW OF SYSTEMS: General: general malaise Neurological: No fainting episodes or seizures. HEENT: No nasal congestion or nasal secretion. Respiratory: No cough, shortness of breath, or wheezing Cardiac: No chest pain or palpitations. Gastrointestinal: No vomiting or diarrhea. Genitourinary: No dysuria hematuria. Skin: No rashes or lesions. Hematological: No bruises or bleeding. Musculoskeletal: Left lower extremity pain. Psychiatric: No depression or panic attacks. PHYSICAL EXAM: GENERAL: alert, weak, awake oriented x 3 HEENT: EOMI, Sclera non icteric, moist mucosa NECK: Supple, no JVD, trachea midline LUNGS: Diminished breath sounds bilaterally. No wheezes HEART: Regular rate and rhythm. Normal S1 and S2, without murmurs ABD: Abdomen soft, nontender. Bowel sounds present EXT: No clubbing cyanosis or edema, left .TMA dressing clean dry intact NEURO: Alert and oriented to person, follows commands Vital Signs (last 8hr) Date Time Temp Pulse Resp B/P (MAP) Pulse Ox O2 Delivery O2 Flow Rate FiO2 08/15/24 07:49 102.4 08/15/24 06:00 105 22 137/52 95 Nasal Cannula 3.0 08/15/24 05:48 105 21 133/52 95 08/15/24 05:45 106 24 135/51 96 08/15/24 05:35 109 25 117/41 97 08/15/24 05:30 99.9 08/15/24 05:30 107 28 121/40 97 08/15/24 05:18 107 22 114/41 98 Nasal Cannula 3.0 08/15/24 05:15 112 21 109/42 92 08/15/24 05:04 103 21 140/51 99 08/15/24 05:00 104 21 142/54 98 Nasal Cannula 3.0 08/15/24 04:48 103 17 136/52 97 08/15/24 04:45 105 33 138/51 97 08/15/24 04:33 104 18 158/54 97 08/15/24 04:30 99 18 154/53 96 08/15/24 04:18 101 24 140/53 96 08/15/24 04:15 102 21 155/54 98 08/15/24 04:03 99 20 155/53 97 08/15/24 04:00 98.8 101 14 151/62 97 Nasal Cannula 3.0 08/15/24 04:00 96 Nasal Cannula* 3 32 08/15/24 03:49 98 22 148/50 94 08/15/24 03:45 97 20 148/51 96 08/15/24 03:40 98 24 145/52 97 Nasal Cannula 3.0 08/15/24 03:33 94 24 144/52 98 Nasal Cannula 3.0 08/15/24 03:25 96 22 146/53 97 Nasal Cannula 3.0 08/15/24 03:18 93 16 117/52 94 Nasal Cannula 3.0 08/15/24 03:10 95 23 145/52 94 Nasal Cannula 3.0 08/15/24 03:00 96 22 152/54 98 Nasal Cannula 3.0 08/15/24 02:55 93 24 135/49 95 Nasal Cannula 3.0 08/15/24 02:48 96 20 113/62 98 Nasal Cannula 3.0 08/15/24 02:40 92 19 136/50 96 Nasal Cannula 3.0 08/15/24 02:35 94 20 146/51 96 Nasal Cannula 3.0 08/15/24 02:33 94 24 127/52 97 08/15/24 02:20 94 19 139/50 97 08/15/24 02:18 93 18 124/46 97 08/15/24 02:05 93 22 143/50 97 08/15/24 02:00 93 29 135/60 97 Nasal Cannula 3.0 08/15/24 01:50 92 21 142/51 97 Nasal Cannula 3.0 08/15/24 01:48 94 26 130/57 99 08/15/24 01:35 90 25 141/51 97 08/15/24 01:33 91 19 147/51 97 08/15/24 01:20 88 19 141/54 98 08/15/24 01:18 89 16 139/50 96 LABS: Hematology Labs: Test 08/15/24 04:50 08/14/24 04:04 Range/Units White Blood Count 17.6 H 4.8-10.8 K/uL Red Blood Count 3.45 L 4.50-6.20 MIL/uL Hemoglobin 8.9 L 14.0-18.0 g/dL Hematocrit 27.4 L 42-54 % Mean Corpuscular Volume 79.4 79-99 fL Mean Corpuscular Hemoglobin 25.8 L 27.0-33.0 pg Mean Corpuscular Hemoglobin Concent 32.5 32.0-36.0 g/dL Red Cell Distribution Width 15.9 H 11.0-15.5 % Platelet Count 366 130-400 K/uL Mean Platelet Volume 9.8 7.5-10.5 fL Nucleated Red Blood Cells 0.0 0.0-0.19 % Immature Granulocyte % (Auto) 2.2 H 0-1 % Neutrophils (%) (Auto) 85.6 H 40.0-77.0 % Lymphocytes (%) (Auto) 4.3 L 21.0-51.0 % Monocytes (%) (Auto) 6.4 3.0-13.0 % Eosinophils (%) (Auto) 1.3 0.0-8.0 % Basophils (%) (Auto) 0.2 0.0-5.0 % Neutrophils # (Auto) 19.3 H 1.8-7.7 K/uL Lymphocytes # (Auto) 1.0 1.0-4.8 K/uL Monocytes # (Auto) 1.4 H 0.1-1.0 K/uL Eosinophils # (Auto) 0.30 0.00-0.70 K/uL Basophils # (Auto) 0.05 0.00-0.20 K/uL Absolute Immature Granulocyte (auto 0.50 0-1 K/uL Chemistry Labs: Test 08/15/24 06:22 08/15/24 04:50 08/14/24 04:04 Range/Units Whole Blood Glucose 176 H 70-110 MG/DL Sodium Level 137 136-145 mmol/L Potassium Level 3.9 3.5-5.1 mmol/L Chloride Level 102 101-111 mmol/L Carbon Dioxide Level 23 21-32 mmol/L Blood Urea Nitrogen 34 H 7-18 mg/dL Creatinine 1.8 H 0.5-1.3 mg/dL Glomerular Filtration Rate Calc 41 >90 mL/min Random Glucose 184 H 70-105 mg/dL Total Calcium 7.8 L 8.5-10.1 mg/dL Hemoglobin A1c 9.4 H 4.0-6.0 % Estimated Average Glucose (eAG) 223 H 70-126 mg/dL Total Bilirubin 0.7 0.2-1.0 mg/dL Aspartate Amino Transf (AST/SGOT) 96 H 10-37 U/L Alanine Aminotransferase (ALT/SGPT) 88 H 12-78 U/L Alkaline Phosphatase 247 #H 50-136 U/L B-Type Natriuretic Peptide 147 H 0-100 pg/mL Total Protein 6.5 6.0-8.3 g/dL Albumin 1.5 L 3.5-5.0 g/dL Coagulation Labs: Test 08/14/24 04:04 Range/Units Prothrombin Time 13.1 H 9.6-11.6 SEC Prothromb Time International Ratio 1.23 H 0.85-1.15 Activated Partial Thromboplast Time 44.4 H 26.3-35.5 SEC DIAGNOSTICS / RADIOLOGY RESULTS: [ ] PLAN NEURO: Minimize central acting medications as possible. Fall Precautions. Well lighted room through the day and minimize interruptions through the night to prevent acute delirium. PULMONARY: Supplemental 02 as needed Titrate Fio2 to keep Spo2 > or = 90% DuoNebs and CPT as needed IS hourly while awake for pulmonary hygiene Out of bed to chair as tolerated VAP Bundle CARDIOVASCULAR: Follow hemodynamics. Titrate vasopressor to keep MAP >65 or systolic blood pressure >95mmHg Telemetry monitoring LINES: PIV GI & NUTRITION: Continue nutritional support Aspirations precautions Prokinetic agents and laxatives as needed KIDNEYS & ELECTROLYTES: Strict monitoring of intake and output Daily weights Avoid nephrotoxic agents Monitor electrolytes and replace as needed Goal urine output of 30mL/hr or 0.5mL/kg/hr Urine output: 1.2 L Fluid Balance: [ ] ENDOCRINE: Maintain blood glucose between 100-180 at all times. Insulin sliding scale for blood glucose management INFECTIOUS DISEASE: Trend temperature. Victor-culture if febrile. Micro: [ ] Left foot wound E coli Left foot +Prevotella Bivia Antibiotics: Meropenem Vanco Flagyl 08/14 HEMATOLOGY & COAGULATION: Monitor H&H. Keep Hgb > 7 Transfuse 1 unit of PRBC for Hgb < 7 Transfuse 1 pack of platelets of platelets < 20, 000 Watch for any signs and symptoms of bleeding SKIN: Pressure ulcer prevention per facility protocol Rehab: PT/OT Prophylaxis: GI: Protonix DVT: Heparin Code Status: Full Resuscitation Disposition: ICU- downgrade to PCU Other: Total patient care time exceeds 35 minutes excluding all procedures. Case was discussed and seen with my supervising physician. The above plan was formulated and agreed upon. ADELA HUERTA [facility] Aug 15, 2024 09:10
--- NOTE | 2024-08-15 12:01 | NUR ---
CM NOTE/EA CM spoke to Becky with [facility]. States LTAC request was denied after p2p. Reports Dr. Esposito has advised to continue with expedited appeal. CM updated primary nurse.
--- NOTE | 2024-08-15 12:21 | PN ---
Cardiology Progress Note Date of Service: 08/15/2024 Attending [employer] Miner: Dr. Jesus Manuel Owusu Reason for Consult: PAD Problem List: -Severe sepsis -Leukocytosis -Nonhealing ulcer (E coli, Prevotella Bivia) surround cellulitis and osteomyelitis affecting the left foot s/p excisional debridement of the left 5th metatarsal bone and left foot ulcer done on 08/10/[address] Sorensen -PAD, [place] category 5 symptoms s/p left lower extremity peripheral angiogram done on 08/09/2024 which identified 100% stenosis (ASSEMBLY MACHINE TENDER) in the ostial SFA and 100% stenosis (ASSEMBLY MACHINE TENDER) in the proximal ASSISTANT PROFESSOR OF RELIGION, s/p successful left femoral- above the knee popliteal bypass (autologous SVG) done on 08/14/[address] Vegas -Acute hypoxemic respiratory failure -UTI -CKD stage IIIB -Low-normal LV systolic function (LVEF: 50-55% by 08/10/2024) -PAD s/p directional atherectomy and angioplasty in the proximal mid and distal left SFA done on 10/20/2019, directional atherectomy (HawkOne) and DCB angioplasty (Medtronic InPact 6.0x40mm) to the ostial left SFA done 02/14/[address] Combs, directional atherectomy (HawkOne) and DCB angioplasty of the distal right SFA done on 05/01/[address] Owusu, residual bilateral infrapopliteal disease, and s/p bilateral TMAs -Poorly controlled DM2 -Metabolic acidosis -Elevated LFTs -Hypoalbuminemia -Microcytic hypochromic anemia -HTN -HLP -Obesity Subjective: This is a 64y/o male who was seen and evaluated at the bedside today. The patient underwent successful left lower extremity peripheral bypass yesterday by Dr. Vegas. He tolerated the procedure well and without issue. The patient continues to complain of intermittent left foot pain, but denies any other active complaints including chest pain, chest pressure, palpitations, or shortness of breath. As per the nurse, there were no overnight events. Vitals/Labs Vital Signs Date Time Temp Pulse Resp B/P (MAP) Pulse Ox O2 Delivery O2 Flow Rate FiO2 08/15/24 08:00 102.4 109 17 140/74 96 Nasal Cannula 3.0 08/15/24 08:00 32 General: Awake and alert. No acute distress. Chronically ill appearing. HEENT: Normocephalic, atraumatic. EOMI. Oral mucosa was moist. Neck: No masses, JVD, or carotid bruits noted. Lungs: No respiratory distress. Symmetric chest movement. Bilateral air entry. No obvious wheezing, rales, or rhonchi noted. Cardiac: Regular rate. Normal S1 and S2, +S4. No other obvious murmurs, rubs, or gallops noted. Abdomen: Soft, nontender, nondistended. No organomegaly. Normal active bowel sounds x 4 quadrants. Extremities: No edema, clubbing, or cyanosis. Bilateral TMAs. The left TMA is wrapped in a bulky dressing. Surgical dressings noted to the left lower extremity. Distal pulses palpable. Neuro: Cranial nerves II-XII are grossly intact. No obvious focal deficits identified. Laboratory Tests 08/15/24 04:50 Assessment: -Severe sepsis -Leukocytosis -Nonhealing ulcer (E coli, Prevotella Bivia) surround cellulitis and osteomyelitis affecting the left foot s/p excisional debridement of the left 5th metatarsal bone and left foot ulcer done on 08/10/[address] Sorensen -PAD, [place] category 5 symptoms s/p left lower extremity peripheral angiogram done on 08/09/2024 which identified 100% stenosis (ASSEMBLY MACHINE TENDER) in the ostial SFA and 100% stenosis (ASSEMBLY MACHINE TENDER) in the proximal ASSISTANT PROFESSOR OF RELIGION, s/p successful left femoral- above the knee popliteal bypass (autologous SVG) done on 08/14/[address] Vegas -Acute hypoxemic respiratory failure -UTI -CKD stage IIIB -Low-normal LV systolic function (LVEF: 50-55% by 08/10/2024) -PAD s/p directional atherectomy and angioplasty in the proximal mid and distal left SFA done on 10/20/2019, directional atherectomy (HawkOne) and DCB angioplasty (Medtronic InPact 6.0x40mm) to the ostial left SFA done 02/14/[address] Combs, directional atherectomy (HawkOnico) and DCB angioplasty of the distal right SFA done on 05/01/[address] Owusu, residual bilateral infrapopliteal disease, and s/p bilateral TMAs -Poorly controlled DM2 -Metabolic acidosis -Elevated LFTs -Hypoalbuminemia -Microcytic hypochromic anemia -HTN -HLP -Obesity Plan: 1. PAD, Vee category 5 symptoms s/p left lower extremity peripheral angiogram done on 08/09/2024 which identified 100% stenosis (ASSEMBLY MACHINE TENDER) in the ostial SFA and 100% stenosis (ASSEMBLY MACHINE TENDER) in the proximal ASSISTANT PROFESSOR OF RELIGION, s/p successful left femoral- above the knee popliteal bypass (autologous SVG) done on 08/14/[address] Vegas -Stable -The patient should now have sufficient blood flow for wound healing to the left lower extremity. -In the meantime, he will continue on conservative medical therapy which includes aspirin 81 mg daily and atorvastatin 40 mg QHS. -In addition, he should continue will aggressive wound care and IV antibiotic therapy. 2. Low-normal LV systolic function (LVEF: 50-55% by 08/10/2024) -Stable -BNP: 147 -We will transition the patient from IV to oral furosemide 20 mg BID. This case was discussed with my Supervising Physician, Dr. Jesus Manuel Owusu, and the above mentioned plan was formulated and agreed upon. -Progress note written by Thalia Dewey, MSN, CROWN BLOCKER, AGACNP-BC THALIA DEWEY [employer] SUPERVISOR Aug 15, 2024 12:21
--- NOTE | 2024-08-15 12:53 | PN ---
INFECTIOUS DISEASE PROGRESS NOTE Date of Service: Aug 15, 2024 SUBJECTIVE: This is a 64 year old male patient who was seen and examined at bedside in room 208. Patient is awake, alert and oriented x 3. Patient was evaluated by cardiovascular surgeon and underwent a left ejgisda-yz-gplhyzdfb artery bypass yesterday. Patient continues having fevers of 102.4 today. Blood culture has been repeated. Some improvement on the WBC to 17.6 today. Per report auto rental clerk has remove sutures from the previous surgery on the left lateral foot and the surgical wound is being kept open and doing wet-to-dry dressing changes. Patient continues on vancomycin, meropenem and metronidazole. Will continue to follow patient's care. PHYSICAL EXAM EYES: Anicteric. Pupils equal and reactive. HENT: No oral thrush seen, moist Oral mucosa. NECK: Supple, no JVD or thyromegaly. LUNGS: Good air entry. No rales, no rhonchi. on o2 via nasal canula CARDIOVASCULAR: S1, S2 regular. No murmur heard. ABDOMEN: Soft, non tender, bowel sounds present, no organomegaly. CENTRAL NERVOUS SYSTEM: Awake, alert, oriented x 3. SKIN: No rashes, no swelling. LYMPHATICS: No peripheral lymphadenopathy. MUSCULOSKELETAL: No joint swelling, erythema or tenderness. EXTREMITIES: No cyanosis or clubbing. Left foot diabetic ulcer with osteomye litis. Dry dressing noted. BACK: No deformity, no pressure ulcer. GENITOURINARY: No dysuria or hematuria. Vital Sign (Last 12 Hours) 08/15/24 08/15/24 08/15/24 08/15/24 00:48 00:50 01:00 01:05 Pulse 85 89 91 91 Resp 16 16 19 13 B/P (MAP) 113/38 129/48 146/62 143/52 Pulse Ox 99 98 98 98 O2 Delivery Nasal Cannula O2 Flow Rate 3.0 08/15/24 08/15/24 08/15/24 08/15/24 01:18 01:20 01:33 01:35 Pulse 89 88 91 90 Resp 16 19 19 25 B/P (MAP) 139/50 141/54 147/51 141/51 Pulse Ox 96 98 97 97 08/15/24 08/15/24 08/15/24 08/15/24 01:48 01:50 02:00 02:05 Pulse 94 92 93 93 Resp 26 21 29 22 B/P (MAP) 130/57 142/51 135/60 143/50 Pulse Ox 99 97 97 97 O2 Delivery Nasal Cannula Nasal Cannula O2 Flow Rate 3.0 3.0 08/15/24 08/15/24 08/15/24 08/15/24 02:18 02:20 02:33 02:35 Pulse 93 94 94 94 Resp 20 B/P (MAP) 124/46 139/50 127/52 146/51 Pulse Ox 97 97 97 96 O2 Delivery Nasal Cannula O2 Flow Rate 3.0 08/15/24 08/15/24 08/15/24 08/15/24 02:40 02:48 02:55 03:00 Pulse 92 96 93 96 Resp B/P (MAP) 136/50 113/62 135/49 152/54 Pulse Ox 96 98 95 98 O2 Delivery Nasal Cannula Nasal Cannula Nasal Cannula Nasal Cannula O2 Flow Rate 3.0 3.0 3.0 3.0 08/15/24 08/15/24 08/15/24 08/15/24 03:10 03:18 03:25 03:33 Pulse 95 93 96 94 Resp B/P (MAP) 145/52 117/52 146/53 144/52 Pulse Ox 94 94 97 98 O2 Delivery Nasal Cannula Nasal Cannula Nasal Cannula Nasal Cannula O2 Flow Rate 3.0 3.0 3.0 3.0 08/15/24 08/15/24 08/15/24 08/15/24 03:40 03:45 03:49 04:00 Pulse 98 97 98 Resp B/P (MAP) 145/52 148/51 148/50 Pulse Ox 97 96 94 96 O2 Delivery Nasal Cannula Nasal Cannula* O2 Flow Rate 3.0 3 FiO2 32 08/15/24 08/15/24 08/15/24 08/15/24 04:00 04:03 04:15 04:18 Temp 98.8 Pulse 101 99 102 101 Resp B/P (MAP) 151/62 155/53 155/54 140/53 Pulse Ox 97 97 98 96 O2 Delivery Nasal Cannula O2 Flow Rate 3.0 08/15/24 08/15/24 08/15/24 08/15/24 04:30 04:33 04:45 04:48 Pulse 99 104 105 103 Resp 18 18 33 17 B/P (MAP) 154/53 158/54 138/51 136/52 Pulse Ox 96 97 97 97 08/15/24 08/15/24 08/15/24 08/15/24 05:00 05:04 05:15 05:18 Pulse 104 103 112 107 Resp B/P (MAP) 142/54 140/51 109/42 114/41 Pulse Ox 98 99 92 98 O2 Delivery Nasal Cannula Nasal Cannula O2 Flow Rate 3.0 3.0 08/15/24 08/15/24 08/15/24 08/15/24 05:30 05:30 05:35 05:45 Temp 99.9 Pulse 107 109 106 Resp B/P (MAP) 121/40 117/41 135/51 Pulse Ox 97 97 96 08/15/24 08/15/24 08/15/24 08/15/24 05:48 06:00 07:00 07:49 Temp 102.4 Pulse 105 105 112 Resp 19 B/P (MAP) 133/52 137/52 139/51 Pulse Ox 95 95 97 O2 Delivery Nasal Cannula Nasal Cannula O2 Flow Rate 3.0 3.0 08/15/24 08/15/24 08:00 08:00 Temp 102.4 Pulse 109 Resp 17 B/P (MAP) 140/74 Pulse Ox 96 96 O2 Delivery Nasal Cannula* Nasal Cannula O2 Flow Rate 3 3.0 FiO2 32 Intake & Output (last 24hrs) 08/14/24 08/14/24 08/15/24 15:00 23:00 07:00 Intake Total 0 ml 166.6 ml 600.0 ml Output Total 400 ml 1000 ml 1400 ml Balance -400 ml -833.4 ml -800.0 ml LABS: Laboratory: Test 08/15/24 11:35 08/15/24 08:30 08/15/24 04:50 08/14/24 22:45 Range/Units Whole Blood Glucose 155 H 70-110 MG/DL Urine Color LIGHT-YELLOW YELLOW Urine Appearance CLEAR CLEAR Urine pH 5.5 5.0-8.0 Urine Specific [place] 1.010 1.001-1.031 Urine Protein 50 H NEGATIVE mg/dL Urine Glucose (UA) 200 H NEGATIVE mg/dL Urine Ketones 5 H NEGATIVE mg/dL Urine Occult Blood LARGE H NEGATIVE Urine Nitrate NEGATIVE NEGATIVE Urine Bilirubin NEGATIVE NEGATIVE mg/dL Urine Urobilinogen 0.2 0.2-1.0 mg/dL Urine Leukocyte Esterase 250 H NEGATIVE Alex/uL Urine RBC 26-50 H 0-1 /HPF Urine WBC 26-50 H 0-1 /HPF Urine Bacteria FEW None Seen /HPF White Blood Count 17.6 H 4.8-10.8 K/uL Red Blood Count 3.45 L 4.50-6.20 MIL/uL Hemoglobin 8.9 L 14.0-18.0 g/dL Hematocrit 27.4 L 42-54 % Mean Corpuscular Volume 79.4 79-99 fL Mean Corpuscular Hemoglobin 25.8 L 27.0-33.0 pg Mean Corpuscular Hemoglobin Concent 32.5 32.0-36.0 g/dL Red Cell Distribution Width 15.9 H 11.0-15.5 % Platelet Count 366 130-400 K/uL Mean Platelet Volume 9.8 7.5-10.5 fL Nucleated Red Blood Cells 0.0 0.0-0.19 % Sodium Level 137 136-145 mmol/L Potassium Level 3.9 3.5-5.1 mmol/L Chloride Level 102 101-111 mmol/L Carbon Dioxide Level 23 21-32 mmol/L Blood Urea Nitrogen 34 H 7-18 mg/dL Creatinine 1.8 H 0.5-1.3 mg/dL Glomerular Filtration Rate Calc 41 >90 mL/min Random Glucose 184 H 70-105 mg/dL Total Calcium 7.8 L 8.5-10.1 mg/dL Vancomycin Level Trough 16.8 10.0-20.0 UG/ML Test 08/14/24 04:04 Range/Units Immature Granulocyte % (Auto) 2.2 H 0-1 % Neutrophils (%) (Auto) 85.6 H 40.0-77.0 % Lymphocytes (%) (Auto) 4.3 L 21.0-51.0 % Monocytes (%) (Auto) 6.4 3.0-13.0 % Eosinophils (%) (Auto) 1.3 0.0-8.0 % Basophils (%) (Auto) 0.2 0.0-5.0 % Neutrophils # (Auto) 19.3 H 1.8-7.7 K/uL Lymphocytes # (Auto) 1.0 1.0-4.8 K/uL Monocytes # (Auto) 1.4 H 0.1-1.0 K/uL Eosinophils # (Auto) 0.30 0.00-0.70 K/uL Basophils # (Auto) 0.05 0.00-0.20 K/uL Absolute Immature Granulocyte (auto 0.50 0-1 K/uL Prothrombin Time 13.1 H 9.6-11.6 SEC Prothromb Time International Ratio 1.23 H 0.85-1.15 Activated Partial Thromboplast Time 44.4 H 26.3-35.5 SEC Hemoglobin A1c 9.4 H 4.0-6.0 % Estimated Average Glucose (eAG) 223 H 70-126 mg/dL Total Bilirubin 0.7 0.2-1.0 mg/dL Aspartate Amino Transf (AST/SGOT) 96 H 10-37 U/L Alanine Aminotransferase (ALT/SGPT) 88 H 12-78 U/L Alkaline Phosphatase 247 #H 50-136 U/L B-Type Natriuretic Peptide 147 H 0-100 pg/mL Total Protein 6.5 6.0-8.3 g/dL Albumin 1.5 L 3.5-5.0 g/dL ASSESSMENT: Left foot osteomyelitis. Left foot diabetic ulcer with abscess, status post Excisional debridement of the 5th metatarsal bone and ulcer of the left foot on 08/10/2024. Left lower extremity arterial occlusive disease, S/P left nnqmlis-yf-ukqkcpsaj artery bypass. Left foot with E coli infection and Prevotella Bivia. Infection with multidrug resistant organism. Sepsis. Leukocytosis, improving. Diabetes mellitus. Acute on chronic renal failure. PLAN: Continue meropenem IV. Continue on vancomycin per pharmacy protocol. Continue metronidazole. Continue pain management. Continue wound care as recommended by auto rental clerk. Glucometer checks a.c./hs and cover with insulin per sliding scale protocol.. We will monitor electrolytes. This case was reviewed and discussed with my supervising physician and the above assessment and plan was formulated and agreed upon. ATTESTATION BY PHYSICIAN I have seen and examined the patient. I reviewed the documentation, medical decision making, and treatment plan as noted by the mid-level provider above. I agree with the findings and plan of care. PANCHITO LOZANO MD, [facility] Aug 15, 2024 12:53
--- NOTE | 2024-08-15 13:38 | PN ---
DATE OF SERVICE: 08/14/2024. INFECTIOUS DISEASE FOLLOWUP NOTE SUBJECTIVE: The patient is seen and examined at bedside today. The patient has no fever, no chills. No nausea or vomiting. Still complaining of pain to the left foot. No depression. No suicidal ideation. No heat or cold intolerance. No bleeding tendency. No palpitation, no orthopnea. No slurred speech or limb weakness. PHYSICAL EXAMINATION: VITAL SIGNS: Temperature 99.5. EYES: No icterus. Pupils equal and reactive. HENT: No oral thrush seen. Moist oral mucosa. NECK: Supple, no JVD or thyromegaly. LUNGS: Good air entry. No rales, no rhonchi. CARDIOVASCULAR: S1, S2 regular. No murmur heard. ABDOMEN: Full, soft, nontender. Bowel sounds are present. CENTRAL NERVOUS SYSTEM: Awake, alert, and oriented x 3. No focal deficits. SKIN: No rashes, no itchiness. LYMPHATIC: No peripheral lymphadenopathy. HEMATOLOGIC: No bleeding or petechial lesion seen. EXTREMITIES: Status post left foot surgery. Still has some drainage. LABORATORY DATA: WBC 22.6, hemoglobin 9.5, and platelet 351. Sodium 128, potassium 3.8, BUN 37, and creatinine 2.0. ASSESSMENT: 64 yr old male with: 1. Sepsis. 2. Left foot abscess and osteomyelitis. 3. Anemia. 4. Diabetic foot ulcer. 5. Obesity. 6. Renal failure. PLAN: * Continue meropenem. * Continue Flagyl. * Continue pain management. * Continue vancomycin. * Monitor renal function. * Continue antidiabetic. * Monitor electrolytes. * Continue DVT prophylaxis. TID: [id number] RECEIPT: [id number] [facility]
[2024-08-15] MEDS: traMADol HCL 50 MG TABLET PO PRN ×2 (14:05→20:44)
--- NOTE | 2024-08-15 14:18 | PN ---
PROGRESS NOTE Date of Service: Aug 15, 2024 Time of Service: 14:16 SUBJECTIVE: No new concerns. no acute events reported in the last 24hours. Examined at bedside. REVIEW OF SYSTEMS CONSTITUTIONAL: Denies fever, chills, or fatigue. HEAD/FACE: No signs of trauma. EENT: Denies eye pain, blurred vision, double vision, or light sensitivity. RESPIRATORY: Denies shortness of breath, cough, wheezing CARDIOVASCULAR: Denies chest pain, palpitation, syncope underlying peripheral vascular disease. GASTROINTESTINAL/ABDOMINAL: Denies abdominal pain, constipation, diarrhea, nausea or vomiting GENITOURINARY: Denies dysuria or hematuria. MUSCULOSKELETAL: Denies joint pain, tenderness, or trauma. Osteomyelitis of the 5th metatarsal lateral foot left. INTEGUMENTARY: Ulceration lateral aspect plantar foot left. Cellulitis of the foot and ankle NEUROLOGICAL/PSYCH: Denies anxiety, depression, heat or cold intolerance. PHYSICAL EXAM EYES: Anicteric. Pupils equal and reactive. HENT: No oral thrush seen, moist Oral mucosa NECK: Supple, no JVD or thyromegaly. LUNGS: Good air entry. No rales, no rhonchi. CARDIOVASCULAR: S1, S2 regular. No murmur heard. Peripheral vascular disease bilateral lower extremity nonpalpable pulses by hand. ABDOMEN: Soft, non tender, bowel sounds present, no organomegaly CENTRAL NERVOUS SYSTEM: Awake, alert, oriented x 3. No focal deficits. SKIN: No rashes, no swelling. Ulceration to the plantar lateral aspect of the left foot. Cellulitis decreased edema decreased erythema ankle medial and lateral. LYMPHATICS: No peripheral lymphadenopathy MUSCULOSKELETAL: No joint swelling, erythema or tenderness. Status post 5th metatarsus exostectomy EXTREMITIES: No cyanosis or clubbing BACK: No deformity, no pressure ulcer. GENITOURINARY: No dysuria or hematuria Vital Signs (last 8hr) Date Time Temp Pulse Resp B/P (MAP) Pulse Ox O2 Delivery O2 Flow Rate FiO2 08/15/24 12:00 99.5 99 19 124/78 94 Nasal Cannula 3.0 08/15/24 08:00 102.4 109 17 140/74 96 Nasal Cannula 3.0 08/15/24 08:00 96 Nasal Cannula* 3 32 08/15/24 07:49 102.4 08/15/24 07:00 112 19 139/51 97 Nasal Cannula 3.0 LABS: Laboratory: Test 08/15/24 11:35 08/15/24 08:30 08/15/24 04:50 08/14/24 22:45 Range/Units Whole Blood Glucose 155 H 70-110 MG/DL Urine Color LIGHT-YELLOW YELLOW Urine Appearance CLEAR CLEAR Urine pH 5.5 5.0-8.0 Urine Specific [place] 1.010 1.001-1.031 Urine Protein 50 H NEGATIVE mg/dL Urine Glucose (UA) 200 H NEGATIVE mg/dL Urine Ketones 5 H NEGATIVE mg/dL Urine Occult Blood LARGE H NEGATIVE Urine Nitrate NEGATIVE NEGATIVE Urine Bilirubin NEGATIVE NEGATIVE mg/dL Urine Urobilinogen 0.2 0.2-1.0 mg/dL Urine Leukocyte Esterase 250 H NEGATIVE Aelx/uL Urine RBC 26-50 H 0-1 /HPF Urine WBC 26-50 H 0-1 /HPF Urine Bacteria FEW None Seen /HPF White Blood Count 17.6 H 4.8-10.8 K/uL Red Blood Count 3.45 L 4.50-6.20 MIL/uL Hemoglobin 8.9 L 14.0-18.0 g/dL Hematocrit 27.4 L 42-54 % Mean Corpuscular Volume 79.4 79-99 fL Mean Corpuscular Hemoglobin 25.8 L 27.0-33.0 pg Mean Corpuscular Hemoglobin Concent 32.5 32.0-36.0 g/dL Red Cell Distribution Width 15.9 H 11.0-15.5 % Platelet Count 366 130-400 K/uL Mean Platelet Volume 9.8 7.5-10.5 fL Nucleated Red Blood Cells 0.0 0.0-0.19 % Sodium Level 137 136-145 mmol/L Potassium Level 3.9 3.5-5.1 mmol/L Chloride Level 102 101-111 mmol/L Carbon Dioxide Level 23 21-32 mmol/L Blood Urea Nitrogen 34 H 7-18 mg/dL Creatinine 1.8 H 0.5-1.3 mg/dL Glomerular Filtration Rate Calc 41 >90 mL/min Random Glucose 184 H 70-105 mg/dL Total Calcium 7.8 L 8.5-10.1 mg/dL Vancomycin Level Trough 16.8 10.0-20.0 UG/ML Test 08/14/24 04:04 Range/Units Immature Granulocyte % (Auto) 2.2 H 0-1 % Neutrophils (%) (Auto) 85.6 H 40.0-77.0 % Lymphocytes (%) (Auto) 4.3 L 21.0-51.0 % Monocytes (%) (Auto) 6.4 3.0-13.0 % Eosinophils (%) (Auto) 1.3 0.0-8.0 % Basophils (%) (Auto) 0.2 0.0-5.0 % Neutrophils # (Auto) 19.3 H 1.8-7.7 K/uL Lymphocytes # (Auto) 1.0 1.0-4.8 K/uL Monocytes # (Auto) 1.4 H 0.1-1.0 K/uL Eosinophils # (Auto) 0.30 0.00-0.70 K/uL Basophils # (Auto) 0.05 0.00-0.20 K/uL Absolute Immature Granulocyte (auto 0.50 0-1 K/uL Prothrombin Time 13.1 H 9.6-11.6 SEC Prothromb Time International Ratio 1.23 H 0.85-1.15 Activated Partial Thromboplast Time 44.4 H 26.3-35.5 SEC Hemoglobin A1c 9.4 H 4.0-6.0 % Estimated Average Glucose (eAG) 223 H 70-126 mg/dL Total Bilirubin 0.7 0.2-1.0 mg/dL Aspartate Amino Transf (AST/SGOT) 96 H 10-37 U/L Alanine Aminotransferase (ALT/SGPT) 88 H 12-78 U/L Alkaline Phosphatase 247 #H 50-136 U/L B-Type Natriuretic Peptide 147 H 0-100 pg/mL Total Protein 6.5 6.0-8.3 g/dL Albumin 1.5 L 3.5-5.0 g/dL DIAGNOSTICS / RADIOLOGY: PORTABLE CHEST RADIOGRAPH INDICATION: fever COMPARISON: 06/22/2024 FINDINGS: site monitor leads overlie the field of view. Heart size is normal. The pulmonary vascularity and sriram appear normal. No abnormal pulmonary parenchymal opacity or consolidation identified. No significant pleural effusion noted. No pneumothorax detected. IMPRESSION: No radiographic evidence for any acute cardiopulmonary process. Assessment: Acute kidney injury on chronic kidney disease stage IIIB. There is some improvement on kidney function basically at baseline kidney function. Hypertension with renal manifestation. Diabetes mellitus type 2 with nephropathy. Hyponatremia. ATN. Osteomyelitis on the fifth metatarsal, left foot, status post removal of amputation of that toe. Diabetic foot infection. PLAN: Continue present plan of care. Monitor Renal Function: some improvement in the last 24hours Continue Antimicrobials. Wound care. Maintain adequate hydration. Monitor electrolytes on and off. No change in current medications. KELLEN FARMER [facility] Aug 15, 2024 14:18
--- NOTE | 2024-08-15 15:51 | HMCIMG ---
CT CHEST/ABD/PELV W/O CONTRAST REASON: sepsis COMPARISON: None TECHNIQUE: Axial images are obtained from thoracic inlet through the proximal thighs without IV contrast. Sagittal and coronal reconstruction images were performed. FINDINGS: There are small bilateral pleural effusions with mild bibasilar atelectasis. Lungs are otherwise clear. There is no focal mass or infiltrate. There is borderline cardiomegaly without vascular congestion. There is no hilar or mediastinal lymphadenopathy. Chest wall structures appear unremarkable. There are no focal liver lesions. Spleen, kidneys, pancreas and adrenal glands appear normal. There are small stones in an otherwise normal-appearing gallbladder. Bowel loops appear normal. There is no evidence of obstruction. There is no focal inflammation. Aorta and retroperitoneum appear unremarkable. Pelvic soft tissues appear normal. Anterior abdominal wall appears intact. There are surgical changes in the left upper thigh consistent with recent vascular surgery procedure. Exam appears otherwise unremarkable. IMPRESSION: 1. Minimal bilateral pleural effusions with mild bibasilar atelectasis. 2. Surgical changes in the left thigh. 3. No other acute finding in the chest, abdomen or pelvis. 4. Cholelithiasis without evidence of acute cholecystitis.
[2024-08-15] MEDS: furoSEMIDE 20 MG TABLET PO SCH (16:10)
--- NOTE | 2024-08-15 17:27 | PN ---
SUBJECTIVE: The patient is postop day #1 from a left femoral to popliteal artery bypass grafting. The patient has done well; however, this morning, he was found to have a fever of 102. OBJECTIVE: VITAL SIGNS: Reveal a pulse of 109, blood pressure is 132/76, respirations 27, oxygen saturation 97% on nasal cannula oxygen. HEENT: Reveals to be normocephalic, atraumatic. Extraocular movements intact. HEART: S1, S2 and tachycardic. LUNGS: Reveal mild rhonchi, but unlabored at rest on oxygen. ABDOMEN: Reveals moderate obesity with positive bowel sounds. EXTREMITIES: His left groin and left thigh incisions are bandaged. These are dry. His left lower extremity is very warm. He has a left transmetatarsal amputation. There is a suture line, which was opened by Podiatry. ASSESSMENT AND PLAN: 1. Status post left femoral to popliteal artery bypass grafting. Begin antiplatelet therapy. Discontinue his Art line. Begin ambulation. 2. Postoperative acute pulmonary insufficiency secondary grafting surgery. Wean off nasal cannula oxygen to maintain oxygen saturations greater than 90%. 3. Hypercholesterolemia. Lipitor at bedtime. Low cholesterol, cardiac diet. 4. Deep venous thrombosis prophylaxis. Heparin subcutaneously. Time spent 30 minutes. The patient is critically ill in the ICU. TID: [id number] RECEIPT: [id number]
[2024-08-16] VITALS (15 sets, daily range): BP systolic 107–131; BP diastolic 53–64; PULSE 85–106; RESP 18–22; TEMP 98.1–102.9; O2SAT 93–95
[2024-08-16 03:59] LABS: BASOPHILS # (AUTO) 0.04 K/uL (0.00-0.20); BASOPHILS % (AUTO) 0.2 % (0.0-5.0); EOSINOPHILS # (AUTO) 0.19 K/uL (0.00-0.70); HEMATOCRIT 25.5 % (42-54); IMMATURE GRANULOCYTE ABSOLUTE 0.17 K/uL (0-1); LYMPHOCYTES # (AUTO) 0.9 K/uL (1.0-4.8); LYMPHOCYTES % (AUTO) 4.9 % (21.0-51.0); MEAN CORPUSCULAR HEMOGLOBIN 25.8 pg (27.0-33.0); MEAN CORPUSCULAR HGB CONC 31.8 g/dL (32.0-36.0); MEAN CORPUSCULAR VOLUME 81.2 fL (79-99); MONOCYTES # (AUTO) 1.4 K/uL (0.1-1.0); MONOCYTES % (AUTO) 7.5 % (3.0-13.0); NEUTROPHILS # (AUTO) 15.5 K/uL (1.8-7.7); NEUTROPHILS % (AUTO) 85.5 % (40.0-77.0); PLATELET COUNT (AUTO) 304 K/uL (130-400); RED BLOOD CELL COUNT(AUTO) 3.14 MIL/uL (4.50-6.20); RED CELL DISTRIBUTION WIDTH 15.7 % (11.0-15.5); WHITE BLOOD COUNT (AUTO) 18.1 K/uL (4.8-10.8)
[2024-08-16 04:12] LABS: CREATININE 1.8 mg/dL (0.5-1.3); MAGNESIUM 1.3 mg/dL (1.80-2.40); POTASSIUM 3.3 mmol/L (3.5-5.1)
--- NOTE | 2024-08-16 10:37 | NUR ---
report given to lauren navarrete. pt aware of transfer, spouse at bedside. made RN aware of plan of care. notified TEACHER ADVISOR of pending shower for pt. pt educated on heart healthy lifestyle, no smoking, drug use nor alcohol. sternal precautions, IS. mid sternal incision checks once d/c. plan for rehab. Addendum: 08/16/24 at 1320 by ZOHAIB PAYTON RN RN wrong chart, disregard noted.
--- NOTE | 2024-08-16 11:00 | NUR ---
dr.venegas avalos, showed photo of left foot taken via ipad of facility. overnight with fever, dressing change done, increase of wbc. per md no new orders continue dressing changes as ordered. lauren walter made aware.
--- NOTE | 2024-08-16 11:00 | NUR ---
gave report to lauren walter aware of plan of care. photo of left foot taken, dressing change done for today. pt plan for [facility] once ready. Addendum: 08/16/24 at 1329 by ZOHAIB PAYTON RN RN spouse and pt aware of transfer.
--- NOTE | 2024-08-16 13:41 | PN ---
INFECTIOUS DISEASE PROGRESS NOTE Date of Service: Aug 16, 2024 SUBJECTIVE: This is a 64 year old male patient who was seen and examined at bedside in room 228. Patient is awake, alert and oriented x 3. Patient is status post a left opjwxnw-xo-daiphpicx artery bypass day # 2. Patient had a low-grade fever of 100.8 last night and this morning is aureus 99.9. WBC remains elevated 18.1. We will follow up on the Blood culture that were repeated yesterday. Patient continues on vancomycin, meropenem and metronidazole. Case management working on placement to LTAC. Will continue to follow patient's care. PHYSICAL EXAM EYES: Anicteric. Pupils equal and reactive. HENT: No oral thrush seen, moist Oral mucosa. NECK: Supple, no JVD or thyromegaly. LUNGS: Good air entry. No rales, no rhonchi. on o2 via nasal canula. CARDIOVASCULAR: S1, S2 regular. No murmur heard. ABDOMEN: Soft, non tender, bowel sounds present, no organomegaly. CENTRAL NERVOUS SYSTEM: Awake, alert, oriented x 3. SKIN: No rashes, no swelling. LYMPHATICS: No peripheral lymphadenopathy. MUSCULOSKELETAL: No joint swelling, erythema or tenderness. EXTREMITIES: No cyanosis or clubbing. Left foot diabetic ulcer with osteomyelitis, status post excisional debridement. BACK: No deformity, no pressure ulcer. GENITOURINARY: No dysuria or hematuria. Vital Sign (Last 12 Hours) 08/16/24 08/16/24 08/16/24 08/16/24 04:00 07:14 07:48 08:00 Temp 99.0 99.9 Pulse 97 99 104 Resp 20 22 20 B/P (MAP) 131/57 121/53 107/53 Pulse Ox 99 94 O2 Delivery Nasal Cannula Room Air* O2 Flow Rate 3.0 0 FiO2 21 08/16/24 08/16/24 08/16/24 08/16/24 08:20 08:39 08:48 09:48 Pulse 85 103 102 99 Resp 18 22 22 22 B/P (MAP) 126/57 121/62 118/60 Pulse Ox 98 O2 Delivery N/A Room Air Room Air FiO2 21 08/16/24 13:01 Temp 98.1 Pulse 105 Resp 18 B/P (MAP) 114/64 Pulse Ox 96 O2 Delivery Room Air Intake & Output (last 24hrs) 08/15/24 08/15/24 08/16/24 15:00 23:00 07:00 Intake Total 700.0 ml 450.0 ml 150.0 ml Output Total 700 ml 950 ml 600 ml Balance 0 ml -500.0 ml -450.0 ml LABS: Laboratory: Test 08/16/24 12:21 08/16/24 03:47 08/15/24 08:30 08/14/24 22:45 Range/Units Whole Blood Glucose 304 #H 70-110 MG/DL White Blood Count 18.1 H 4.8-10.8 K/uL Red Blood Count 3.14 L 4.50-6.20 MIL/uL Hemoglobin 8.1 L 14.0-18.0 g/dL Hematocrit 25.5 L 42-54 % Mean Corpuscular Volume 81.2 79-99 fL Mean Corpuscular Hemoglobin 25.8 L 27.0-33.0 pg Mean Corpuscular Hemoglobin Concent 31.8 L 32.0-36.0 g/dL Red Cell Distribution Width 15.7 H 11.0-15.5 % Platelet Count 304 130-400 K/uL Mean Platelet Volume 9.8 7.5-10.5 fL Immature Granulocyte % (Auto) 0.9 0-1 % Neutrophils (%) (Auto) 85.5 H 40.0-77.0 % Lymphocytes (%) (Auto) 4.9 L 21.0-51.0 % Monocytes (%) (Auto) 7.5 3.0-13.0 % Eosinophils (%) (Auto) 1.0 0.0-8.0 % Basophils (%) (Auto) 0.2 0.0-5.0 % Neutrophils # (Auto) 15.5 H 1.8-7.7 K/uL Lymphocytes # (Auto) 0.9 L 1.0-4.8 K/uL Monocytes # (Auto) 1.4 H 0.1-1.0 K/uL Eosinophils # (Auto) 0.19 0.00-0.70 K/uL Basophils # (Auto) 0.04 0.00-0.20 K/uL Absolute Immature Granulocyte (auto 0.17 0-1 K/uL Nucleated Red Blood Cells 0.0 0.0-0.19 % Sodium Level 133 L 136-145 mmol/L Potassium Level 3.3 L 3.5-5.1 mmol/L Chloride Level 98 L 101-111 mmol/L Carbon Dioxide Level 27 21-32 mmol/L Blood Urea Nitrogen 28 H 7-18 mg/dL Creatinine 1.8 H 0.5-1.3 mg/dL Glomerular Filtration Rate Calc 41 >90 mL/min Random Glucose 130 H 70-105 mg/dL Total Calcium 7.3 L 8.5-10.1 mg/dL Magnesium Level 1.30 L 1.80-2.40 mg/dL Urine Color LIGHT-YELLOW YELLOW Urine Appearance CLEAR CLEAR Urine pH 5.5 5.0-8.0 Urine Specific [place] 1.010 1.001-1.031 Urine Protein 50 H NEGATIVE mg/dL Urine Glucose (UA) 200 H NEGATIVE mg/dL Urine Ketones 5 H NEGATIVE mg/dL Urine Occult Blood LARGE H NEGATIVE Urine Nitrate NEGATIVE NEGATIVE Urine Bilirubin NEGATIVE NEGATIVE mg/dL Urine Urobilinogen 0.2 0.2-1.0 mg/dL Urine Leukocyte Esterase 250 H NEGATIVE Alex/uL Urine RBC 26-50 H 0-1 /HPF Urine WBC 26-50 H 0-1 /HPF Urine Bacteria FEW None Seen /HPF Vancomycin Level Trough 16.8 10.0-20.0 UG/ML ASSESSMENT: Left foot osteomyelitis. Left foot diabetic ulcer with abscess, status post Excisional debridement of the 5th metatarsal bone and ulcer of the left foot on 08/10/2024. Left lower extremity arterial occlusive disease, S/P left ekistfc-mr-rymocfucm artery bypass on 07/14/2024. Left foot with E coli infection and Prevotella Bivia. Infection with multidrug resistant organism. Sepsis. Leukocytosis. Diabetes mellitus. Acute on chronic renal failure. PLAN: Continue meropenem IV. Continue on vancomycin per pharmacy protocol. Continue metronidazole. Continue pain management. Continue wound care as recommended by rugby union footballer. Glucometer checks a.c./hs and cover with insulin per sliding scale protocol.. We will monitor electrolytes. Case management working on placement to LTAC. This case was reviewed and discussed with my supervising physician and the above assessment and plan was formulated and agreed upon. ATTESTATION BY PHYSICIAN I have seen and examined the patient. I reviewed the documentation, medical decision making, and treatment plan as noted by the mid-level provider above. I agree with the findings and plan of care. PANCHITO LOZANO MD, [facility] Aug 16, 2024 13:41
--- NOTE | 2024-08-16 17:18 | PN ---
[facility] PROGRESS NOTE Date Patient Seen: Aug 16, 2024 Time of Visit: 17:16 Supervising Physician: Dr. Ulloa Primary Care Physician: dOessa Holland MD Outpatient Specialists: Inpatient Consults: JD PROBLEM LIST: Persistent Sepsis 2/2 left foot osteomyelitis with left foot abscess + Prevotella Bivia, ESBL S/P excisional debridement of bone 5th metatarsal left foot and ulcer of the left foot 08/10/24 Severe PVD S/P Fem pop bypass 08/[address] [place] Leukocytosis Ketoacidosis 2/2 from Jardiance Acute metabolic acidosis 2/2 from above, resolved MDRO infection to left foot + [place] coli ESBL Leukocytosis, POA Chronic anemia from chronic illness, POA Hyperglycemia in the presence of type 2 diabetes mellitus, POA CKD stage III, POA Glucosuria, POA Proteinuria POA INTERVAL HISTORY: 08/15 patient is admitted to ICU overnight status post left fem-pop bypass yesterday. Overnight event, patient has fever up to 102.4 for which pancultures has been obtained. Continue current antibiotic with per ID. Wound care and engineering lecturer following. No vasopressor requirement, downgraded to PCU. 08/16 patient is downgraded to room 228 from ICU , he is laying down in bed exercising his legs up and down. No acute event overnight. His lab this morning with creatinine is 1.8 this is similar to yesterday. His bicarb is 27. Glucose is 130. Magnesium is 1.[address] protocol[address] Obtain lab in the morning. Otherwise he is on room air with saturation oxygen of 96%. Continue wound care. Continue BP regimen, discontinue midodrine. Continue with DVT prophylaxis. Continue antibiotic per ID. Continue to assess cardiovascular status. REVIEW OF SYSTEMS: General: general malaise Neurological: No fainting episodes or seizures. HEENT: No nasal congestion or nasal secretion. Respiratory: No cough, shortness of breath, or wheezing Cardiac: No chest pain or palpitations. Gastrointestinal: No vomiting or diarrhea. Genitourinary: No dysuria hematuria. Skin: No rashes or lesions. Hematological: No bruises or bleeding. Musculoskeletal: Left lower extremity pain. Psychiatric: No depression or panic attacks. PHYSICAL EXAM: GENERAL: alert, weak, awake oriented x 3 HEENT: EOMI, Sclera non icteric, moist mucosa NECK: Supple, no JVD, trachea midline LUNGS: Diminished breath sounds bilaterally. No wheezes HEART: Regular rate and rhythm. Normal S1 and S2, without murmurs ABD: Abdomen soft, nontender. Bowel sounds present EXT: No clubbing cyanosis or edema, left .TMA dressing clean dry intact NEURO: Alert and oriented to person, follows commands Vital Signs (last 8hr) Date Time Temp Pulse Resp B/P (MAP) Pulse Ox O2 Delivery O2 Flow Rate FiO2 08/16/24 13:01 98.1 105 18 114/64 96 Room Air 08/16/24 09:48 99 22 118/60 98 Room Air LABS: Hematology Labs: Test 08/16/24 03:47 Range/Units White Blood Count 18.1 H 4.8-10.8 K/uL Red Blood Count 3.14 L 4.50-6.20 MIL/uL Hemoglobin 8.1 L 14.0-18.0 g/dL Hematocrit 25.5 L 42-54 % Mean Corpuscular Volume 81.2 79-99 fL Mean Corpuscular Hemoglobin 25.8 L 27.0-33.0 pg Mean Corpuscular Hemoglobin Concent 31.8 L 32.0-36.0 g/dL Red Cell Distribution Width 15.7 H 11.0-15.5 % Platelet Count 304 130-400 K/uL Mean Platelet Volume 9.8 7.5-10.5 fL Immature Granulocyte % (Auto) 0.9 0-1 % Neutrophils (%) (Auto) 85.5 H 40.0-77.0 % Lymphocytes (%) (Auto) 4.9 L 21.0-51.0 % Monocytes (%) (Auto) 7.5 3.0-13.0 % Eosinophils (%) (Auto) 1.0 0.0-8.0 % Basophils (%) (Auto) 0.2 0.0-5.0 % Neutrophils # (Auto) 15.5 H 1.8-7.7 K/uL Lymphocytes # (Auto) 0.9 L 1.0-4.8 K/uL Monocytes # (Auto) 1.4 H 0.1-1.0 K/uL Eosinophils # (Auto) 0.19 0.00-0.70 K/uL Basophils # (Auto) 0.04 0.00-0.20 K/uL Absolute Immature Granulocyte (auto 0.17 0-1 K/uL Nucleated Red Blood Cells 0.0 0.0-0.19 % Chemistry Labs: Test 08/16/24 16:46 08/16/24 03:47 Range/Units Whole Blood Glucose 171 H 70-110 MG/DL Sodium Level 133 L 136-145 mmol/L Potassium Level 3.3 L 3.5-5.1 mmol/L Chloride Level 98 L 101-111 mmol/L Carbon Dioxide Level 27 21-32 mmol/L Blood Urea Nitrogen 28 H 7-18 mg/dL Creatinine 1.8 H 0.5-1.3 mg/dL Glomerular Filtration Rate Calc 41 >90 mL/min Random Glucose 130 H 70-105 mg/dL Total Calcium 7.3 L 8.5-10.1 mg/dL Magnesium Level 1.30 L 1.80-2.40 mg/dL DIAGNOSTICS / RADIOLOGY RESULTS: [ ] PLAN FEM-POP Today by CV surgery NEURO: Minimize central acting medications as possible. Maintain fall precautions, adequate lighting during the day PULMONARY: Supplemental 02 as needed. Maintain aspiration precautions at all times Maintain O2 sats above 92% CPAP at night p.r.n. CARDIOVASCULAR: Follow hemodynamics. Vital signs per facility protocol GI & NUTRITION: Continue with nutritional support. Continue stool softeners and laxatives as needed. Renal diet KIDNEYS & ELECTROLYTES: Strict monitoring of intake, output and overall fluid balance. Avoid nephrotoxic medications to the extent possible. Medications to be dosed according to renal function. Monitor electrolytes and replace as needed ENDOCRINE: Maintain blood glucose between 100-180 at all times. Hypoglycemia protocol in place INFECTIOUS DISEASE: Trend temperature, WBC and procalcitonin level Follow cultures, deescalate antibiotics as soon as possible. Panculture if new onset fever Continue antibiotics with vancomycin and meropenem per ID ONCOLOGY/HEMATOLOGY/COAGULATION: Monitor for s/s of bleeding Monitor hemoglobin, coagulation studies as needed SKIN: Pressure ulcer prevention per facility protocol Specialty mattress ORTHO/REHAB: Continue PT/OT Prophylaxis: Continue GI and DVT prophylaxis Protonix and heparin subQ Code Status: Full Resuscitation Disposition: TBMatty ADEAL HUERTA SENIOR INTERACTIVE DEVELOPER Aug 16, 2024 17:18
--- NOTE | 2024-08-16 19:39 | PN ---
SUBJECTIVE: The patient is postop day #2 from a left femoral popliteal artery bypass grafting. The patient has been doing well. He is no longer having fevers. OBJECTIVE: VITAL SIGNS: He is afebrile. Vital signs are stable. HEENT: Reveals normocephalic, atraumatic. Extraocular movements intact. He has nasal cannula oxygen prongs under his nose. HEART: S1, S2 and regular. LUNGS: Unlabored at rest. ABDOMEN: Reveals some mild obesity. Positive bowel sounds. EXTREMITIES: His left lower extremity is slightly swollen, but very warm to touch. He has a left transmetatarsal amputation, which is wrapped with Kerlix. The Kerlix appears to be dry. ASSESSMENT AND PLAN: * Status post left fem-popliteal bypass grafting. Continue aspirin. Ambulate if okay with podiatry. * History of osteomyelitis. Continue antibiotics and wound care as directed by podiatry, left foot. * Hypercholesterolemia. Statin therapy at bedtime, low cholesterol, cardiac diet. TID: [id number] RECEIPT: [id number]
[2024-08-17] VITALS (9 sets, daily range): BP systolic 102–119; BP diastolic 43–61; PULSE 85–105; RESP 18–21; TEMP 98.9–100.8; O2SAT 95–96
[2024-08-17 03:45] LABS: BASOPHILS # (AUTO) 0.04 K/uL (0.00-0.20); BASOPHILS % (AUTO) 0.2 % (0.0-5.0); EOSINOPHILS % (AUTO) 1.1 % (0.0-8.0); HEMATOCRIT 24.6 % (42-54); IMMATURE GRANULOCYTE ABSOLUTE 0.37 K/uL (0-1); LYMPHOCYTES % (AUTO) 5.1 % (21.0-51.0); MEAN CORPUSCULAR HEMOGLOBIN 25.5 pg (27.0-33.0); MEAN CORPUSCULAR HGB CONC 31.7 g/dL (32.0-36.0); MEAN CORPUSCULAR VOLUME 80.4 fL (79-99); MONOCYTES # (AUTO) 1.2 K/uL (0.1-1.0); MONOCYTES % (AUTO) 6.3 % (3.0-13.0); NEUTROPHILS # (AUTO) 16.3 K/uL (1.8-7.7); NEUTROPHILS % (AUTO) 85.4 % (40.0-77.0); PLATELET COUNT (AUTO) 311 K/uL (130-400); RED BLOOD CELL COUNT(AUTO) 3.06 MIL/uL (4.50-6.20); RED CELL DISTRIBUTION WIDTH 15.7 % (11.0-15.5)
[2024-08-17 04:00] LABS: MAGNESIUM 1.5 mg/dL (1.80-2.40); POTASSIUM 3.2 mmol/L (3.5-5.1)
--- NOTE | 2024-08-17 10:28 | PN ---
NEPHROLOGY FOLLOWUP SUBJECTIVE: The patient offers no new major complaints. No fever or chills. No chest pain. No dyspnea. OBJECTIVE: GENERAL: Not in any acute distress. VITAL SIGNS: Blood pressure 117/61, respirations 20, pulse 94, temperature maximum 100.2. LUNGS: Clear to auscultation. HEART: Normal cardiac sound. ABDOMEN: Soft, nondistended. EXTREMITIES: No edema. LABORATORY DATA: Sodium 130, potassium 3.2, bicarbonate 30, BUN 27, creatinine of 2.0. ASSESSMENT: * Acute kidney injury on chronic kidney disease, stage 3B. Renal function has settled with a serum creatinine of 2.0 mg/dL. * Hypertension with renal manifestation. * Diabetes mellitus type 2 with nephropathy. * Hyponatremia. * Mild Hypokalemia. * Acute tubular necrosis. The etiology of acute kidney injury due to osteomyelitis on the fifth metatarsal on the left foot, status post amputation of the same toe. * Diabetic foot infection. PLAN: To continue adequate hydration. Avoid nephrotoxic agents as much as possible. Wound care. Continue antimicrobials. Other plans as per admitting physician. TID: [id number] RECEIPT: [id number]
--- NOTE | 2024-08-17 12:03 | PN ---
INFECTIOUS DISEASE PROGRESS NOTE Date of Service: Aug 17, 2024 SUBJECTIVE: This is a 64 year old male patient who was seen and examined at bedside in room 228. Patient is awake, alert and oriented x 3. Patient is status post a left hbttxpx-lg-[id number] artery bypass on 08/14/2024 . Patient having severe hiccups. We will give Thorazine 25 mg IV x1 dose. Patient is still having low- grade fevers, this morning is 100.2 the WBC remains elevated at 19.0. Patient will need a left BKA. Patient continues on vancomycin, meropenem and metronidazole. Will continue to follow patient's care. PHYSICAL EXAM EYES: Anicteric. Pupils equal and reactive. HENT: No oral thrush seen, moist Oral mucosa. NECK: Supple, no JVD or thyromegaly. LUNGS: Good air entry. No rales, no rhonchi. on o2 via nasal canula. CARDIOVASCULAR: S1, S2 regular. No murmur heard. ABDOMEN: Soft, non tender, bowel sounds present, no organomegaly. CENTRAL NERVOUS SYSTEM: Awake, alert, oriented x 3. SKIN: No rashes, no swelling. LYMPHATICS: No peripheral lymphadenopathy. MUSCULOSKELETAL: No joint swelling, erythema or tenderness. EXTREMITIES: No cyanosis or clubbing. Left foot diabetic ulcer with osteomyel itis, status post excisional debridement. BACK: No deformity, no pressure ulcer. GENITOURINARY: No dysuria or hematuria. Vital Sign (Last 12 Hours) 08/17/24 08/17/24 08/17/24 08/17/24 00:17 03:43 07:00 11:00 Temp 99.0 99.0 100.2 99.1 Pulse 86 85 94 105 Resp 18 18 20 21 B/P (MAP) 116/58 116/61 117/61 119/55 Pulse Ox 94 96 97 96 O2 Delivery Room Air Room Air Room Air Room Air l Intake & Output (last 24hrs) 08/16/24 08/16/24 08/17/24 14:59 22:59 06:59 Intake Total 580.0 ml 440.0 ml 350.0 ml Output Total 200 ml 300 ml 1300 ml Balance 380.0 ml 140.0 ml -950.0 ml LABS: Laboratory: Test 08/17/24 11:29 08/17/24 03:25 Range/Units Whole Blood Glucose 243 #H 70-110 MG/DL White Blood Count 19.0 H 4.8-10.8 K/uL Red Blood Count 3.06 L 4.50-6.20 MIL/uL Hemoglobin 7.8 L 14.0-18.0 g/dL Hematocrit 24.6 L 42-54 % Mean Corpuscular Volume 80.4 79-99 fL Mean Corpuscular Hemoglobin 25.5 L 27.0-33.0 pg Mean Corpuscular Hemoglobin Concent 31.7 L 32.0-36.0 g/dL Red Cell Distribution Width 15.7 H 11.0-15.5 % Platelet Count 311 130-400 K/uL Mean Platelet Volume 9.9 7.5-10.5 fL Immature Granulocyte % (Auto) 1.9 H 0-1 % Neutrophils (%) (Auto) 85.4 H 40.0-77.0 % Lymphocytes (%) (Auto) 5.1 L 21.0-51.0 % Monocytes (%) (Auto) 6.3 3.0-13.0 % Eosinophils (%) (Auto) 1.1 0.0-8.0 % Basophils (%) (Auto) 0.2 0.0-5.0 % Neutrophils # (Auto) 16.3 H 1.8-7.7 K/uL Lymphocytes # (Auto) 1.0 1.0-4.8 K/uL Monocytes # (Auto) 1.2 H 0.1-1.0 K/uL Eosinophils # (Auto) 0.20 0.00-0.70 K/uL Basophils # (Auto) 0.04 0.00-0.20 K/uL Absolute Immature Granulocyte (auto 0.37 0-1 K/uL Nucleated Red Blood Cells 0.0 0.0-0.19 % Sodium Level 130 L 136-145 mmol/L Potassium Level 3.2 L 3.5-5.1 mmol/L Chloride Level 96 L 101-111 mmol/L Carbon Dioxide Level 30 21-32 mmol/L Blood Urea Nitrogen 27 H 7-18 mg/dL Creatinine 2.0 H 0.5-1.3 mg/dL Glomerular Filtration Rate Calc 36 >90 mL/min Random Glucose 130 H 70-105 mg/dL Total Calcium 7.2 L 8.5-10.1 mg/dL Magnesium Level 1.50 L 1.80-2.40 mg/dL ASSESSMENT: Left foot osteomyelitis. Left foot diabetic ulcer with abscess, status post Excisional debridement of the 5th metatarsal bone and ulcer of the left foot on 08/10/2024. Left lower extremity arterial occlusive disease, S/P left ynoixyv-lv-[id number] artery bypass on 07/14/2024. Left foot with E coli infection and Prevotella Bivia. Infection with multidrug resistant organism. Sepsis. Leukocytosis. Diabetes mellitus. Acute on chronic renal failure. Severe Hiccups. PLAN: Give Thorazine 25 mg IV x1 dose Continue meropenem IV. Continue on vancomycin per pharmacy protocol. Continue metronidazole. Continue pain management. Continue wound care as recommended by order to delivery supervisor. Glucometer checks a.c./hs and cover with insulin per sliding scale protocol.. We will monitor electrolytes. Case management working on placement to LTAC. Patient needs a left BKA. This case was reviewed and discussed with my supervising physician and the above assessment and plan was formulated and agreed upon. ATTESTATION BY PHYSICIAN I have seen and examined the patient. I reviewed the documentation, medical decision making, and treatment plan as noted by the mid-level provider above. I agree with the findings and plan of care. PANCHITO LOZANO MD, MIRTA L MACHINE SNELLER Aug 17, 2024 12:03
--- NOTE | 2024-08-17 13:48 | NUR ---
WET TO DRY DRESSING APPLIED TO LEFT FOOT PER DR. QUINTEROS ORDERS. PATIENT TOLERATED WELL.
--- NOTE | 2024-08-17 15:39 | HMCIMG ---
FOOT COMP 3+VWS LT REASON: Ulcer infection left TECHNIQUE: 3 views were obtained. FINDINGS: There is been a midfoot amputation. There is marked soft tissue swelling in the stump. There is lytic destruction of the lateral aspect of the lateral cuneiform consistent with associated osteomyelitis. There are some gas bubbles in the soft tissues which may be gas forming infection. IMPRESSION: 1. Findings consistent with osteomyelitis and probable gas forming infection.
--- NOTE | 2024-08-17 15:42 | PN ---
[facility] PROGRESS NOTE Date Patient Seen: Aug 17, 2024 Time of Visit: 15:41 Supervising Physician: Dr. Ulloa Primary Care Physician: Odessa Holland MD Outpatient Specialists: Inpatient Consults: JD PROBLEM LIST: Persistent Sepsis 2/2 left foot osteomyelitis with left foot abscess + Prevotella Bivia, ESBL S/P excisional debridement of bone 5th metatarsal left foot and ulcer of the left foot 08/10/24 Severe PVD S/P Fem pop bypass 08/[address] [place] Leukocytosis Ketoacidosis 2/2 from Jardiance Acute metabolic acidosis 2/2 from above, resolved MDRO infection to left foot + [place] coli ESBL Leukocytosis, POA Chronic anemia from chronic illness, POA Hyperglycemia in the presence of type 2 diabetes mellitus, POA CKD stage III, POA Glucosuria, POA Proteinuria POA INTERVAL HISTORY: 08/15 patient is admitted to ICU overnight status post left fem-pop bypass yesterday. Overnight event, patient has fever up to 102.4 for which pancultures has been obtained. Continue current antibiotic with per ID. Wound care and melangeur operator following. No vasopressor requirement, downgraded to PCU. 08/16 patient is downgraded to room 228 from ICU , he is laying down in bed exercising his legs up and down. No acute event overnight. His lab this morning with creatinine is 1.8 this is similar to yesterday. His bicarb is 27. Glucose is 130. Magnesium is 1.[address] protocol[address] Obtain lab in the morning. Otherwise he is on room air with saturation oxygen of 96%. Continue wound care. Continue BP regimen, discontinue midodrine. Continue with DVT prophylaxis. Continue antibiotic per ID. Continue to assess cardiovascular status. 08/17 patient is lying down in bed not in acute distress. Patient complains a lot of pain to the extremities. Otherwise no acute event overnight. This morning is WBC up to 19.0 from 18. Hemoglobin is stable at 7.8. Platelet count is 311. His chemistry sodium 130 potassium is 3.2 bicarb is 30, creatinine is 2.0 this is up from 1.8 yesterday. Avoid nephrotoxin. Hold lasix if okay with Nephrology. Magnesium is 1.[address] We will continue with wound care. Continue with antibiotic per ID. REVIEW OF SYSTEMS: General: general malaise Neurological: No fainting episodes or seizures. HEENT: No nasal congestion or nasal secretion. Respiratory: No cough, shortness of breath, or wheezing Cardiac: No chest pain or palpitations. Gastrointestinal: No vomiting or diarrhea. Genitourinary: No dysuria hematuria. Skin: No rashes or lesions. Hematological: No bruises or bleeding. Musculoskeletal: Left lower extremity pain. Psychiatric: No depression or panic attacks. PHYSICAL EXAM: GENERAL: alert, weak, awake oriented x 3 HEENT: EOMI, Sclera non icteric, moist mucosa NECK: Supple, no JVD, trachea midline LUNGS: Diminished breath sounds bilaterally. No wheezes HEART: Regular rate and rhythm. Normal S1 and S2, without murmurs ABD: Abdomen soft, nontender. Bowel sounds present EXT: No clubbing cyanosis or edema, left .TMA dressing clean dry intact NEURO: Alert and oriented to person, follows commands Vital Signs (last 8hr) Date Time Temp Pulse Resp B/P (MAP) Pulse Ox O2 Delivery O2 Flow Rate FiO2 08/17/24 11:00 99.1 105 21 119/55 96 Room Air LABS: Hematology Labs: Test 08/17/24 03:25 Range/Units White Blood Count 19.0 H 4.8-10.8 K/uL Red Blood Count 3.06 L 4.50-6.20 MIL/uL Hemoglobin 7.8 L 14.0-18.0 g/dL Hematocrit 24.6 L 42-54 % Mean Corpuscular Volume 80.4 79-99 fL Mean Corpuscular Hemoglobin 25.5 L 27.0-33.0 pg Mean Corpuscular Hemoglobin Concent 31.7 L 32.0-36.0 g/dL Red Cell Distribution Width 15.7 H 11.0-15.5 % Platelet Count 311 130-400 K/uL Mean Platelet Volume 9.9 7.5-10.5 fL Immature Granulocyte % (Auto) 1.9 H 0-1 % Neutrophils (%) (Auto) 85.4 H 40.0-77.0 % Lymphocytes (%) (Auto) 5.1 L 21.0-51.0 % Monocytes (%) (Auto) 6.3 3.0-13.0 % Eosinophils (%) (Auto) 1.1 0.0-8.0 % Basophils (%) (Auto) 0.2 0.0-5.0 % Neutrophils # (Auto) 16.3 H 1.8-7.7 K/uL Lymphocytes # (Auto) 1.0 1.0-4.8 K/uL Monocytes # (Auto) 1.2 H 0.1-1.0 K/uL Eosinophils # (Auto) 0.20 0.00-0.70 K/uL Basophils # (Auto) 0.04 0.00-0.20 K/uL Absolute Immature Granulocyte (auto 0.37 0-1 K/uL Nucleated Red Blood Cells 0.0 0.0-0.19 % Chemistry Labs: Test 08/17/24 11:29 08/17/24 03:25 Range/Units Whole Blood Glucose 243 #H 70-110 MG/DL Sodium Level 130 L 136-145 mmol/L Potassium Level 3.2 L 3.5-5.1 mmol/L Chloride Level 96 L 101-111 mmol/L Carbon Dioxide Level 30 21-32 mmol/L Blood Urea Nitrogen 27 H 7-18 mg/dL Creatinine 2.0 H 0.5-1.3 mg/dL Glomerular Filtration Rate Calc 36 >90 mL/min Random Glucose 130 H 70-105 mg/dL Total Calcium 7.2 L 8.5-10.1 mg/dL Magnesium Level 1.50 L 1.80-2.40 mg/dL DIAGNOSTICS / RADIOLOGY RESULTS: [ ] PLAN FEM-POP Today by CV surgery NEURO: Minimize central acting medications as possible. Maintain fall precautions, adequate lighting during the day PULMONARY: Supplemental 02 as needed. Maintain aspiration precautions at all times Maintain O2 sats above 92% CPAP at night p.r.n. CARDIOVASCULAR: Follow hemodynamics. Vital signs per facility protocol GI & NUTRITION: Continue with nutritional support. Continue stool softeners and laxatives as needed. Renal diet KIDNEYS & ELECTROLYTES: Strict monitoring of intake, output and overall fluid balance. Avoid nephrotoxic medications to the extent possible. Medications to be dosed according to renal function. Monitor electrolytes and replace as needed ENDOCRINE: Maintain blood glucose between 100-180 at all times. Hypoglycemia protocol in place INFECTIOUS DISEASE: Trend temperature, WBC and procalcitonin level Follow cultures, deescalate antibiotics as soon as possible. Panculture if new onset fever Continue antibiotics with vancomycin and meropenem per ID ONCOLOGY/HEMATOLOGY/COAGULATION: Monitor for s/s of bleeding Monitor hemoglobin, coagulation studies as needed SKIN: Pressure ulcer prevention per facility protocol Specialty mattress ORTHO/REHAB: Continue PT/OT Prophylaxis: Continue GI and DVT prophylaxis Protonix and heparin subQ Code Status: Full Resuscitation Disposition: [facility] Aug 17, 2024 15:42
--- NOTE | 2024-08-17 17:47 | NUR ---
NEW ORDERS PER DR. OVIEDO FOR STERI-STRIPS AND DRY DRESSING TO LEFT INNER THIGH AND CHANGE DRESSING PRN. SEROUS DRAINAGE WAS NOTED AND DERMABOND CAME UNDONE TO PROXIMAL END OF INCISION SITE FROM FEM POP SURGICAL SITE.
--- NOTE | 2024-08-17 18:03 | PN ---
PROGRESS NOTE Date of Service: Aug 17, 2024 Time of Service: 17:59 SUBJECTIVE: Patient was seen for follow up evaluation on cellulitis and infection to the left foot status post debridement of bone due to osteomyelitis and status post incision and drainage. At this time new x-ray evaluation demonstrated this on gas-forming infection on the lateral side of the foot we are suspecting ulcer infection on the ankle possible abscess of the lateral and medial ankle patient continues with elevated white count and fever. The plan will be to take the patient for incision and drainage and debridement of bone as needed tomorrow. REVIEW OF SYSTEMS CONSTITUTIONAL: Denies fever, chills, or fatigue. HEAD/FACE: No signs of trauma. EENT: Denies eye pain, blurred vision, double vision, or light sensitivity. RESPIRATORY: Denies shortness of breath, cough, wheezing CARDIOVASCULAR: Denies chest pain, palpitation, syncope underlying peripheral vascular disease. GASTROINTESTINAL/ABDOMINAL: Denies abdominal pain, constipation, diarrhea, nausea or vomiting GENITOURINARY: Denies dysuria or hematuria. MUSCULOSKELETAL: Denies joint pain, tenderness, or trauma. Osteomyelitis of the 5th metatarsal lateral foot left. INTEGUMENTARY: Ulceration lateral aspect plantar foot left. Cellulitis of the foot and ankle NEUROLOGICAL/PSYCH: Denies anxiety, depression, heat or cold intolerance. PHYSICAL EXAM EYES: Anicteric. Pupils equal and reactive. HENT: No oral thrush seen, moist Oral mucosa NECK: Supple, no JVD or thyromegaly. LUNGS: Good air entry. No rales, no rhonchi. CARDIOVASCULAR: S1, S2 regular. No murmur heard. Peripheral vascular disease bilateral lower extremity nonpalpable pulses by hand. ABDOMEN: Soft, non tender, bowel sounds present, no organomegaly CENTRAL NERVOUS SYSTEM: Awake, alert, oriented x 3. No focal deficits. SKIN: No rashes, no swelling. Ulceration to the plantar lateral aspect of the left foot. Cellulitis decreased edema decreased erythema ankle medial and lateral. LYMPHATICS: No peripheral lymphadenopathy MUSCULOSKELETAL: No joint swelling, erythema or tenderness. Status post 5th metatarsus exostectomy EXTREMITIES: No cyanosis or clubbing BACK: No deformity, no pressure ulcer. GENITOURINARY: No dysuria or hematuria Vital Signs (last 8hr) Date Time Temp Pulse Resp B/P (MAP) Pulse Ox O2 Delivery O2 Flow Rate FiO2 08/17/24 16:00 100.2 99 20 111/43 92 Room Air 08/17/24 11:00 99.1 105 21 119/55 96 Room Air LABS: Laboratory: Test 08/17/24 16:31 08/17/24 14:23 08/17/24 03:25 Range/Units Whole Blood Glucose 186 H 70-110 MG/DL Lactic Acid Level 1.6 0.8-2.5 mmol/L Procalcitonin 1.32 H 0.05-0.5 ng/mL White Blood Count 19.0 H 4.8-10.8 K/uL Red Blood Count 3.06 L 4.50-6.20 MIL/uL Hemoglobin 7.8 L 14.0-18.0 g/dL Hematocrit 24.6 L 42-54 % Mean Corpuscular Volume 80.4 79-99 fL Mean Corpuscular Hemoglobin 25.5 L 27.0-33.0 pg Mean Corpuscular Hemoglobin Concent 31.7 L 32.0-36.0 g/dL Red Cell Distribution Width 15.7 H 11.0-15.5 % Platelet Count 311 130-400 K/uL Mean Platelet Volume 9.9 7.5-10.5 fL Immature Granulocyte % (Auto) 1.9 H 0-1 % Neutrophils (%) (Auto) 85.4 H 40.0-77.0 % Lymphocytes (%) (Auto) 5.1 L 21.0-51.0 % Monocytes (%) (Auto) 6.3 3.0-13.0 % Eosinophils (%) (Auto) 1.1 0.0-8.0 % Basophils (%) (Auto) 0.2 0.0-5.0 % Neutrophils # (Auto) 16.3 H 1.8-7.7 K/uL Lymphocytes # (Auto) 1.0 1.0-4.8 K/uL Monocytes # (Auto) 1.2 H 0.1-1.0 K/uL Eosinophils # (Auto) 0.20 0.00-0.70 K/uL Basophils # (Auto) 0.04 0.00-0.20 K/uL Absolute Immature Granulocyte (auto 0.37 0-1 K/uL Nucleated Red Blood Cells 0.0 0.0-0.19 % Sodium Level 130 L 136-145 mmol/L Potassium Level 3.2 L 3.5-5.1 mmol/L Chloride Level 96 L 101-111 mmol/L Carbon Dioxide Level 30 21-32 mmol/L Blood Urea Nitrogen 27 H 7-18 mg/dL Creatinine 2.0 H 0.5-1.3 mg/dL Glomerular Filtration Rate Calc 36 >90 mL/min Random Glucose 130 H 70-105 mg/dL Total Calcium 7.2 L 8.5-10.1 mg/dL Magnesium Level 1.50 L 1.80-2.40 mg/dL DIAGNOSTICS / RADIOLOGY: PORTABLE CHEST RADIOGRAPH INDICATION: fever COMPARISON: 06/22/2024 FINDINGS: youth nutritional monitor leads overlie the field of view. Heart size is normal. The pulmonary vascularity and sriram appear normal. No abnormal pulmonary parenchymal opacity or consolidation identified. No significant pleural effusion noted. No pneumothorax detected. IMPRESSION: No radiographic evidence for any acute cardiopulmonary process. FOOT COMP 3+VWS LT REASON: Ulcer infection left TECHNIQUE: 3 views were obtained. FINDINGS: There is been a midfoot amputation. There is marked soft tissue swelling in the stump. There is lytic destruction of the lateral aspect of the lateral cuneiform consistent with associated osteomyelitis. There are some gas bubbles in the soft tissues which may be gas forming infection. IMPRESSION: 1. Findings consistent with osteomyelitis and probable gas forming infection. Assessment: Acute kidney injury on chronic kidney disease stage IIIB. There is some improvement on kidney function basically at baseline kidney function. Hypertension with renal manifestation. Diabetes mellitus type 2 with nephropathy. Hyponatremia. ATN. Osteomyelitis on the fifth metatarsal, left foot, status post removal of amputation of that toe. Diabetic foot infection. Abscess of left foot and ankle PLAN: Plan for incision and drainage tomorrow morning continue IV antibiotics. Bone debridement as needed. NPO after midnight. Patient and educated on the problem patient continues to trend up on his white count and fevers this is secondary to the infection of the foot we will continue with local wound care incision and drainage tomorrow and debridement as needed in an attempt to salvage the limb. No guarantees were offered at this time. Patient and agree to the procedure at this moment. BETTY QUINTEROS DPM Aug 17, 2024 18:03
--- NOTE | 2024-08-17 23:40 | PN ---
SUBJECTIVE: The patient is postop day #3 from a left femoral to popliteal artery bypass grafting. The patient is doing well. His vital signs are stable. OBJECTIVE: HEENT: Reveals normocephalic, atraumatic. Extraocular movements are intact. HEART: S1, S2 and regular. LUNGS: Unlabored at rest, off of oxygen. ABDOMEN: Reveals positive bowel sounds. Mild obesity. EXTREMITIES: His left lower extremity is warm and slightly swollen. His left foot, which has a transmetatarsal amputation, has a Kerlix wrap on it. ASSESSMENT AND PLAN: * Status post left femoral to popliteal artery bypass grafting. Continue antiplatelet therapy. The patient is to reportedly go to the operating room tomorrow for an incision and drainage of his left foot, which has osteomyelitis. * Hypercholesterolemia. Lipitor at bedtime and low cholesterol, cardiac diet. * Osteomyelitis. Continue meropenem and Flagyl. * Deep venous thrombosis prophylaxis. Heparin 5000 units subcutaneous b.i.d. TID: [id number] RECEIPT: [id number]
[2024-08-18] VITALS (23 sets, daily range): BP systolic 104–133; BP diastolic 44–80; PULSE 71–98; RESP 18–26; TEMP 98.2–101.8; O2SAT 93–98
[2024-08-18 04:24] LABS: BASOPHILS # (AUTO) 0.04 K/uL (0.00-0.20); BASOPHILS % (AUTO) 0.2 % (0.0-5.0); EOSINOPHILS % (AUTO) 1.2 % (0.0-8.0); HEMATOCRIT 23.8 % (42-54); IMMATURE GRANULOCYTE ABSOLUTE 0.18 K/uL (0-1); LYMPHOCYTES # (AUTO) 0.8 K/uL (1.0-4.8); LYMPHOCYTES % (AUTO) 4.8 % (21.0-51.0); MEAN CORPUSCULAR HGB CONC 31.5 g/dL (32.0-36.0); MEAN CORPUSCULAR VOLUME 82.6 fL (79-99); MONOCYTES # (AUTO) 1.2 K/uL (0.1-1.0); MONOCYTES % (AUTO) 7.3 % (3.0-13.0); NEUTROPHILS # (AUTO) 14.6 K/uL (1.8-7.7); NEUTROPHILS % (AUTO) 85.4 % (40.0-77.0); PLATELET COUNT (AUTO) 295 K/uL (130-400); RED BLOOD CELL COUNT(AUTO) 2.88 MIL/uL (4.50-6.20); RED CELL DISTRIBUTION WIDTH 15.6 % (11.0-15.5); WHITE BLOOD COUNT (AUTO) 17.1 K/uL (4.8-10.8)
[2024-08-18 05:04] LABS: ALBUMIN 1.3 g/dL (3.5-5.0); BILIRUBIN,TOTAL 0.5 mg/dL (0.2-1.0); CREATININE 1.9 mg/dL (0.5-1.3); POTASSIUM 3.2 mmol/L (3.5-5.1)
[2024-08-18] MEDS ORDERED: PoTASSium chloRIDE 20MEQ/100ML 100 ML IV PRN (05:30)
[2024-08-18] MEDS: PoTASSium chloRIDE 10MEQ/100ML 100 ML IV PRN (05:38)
[2024-08-18] MEDS ORDERED: BUPIvacaine/PF 0.5% 30ML VIAL ONE (06:32)
--- NOTE | 2024-08-18 06:33 | NUR ---
AT THIS TIME PATIENT TAKEN TO OR FOR PROCEDURE. LEFT 2ND FLOOR AA0X3, RESPIRATIONS EVEN AND UNLABORED. NO S/S OF DISTRESS. NO PAIN. ON ROOM AIR. TELEMETRY- PT IN SINUS RHYTHM. CONSENT IN CHART FOR PROCEDURE.
[2024-08-18] MEDS ORDERED: MIDAZOLAM HCL 1 MG/ML 2ML VIAL ONE ×2 (07:03→07:21)
[2024-08-18] MEDS ORDERED: FENTanyl CITRate PF 50 MCG/1 ML 2ML VIAL ONE (07:03)
[2024-08-18] MEDS ORDERED: ketaMINE 50MG/ML SYRINGE 50 MG/ML DISP.SYRIN ONE ×2 (07:05→07:23)
[2024-08-18] MEDS: LIDOCAINE HCL 1% 20 ML VIAL ONE (07:08)
[2024-08-18] MEDS: BUPIvacaine/PF 0.5% 30ML VIAL ONE (07:08)
[2024-08-18] MEDS ORDERED: proPOFol 10 MG/ML 20ML VIAL IV ONE (07:09)
--- NOTE | 2024-08-18 08:05 | OP ---
Operative Note: DATE OF PROCEDURE: 08/18/24 SURGEON: BETTY QUINTEROS DPM MICA MACHINE OPERATOR: Mercedez Kaye ANESTHESIA: Local MAC 1% xylocaine 0.25% Marcaine total of 10 cc via an ankle block ANESTHESIOLOGIST/VEHICLE MECHANIC: Soham Shirley CRNA PREOPERATIVE DIAGNOSIS: Ankle abscess left osteomyelitis left foot cellulitis diabetic foot infection ESBL POSTOPERATIVE DIAGNOSIS: Ankle abscess left osteomyelitis left foot diabetic foot infection ESBL SYNOPSIS: This 64 years old male seen for continued evaluation of foot continue with leukocytosis new abscess formation of the level of the ankle cellulitis of the left foot at this time decision was made for incision and drainage of the left foot bone biopsy to rule out osteomyelitis of the cuneiform bone of the left foot PROCEDURE: Incision and drainage of the left ankle abscess subcutaneous tissue level. Debridement of bone and soft tissue of the lateral aspect of the left foot for biopsy rule out osteomyelitis. Left foot ESTIMATED BLOOD LOSS: Approximately 10 cc. INDICATIONS: Abscess formation to the left foot. Abscess of the ankle. Osteomyelitis DESCRIPTION OF PROCEDURE: Patient was brought into operating room table placed in the supine position on the IV sedation local anesthesia was achieved via local infiltration 1% xylocaine 0.25% Marcaine at this time the foot was prepped and draped in usual sterile fashion. At this moment attention was directed towards the lateral side of the foot with the original incision was seen at this time the incision was carried down to bone level utilizing curettage and bone rongeur samples bones had been obtained for biopsy for osteomyelitis the area was irrigated with copious amount of saline solution nonviable soft of tissue and fat necrosis was excised at this time. At this moment then attention was directed to the lateral ankle where a lineal incision was performed of approxim ately 1 cm at this time approximately 10 cc of purulent material purulent discharge was obtained this abscess was noted to be located in the subcutaneous tissue of this moment no deep tissue affected was noted at this time the wound was packed utilizing plain packing at this moment the after irrigated with copious amount of saline solution a total of 1 L medial ankle was explored at this time a linear incision of approximately half a cm was performed no abscess formation was noted in this area posterior heel and Achilles tendon insertion had an ulceration this was cleansed it and Adaptic was applied on this area. Patient tolerated procedure and anesthesia well after the debridement and bone debridement the foot was packed utilizing plain packing wet-to-dry dressing 4x4s and Kerlix and continue IV antibiotics continue aggressive wound care at the floor. BETTY QUINTEROS DPM Aug 18, 2024 08:04
--- NOTE | 2024-08-18 08:10 | NUR ---
PATIENT HAS RETURNED FROM PACU AND IS COMFORTABLE AND AAOX3. PAIN LEVEL IS CONTROLLED. POST OP VITAL SIGNS HAVE BEEN INITIATED.
--- NOTE | 2024-08-18 09:43 | PN ---
PROGRESS NOTE Date of Service: Aug 18, 2024 Time of Service: 09:38 SUBJECTIVE: No acute events reported in the alst 24horus. Denies fever chills and pain. Seen at bedside, scheduled for procedure today. REVIEW OF SYSTEMS CONSTITUTIONAL: Denies fever, chills, or fatigue. HEAD/FACE: No signs of trauma. EENT: Denies eye pain, blurred vision, double vision, or light sensitivity. RESPIRATORY: Denies shortness of breath, cough, wheezing CARDIOVASCULAR: Denies chest pain, palpitation, syncope underlying peripheral vascular disease. GASTROINTESTINAL/ABDOMINAL: Denies abdominal pain, constipation, diarrhea, nausea or vomiting GENITOURINARY: Denies dysuria or hematuria. MUSCULOSKELETAL: Denies joint pain, tenderness, or trauma. Osteomyelitis of the 5th metatarsal lateral foot left. INTEGUMENTARY: Ulceration lateral aspect plantar foot left. Cellulitis of the foot and ankle NEUROLOGICAL/PSYCH: Denies anxiety, depression, heat or cold intolerance. PHYSICAL EXAM EYES: Anicteric. Pupils equal and reactive. HENT: No oral thrush seen, moist Oral mucosa NECK: Supple, no JVD or thyromegaly. LUNGS: Good air entry. No rales, no rhonchi. CARDIOVASCULAR: S1, S2 regular. No murmur heard. Peripheral vascular disease bilateral lower extremity nonpalpable pulses by hand. ABDOMEN: Soft, non tender, bowel sounds present, no organomegaly CENTRAL NERVOUS SYSTEM: Awake, alert, oriented x 3. No focal deficits. SKIN: No rashes, no swelling. Ulceration to the plantar lateral aspect of the left foot. Cellulitis decreased edema decreased erythema ankle medial and lateral. LYMPHATICS: No peripheral lymphadenopathy MUSCULOSKELETAL: No joint swelling, erythema or tenderness. Status post 5th metatarsus exostectomy EXTREMITIES: No cyanosis or clubbing BACK: No deformity, no pressure ulcer. GENITOURINARY: No dysuria or hematuria Vital Signs (last 8hr) Date Time Temp Pulse Resp B/P (MAP) Pulse Ox O2 Delivery O2 Flow Rate FiO2 08/18/24 09:05 92 115/59 93 Room Air 08/18/24 08:50 96 109/59 95 Room Air 08/18/24 08:35 87 115/76 93 Room Air 08/18/24 08:20 99.9 89 22 133/60 92 Room Air 08/18/24 08:06 98.6 89 21 107/60 96 Room Air 08/18/24 08:01 88 21 111/49 96 Room Air 08/18/24 07:56 89 21 117/59 96 Room Air 08/18/24 07:51 89 22 104/52 95 Room Air 08/18/24 07:46 91 22 119/53 95 Room Air 08/18/24 07:41 91 18 109/56 100 Nonrebreathing Mask 10.0 08/18/24 07:36 99.0 93 18 124/44 100 Nonrebreathing Mask 10.0 08/18/24 06:40 99.0 91 20 122/59 94 Room Air 08/18/24 04:11 98.2 86 20 128/55 94 Room Air LABS: Laboratory: Test 08/18/24 07:56 08/18/24 03:54 08/17/24 22:45 08/17/24 14:23 Range/Units Whole Blood Glucose 122 H 70-110 MG/DL White Blood Count 17.1 H 4.8-10.8 K/uL Red Blood Count 2.88 L 4.50-6.20 MIL/uL Hemoglobin 7.5 L 14.0-18.0 g/dL Hematocrit 23.8 L 42-54 % Mean Corpuscular Volume 82.6 79-99 fL Mean Corpuscular Hemoglobin 26.0 L 27.0-33.0 pg Mean Corpuscular Hemoglobin Concent 31.5 L 32.0-36.0 g/dL Red Cell Distribution Width 15.6 H 11.0-15.5 % Platelet Count 295 130-400 K/uL Mean Platelet Volume 10.1 7.5-10.5 fL Immature Granulocyte % (Auto) 1.1 H 0-1 % Neutrophils (%) (Auto) 85.4 H 40.0-77.0 % Lymphocytes (%) (Auto) 4.8 L 21.0-51.0 % Monocytes (%) (Auto) 7.3 3.0-13.0 % Eosinophils (%) (Auto) 1.2 0.0-8.0 % Basophils (%) (Auto) 0.2 0.0-5.0 % Neutrophils # (Auto) 14.6 H 1.8-7.7 K/uL Lymphocytes # (Auto) 0.8 L 1.0-4.8 K/uL Monocytes # (Auto) 1.2 H 0.1-1.0 K/uL Eosinophils # (Auto) 0.20 0.00-0.70 K/uL Basophils # (Auto) 0.04 0.00-0.20 K/uL Absolute Immature Granulocyte (auto 0.18 0-1 K/uL Nucleated Red Blood Cells 0.0 0.0-0.19 % Sodium Level 131 L 136-145 mmol/L Potassium Level 3.2 L 3.5-5.1 mmol/L Chloride Level 98 L 101-111 mmol/L Carbon Dioxide Level 26 21-32 mmol/L Blood Urea Nitrogen 25 H 7-18 mg/dL Creatinine 1.9 H 0.5-1.3 mg/dL Glomerular Filtration Rate Calc 38 >90 mL/min Random Glucose 109 H 70-105 mg/dL Total Calcium 7.1 L 8.5-10.1 mg/dL Total Bilirubin 0.5 0.2-1.0 mg/dL Aspartate Amino Transf (AST/SGOT) 35 10-37 U/L Alanine Aminotransferase (ALT/SGPT) 30 12-78 U/L Alkaline Phosphatase 237 H 50-136 U/L Total Protein 6.0 6.0-8.3 g/dL Albumin 1.3 L 3.5-5.0 g/dL Vancomycin Level Trough 17.5 10.0-20.0 UG/ML Lactic Acid Level 1.6 0.8-2.5 mmol/L Procalcitonin 1.32 H 0.05-0.5 ng/mL Test 08/17/24 03:25 Range/Units Magnesium Level 1.50 L 1.80-2.40 mg/dL DIAGNOSTICS / RADIOLOGY: PORTABLE CHEST RADIOGRAPH INDICATION: fever COMPARISON: 06/22/2024 FINDINGS: pvc monitor leads overlie the field of view. Heart size is normal. The pulmonary vascularity and sriram appear normal. No abnormal pulmonary parenchymal opacity or consolidation identified. No significant pleural effusion noted. No pneumothorax detected. IMPRESSION: No radiographic evidence for any acute cardiopulmonary process. FOOT COMP 3+VWS LT REASON: Ulcer infection left TECHNIQUE: 3 views were obtained. FINDINGS: There is been a midfoot amputation. There is marked soft tissue swelling in the stump. There is lytic destruction of the lateral aspect of the lateral cuneiform consistent with associated osteomyelitis. There are some gas bubbles in the soft tissues which may be gas forming infection. IMPRESSION: 1. Findings consistent with osteomyelitis and probable gas forming infection. Assessment: Acute kidney injury on chronic kidney disease stage IIIB. There is some improvement on kidney function basically at baseline kidney function. Has settled Cr between 1.8-2.0 Hypertension with renal manifestation. Diabetes mellitus type 2 with nephropathy. Hyponatremia. ATN Acute tubular necrosis. The etiology of acute kidney injury due to osteomyelitis on the fifth metatarsal on the left foot, status post amputation of the same toe. Osteomyelitis on the fifth metatarsal, left foot, status post removal of amputation of that toe. Diabetic foot infection. Abscess of left foot and ankle PLAN: Plan for incision and drainage today continue IV antibiotics. Monitor Renal Function Continue adequate hydration; monitor I's and O's Avoid nephrotoxic agents as much as possible. Continue Wound care. Continue antimicrobials. Other plans as per admitting physician. KELLEN FARMER Aug 18, 2024 09:43
--- NOTE | 2024-08-18 11:32 | NUR ---
PICC LINE ORDERS NEW ORDERS FOR PICC LINE FOR [employer] PER DR. LOZANO. ORDERS IN PLACE. PENDING PLACEMENT.
[2024-08-18 12:35] LABS: INR 1.33 (0.85-1.15); PROTHROMBIN TIME 14.1 SEC (9.6-11.6)
--- NOTE | 2024-08-18 13:00 | NUR ---
CM NOTE/[facility] ACCEPTED notified Dr Esposito about [facility] approval. States patient is not medically ready to transfer. Per Becky with [facility]. [facility] auth expires on 08/23/24. Addendum: 08/18/24 at 2139 by FLACO REDD CM Amended: Links added.
--- NOTE | 2024-08-18 16:37 | PN ---
[facility] PROGRESS NOTE Date Patient Seen: Aug 18, 2024 Time of Visit: 16:34 Supervising Physician: LEWIS ULLOA MD Primary Care Physician: Odessa Holland MD Outpatient Specialists: Inpatient Consults: BIS PROBLEM LIST: Persistent Sepsis 2/2 left foot osteomyelitis with left foot abscess + Prevotella Bivia, ESBL S/P excisional debridement of bone 5th metatarsal left foot and ulcer of the left foot 08/10/24 Severe PVD S/P Fem pop bypass 08/[address] Vegas Leukocytosis Ketoacidosis 2/2 from Jardiance Acute metabolic acidosis 2/2 from above, resolved MDRO infection to left foot + Escheriachia coli ESBL Leukocytosis, POA Chronic anemia from chronic illness, POA Hyperglycemia in the presence of type 2 diabetes mellitus, POA CKD stage III, POA Glucosuria, POA Proteinuria POA INTERVAL HISTORY: 08/18 Mr. Kolb is seen and evaluated Clinical chart reviewed No fevers, no chills Pain is well controlled During evaluation, patient states that he does snore at night Currently, no cough, no congestion Pain level 4/10 No seizures REVIEW OF SYSTEMS: General: general malaise Neurological: No fainting episodes or seizures. HEENT: No nasal congestion or nasal secretion. Respiratory: No cough, shortness of breath, or wheezing Cardiac: No chest pain or palpitations. Gastrointestinal: No vomiting or diarrhea. Genitourinary: No dysuria hematuria. Skin: No rashes or lesions. Hematological: No bruises or bleeding. Musculoskeletal: Left lower extremity pain. Psychiatric: No depression or panic attacks. PHYSICAL EXAM: GENERAL: alert, weak, awake oriented x 3 HEENT: EOMI, Sclera non icteric, moist mucosa NECK: Supple, no JVD, trachea midline LUNGS: Diminished breath sounds bilaterally. No wheezes HEART: Regular rate and rhythm. Normal S1 and S2, without murmurs ABD: Abdomen soft, nontender. Bowel sounds present EXT: No clubbing cyanosis or edema, left .TMA dressing clean dry intact NEURO: Alert and oriented to person, follows commands Vital Signs (last 8hr) Date Time Temp Pulse Resp B/P (MAP) Pulse Ox O2 Delivery O2 Flow Rate FiO2 08/18/24 11:20 92 111/54 96 Nasal Cannula 2.0 08/18/24 11:20 94 111/60 93 Nasal Cannula 2.0 08/18/24 11:00 99.5 91 20 120/45 97 Nasal Cannula 2.0 08/18/24 10:20 96 120/72 97 Nasal Cannula 2.0 08/18/24 09:50 98 121/80 96 Nasal Cannula 2.0 08/18/24 09:20 91 131/69 96 Nasal Cannula 2.0 08/18/24 09:05 92 115/59 93 Room Air 08/18/24 08:50 96 109/59 95 Room Air 08/18/24 08:35 87 115/76 93 Room Air LABS: Hematology Labs: Test 08/18/24 03:54 Range/Units White Blood Count 17.1 H 4.8-10.8 K/uL Red Blood Count 2.88 L 4.50-6.20 MIL/uL Hemoglobin 7.5 L 14.0-18.0 g/dL Hematocrit 23.8 L 42-54 % Mean Corpuscular Volume 82.6 79-99 fL Mean Corpuscular Hemoglobin 26.0 L 27.0-33.0 pg Mean Corpuscular Hemoglobin Concent 31.5 L 32.0-36.0 g/dL Red Cell Distribution Width 15.6 H 11.0-15.5 % Platelet Count 295 130-400 K/uL Mean Platelet Volume 10.1 7.5-10.5 fL Immature Granulocyte % (Auto) 1.1 H 0-1 % Neutrophils (%) (Auto) 85.4 H 40.0-77.0 % Lymphocytes (%) (Auto) 4.8 L 21.0-51.0 % Monocytes (%) (Auto) 7.3 3.0-13.0 % Eosinophils (%) (Auto) 1.2 0.0-8.0 % Basophils (%) (Auto) 0.2 0.0-5.0 % Neutrophils # (Auto) 14.6 H 1.8-7.7 K/uL Lymphocytes # (Auto) 0.8 L 1.0-4.8 K/uL Monocytes # (Auto) 1.2 H 0.1-1.0 K/uL Eosinophils # (Auto) 0.20 0.00-0.70 K/uL Basophils # (Auto) 0.04 0.00-0.20 K/uL Absolute Immature Granulocyte (auto 0.18 0-1 K/uL Nucleated Red Blood Cells 0.0 0.0-0.19 % Chemistry Labs: Test 08/18/24 16:14 08/18/24 03:54 08/17/24 14:23 08/17/24 03:25 Range/Units Whole Blood Glucose 180 H 70-110 MG/DL Bedside Glucose Comment Notified Nurse Sodium Level 131 L 136-145 mmol/L Potassium Level 3.2 L 3.5-5.1 mmol/L Chloride Level 98 L 101-111 mmol/L Carbon Dioxide Level 26 21-32 mmol/L Blood Urea Nitrogen 25 H 7-18 mg/dL Creatinine 1.9 H 0.5-1.3 mg/dL Glomerular Filtration Rate Calc 38 >90 mL/min Random Glucose 109 H 70-105 mg/dL Total Calcium 7.1 L 8.5-10.1 mg/dL Total Bilirubin 0.5 0.2-1.0 mg/dL Aspartate Amino Transf (AST/SGOT) 35 10-37 U/L Alanine Aminotransferase (ALT/SGPT) 30 12-78 U/L Alkaline Phosphatase 237 H 50-136 U/L Total Protein 6.0 6.0-8.3 g/dL Albumin 1.3 L 3.5-5.0 g/dL Lactic Acid Level 1.6 0.8-2.5 mmol/L Procalcitonin 1.32 H 0.05-0.5 ng/mL Magnesium Level 1.50 L 1.80-2.40 mg/dL Coagulation Labs: Test 08/18/24 11:56 Range/Units Prothrombin Time 14.1 H 9.6-11.6 SEC Prothromb Time International Ratio 1.33 H 0.85-1.15 DIAGNOSTICS / RADIOLOGY RESULTS: [ None to review today ] PLAN continue wound care continue IV antibiotics as per I&D recommend outpatient sleep study for TOMÁS NEURO: Minimize central acting medications as possible. Maintain fall precautions, adequate lighting during the day PULMONARY: Supplemental 02 as needed. Maintain aspiration precautions at all times Maintain O2 sats above 92% CPAP at night p.r.n. CARDIOVASCULAR: Follow hemodynamics. Vital signs per facility protocol GI & NUTRITION: Continue with nutritional support. Continue stool softeners and laxatives as needed. Renal diet KIDNEYS & ELECTROLYTES: Strict monitoring of intake, output and overall fluid balance. Avoid nephrotoxic medications to the extent possible. Medications to be dosed according to renal function. Monitor electrolytes and replace as needed ENDOCRINE: Maintain blood glucose between 100-180 at all times. Hypoglycemia protocol in place INFECTIOUS DISEASE: Trend temperature, WBC and procalcitonin level Follow cultures, deescalate antibiotics as soon as possible. Panculture if new onset fever Continue antibiotics with vancomycin and meropenem per ID ONCOLOGY/HEMATOLOGY/COAGULATION: Monitor for s/s of bleeding Monitor hemoglobin, coagulation studies as needed SKIN: Pressure ulcer prevention per facility protocol Specialty mattress ORTHO/REHAB: Continue PT/OT Prophylaxis: Continue GI and DVT prophylaxis Protonix and heparin subQ Code Status: Full Resuscitation Disposition: TBD as per PCP ATTESTATION BY PHYSICIAN The clinical note was scribed by Timbo Lynn BSc on my behalf and I attest to the accuracy of the clinical note Lewis Ulloa MD I personally scribed for LEWIS ULLOA MD ([email or web address]) on 08/18/24 at 16:37. Electronically submitted by Timbo Lynn ([email or web address]). LEWIS ULLOA MD Aug 18, 2024 16:37
[2024-08-19] VITALS (8 sets, daily range): BP systolic 99–117; BP diastolic 48–68; PULSE 81–99; RESP 16–20; TEMP 97.9–100; O2SAT 94–95
--- NOTE | 2024-08-19 01:59 | PN ---
INFECTIOUS DISEASE FOLLOWUP NOTE DATE OF SERVICE: 08/18/2024 SUBJECTIVE: The patient is seen and examined at bedside today. The patient has no fever, no chills. No nausea, no vomiting, no abdominal pain. No cough, no shortness of breath. No palpitation or orthopnea. The patient underwent surgery today with debridement of the left foot abscess. No dysuria, no hematuria. PHYSICAL EXAMINATION: VITAL SIGNS: Temperature 99.5. EYES: No icterus. Pupils equal and reactive. HENT: No oral thrush seen. Moist oral mucosa. NECK: Supple, no JVD or thyromegaly. LUNGS: Good air entry. No rales, no rhonchi. CARDIOVASCULAR: S1, S2 regular. No murmur heard. ABDOMEN: Obese, soft, nontender. Bowel sounds present. CENTRAL NERVOUS SYSTEM: Awake, alert, oriented x 3. No focal deficits. SKIN: No rashes, no itchiness. LYMPHATIC: Left inguinal lymphadenopathy. BACK: No deformity, no pressure ulcer. MUSCULOSKELETAL: No joint swelling, erythema or tenderness. EXTREMITIES: Wound involving the lateral aspect of the left foot, status post incision and drainage. LABORATORY DATA: WBC 17.1, hemoglobin 7.5, platelet 245. Sodium 131, potassium 3.2. ASSESSMENT: A 64-year-old male admitted with fever and chills. CURRENT PROBLEMS: Include: * Left foot abscess, status post incision and drainage. * Left foot osteomyelitis. * Sepsis. * Polymicrobic infection. * Acute renal failure. * Hypertension. * Diabetes mellitus. * Obesity. * Anemia. PLAN: * Continue meropenem. * Continue Flagyl. * Continue vancomycin. * Continue pain management. * Continue DVT prophylaxis. * Continue antidiabetic. * Monitor electrolytes. * The patient will be followed up closely. TID: [id number] RECEIPT: [id number]
[2024-08-19 08:21] LABS: HEMATOCRIT 25.3 % (42-54); MEAN CORPUSCULAR HEMOGLOBIN 25.5 pg (27.0-33.0); MEAN CORPUSCULAR HGB CONC 31.6 g/dL (32.0-36.0); MEAN CORPUSCULAR VOLUME 80.6 fL (79-99); RED BLOOD CELL COUNT(AUTO) 3.14 MIL/uL (4.50-6.20); RED CELL DISTRIBUTION WIDTH 15.8 % (11.0-15.5)
[2024-08-19 08:36] LABS: ALBUMIN 1.4 g/dL (3.5-5.0); BILIRUBIN,TOTAL 0.7 mg/dL (0.2-1.0); CREATININE 1.9 mg/dL (0.5-1.3); MAGNESIUM 1.6 mg/dL (1.80-2.40); TOTAL PROTEIN, SERUM 6.6 g/dL (6.0-8.3)
--- NOTE | 2024-08-19 08:55 | PN ---
[facility] PROGRESS NOTE Date Patient Seen: Aug 19, 2024 Time of Visit: 08:53 Supervising Physician: Dr. Ferraro Primary Care Physician: Odessa Holland MD Outpatient Specialists: Inpatient Consults: JD PROBLEM LIST: Persistent Sepsis 2/2 left foot osteomyelitis with left foot abscess + Prevotella Bivia, ESBL S/P excisional debridement of bone 5th metatarsal left foot and ulcer of the left foot 08/10/24 Severe PVD S/P Fem pop bypass 08/[address] Vegas Leukocytosis Ketoacidosis 2/2 from Jardiance Acute metabolic acidosis 2/2 from above, resolved MDRO infection to left foot + Escheriachia coli ESBL Leukocytosis, POA Chronic anemia from chronic illness, POA Hyperglycemia in the presence of type 2 diabetes mellitus, POA CKD stage III, POA Glucosuria, POA Proteinuria POA INTERVAL HISTORY: 08/19 patient is awake alert and oriented x3. Patient is status post I&D yesterday to the left ankle. Vital signs with T-max of 101.5 yesterday. Heart rate is 95 blood pressure 109/48 he is on room air sat 94%. Lab this morning with WBC of 15 down from 17 hemoglobin is 8.0. Chemistry sodium is 129 this is down from 131 yesterday. potassium is 4.0 bicarb is 25. Glucose 138. His albumin is 1.4 we will add protein supplementation. Continue with dairy farmer and vascular surgery recommendations. Antibiotic per ID. REVIEW OF SYSTEMS: General: general malaise Neurological: No fainting episodes or seizures. HEENT: No nasal congestion or nasal secretion. Respiratory: No cough, shortness of breath, or wheezing Cardiac: No chest pain or palpitations. Gastrointestinal: No vomiting or diarrhea. Genitourinary: No dysuria hematuria. Skin: No rashes or lesions. Hematological: No bruises or bleeding. Musculoskeletal: Left lower extremity pain. Psychiatric: No depression or panic attacks. PHYSICAL EXAM: GENERAL: alert, weak, awake oriented x 3 HEENT: EOMI, Sclera non icteric, moist mucosa NECK: Supple, no JVD, trachea midline LUNGS: Diminished breath sounds bilaterally. No wheezes HEART: Regular rate and rhythm. Normal S1 and S2, without murmurs ABD: Abdomen soft, nontender. Bowel sounds present EXT: No clubbing cyanosis or edema, left .TMA dressing clean dry intact NEURO: Alert and oriented to person, follows commands Vital Signs (last 8hr) Date Time Temp Pulse Resp B/P (MAP) Pulse Ox O2 Delivery O2 Flow Rate FiO2 08/19/24 07:39 98.1 95 16 109/48 94 Room Air 08/19/24 04:00 100.0 99 18 99/57 92 Room Air LABS: Hematology Labs: Test 08/19/24 08:12 08/18/24 03:54 Range/Units White Blood Count 15.0 H 4.8-10.8 K/uL Red Blood Count 3.14 L 4.50-6.20 MIL/uL Hemoglobin 8.0 L 14.0-18.0 g/dL Hematocrit 25.3 L 42-54 % Mean Corpuscular Volume 80.6 79-99 fL Mean Corpuscular Hemoglobin 25.5 L 27.0-33.0 pg Mean Corpuscular Hemoglobin Concent 31.6 L 32.0-36.0 g/dL Red Cell Distribution Width 15.8 H 11.0-15.5 % Platelet Count 366 130-400 K/uL Mean Platelet Volume 10.1 7.5-10.5 fL Nucleated Red Blood Cells 0.0 0.0-0.19 % Immature Granulocyte % (Auto) 1.1 H 0-1 % Neutrophils (%) (Auto) 85.4 H 40.0-77.0 % Lymphocytes (%) (Auto) 4.8 L 21.0-51.0 % Monocytes (%) (Auto) 7.3 3.0-13.0 % Eosinophils (%) (Auto) 1.2 0.0-8.0 % Basophils (%) (Auto) 0.2 0.0-5.0 % Neutrophils # (Auto) 14.6 H 1.8-7.7 K/uL Lymphocytes # (Auto) 0.8 L 1.0-4.8 K/uL Monocytes # (Auto) 1.2 H 0.1-1.0 K/uL Eosinophils # (Auto) 0.20 0.00-0.70 K/uL Basophils # (Auto) 0.04 0.00-0.20 K/uL Absolute Immature Granulocyte (auto 0.18 0-1 K/uL Chemistry Labs: Test 08/19/24 08:12 08/19/24 05:18 08/18/24 16:14 08/17/24 14:23 Range/Units Sodium Level 129 L 136-145 mmol/L Potassium Level 4.0 3.5-5.1 mmol/L Chloride Level 97 L 101-111 mmol/L Carbon Dioxide Level 25 21-32 mmol/L Blood Urea Nitrogen 23 H 7-18 mg/dL Creatinine 1.9 H 0.5-1.3 mg/dL Glomerular Filtration Rate Calc 38 >90 mL/min Random Glucose 138 H 70-105 mg/dL Total Calcium 7.5 L 8.5-10.1 mg/dL Magnesium Level 1.60 L 1.80-2.40 mg/dL Total Bilirubin 0.7 0.2-1.0 mg/dL Aspartate Amino Transf (AST/SGOT) 25 10-37 U/L Alanine Aminotransferase (ALT/SGPT) 22 12-78 U/L Alkaline Phosphatase 238 H 50-136 U/L Total Protein 6.6 6.0-8.3 g/dL Albumin 1.4 L 3.5-5.0 g/dL Whole Blood Glucose 136 H 70-110 MG/DL Bedside Glucose Comment Notified Nurse Lactic Acid Level 1.6 0.8-2.5 mmol/L Procalcitonin 1.32 H 0.05-0.5 ng/mL Coagulation Labs: Test 08/18/24 11:56 Range/Units Prothrombin Time 14.1 H 9.6-11.6 SEC Prothromb Time International Ratio 1.33 H 0.85-1.15 DIAGNOSTICS / RADIOLOGY RESULTS: [ ] PLAN continue wound care continue IV antibiotics as per I&D recommend outpatient sleep study for TOMÁS NEURO: Minimize central acting medications as possible. Maintain fall precautions, adequate lighting during the day PULMONARY: Supplemental 02 as needed. Maintain aspiration precautions at all times Maintain O2 sats above 92% CPAP at night p.r.n. CARDIOVASCULAR: Follow hemodynamics. Vital signs per facility protocol GI & NUTRITION: Continue with nutritional support. Continue stool softeners and laxatives as needed. Renal diet KIDNEYS & ELECTROLYTES: Strict monitoring of intake, output and overall fluid balance. Avoid nephrotoxic medications to the extent possible. Medications to be dosed according to renal function. Monitor electrolytes and replace as needed ENDOCRINE: Maintain blood glucose between 100-180 at all times. Hypoglycemia protocol in place INFECTIOUS DISEASE: Trend temperature, WBC and procalcitonin level Follow carlos guzmancalate antibiotics as soon as possible. Panculture if new onset fever Continue antibiotics with vancomycin and meropenem per ID ONCOLOGY/HEMATOLOGY/COAGULATION: Monitor for s/s of bleeding Monitor hemoglobin, coagulation studies as needed SKIN: Pressure ulcer prevention per facility protocol Specialty mattress ORTHO/REHAB: Continue PT/OT Prophylaxis: Continue GI and DVT prophylaxis Protonix and heparin subQ Code Status: Full Resuscitation Disposition: TBD as per PCP ATTESTATION BY PHYSICIAN The clinical note was scribed by Timbo Lynn BSc on my behalf and I attest to the accuracy of the clinical note Uri Ulloa MD, [facility] Aug 19, 2024 08:55
[2024-08-19 09:26] LABS: INR 1.33 (0.85-1.15); PROTHROMBIN TIME 14.1 SEC (9.6-11.6)
[2024-08-19 09:27] LABS: PARTIAL THROMBOPLASTIN TIME 44.4 SEC (26.3-35.5)
--- NOTE | 2024-08-19 12:29 | HMCIMG ---
PORTABLE CHEST RADIOGRAPH INDICATION: PICC LINE PLACEMENT COMPARISON: 08/15/2024 CT chest FINDINGS: Tip of right PICC within the SVC. Heart size is normal. The pulmonary vascularity and sriram appear normal. Minimal bilateral pleural effusions with subjacent passive atelectasis better visualized on the recent CT chest imaging. No pneumothorax detected. IMPRESSION: Tip of right PICC within the SVC. Minimal bilateral pleural effusions with subjacent passive atelectasis better visualized on the recent CT chest imaging.
--- NOTE | 2024-08-19 16:01 | PN ---
NEPHROLOGY FOLLOWUP SUBJECTIVE: The patient offers no new complaints. OBJECTIVE: GENERAL: The patient is not in acute distress. VITAL SIGNS: Blood pressure is 117/61, respirations 16, pulse 98, temperature 97.9. LUNGS: Clear to auscultation and inspection. HEART: Normal cardiac sound. ABDOMEN: Soft, nondistended. EXTREMITIES: No edema. LABORATORY DATA: WBC count 15.0, hemoglobin 8.8. Sodium 129, potassium 4.4, creatinine 1.9. ASSESSMENT: 1. Acute kidney injury with improving kidney function. Serum creatinine has settled at 1.9 mg/dL. 2. Diabetes mellitus type 2. 3. Hypertension with renal manifestations. 4. Hyponatremia. He is recommended to decrease fluid intake. PLAN: Continue present plan of care. Other plans as per Infectious Diseases. We will continue monitoring the patient's renal function and electrolytes on and off. Final disposition as per admitting physician. TID: [id number] RECEIPT: [id number]
[2024-08-19] MEDS: morPHINE 2 MG SYG IVP PRN (18:04)
--- NOTE | 2024-08-19 19:04 | PN ---
INFECTIOUS DISEASE PROGRESS NOTE Date of Service: Aug 19, 2024 SUBJECTIVE: This is a 64 year old male patient who was seen and examined at bedside in room 228. Patient is awake, alert and oriented x 3. Patient is status post a left gxedevi-gf-zhcejgojb artery bypass on 08/14/2024 . Patient continues on vancomycin, meropenem and metronidazole. Will continue to follow patient's care. PHYSICAL EXAM EYES: Anicteric. Pupils equal and reactive. HENT: No oral thrush seen, moist Oral mucosa. NECK: Supple, no JVD or thyromegaly. LUNGS: Good air entry. No rales, no rhonchi. on o2 via nasal canula. CARDIOVASCULAR: S1, S2 regular. No murmur heard. ABDOMEN: Soft, non tender, bowel sounds present, no organomegaly. CENTRAL NERVOUS SYSTEM: Awake, alert, oriented x 3. SKIN: No rashes, no swelling. LYMPHATICS: No peripheral lymphadenopathy. MUSCULOSKELETAL: No joint swelling, erythema or tenderness. EXTREMITIES: No cyanosis or clubbing. Left foot diabetic ulcer with osteomyelitis, status post excisional debridement. BACK: No deformity, no pressure ulcer. GENITOURINARY: No dysuria or hematuria. Vital Sign (Last 12 Hours) 08/19/24 08/19/24 08/19/24 08/19/24 07:39 08:00 12:07 16:12 Temp 98.1 97.9 98.2 Pulse 95 98 97 Resp 16 B/P (MAP) 109/48 117/61 112/54 Pulse Ox 94 95 95 95 O2 Delivery Room Air Room Air* Room Air Room Air O2 Flow Rate 0 FiO2 21 Intake & Output (last 24hrs) 08/18/24 08/18/24 08/19/24 15:00 23:00 07:00 Intake Total 100.0 ml 100.0 ml 120 ml Output Total 850 ml 450 ml Balance 100.0 ml -750.0 ml -330 ml LABS: Laboratory: Test 08/19/24 15:14 08/19/24 08:12 08/18/24 16:14 08/18/24 03:54 Range/Units Whole Blood Glucose 162 H 70-110 MG/DL White Blood Count 15.0 H 4.8-10.8 K/uL Red Blood Count 3.14 L 4.50-6.20 MIL/uL Hemoglobin 8.0 L 14.0-18.0 g/dL Hematocrit 25.3 L 42-54 % Mean Corpuscular Volume 80.6 79-99 fL Mean Corpuscular Hemoglobin 25.5 L 27.0-33.0 pg Mean Corpuscular Hemoglobin Concent 31.6 L 32.0-36.0 g/dL Red Cell Distribution Width 15.8 H 11.0-15.5 % Platelet Count 366 130-400 K/uL Mean Platelet Volume 10.1 7.5-10.5 fL Nucleated Red Blood Cells 0.0 0.0-0.19 % Prothrombin Time 14.1 H 9.6-11.6 SEC Prothromb Time International Ratio 1.33 H 0.85-1.15 Activated Partial Thromboplast Time 44.4 H 26.3-35.5 SEC Sodium Level 129 L 136-145 mmol/L Potassium Level 4.0 3.5-5.1 mmol/L Chloride Level 97 L 101-111 mmol/L Carbon Dioxide Level 25 21-32 mmol/L Blood Urea Nitrogen 23 H 7-18 mg/dL Creatinine 1.9 H 0.5-1.3 mg/dL Glomerular Filtration Rate Calc 38 >90 mL/min Random Glucose 138 H 70-105 mg/dL Total Calcium 7.5 L 8.5-10.1 mg/dL Magnesium Level 1.60 L 1.80-2.40 mg/dL Total Bilirubin 0.7 0.2-1.0 mg/dL Aspartate Amino Transf (AST/SGOT) 25 10-37 U/L Alanine Aminotransferase (ALT/SGPT) 22 12-78 U/L Alkaline Phosphatase 238 H 50-136 U/L Total Protein 6.6 6.0-8.3 g/dL Albumin 1.4 L 3.5-5.0 g/dL Bedside Glucose Comment Notified Nurse Immature Granulocyte % (Auto) 1.1 H 0-1 % Neutrophils (%) (Auto) 85.4 H 40.0-77.0 % Lymphocytes (%) (Auto) 4.8 L 21.0-51.0 % Monocytes (%) (Auto) 7.3 3.0-13.0 % Eosinophils (%) (Auto) 1.2 0.0-8.0 % Basophils (%) (Auto) 0.2 0.0-5.0 % Neutrophils # (Auto) 14.6 H 1.8-7.7 K/uL Lymphocytes # (Auto) 0.8 L 1.0-4.8 K/uL Monocytes # (Auto) 1.2 H 0.1-1.0 K/uL Eosinophils # (Auto) 0.20 0.00-0.70 K/uL Basophils # (Auto) 0.04 0.00-0.20 K/uL Absolute Immature Granulocyte (auto 0.18 0-1 K/uL Test 08/17/24 22:45 Range/Units Vancomycin Level Trough 17.5 10.0-20.0 UG/ML ASSESSMENT: Left foot osteomyelitis. Left foot diabetic ulcer with abscess, status post Excisional debridement of the 5th metatarsal bone and ulcer of the left foot on 08/10/2024. Left lower extremity arterial occlusive disease, S/P left ivfutpb-dc-[id number] artery bypass on 07/14/2024. Left foot with E coli infection and Prevotella Bivia. Infection with multidrug resistant organism. Sepsis. Leukocytosis. Diabetes mellitus. Acute on chronic renal failure. Severe Hiccups. PLAN: Give Thorazine 25 mg IV x1 dose Continue meropenem IV. Continue on vancomycin per pharmacy protocol. Continue metronidazole. Continue pain management. Continue wound care as recommended by yield loss inspector. Glucometer checks a.c./hs and cover with insulin per sliding scale protocol.. We will monitor electrolytes. Case management working on placement to LTAC. Patient needs a left BKA. This case was reviewed and discussed with my supervising physician and the above assessment and plan was formulated and agreed upon. ATTESTATION BY PHYSICIAN I have seen and examined the patient. I reviewed the documentation, medical decision making, and treatment plan as noted by the mid-level provider above. I agree with the findings and plan of care. PANCHITO LOZANO MD, [facility] Aug 19, 2024 19:04
--- NOTE | 2024-08-19 19:19 | PN ---
SUBJECTIVE: The patient is postop day #5 from a left femoral to popliteal artery bypass grafting. Yesterday, the patient underwent I and D of his left transmetatarsal amputation site. The patient has been doing well and offers no complaints. OBJECTIVE: GENERAL: Sitting up at the edge of the bed, in no apparent distress. He is accompanied in room by his . HEENT: Reveals normocephalic, atraumatic. Extraocular movements intact. HEART: S1, S2 and regular. LUNGS: Unlabored at rest, off of oxygen. ABDOMEN: Reveals mild to moderate obesity with positive bowel sounds. EXTREMITIES: His left lower extremity reveals a Kerlix wrap around his left transmetatarsal amputation. His left lower extremity is warm and well perfused. ASSESSMENT AND PLAN: * Status post left femoral to popliteal artery bypass grafting. Continue aspirin and nonweightbearing ambulation. Plan IV antibiotics and LTAC due to osteomyelitis of the foot. * Hypercholesterolemia. Lipitor at bedtime. Low cholesterol, cardiac diet. * Deep venous thrombosis prophylaxis. Continue heparin subcutaneous twice a day. TID: [id number] RECEIPT: [id number]
[2024-08-20 00:55] VITALS: BP 92/64; PULSE 99; RESP 18; TEMP 100.1
[2024-08-20 04:23] LABS: CREATININE 1.9 mg/dL (0.5-1.3)
[2024-08-20 04:34] LABS: BASOPHILS # (AUTO) 0.02 K/uL (0.00-0.20); BASOPHILS % (AUTO) 0.2 % (0.0-5.0); EOSINOPHILS # (AUTO) 0.12 K/uL (0.00-0.70); EOSINOPHILS % (AUTO) 0.9 % (0.0-8.0); HEMATOCRIT 22.7 % (42-54); LYMPHOCYTES # (AUTO) 0.7 K/uL (1.0-4.8); LYMPHOCYTES % (AUTO) 5.2 % (21.0-51.0); MEAN CORPUSCULAR HGB CONC 31.3 g/dL (32.0-36.0); MEAN CORPUSCULAR VOLUME 83.2 fL (79-99); MONOCYTES # (AUTO) 0.9 K/uL (0.1-1.0); MONOCYTES % (AUTO) 6.7 % (3.0-13.0); NEUTROPHILS % (AUTO) 86.2 % (40.0-77.0); PLATELET COUNT (AUTO) 313 K/uL (130-400); RED BLOOD CELL COUNT(AUTO) 2.73 MIL/uL (4.50-6.20); RED CELL DISTRIBUTION WIDTH 15.9 % (11.0-15.5); WHITE BLOOD COUNT (AUTO) 12.8 K/uL (4.8-10.8)
[2024-08-20 04:35] VITALS: BP 107/56; PULSE 94; RESP 18; TEMP 99.4
[2024-08-20 08:00] VITALS: O2SAT 96
[2024-08-20 08:01] VITALS: BP 111/59; PULSE 84; RESP 20; TEMP 98.2
--- NOTE | 2024-08-20 08:52 | PN ---
[facility] PROGRESS NOTE Date Patient Seen: Aug 20, 2024 Time of Visit: 08:49 Supervising Physician: Dr. Ferraro Primary Care Physician: Odessa Holland MD Outpatient Specialists: Inpatient Consults: JD PROBLEM LIST: Persistent Sepsis 2/2 left foot osteomyelitis with left foot abscess + Prevotella Bivia, ESBL S/P excisional debridement of bone 5th metatarsal left foot and ulcer of the left foot 08/10/24 Severe PVD S/P Fem pop bypass 08/[address] Vegas Leukocytosis Ketoacidosis 2/2 from Jardiance Acute metabolic acidosis 2/2 from above, resolved MDRO infection to left foot + [place] coli ESBL Leukocytosis, POA Chronic anemia from chronic illness, POA Hyperglycemia in the presence of type 2 diabetes mellitus, POA CKD stage III, POA Glucosuria, POA Proteinuria POA INTERVAL HISTORY: 08/19 patient is awake alert and oriented x3. Patient is status post I&D yesterday to the left ankle. Vital signs with T-max of 101.5 yesterday. Heart rate is 95 blood pressure 109/48 he is on room air sat 94%. Lab this morning with WBC of 15 down from 17 hemoglobin is 8.0. Chemistry sodium is 129 this is down from 131 yesterday. potassium is 4.0 bicarb is 25. Glucose 138. His albumin is 1.4 we will add protein supplementation. Continue with bus girl and vascular surgery recommendations. Antibiotic per ID. 08/20 the patient is awake alert oriented x3 no acute event overnight. Vital signs patient remains with the low-grade fever 100.0 T-max last night. Blood pressure 111/59 heart rate is 84. He remains room air saturation 96%. Respiratory rate is only 20. Otherwise he has put out 1.9 L of urine output with -780 cc balance. Weight is up to 102.5 kg. This morning with the chemistry sodium 133 potassium is 4.0 bicarb is 28 creatinine is 1.9 this is similar to yesterday this is likely his baseline. Glucose 137. Continue with insulin sliding scale. His WBC is 12 down from 15, hemoglobin is stable at 7.1 platelet count is 300. We will continue current antibiotic for osteomyelitis continue with wound care. Left BKA is considered. Pad Extractor Tender following. Patient has been approved to [email or web address]. From pulmonary/ critical standpoint he is okay to transfer. REVIEW OF SYSTEMS: General: general malaise Neurological: No fainting episodes or seizures. HEENT: No nasal congestion or nasal secretion. Respiratory: No cough, shortness of breath, or wheezing Cardiac: No chest pain or palpitations. Gastrointestinal: No vomiting or diarrhea. Genitourinary: No dysuria hematuria. Skin: No rashes or lesions. Hematological: No bruises or bleeding. Musculoskeletal: Left lower extremity pain. Psychiatric: No depression or panic attacks. PHYSICAL EXAM: GENERAL: alert, weak, awake oriented x 3 HEENT: EOMI, Sclera non icteric, moist mucosa NECK: Supple, no JVD, trachea midline LUNGS: Diminished breath sounds bilaterally. No wheezes HEART: Regular rate and rhythm. Normal S1 and S2, without murmurs ABD: Abdomen soft, nontender. Bowel sounds present EXT: No clubbing cyanosis or edema, left .TMA dressing clean dry intact NEURO: Alert and oriented to person, follows commands Vital Signs (last 8hr) Date Time Temp Pulse Resp B/P (MAP) Pulse Ox O2 Delivery O2 Flow Rate FiO2 08/20/24 08:01 98.2 84 20 111/59 96 Room Air 08/20/24 04:35 99.3 94 18 107/56 95 Room Air 08/20/24 00:55 100.0 99 18 92/64 94 Nasal Cannula LABS: Hematology Labs: Test 08/20/24 03:35 Range/Units White Blood Count 12.8 H 4.8-10.8 K/uL Red Blood Count 2.73 L 4.50-6.20 MIL/uL Hemoglobin 7.1 L 14.0-18.0 g/dL Hematocrit 22.7 L 42-54 % Mean Corpuscular Volume 83.2 79-99 fL Mean Corpuscular Hemoglobin 26.0 L 27.0-33.0 pg Mean Corpuscular Hemoglobin Concent 31.3 L 32.0-36.0 g/dL Red Cell Distribution Width 15.9 H 11.0-15.5 % Platelet Count 313 130-400 K/uL Mean Platelet Volume 10.5 7.5-10.5 fL Immature Granulocyte % (Auto) 0.8 0-1 % Neutrophils (%) (Auto) 86.2 H 40.0-77.0 % Lymphocytes (%) (Auto) 5.2 L 21.0-51.0 % Monocytes (%) (Auto) 6.7 3.0-13.0 % Eosinophils (%) (Auto) 0.9 0.0-8.0 % Basophils (%) (Auto) 0.2 0.0-5.0 % Neutrophils # (Auto) 11.0 H 1.8-7.7 K/uL Lymphocytes # (Auto) 0.7 L 1.0-4.8 K/uL Monocytes # (Auto) 0.9 0.1-1.0 K/uL Eosinophils # (Auto) 0.12 0.00-0.70 K/uL Basophils # (Auto) 0.02 0.00-0.20 K/uL Absolute Immature Granulocyte (auto 0.10 0-1 K/uL Nucleated Red Blood Cells 0.0 0.0-0.19 % White Cell Morphology Comment See comments Chemistry Labs: Test 08/20/24 05:50 08/20/24 03:35 08/19/24 08:12 08/18/24 16:14 Range/Units Whole Blood Glucose 128 H 70-110 MG/DL Sodium Level 133 L 136-145 mmol/L Potassium Level 4.0 3.5-5.1 mmol/L Chloride Level 99 L 101-111 mmol/L Carbon Dioxide Level 28 21-32 mmol/L Blood Urea Nitrogen 20 H 7-18 mg/dL Creatinine 1.9 H 0.5-1.3 mg/dL Glomerular Filtration Rate Calc 38 >90 mL/min Random Glucose 137 H 70-105 mg/dL Total Calcium 7.3 L 8.5-10.1 mg/dL Magnesium Level 1.60 L 1.80-2.40 mg/dL Total Bilirubin 0.7 0.2-1.0 mg/dL Aspartate Amino Transf (AST/SGOT) 25 10-37 U/L Alanine Aminotransferase (ALT/SGPT) 22 12-78 U/L Alkaline Phosphatase 238 H 50-136 U/L Total Protein 6.6 6.0-8.3 g/dL Albumin 1.4 L 3.5-5.0 g/dL Bedside Glucose Comment Notified Nurse Coagulation Labs: Test 08/19/24 08:12 Range/Units Prothrombin Time 14.1 H 9.6-11.6 SEC Prothromb Time International Ratio 1.33 H 0.85-1.15 Activated Partial Thromboplast Time 44.4 H 26.3-35.5 SEC DIAGNOSTICS / RADIOLOGY RESULTS: [ ] PLAN continue wound care continue IV antibiotics as per I&D recommend outpatient sleep study for TOMÁS NEURO: Minimize central acting medications as possible. Maintain fall precautions, adequate lighting during the day PULMONARY: Supplemental 02 as needed. Maintain aspiration precautions at all times Maintain O2 sats above 92% CPAP at night p.r.n. CARDIOVASCULAR: Follow hemodynamics. Vital signs per facility protocol GI & NUTRITION: Continue with nutritional support. Continue stool softeners and laxatives as needed. Renal diet KIDNEYS & ELECTROLYTES: Strict monitoring of intake, output and overall fluid balance. Avoid nephrotoxic medications to the extent possible. Medications to be dosed according to renal function. Monitor electrolytes and replace as needed ENDOCRINE: Maintain blood glucose between 100-180 at all times. Hypoglycemia protocol in place INFECTIOUS DISEASE: Trend temperature, WBC and procalcitonin level Follow cultures, deescalate antibiotics as soon as possible. Panculture if new onset fever Continue antibiotics with vancomycin and meropenem per ID ONCOLOGY/HEMATOLOGY/COAGULATION: Monitor for s/s of bleeding Monitor hemoglobin, coagulation studies as needed SKIN: Pressure ulcer prevention per facility protocol Specialty mattress ORTHO/REHAB: Continue PT/OT Prophylaxis: Continue GI and DVT prophylaxis Protonix and heparin subQ Code Status: Full Resuscitation Disposition: TBD as per PCP Time spent: 35 minutes ADELA HUERTA CNP Aug 20, 2024 08:52
--- NOTE | 2024-08-20 09:40 | PN ---
PROGRESS NOTE Date of Service: Aug 20, 2024 Time of Service: 09:38 SUBJECTIVE: Patient was seen and status post incision and drainage abscess of the ankle left and debridement of the wound on the left patient afebrile improving at this time white count trending down decreased edema and decreased erythema and decreased drainage on the wound. Plan is for discharge patient to [facility] long-term antibiotic and wound care. REVIEW OF SYSTEMS CONSTITUTIONAL: Denies fever, chills, or fatigue. HEAD/FACE: No signs of trauma. EENT: Denies eye pain, blurred vision, double vision, or light sensitivity. RESPIRATORY: Denies shortness of breath, cough, wheezing CARDIOVASCULAR: Denies chest pain, palpitation, syncope underlying peripheral vascular disease. GASTROINTESTINAL/ABDOMINAL: Denies abdominal pain, constipation, diarrhea, nausea or vomiting GENITOURINARY: Denies dysuria or hematuria. MUSCULOSKELETAL: Denies joint pain, tenderness, or trauma. Osteomyelitis of the 5th metatarsal lateral foot left. INTEGUMENTARY: Ulceration lateral aspect plantar foot left. Cellulitis of the foot and ankle NEUROLOGICAL/PSYCH: Denies anxiety, depression, heat or cold intolerance. PHYSICAL EXAM EYES: Anicteric. Pupils equal and reactive. HENT: No oral thrush seen, moist Oral mucosa NECK: Supple, no JVD or thyromegaly. LUNGS: Good air entry. No rales, no rhonchi. CARDIOVASCULAR: S1, S2 regular. No murmur heard. Peripheral vascular disease bilateral lower extremity nonpalpable pulses by hand. ABDOMEN: Soft, non tender, bowel sounds present, no organomegaly CENTRAL NERVOUS SYSTEM: Awake, alert, oriented x 3. No focal deficits. SKIN: No rashes, no swelling. Ulceration to the plantar lateral aspect of the left foot. Cellulitis decreased edema decreased erythema ankle medial and lateral. LYMPHATICS: No peripheral lymphadenopathy MUSCULOSKELETAL: No joint swelling, erythema or tenderness. Status post 5th metatarsus exostectomy EXTREMITIES: No cyanosis or clubbing BACK: No deformity, no pressure ulcer. GENITOURINARY: No dysuria or hematuria Vital Signs (last 8hr) Date Time Temp Pulse Resp B/P (MAP) Pulse Ox O2 Delivery O2 Flow Rate FiO2 08/20/24 08:01 98.2 84 20 111/59 96 Room Air 08/20/24 04:35 99.3 94 18 107/56 95 Room Air LABS: Laboratory: Test 08/20/24 05:50 08/20/24 03:35 08/19/24 08:12 08/18/24 16:14 Range/Units Whole Blood Glucose 128 H 70-110 MG/DL White Blood Count 12.8 H 4.8-10.8 K/uL Red Blood Count 2.73 L 4.50-6.20 MIL/uL Hemoglobin 7.1 L 14.0-18.0 g/dL Hematocrit 22.7 L 42-54 % Mean Corpuscular Volume 83.2 79-99 fL Mean Corpuscular Hemoglobin 26.0 L 27.0-33.0 pg Mean Corpuscular Hemoglobin Concent 31.3 L 32.0-36.0 g/dL Red Cell Distribution Width 15.9 H 11.0-15.5 % Platelet Count 313 130-400 K/uL Mean Platelet Volume 10.5 7.5-10.5 fL Immature Granulocyte % (Auto) 0.8 0-1 % Neutrophils (%) (Auto) 86.2 H 40.0-77.0 % Lymphocytes (%) (Auto) 5.2 L 21.0-51.0 % Monocytes (%) (Auto) 6.7 3.0-13.0 % Eosinophils (%) (Auto) 0.9 0.0-8.0 % Basophils (%) (Auto) 0.2 0.0-5.0 % Neutrophils # (Auto) 11.0 H 1.8-7.7 K/uL Lymphocytes # (Auto) 0.7 L 1.0-4.8 K/uL Monocytes # (Auto) 0.9 0.1-1.0 K/uL Eosinophils # (Auto) 0.12 0.00-0.70 K/uL Basophils # (Auto) 0.02 0.00-0.20 K/uL Absolute Immature Granulocyte (auto 0.10 0-1 K/uL Nucleated Red Blood Cells 0.0 0.0-0.19 % White Cell Morphology Comment See comments Sodium Level 133 L 136-145 mmol/L Potassium Level 4.0 3.5-5.1 mmol/L Chloride Level 99 L 101-111 mmol/L Carbon Dioxide Level 28 21-32 mmol/L Blood Urea Nitrogen 20 H 7-18 mg/dL Creatinine 1.9 H 0.5-1.3 mg/dL Glomerular Filtration Rate Calc 38 >90 mL/min Random Glucose 137 H 70-105 mg/dL Total Calcium 7.3 L 8.5-10.1 mg/dL Prothrombin Time 14.1 H 9.6-11.6 SEC Prothromb Time International Ratio 1.33 H 0.85-1.15 Activated Partial Thromboplast Time 44.4 H 26.3-35.5 SEC Magnesium Level 1.60 L 1.80-2.40 mg/dL Total Bilirubin 0.7 0.2-1.0 mg/dL Aspartate Amino Transf (AST/SGOT) 25 10-37 U/L Alanine Aminotransferase (ALT/SGPT) 22 12-78 U/L Alkaline Phosphatase 238 H 50-136 U/L Total Protein 6.6 6.0-8.3 g/dL Albumin 1.4 L 3.5-5.0 g/dL Bedside Glucose Comment Notified Nurse DIAGNOSTICS / RADIOLOGY: PORTABLE CHEST RADIOGRAPH INDICATION: fever COMPARISON: 06/22/2024 FINDINGS: multifocal lens assembler leads overlie the field of view. Heart size is normal. The pulmonary vascularity and sriram appear normal. No abnormal pulmonary parenchymal opacity or consolidation identified. No significant pleural effusion noted. No pneumothorax detected. IMPRESSION: No radiographic evidence for any acute cardiopulmonary process. FOOT COMP 3+VWS LT REASON: Ulcer infection left TECHNIQUE: 3 views were obtained. FINDINGS: There is been a midfoot amputation. There is marked soft tissue swelling in the stump. There is lytic destruction of the lateral aspect of the lateral cuneiform consistent with associated osteomyelitis. There are some gas bubbles in the soft tissues which may be gas forming infection. IMPRESSION: 1. Findings consistent with osteomyelitis and probable gas forming infection. Assessment: Acute kidney injury on chronic kidney disease stage IIIB. There is some improvement on kidney function basically at baseline kidney function. Has settled Cr between 1.8-2.0 Hypertension with renal manifestation. Diabetes mellitus type 2 with nephropathy. Hyponatremia. ATN Acute tubular necrosis. The etiology of acute kidney injury due to osteomyelitis on the fifth metatarsal on the left foot, status post amputation of the same toe. Osteomyelitis on the fifth metatarsal, left foot, status post removal of amputation of that toe. Diabetic foot infection. Abscess of left foot and ankle PLAN: Continue IV antibiotics continue local wound care wet-to-dry dressing with saline solution on a daily basis. With wound packing. Rest elevation or ambulation and follow up as an outpatient. Patient to be admitted to [facility] at this point. BETTY QUINTEROS DPM Aug 20, 2024 09:40
--- NOTE | 2024-08-20 11:41 | DS ---
Discharge Summary Hospital Course This is A 64-year-old male with history of morbid obesity, hypertension, and diabetes mellitus, who presented to the Emergency Room with the above complaint. The patient claims he has been having fever and chills at home. T-max in the ER was 102.6 and a WBC of 14.6. Complained of some nausea and vomiting. The pat ient noticed left foot ulcer with purulent drainage. Patient stated that the wound is being managed by Dr. Darshan Long at the wound center. Influenza and COVID antigen came back negative. Denied dysuria or urinary frequency. An MRI of the left foot showed acute osteomyelitis involving the residual fifth metatarsal bone as described and fluid collection. On 08/10/2024 patient was taken for an excisional debridement of bone 5th metatarsal left foot and ulcer of the left foot. Wound cultures of the left foot came back positive for ESBL, E-coli and prevotella Bivia. On 08/14/2024 patient was taken for a left femoral to popliteal artery bypass by Dr. Vegas. Patient however continue with elevated Fevers and WBC. An a left foot x-ray done on 08/17/2024 showed findings consistent with osteomyelitis and gas-forming infection. On 08/18/2024 patient underwent an incision and drainage of the left ankle abscess. The WBC has trended down to a 12.8 and the last low-grade fever reported was at midnight last night of 100.0. Patient was referred to [facility] and has been approved. Patient will be discharged to [facility] today. Medication reconciliation completed. FINAL DISCHARGE DIAGNOSIS: Left foot osteomyelitis. Left foot diabetic ulcer with abscess, status post Excisional debridement of the 5th metatarsal bone and ulcer of the left foot on 08/10/2024. Left lower extremity arterial occlusive disease, S/P left vwzfvpp-ct-hyjjwjgzj artery bypass on 07/14/2024. Left foot with E coli infection and Prevotella Bivia. Infection with multidrug resistant organism. Sepsis. Leukocytosis. Diabetes mellitus. Acute on chronic renal failure. Severe Hiccups. PLAN: Discharged to [facility] today. Refer to medication reconciliation. This case was reviewed and discussed with my supervising physician and the above assessment and plan was formulated and agreed upon. ATTESTATION BY PHYSICIAN I have seen and examined the patient. I reviewed the documentation, medical decision making, and treatment plan as noted by the mid-level provider above. I agree with the findings and plan of care. PANCHITO LOZANO MD, [facility]IRTA [facility] Aug 20, 2024 11:41
--- NOTE | 2024-08-20 11:50 | NUR ---
report given to LUCAS Linn. Clarification for Merrem 1g IV Q12 was forwarded to Melani, community worker, as LUCAS Linn was out to lunch
[2024-08-20 12:35] VITALS: BP 123/43; PULSE 63; RESP 20; TEMP 98.9
[2024-08-20] MEDS: MEROPENEM 1 GM in 0.9%NACL 100ML IV SCH (12:53)
== END 2024-08-20 13:20 | DRG 853 ==
LOC: EDH 23:41 → EDHIP 08-05 02:01 → 4AH 08-05 05:54 → 2BH 08-09 01:00 → 2CH 08-12 19:46 → 2AH 08-13 11:06 → 2BH 08-14 16:32 → 2DH 08-16 11:00
PROVIDERS: ADMIT Internal Medicine Infectious Disease; ATTEND Internal Medicine Infectious Disease
PROC: B4101ZZ Fluoroscopy of Abdominal Aorta using Low Osmolar Contrast (ICD-10-PCS; 2024-08-09)
PROC: B41G1ZZ Fluoroscopy of Left Lower Extremity Arteries using Low Osmolar Contrast (ICD-10-PCS; 2024-08-09)
PROC: 0QBP0ZZ Excision of Left Metatarsal, Open Approach (ICD-10-PCS; principal; 2024-08-10 07:00)
PROC: 041L0AL Bypass Left Femoral Artery to Popliteal Artery with Autologous Arterial Tissue, Open Approach (ICD-10-PCS; 2024-08-14)
PROC: 06BQ0ZZ Excision of Left Saphenous Vein, Open Approach (ICD-10-PCS; 2024-08-14)
PROC: 0QBP0ZZ Excision of Left Metatarsal, Open Approach (ICD-10-PCS; 2024-08-18)
DX: A41.51 Sepsis due to Escherichia coli [E. coli] (principal); J96.01 Acute respiratory failure with hypoxia; N17.0 Acute kidney failure with tubular necrosis; M86.172 Other acute osteomyelitis, left ankle and foot; E87.1 Hypo-osmolality and hyponatremia; E87.21 Acute metabolic acidosis; L97.528 Non-pressure chronic ulcer of other part of left foot with other specified severity; E87.29 Other acidosis; I13.0 Hypertensive heart and chronic kidney disease with heart failure and stage 1 through stage 4 chronic kidney disease, or unspecified chronic kidney disease; L03.116 Cellulitis of left lower limb; L02.416 Cutaneous abscess of left lower limb; N39.0 Urinary tract infection, site not specified; Z16.12 Extended spectrum beta lactamase (ESBL) resistance; Z16.24 Resistance to multiple antibiotics; Z20.822 Contact with and (suspected) exposure to COVID-19; E11.621 Type 2 diabetes mellitus with foot ulcer; N18.32 Chronic kidney disease, stage 3b; E11.22 Type 2 diabetes mellitus with diabetic chronic kidney disease; I50.9 Heart failure, unspecified; E86.0 Dehydration; E11.65 Type 2 diabetes mellitus with hyperglycemia; E11.69 Type 2 diabetes mellitus with other specified complication; R65.20 Severe sepsis without septic shock; E11.51 Type 2 diabetes mellitus with diabetic peripheral angiopathy without gangrene; E78.5 Hyperlipidemia, unspecified; E11.628 Type 2 diabetes mellitus with other skin complications; E66.01 Morbid (severe) obesity due to excess calories; R81 Glycosuria; D50.9 Iron deficiency anemia, unspecified; D63.1 Anemia in chronic kidney disease; E78.00 Pure hypercholesterolemia, unspecified; E87.6 Hypokalemia; E88.09 Other disorders of plasma-protein metabolism, not elsewhere classified; J98.4 Other disorders of lung; F19.90 Other psychoactive substance use, unspecified, uncomplicated; Z79.2 Long term (current) use of antibiotics; Z79.4 Long term (current) use of insulin; Z79.84 Long term (current) use of oral hypoglycemic drugs; Z83.3 Family history of diabetes mellitus; Z89.431 Acquired absence of right foot; Z89.432 Acquired absence of left foot
CPT/HCPCS: 36246; 36247; 36415; 36569; 36600; 71045; 71250; 73630; 73718; 74176; 75716; 76705; 80048; 80053; 80076; 80202; 81001; 82010; 82435; 82550; 82803; 82947; 82948; 83036; 83605; 83735; 83880; 83930; 83935; 84132; 84145; 84295; 84484; 85018; 85025; 85027; 85610; 85730; 86850; 86900; 86901; 87040; 87070; 87076; 87086; 87186; 87205; 87426; 87635; 87804; 88305; 88311; 93306; 94660; 96365; 96366; 96368; 96372; 96375; 99156; 99157; 99291; A4344; A6021; A6266; A6407; C1760; C1893; C1894; G0277; G0378; J0330; J0690; J0692; J1100; J1171; J1644; J1650; J1815; J1885; J1940; J2003; J2175; J2185; J2250; J2270; J2405; J2470; J2543; J2550; J2704; J2765; J3010; J3230; J3370; J3475; J3480; J3490; J7030; J7040; Q9967; 3370; A4216; A4221; A4222; A4223; A4649; A4930; A6196; A6197; A6445; C1713; C1769; C1887; J0665

== ENCOUNTER → 2024-10-02 | Outpatient (CLI) | payer OTHER, MEDICARE | END | disposition home or self-care (01) | LOC: WHH 09:39 | PROVIDERS: ATTEND Family Medicine | DX: E11.621 Type 2 diabetes mellitus with foot ulcer (principal); I70.245 Atherosclerosis of native arteries of left leg with ulceration of other part of foot; L97.526 Non-pressure chronic ulcer of other part of left foot with bone involvement without evidence of necrosis; I70.201 Unspecified atherosclerosis of native arteries of extremities, right leg; E11.51 Type 2 diabetes mellitus with diabetic peripheral angiopathy without gangrene; E11.42 Type 2 diabetes mellitus with diabetic polyneuropathy; E11.22 Type 2 diabetes mellitus with diabetic chronic kidney disease; I12.9 Hypertensive chronic kidney disease with stage 1 through stage 4 chronic kidney disease, or unspecified chronic kidney disease; N18.9 Chronic kidney disease, unspecified; N40.0 Benign prostatic hyperplasia without lower urinary tract symptoms; E78.5 Hyperlipidemia, unspecified; E66.9 Obesity, unspecified; Z68.33 Body mass index [BMI] 33.0-33.9, adult; Z87.891 Personal history of nicotine dependence; Z79.82 Long term (current) use of aspirin; Z89.432 Acquired absence of left foot; Z89.431 Acquired absence of right foot; Z79.899 Other long term (current) drug therapy | CPT/HCPCS: 11042; 11045; A6197; A4450 ==

== ENCOUNTER → 2024-10-09 | Outpatient (CLI) | payer OTHER, MEDICARE | END | disposition home or self-care (01) | LOC: WHH 08:23 | PROVIDERS: ATTEND Family Medicine | DX: E11.621 Type 2 diabetes mellitus with foot ulcer (principal); I70.245 Atherosclerosis of native arteries of left leg with ulceration of other part of foot; L97.525 Non-pressure chronic ulcer of other part of left foot with muscle involvement without evidence of necrosis; I70.244 Atherosclerosis of native arteries of left leg with ulceration of heel and midfoot; L97.421 Non-pressure chronic ulcer of left heel and midfoot limited to breakdown of skin; I70.201 Unspecified atherosclerosis of native arteries of extremities, right leg; E11.51 Type 2 diabetes mellitus with diabetic peripheral angiopathy without gangrene; E11.42 Type 2 diabetes mellitus with diabetic polyneuropathy; E11.22 Type 2 diabetes mellitus with diabetic chronic kidney disease; I12.9 Hypertensive chronic kidney disease with stage 1 through stage 4 chronic kidney disease, or unspecified chronic kidney disease; N18.9 Chronic kidney disease, unspecified; N40.0 Benign prostatic hyperplasia without lower urinary tract symptoms; E78.5 Hyperlipidemia, unspecified; E66.9 Obesity, unspecified; Z68.33 Body mass index [BMI] 33.0-33.9, adult; Z87.891 Personal history of nicotine dependence; Z79.82 Long term (current) use of aspirin; Z89.432 Acquired absence of left foot; Z89.431 Acquired absence of right foot; Z79.899 Other long term (current) drug therapy | CPT/HCPCS: 82948 ×2; G0277; A6197 ==

== ENCOUNTER → 2024-10-11 | Outpatient (CLI) | payer OTHER, MEDICARE | END | disposition home or self-care (01) | LOC: WHH 08:07 | PROVIDERS: ATTEND Podiatrist Foot & Ankle Surgery | DX: E11.621 Type 2 diabetes mellitus with foot ulcer (principal); L97.525 Non-pressure chronic ulcer of other part of left foot with muscle involvement without evidence of necrosis; M86.672 Other chronic osteomyelitis, left ankle and foot; I70.245 Atherosclerosis of native arteries of left leg with ulceration of other part of foot; I70.244 Atherosclerosis of native arteries of left leg with ulceration of heel and midfoot; L97.422 Non-pressure chronic ulcer of left heel and midfoot with fat layer exposed; I70.201 Unspecified atherosclerosis of native arteries of extremities, right leg; E11.69 Type 2 diabetes mellitus with other specified complication; E11.51 Type 2 diabetes mellitus with diabetic peripheral angiopathy without gangrene; E11.42 Type 2 diabetes mellitus with diabetic polyneuropathy; E11.22 Type 2 diabetes mellitus with diabetic chronic kidney disease; I13.0 Hypertensive heart and chronic kidney disease with heart failure and stage 1 through stage 4 chronic kidney disease, or unspecified chronic kidney disease; I50.9 Heart failure, unspecified; N18.32 Chronic kidney disease, stage 3b; D63.1 Anemia in chronic kidney disease; E78.00 Pure hypercholesterolemia, unspecified; E87.1 Hypo-osmolality and hyponatremia; N40.0 Benign prostatic hyperplasia without lower urinary tract symptoms; E66.01 Morbid (severe) obesity due to excess calories; Z68.33 Body mass index [BMI] 33.0-33.9, adult; Z87.891 Personal history of nicotine dependence; Z79.82 Long term (current) use of aspirin; Z89.431 Acquired absence of right foot; Z79.899 Other long term (current) drug therapy; Z79.4 Long term (current) use of insulin | CPT/HCPCS: 82948; G0277; A6197 ==

== ENCOUNTER → 2024-10-12 | Outpatient (CLI) | payer OTHER, MEDICARE | END | disposition home or self-care (01) | LOC: WHH 08:04 | PROVIDERS: ATTEND Family Medicine | DX: E11.621 Type 2 diabetes mellitus with foot ulcer (principal); I70.245 Atherosclerosis of native arteries of left leg with ulceration of other part of foot; L97.525 Non-pressure chronic ulcer of other part of left foot with muscle involvement without evidence of necrosis; I70.244 Atherosclerosis of native arteries of left leg with ulceration of heel and midfoot; L97.421 Non-pressure chronic ulcer of left heel and midfoot limited to breakdown of skin; I70.201 Unspecified atherosclerosis of native arteries of extremities, right leg; E11.51 Type 2 diabetes mellitus with diabetic peripheral angiopathy without gangrene; E11.42 Type 2 diabetes mellitus with diabetic polyneuropathy; E11.22 Type 2 diabetes mellitus with diabetic chronic kidney disease; I12.9 Hypertensive chronic kidney disease with stage 1 through stage 4 chronic kidney disease, or unspecified chronic kidney disease; N18.9 Chronic kidney disease, unspecified; N40.0 Benign prostatic hyperplasia without lower urinary tract symptoms; E78.5 Hyperlipidemia, unspecified; E66.9 Obesity, unspecified; Z68.33 Body mass index [BMI] 33.0-33.9, adult; Z87.891 Personal history of nicotine dependence; Z79.82 Long term (current) use of aspirin; Z89.432 Acquired absence of left foot; Z89.431 Acquired absence of right foot; Z79.899 Other long term (current) drug therapy | CPT/HCPCS: G0277; A6197 ==

== ENCOUNTER → 2024-10-16 | Outpatient (CLI) | payer OTHER, MEDICARE | END | disposition home or self-care (01) | LOC: WHH 08:11 | PROVIDERS: ATTEND Family Medicine | DX: E11.621 Type 2 diabetes mellitus with foot ulcer (principal); L97.525 Non-pressure chronic ulcer of other part of left foot with muscle involvement without evidence of necrosis; M86.672 Other chronic osteomyelitis, left ankle and foot; E11.69 Type 2 diabetes mellitus with other specified complication; I70.245 Atherosclerosis of native arteries of left leg with ulceration of other part of foot; I70.244 Atherosclerosis of native arteries of left leg with ulceration of heel and midfoot; L97.422 Non-pressure chronic ulcer of left heel and midfoot with fat layer exposed; I70.201 Unspecified atherosclerosis of native arteries of extremities, right leg; E11.51 Type 2 diabetes mellitus with diabetic peripheral angiopathy without gangrene; E11.42 Type 2 diabetes mellitus with diabetic polyneuropathy; E11.22 Type 2 diabetes mellitus with diabetic chronic kidney disease; I13.0 Hypertensive heart and chronic kidney disease with heart failure and stage 1 through stage 4 chronic kidney disease, or unspecified chronic kidney disease; N18.32 Chronic kidney disease, stage 3b; I50.9 Heart failure, unspecified; D63.1 Anemia in chronic kidney disease; N40.0 Benign prostatic hyperplasia without lower urinary tract symptoms; E78.5 Hyperlipidemia, unspecified; E87.1 Hypo-osmolality and hyponatremia; E66.01 Morbid (severe) obesity due to excess calories; Z68.33 Body mass index [BMI] 33.0-33.9, adult; Z87.891 Personal history of nicotine dependence; Z79.82 Long term (current) use of aspirin; Z89.432 Acquired absence of left foot; Z89.431 Acquired absence of right foot; Z79.899 Other long term (current) drug therapy; Z79.4 Long term (current) use of insulin | CPT/HCPCS: 11042; 82948 ×2; 11045; G0277; A6196; A6197; A4450 ==

== ENCOUNTER → 2024-10-17 | Outpatient (CLI) | payer OTHER, MEDICARE | END | disposition home or self-care (01) | LOC: WHH 08:04 | PROVIDERS: ATTEND Family Medicine | DX: E11.621 Type 2 diabetes mellitus with foot ulcer (principal); L97.525 Non-pressure chronic ulcer of other part of left foot with muscle involvement without evidence of necrosis; M86.672 Other chronic osteomyelitis, left ankle and foot; E11.69 Type 2 diabetes mellitus with other specified complication; I70.245 Atherosclerosis of native arteries of left leg with ulceration of other part of foot; I70.244 Atherosclerosis of native arteries of left leg with ulceration of heel and midfoot; L97.422 Non-pressure chronic ulcer of left heel and midfoot with fat layer exposed; I70.201 Unspecified atherosclerosis of native arteries of extremities, right leg; E11.51 Type 2 diabetes mellitus with diabetic peripheral angiopathy without gangrene; E11.42 Type 2 diabetes mellitus with diabetic polyneuropathy; E11.22 Type 2 diabetes mellitus with diabetic chronic kidney disease; I13.0 Hypertensive heart and chronic kidney disease with heart failure and stage 1 through stage 4 chronic kidney disease, or unspecified chronic kidney disease; N18.32 Chronic kidney disease, stage 3b; I50.9 Heart failure, unspecified; D63.1 Anemia in chronic kidney disease; N40.0 Benign prostatic hyperplasia without lower urinary tract symptoms; E78.5 Hyperlipidemia, unspecified; E87.1 Hypo-osmolality and hyponatremia; E66.01 Morbid (severe) obesity due to excess calories; Z68.33 Body mass index [BMI] 33.0-33.9, adult; Z87.891 Personal history of nicotine dependence; Z79.82 Long term (current) use of aspirin; Z89.432 Acquired absence of left foot; Z89.431 Acquired absence of right foot; Z79.899 Other long term (current) drug therapy; Z79.4 Long term (current) use of insulin | CPT/HCPCS: 82948 ×2; G0277; A6197 ==

== ENCOUNTER → 2024-10-18 | Outpatient (CLI) | payer OTHER, MEDICARE | END | disposition home or self-care (01) | LOC: WHH 08:13 | PROVIDERS: ATTEND Podiatrist Foot & Ankle Surgery | DX: E11.621 Type 2 diabetes mellitus with foot ulcer (principal); I70.245 Atherosclerosis of native arteries of left leg with ulceration of other part of foot; L97.525 Non-pressure chronic ulcer of other part of left foot with muscle involvement without evidence of necrosis; I70.244 Atherosclerosis of native arteries of left leg with ulceration of heel and midfoot; L97.421 Non-pressure chronic ulcer of left heel and midfoot limited to breakdown of skin; I70.201 Unspecified atherosclerosis of native arteries of extremities, right leg; E11.51 Type 2 diabetes mellitus with diabetic peripheral angiopathy without gangrene; E11.42 Type 2 diabetes mellitus with diabetic polyneuropathy; E11.22 Type 2 diabetes mellitus with diabetic chronic kidney disease; I13.0 Hypertensive heart and chronic kidney disease with heart failure and stage 1 through stage 4 chronic kidney disease, or unspecified chronic kidney disease; I50.9 Heart failure, unspecified; N18.9 Chronic kidney disease, unspecified; E11.69 Type 2 diabetes mellitus with other specified complication; M86.672 Other chronic osteomyelitis, left ankle and foot; N40.0 Benign prostatic hyperplasia without lower urinary tract symptoms; E78.5 Hyperlipidemia, unspecified; K21.9 Gastro-esophageal reflux disease without esophagitis; E66.9 Obesity, unspecified; Z68.33 Body mass index [BMI] 33.0-33.9, adult; Z87.891 Personal history of nicotine dependence; Z79.82 Long term (current) use of aspirin; Z89.432 Acquired absence of left foot; Z89.431 Acquired absence of right foot; Z79.899 Other long term (current) drug therapy | CPT/HCPCS: 82948 ×2; G0277; A6197 ==

== ENCOUNTER 2024-10-19 10:26 | Emergency (ER) | payer OTHER, MEDICARE ==
[~2024-10-19] VITALS: Ht 167.6 cm; Wt 85.7 kg
[2024-10-19 11:32] LABS: BASOPHILS # (AUTO) 0.03 K/uL (0.00-0.20); BASOPHILS % (AUTO) 0.4 % (0.0-5.0); EOSINOPHILS # (AUTO) 0.33 K/uL (0.00-0.70); EOSINOPHILS % (AUTO) 3.9 % (0.0-8.0); IMMATURE GRANULOCYTE ABSOLUTE 0.03 K/uL (0-1); LYMPHOCYTES # (AUTO) 1.5 K/uL (1.0-4.8); LYMPHOCYTES % (AUTO) 17.4 % (21.0-51.0); MEAN CORPUSCULAR HEMOGLOBIN 28.3 pg (27.0-33.0); MEAN CORPUSCULAR HGB CONC 34.1 g/dL (32.0-36.0); MEAN CORPUSCULAR VOLUME 82.9 fL (79-99); MONOCYTES # (AUTO) 0.7 K/uL (0.1-1.0); MONOCYTES % (AUTO) 8.4 % (3.0-13.0); NEUTROPHILS % (AUTO) 69.5 % (40.0-77.0); PLATELET COUNT (AUTO) 240 K/uL (130-400); RED CELL DISTRIBUTION WIDTH 15.9 % (11.0-15.5); WHITE BLOOD COUNT (AUTO) 8.6 K/uL (4.8-10.8)
--- NOTE | 2024-10-19 11:34 | ERN ---
General Chief Complaint: Chest Wall Pain Stated Complaint: CHEST WALL PAIN Time Seen by MD: 10:29 Source: patient History of Present Illness Initial Comments Patient is a 64-year-old male coming in to be evaluated for cough and congestion. Per patient he was recently diagnosed with atrial fibrillation is currently taking amiodarone and Lopressor for his AFib. He states that as soon as he was discharged he started having a cough which progressively got worse. He was evaluated another hospital and was discharged four days ago. He states that the symptoms worsen when laying down. Allergies: Coded Allergies: No Known Drug Allergies (Unverified Allergy, Unknown, 08/05/24) Home Meds Reported Medications Lisinopril (Lisinopril) 10 Mg Tablet, 1 TAB PO DAILY for 30 Days, #30 TAB 0 Refills 08/05/24 Nifedipine (Nifedipine) 20 Mg Capsule, 30 MG PO DAILY, CAP 08/05/24 Aspirin (Aspirin) 81 Mg Tab.chew, 81 MG PO DAILY, TAB.CHEW 08/05/24 Atorvastatin Calcium (Atorvastatin Calcium) 10 Mg Tablet, 1 TAB PO DAILY for 30 Days, #30 TAB 0 Refills 08/05/24 Empagliflozin (Jardiance) 25 Mg Tablet, 1 TAB PO DAILY for 30 Days, #30 TAB 0 Refills 08/05/24 Past Medical History Past Medical History: Diabetes-Type I, Diabetes-Type II, Hypertension, Other Medical History Other: ESBL, GNB Past Surgical History: Other Surgical History Other: FEET ROS Dictation CONSTITUTIONAL: No chills, no fever, no weakness, no diaphoresis, no malaise. HEAD/FACE: No signs of trauma. EENT: No eye pain, no blurred vision, no tearing, no double vision, no ear pain, no ear discharge, no nose pain, no nasal congestion, no throat pain, no throat swelling, no mouth pain. RESPIRATORY: No cough, orthopnea, no SOB, no stridor, no wheezing. CARDIOVASCULAR: No chest pain, no edema, no palpitations, no syncope. GASTROINTESTINAL/ABDOMINAL: No abdominal pain, no constipation, no diarrhea, no nausea, no vomiting. GENITOURINARY: No abnormal discharge, no dysuria, no frequent urination, no hematuria. No complaints of pain in the genitals. MUSCULOSKELETAL: No back pain, no gout, no joint pain, no joint swelling, no muscle pain, no muscle stiffness, no neck pain. INTEGUMENTARY: No change in color, no change in hair/nails, no dryness, no lesion, no lumps, no rash. NEUROLOGICAL/PSYCH: No anxiety, not depressed, no emotional problem, no headache, no numbness, no pre-existing deficit, no history of seizures, no tremors, no weakness. HEMATOLOGIC/LYMPHATIC: Not anemic, no history of blood clots, no apparent bleeding, no bruising, glands not swollen. All Systems Negative, Except as Noted. Physical Exam Physical Exam Dictation VITAL SIGNS: Reviewed. GENERAL APPEARANCE: Alert, oriented x3, no acute distress, obese. HEAD AND FACE: Non-traumatic. EYES: PERRL, pink conjunctivas, eyelid no trauma, anterior chamber clear. EARS: Pinnas intact and no signs of trauma or erythema. Ear canals clear and no discharge. TMs no erythema. NOSE: No discharge, no bleeding. OROPHARYNX: Mouth normal, teeth no caries, tongue pink. Pharynx clear, no erythema. Tonsils no exudates, no abscesses noted. Mucous membrane moist. NECK: Supple, non-tender, no thyromegaly, no masses, no JVD, no bruits. BREAST: Deferred. CHEST: No tenderness, no crepitus, no paradoxical movement, no retractions. LUNGS: Clear, well-ventilated, symmetric, no rales, no wheezing, no rhonchi, no stridor, good breath sounds bilaterally. HEART: Regular rate, regular rhythm, no murmur, no gallops. VASCULAR: No peripheral edema. ABDOMEN: Soft, positive bowel sounds, nondistended, no guarding, nontender, no rebound, no masses no hepatomegaly, no splenomegaly, no Marshall's sign, no hernias. RECTAL: Deferred. GENITAL: Deferred. NEUROLOGICAL: Normal speech, gross motor function intact, gross sensory function intact. MUSCULOSKELETAL: Neck nontender, full range of motion, back nontender, full range of motion. EXTREMITIES: Nontender, full range of motion. SKIN: Color pink, dry, no turgor, no rash, no lacerations, no abrasions, no contusions. LYMPHATICS: Deferred. Results Laboratory and Microbiology Lab and Micro Result Laboratory Tests Test 10/19/24 11:23 10/19/24 12:28 White Blood Count 8.6 K/uL (4.8-10.8) Red Blood Count 4.10 MIL/uL (4.50-6.20) L Hemoglobin 11.6 g/dL (14.0-18.0) L Hematocrit 34.0 % (42-54) L Mean Corpuscular Volume 82.9 fL (79-99) Mean Corpuscular Hemoglobin 28.3 pg (27.0-33.0) Mean Corpuscular Hemoglobin Concent 34.1 g/dL (32.0-36.0) Red Cell Distribution Width 15.9 % (11.0-15.5) H Platelet Count 240 K/uL (130-400) Mean Platelet Volume 10.2 fL (7.5-10.5) Immature Granulocyte % (Auto) 0.4 % (0-1) Neutrophils (%) (Auto) 69.5 % (40.0-77.0) Lymphocytes (%) (Auto) 17.4 % (21.0-51.0) L Monocytes (%) (Auto) 8.4 % (3.0-13.0) Eosinophils (%) (Auto) 3.9 % (0.0-8.0) Basophils (%) (Auto) 0.4 % (0.0-5.0) Neutrophils # (Auto) 6.0 K/uL (1.8-7.7) Lymphocytes # (Auto) 1.5 K/uL (1.0-4.8) Monocytes # (Auto) 0.7 K/uL (0.1-1.0) Eosinophils # (Auto) 0.33 K/uL (0.00-0.70) Basophils # (Auto) 0.03 K/uL (0.00-0.20) Absolute Immature Granulocyte (auto 0.03 K/uL (0-1) Nucleated Red Blood Cells 0.0 % (0.0-0.19) Prothrombin Time 12.1 SEC (9.6-11.6) H Prothromb Time International Ratio 1.09 (0.85-1.15) Sodium Level 139 mmol/L (136-145) Potassium Level 5.0 mmol/L (3.5-5.1) Chloride Level 105 mmol/L (101-111) Carbon Dioxide Level 26 mmol/L (21-32) Blood Urea Nitrogen 28 mg/dL (7-18) H Creatinine 1.5 mg/dL (0.5-1.3) H Glomerular Filtration Rate Calc 51 mL/min (>90) Random Glucose 205 mg/dL (70-105) H Total Calcium 9.0 mg/dL (8.5-10.1) Magnesium Level 1.60 mg/dL (1.80-2.40) L Total Creatine Kinase 48 U/L (21-232) # Troponin I High Sensitivity 10 ng/L (4-75) B-Type Natriuretic Peptide 171 pg/mL (0-100) H Urine Color LIGHT-YELLOW (YELLOW) Urine Appearance CLEAR (CLEAR) Urine pH 6.0 (5.0-8.0) Urine Specific [place] 1.016 (1.001-1.031) Urine Protein 200 mg/dL (NEGATIVE) H Urine Glucose (UA) 500 mg/dL (NEGATIVE) H Urine Ketones NEGATIVE mg/dL (NEGATIVE) Urine Occult Blood SMALL (NEGATIVE) H Urine Nitrate NEGATIVE (NEGATIVE) Urine Bilirubin NEGATIVE mg/dL (NEGATIVE) Urine Urobilinogen 0.2 mg/dL (0.2-1.0) Urine Leukocyte Esterase NEGATIVE Alex/uL Urine RBC 6-10 /HPF (0-1) H Urine WBC 0-1 /HPF (0-1) Urine Squamous Epithelial Cells RARE /HPF (0-2) Urine Bacteria None /HPF (None Seen) Labs Reviewed?: Yes EKG/XRAY/US/CT/MRI EKG Comment 10/19/2024 time 10:46 a.m. Ventricular rate 75 Sinus rhythm SD [address] wave elevation [place] [address] IMAGING REPORT Signed PATIENT: KAROLYN ZUNIGA MR#: [id number] : 1960 SEX: M AGE: 64 LOCATION: [facility] ORDER [id number] STATUS: REG ER REPORT#: [id number] SERVICE 1031 REASON: cp ORDERING PHYSICIAN: RYAN MILTON MD PROCEDURE: CXR1VW - CHEST 1VW CHEST 1VW REASON: cp COMPARISON: 08/19/2024 FINDINGS: Single view of the chest was obtained. Lungs are clear. Heart size is normal. There is no pulmonary vascular congestion. Mediastinum and bony thorax appear unremarkable. IMPRESSION: 1. Normal single view chest x-ray. DICTATED BY: CHERRY MOSLEY MD DATE: 10/19/24 114 ELECTRONICALLY SIGNED BY: CHERRY MOSLEY MD DATE: 10/19/24 1147 MDM MDM: Differential diagnosis: Chest discomfort, GERD, wellness exam Patient is a 64-year-old male coming in to be evaluated for chest pressure which occurred for prior to arriving and subsided prior to arriving as well. He states [facility] of the wound in his foot started having some pressure when he laid down had a vomiting episode but symptoms quickly improved. He was sent over for further evaluation cardiac workup negative for acute findings. Throughout ER visit patient has been stable has not complained of any issues. I advised him appropriate follow up with PCP and retail merchandising specialist. ED Course Orders Procedure Category Date Status Time Cbc With Differential LAB 10/19/24 Complete 10:31 Prothrombin Time With LAB 10/19/24 Complete INR 10:31 B-Type Natriuretic LAB 10/19/24 Complete Peptide 10:31 Chest 1vw RAD 10/19/24 Resulted 10:31 12 Lead Ekg Tracing- EKG 10/19/24 Logged Technical 10:31 Magnesium LAB 10/19/24 Complete 10:31 Creatine Kinase, Total LAB 10/19/24 Complete 10:31 Troponin I High LAB 10/19/24 Complete Sensitivity 10:31 Urinalysis Profile LAB 10/19/24 Complete 10:31 Basic Metabolic Panel LAB 10/19/24 Complete 10:31 0.9%Nacl 1000ml (Ns PHA 10/19/24 In Process 1000ml) 13:00 Current Medications Medications (Trade) Dose Ordered Sig/Violeta Route PRN Reason Start Time Stop Time Status Last Admin Dose Admin Sodium Chloride 1,000 ml @ 0 mls/hr ONCE ONCE IV 10/19/24 13:00 10/19/24 13:01 Vital Signs Date Time Temp Pulse Resp B/P (MAP) Pulse Ox O2 Delivery O2 Flow Rate FiO2 10/19/24 12:22 98.2 76 16 156/86 99 Room Air* 0 21 10/19/24 10:27 98.2 76 16 156/86 99 Room Air* 0 21 10/19/24 10:27 98.2 76 16 156/86 99 Room Air 0 DX & DISP Disposition: Discharge Departure Impression: Primary Impression: CKD (chronic kidney disease) Additional Impression: GERD (gastroesophageal reflux disease) Condition: Stable Additional Instructions: FOLLOW-UP WITH PRIMARY CARE PROVIDER IN 1 TO 2 DAYS. TAKE MEDICATIONS DIRECTED HERE IN THE EMERGENCY ROOM. OKAY TO CONTINUE HOME MEDICATIONS UNLESS OTHERWISE DISCUSSED DURING YOUR VISIT IN THE EMERGENCY ROOM TODAY. RETURN TO YOUR NEAREST EMERGENCY ROOM IF SYMPTOMS WORSEN OR IF THERE IS NO IMPROVEMENT. CALL 911 IF YOU NEED IMMEDIATE ASSISTANCE. TAKE TYLENOL [id number] NEEDED AND IF NO CONTRAINDICATIONS ARE PRESENT. INCREASE ORAL HYDRATION. A WOUND CULTURE OR URINE CULTURE WAS ORDERED HERE IN THE EMERGENCY ROOM DEPARTMENT PLEASE FOLLOW-UP WITH PRIMARY CARE PROVIDER AND ADVISE THEM TO GET REPEAT PORTS FROM OUR FACILITY. IF YOU HAD ANY AMADO WRAP/SPLINTS THAT WERE APPLIED HERE, PLEASE DO NOT REMOVE THEM UNTIL YOU SEE YOUR PRIMARY CARE OR SPECIALTY. Referrals: Referrals: IGOR AMES MD (PCP) Time of Disposition: 12:55 RYAN MILTON MD Oct 19, 2024 11:34
[2024-10-19 11:42] LABS: CREATININE 1.5 mg/dL (0.5-1.3)
[2024-10-19 11:45] LABS: INR 1.09 (0.85-1.15); PROTHROMBIN TIME 12.1 SEC (9.6-11.6)
[2024-10-19 11:47] LABS: MAGNESIUM 1.6 mg/dL (1.80-2.40)
--- NOTE | 2024-10-19 11:47 | HMCIMG ---
CHEST 1VW REASON: cp COMPARISON: 08/19/2024 FINDINGS: Single view of the chest was obtained. Lungs are clear. Heart size is normal. There is no pulmonary vascular congestion. Mediastinum and bony thorax appear unremarkable. IMPRESSION: 1. Normal single view chest x-ray.
[2024-10-19 12:02] LABS: B-TYPE NATRIURETIC PEPTIDE 171 pg/mL (0-100)
[2024-10-19 12:42] LABS: ADD UA MICROSCOPIC YES; APPEARANCE,URINE CLEAR (CLEAR); BILIRUBIN,URINE NEGATIVE (NEGATIVE); COLOR,URINE LIGHT-YELLOW (YELLOW); GLUCOSE, URINE (UA) 500 mg/dL (NEGATIVE); KETONES,URINE NEGATIVE (NEGATIVE); LEUKOCYTE ESTERASE ,URINE NEGATIVE Leu/uL (NEGATIVE); NITRATE,URINE NEGATIVE (NEGATIVE); OCCULT BLOOD,URINE SMALL (NEGATIVE); PROTEIN,URINE 200 mg/dL (NEGATIVE); UROBILINOGEN,URINE 0.2 mg/dL (0.2-1.0)
[2024-10-19 12:44] LABS: MUCUS,URINE RARE LPF (None Seen); SQUAMOUS EPITHELIAL CELL,UR RARE /HPF (0-2); WBC,URINE 0-1 /HPF (0-1)
[2024-10-19] MEDS: 0.9%NACL 1000ML 1,000 ML IV ONE (13:04)
--- NOTE | 2024-10-19 13:04 | NUR ---
PT DID NOT NEED IV PER MD.
[2024-10-19 13:05] VITALS: BP 145/80; PULSE 76; RESP 16; TEMP 98.2; O2SAT 99
--- NOTE | 2024-10-19 14:24 | EKG ---
[facility] Test Date: 2024-10-19 Test Time: 10:46:48 Pat Name: KAROLYN ZUNIGA Department: ED Room: Gender: M Public Relations Intern: [id number] : 1960 Requested By: RYAN MILTON Order Number: [id number] Reading MD: Yvon Boyd Measurements Intervals [place] Rate: 75 P: 45 [place]: 208 QRS: 39 QRSD: 123 T: 34 QT: 408 QTc: 457 Interpretive Statements Sinus rhythm Right bundle branch block Compared to ECG 06/22/2024 10:23:41 Right bundle-branch block now present Incomplete right bundle-branch block no longer present Electronically Signed On 10-21-2024 07:52:53 GROOVING LATHE TENDER by Yvon Boyd Please click the below link to view image of tracing.
== END 2024-10-19 13:15 | disposition home or self-care (01) ==
LOC: EDH 10:26
DX: I12.9 Hypertensive chronic kidney disease with stage 1 through stage 4 chronic kidney disease, or unspecified chronic kidney disease (principal); E11.22 Type 2 diabetes mellitus with diabetic chronic kidney disease; N18.9 Chronic kidney disease, unspecified; K21.9 Gastro-esophageal reflux disease without esophagitis; Z79.82 Long term (current) use of aspirin; Z79.84 Long term (current) use of oral hypoglycemic drugs; Z79.899 Other long term (current) drug therapy
CPT/HCPCS: 99285; 71045; 82550; 83735; 84484; 80048; 83880; 85025; 85610; 82948; 81001; 36415; 93005; G0277; A6196; A6197

== ENCOUNTER → 2024-10-19 | Outpatient (CLI) | payer OTHER, MEDICARE | END | disposition home or self-care (01) | LOC: WHH 09:55 | PROVIDERS: ATTEND Family Medicine | DX: E11.621 Type 2 diabetes mellitus with foot ulcer (principal); I70.245 Atherosclerosis of native arteries of left leg with ulceration of other part of foot; L97.525 Non-pressure chronic ulcer of other part of left foot with muscle involvement without evidence of necrosis; I70.244 Atherosclerosis of native arteries of left leg with ulceration of heel and midfoot; L97.421 Non-pressure chronic ulcer of left heel and midfoot limited to breakdown of skin; I70.201 Unspecified atherosclerosis of native arteries of extremities, right leg; E11.51 Type 2 diabetes mellitus with diabetic peripheral angiopathy without gangrene; E11.42 Type 2 diabetes mellitus with diabetic polyneuropathy; E11.22 Type 2 diabetes mellitus with diabetic chronic kidney disease; I13.0 Hypertensive heart and chronic kidney disease with heart failure and stage 1 through stage 4 chronic kidney disease, or unspecified chronic kidney disease; I50.9 Heart failure, unspecified; N18.9 Chronic kidney disease, unspecified; E11.69 Type 2 diabetes mellitus with other specified complication; M86.672 Other chronic osteomyelitis, left ankle and foot; N40.0 Benign prostatic hyperplasia without lower urinary tract symptoms; E78.5 Hyperlipidemia, unspecified; K21.9 Gastro-esophageal reflux disease without esophagitis; E66.9 Obesity, unspecified; Z68.33 Body mass index [BMI] 33.0-33.9, adult; Z87.891 Personal history of nicotine dependence; Z79.82 Long term (current) use of aspirin; Z89.432 Acquired absence of left foot; Z89.431 Acquired absence of right foot; Z79.899 Other long term (current) drug therapy | CPT/HCPCS: 82948; G0277; A6196; A6197 ==

== ENCOUNTER → 2024-10-23 | Outpatient (CLI) | payer OTHER, MEDICARE | END | disposition home or self-care (01) | LOC: WHH 08:11 | PROVIDERS: ATTEND Family Medicine | DX: E11.621 Type 2 diabetes mellitus with foot ulcer (principal); L97.525 Non-pressure chronic ulcer of other part of left foot with muscle involvement without evidence of necrosis; M86.672 Other chronic osteomyelitis, left ankle and foot; E11.69 Type 2 diabetes mellitus with other specified complication; I70.245 Atherosclerosis of native arteries of left leg with ulceration of other part of foot; I70.244 Atherosclerosis of native arteries of left leg with ulceration of heel and midfoot; L97.422 Non-pressure chronic ulcer of left heel and midfoot with fat layer exposed; I70.201 Unspecified atherosclerosis of native arteries of extremities, right leg; E11.51 Type 2 diabetes mellitus with diabetic peripheral angiopathy without gangrene; E11.42 Type 2 diabetes mellitus with diabetic polyneuropathy; E11.22 Type 2 diabetes mellitus with diabetic chronic kidney disease; I13.0 Hypertensive heart and chronic kidney disease with heart failure and stage 1 through stage 4 chronic kidney disease, or unspecified chronic kidney disease; N18.32 Chronic kidney disease, stage 3b; I50.9 Heart failure, unspecified; D63.1 Anemia in chronic kidney disease; N40.0 Benign prostatic hyperplasia without lower urinary tract symptoms; E78.5 Hyperlipidemia, unspecified; E87.1 Hypo-osmolality and hyponatremia; E66.01 Morbid (severe) obesity due to excess calories; Z68.33 Body mass index [BMI] 33.0-33.9, adult; Z87.891 Personal history of nicotine dependence; Z79.82 Long term (current) use of aspirin; Z89.432 Acquired absence of left foot; Z89.431 Acquired absence of right foot; Z79.899 Other long term (current) drug therapy; Z79.4 Long term (current) use of insulin | CPT/HCPCS: 11042; 82948; 11045; G0277; A6209 ×2; A6196; A6197 ==

== ENCOUNTER → 2024-10-26 | Outpatient (CLI) | payer OTHER, MEDICARE | END | disposition home or self-care (01) | LOC: WHH 08:02 | PROVIDERS: ATTEND Family Medicine | DX: E11.621 Type 2 diabetes mellitus with foot ulcer (principal); I70.245 Atherosclerosis of native arteries of left leg with ulceration of other part of foot; L97.525 Non-pressure chronic ulcer of other part of left foot with muscle involvement without evidence of necrosis; I70.244 Atherosclerosis of native arteries of left leg with ulceration of heel and midfoot; L97.422 Non-pressure chronic ulcer of left heel and midfoot with fat layer exposed; I70.201 Unspecified atherosclerosis of native arteries of extremities, right leg; E11.69 Type 2 diabetes mellitus with other specified complication; M86.672 Other chronic osteomyelitis, left ankle and foot; E11.51 Type 2 diabetes mellitus with diabetic peripheral angiopathy without gangrene; E11.42 Type 2 diabetes mellitus with diabetic polyneuropathy; E11.22 Type 2 diabetes mellitus with diabetic chronic kidney disease; I13.0 Hypertensive heart and chronic kidney disease with heart failure and stage 1 through stage 4 chronic kidney disease, or unspecified chronic kidney disease; N18.32 Chronic kidney disease, stage 3b; I50.9 Heart failure, unspecified; D63.1 Anemia in chronic kidney disease; N40.0 Benign prostatic hyperplasia without lower urinary tract symptoms; E78.5 Hyperlipidemia, unspecified; E87.1 Hypo-osmolality and hyponatremia; E66.01 Morbid (severe) obesity due to excess calories; Z68.33 Body mass index [BMI] 33.0-33.9, adult; Z87.891 Personal history of nicotine dependence; Z79.82 Long term (current) use of aspirin; Z89.432 Acquired absence of left foot; Z89.431 Acquired absence of right foot; Z79.899 Other long term (current) drug therapy; Z79.4 Long term (current) use of insulin | CPT/HCPCS: 82948 ×2; G0277; A6209; A6196; A6197 ==

== ENCOUNTER → 2024-10-27 | Outpatient (CLI) | payer OTHER, MEDICARE | END | disposition home or self-care (01) | LOC: WHH 10:26 | PROVIDERS: ATTEND Family Medicine | DX: E11.621 Type 2 diabetes mellitus with foot ulcer (principal); L97.525 Non-pressure chronic ulcer of other part of left foot with muscle involvement without evidence of necrosis; M86.672 Other chronic osteomyelitis, left ankle and foot; E11.69 Type 2 diabetes mellitus with other specified complication; I70.245 Atherosclerosis of native arteries of left leg with ulceration of other part of foot; I70.244 Atherosclerosis of native arteries of left leg with ulceration of heel and midfoot; L97.422 Non-pressure chronic ulcer of left heel and midfoot with fat layer exposed; I70.201 Unspecified atherosclerosis of native arteries of extremities, right leg; E11.51 Type 2 diabetes mellitus with diabetic peripheral angiopathy without gangrene; E11.42 Type 2 diabetes mellitus with diabetic polyneuropathy; E11.22 Type 2 diabetes mellitus with diabetic chronic kidney disease; I13.0 Hypertensive heart and chronic kidney disease with heart failure and stage 1 through stage 4 chronic kidney disease, or unspecified chronic kidney disease; N18.32 Chronic kidney disease, stage 3b; I50.9 Heart failure, unspecified; D63.1 Anemia in chronic kidney disease; N40.0 Benign prostatic hyperplasia without lower urinary tract symptoms; E78.5 Hyperlipidemia, unspecified; E87.1 Hypo-osmolality and hyponatremia; E66.01 Morbid (severe) obesity due to excess calories; Z68.33 Body mass index [BMI] 33.0-33.9, adult; Z87.891 Personal history of nicotine dependence; Z79.82 Long term (current) use of aspirin; Z89.432 Acquired absence of left foot; Z89.431 Acquired absence of right foot; Z79.899 Other long term (current) drug therapy; Z79.4 Long term (current) use of insulin | CPT/HCPCS: 82948; G0277; A6209; A6196; A6197 ==

== ENCOUNTER → 2024-10-30 | Outpatient (CLI) | payer OTHER, MEDICARE ==
[~2024-10-30] MED LIST changes: +LIDOCAINE HCL 4% LTA SOL 4 ML VIAL TP ONE
== END | disposition home or self-care (01) ==
LOC: WHH 07:58
PROVIDERS: ATTEND Family Medicine
DX: E11.621 Type 2 diabetes mellitus with foot ulcer (principal); L97.525 Non-pressure chronic ulcer of other part of left foot with muscle involvement without evidence of necrosis; I70.245 Atherosclerosis of native arteries of left leg with ulceration of other part of foot; M86.672 Other chronic osteomyelitis, left ankle and foot; E11.69 Type 2 diabetes mellitus with other specified complication; I70.244 Atherosclerosis of native arteries of left leg with ulceration of heel and midfoot; L97.422 Non-pressure chronic ulcer of left heel and midfoot with fat layer exposed; I70.201 Unspecified atherosclerosis of native arteries of extremities, right leg; E11.51 Type 2 diabetes mellitus with diabetic peripheral angiopathy without gangrene; E11.42 Type 2 diabetes mellitus with diabetic polyneuropathy; E11.22 Type 2 diabetes mellitus with diabetic chronic kidney disease; I13.0 Hypertensive heart and chronic kidney disease with heart failure and stage 1 through stage 4 chronic kidney disease, or unspecified chronic kidney disease; N18.32 Chronic kidney disease, stage 3b; I50.9 Heart failure, unspecified; D63.1 Anemia in chronic kidney disease; N40.0 Benign prostatic hyperplasia without lower urinary tract symptoms; E78.5 Hyperlipidemia, unspecified; E87.1 Hypo-osmolality and hyponatremia; E66.01 Morbid (severe) obesity due to excess calories; Z68.33 Body mass index [BMI] 33.0-33.9, adult; Z87.891 Personal history of nicotine dependence; Z79.82 Long term (current) use of aspirin; Z89.432 Acquired absence of left foot; Z89.431 Acquired absence of right foot; Z79.899 Other long term (current) drug therapy; Z79.4 Long term (current) use of insulin
CPT/HCPCS: 82948; G0277; A6209; A6197 ×2; A6207

== ENCOUNTER → 2024-10-31 | Outpatient (CLI) | payer OTHER, MEDICARE ==
[~2024-10-31] MED LIST changes: +DOXY100C5 PO; +GENT15CR7 TP; +INSU200I4 SQ; -LIDOCAINE HCL 4% LTA SOL 4 ML VIAL TP ONE; +SANTO TP
== END | disposition home or self-care (01) ==
LOC: WHH 08:04
PROVIDERS: ATTEND Family Medicine
DX: E11.621 Type 2 diabetes mellitus with foot ulcer (principal); L97.525 Non-pressure chronic ulcer of other part of left foot with muscle involvement without evidence of necrosis; M86.672 Other chronic osteomyelitis, left ankle and foot; E11.69 Type 2 diabetes mellitus with other specified complication; I70.245 Atherosclerosis of native arteries of left leg with ulceration of other part of foot; I70.244 Atherosclerosis of native arteries of left leg with ulceration of heel and midfoot; L97.422 Non-pressure chronic ulcer of left heel and midfoot with fat layer exposed; I70.201 Unspecified atherosclerosis of native arteries of extremities, right leg; E11.51 Type 2 diabetes mellitus with diabetic peripheral angiopathy without gangrene; E11.42 Type 2 diabetes mellitus with diabetic polyneuropathy; E11.22 Type 2 diabetes mellitus with diabetic chronic kidney disease; I13.0 Hypertensive heart and chronic kidney disease with heart failure and stage 1 through stage 4 chronic kidney disease, or unspecified chronic kidney disease; N18.32 Chronic kidney disease, stage 3b; I50.9 Heart failure, unspecified; D63.1 Anemia in chronic kidney disease; N40.0 Benign prostatic hyperplasia without lower urinary tract symptoms; E78.5 Hyperlipidemia, unspecified; E87.1 Hypo-osmolality and hyponatremia; E66.01 Morbid (severe) obesity due to excess calories; Z68.33 Body mass index [BMI] 33.0-33.9, adult; Z87.891 Personal history of nicotine dependence; Z79.82 Long term (current) use of aspirin; Z89.432 Acquired absence of left foot; Z89.431 Acquired absence of right foot; Z79.899 Other long term (current) drug therapy; Z79.4 Long term (current) use of insulin
CPT/HCPCS: 82948; G0277

== ENCOUNTER → 2024-11-01 | Outpatient (CLI) | payer OTHER, MEDICARE ==
[~2024-11-01] MED LIST changes: -DOXY100C5 PO; -GENT15CR7 TP; -INSU200I4 SQ; -SANTO TP
== END | disposition home or self-care (01) ==
LOC: WHH 08:29
PROVIDERS: ATTEND Podiatrist Foot & Ankle Surgery
DX: E11.621 Type 2 diabetes mellitus with foot ulcer (principal); L97.525 Non-pressure chronic ulcer of other part of left foot with muscle involvement without evidence of necrosis; M86.672 Other chronic osteomyelitis, left ankle and foot; E11.69 Type 2 diabetes mellitus with other specified complication; I70.245 Atherosclerosis of native arteries of left leg with ulceration of other part of foot; I70.244 Atherosclerosis of native arteries of left leg with ulceration of heel and midfoot; L97.422 Non-pressure chronic ulcer of left heel and midfoot with fat layer exposed; I70.201 Unspecified atherosclerosis of native arteries of extremities, right leg; E11.51 Type 2 diabetes mellitus with diabetic peripheral angiopathy without gangrene; E11.42 Type 2 diabetes mellitus with diabetic polyneuropathy; E11.22 Type 2 diabetes mellitus with diabetic chronic kidney disease; I13.0 Hypertensive heart and chronic kidney disease with heart failure and stage 1 through stage 4 chronic kidney disease, or unspecified chronic kidney disease; N18.32 Chronic kidney disease, stage 3b; I50.9 Heart failure, unspecified; D63.1 Anemia in chronic kidney disease; N40.0 Benign prostatic hyperplasia without lower urinary tract symptoms; E78.5 Hyperlipidemia, unspecified; E87.1 Hypo-osmolality and hyponatremia; E66.01 Morbid (severe) obesity due to excess calories; Z68.33 Body mass index [BMI] 33.0-33.9, adult; Z87.891 Personal history of nicotine dependence; Z79.82 Long term (current) use of aspirin; Z89.432 Acquired absence of left foot; Z89.431 Acquired absence of right foot; Z79.899 Other long term (current) drug therapy; Z79.4 Long term (current) use of insulin
CPT/HCPCS: G0463; A6197; A6207

== ENCOUNTER → 2024-11-02 | Outpatient (CLI) | payer OTHER, MEDICARE ==
[~2024-11-02] MED LIST changes: +DOXY100C5 PO; +GENT15CR7 TP; +INSU200I4 SQ; +SANTO TP
== END | disposition home or self-care (01) ==
LOC: WHH 07:59
PROVIDERS: ATTEND Family Medicine
DX: E11.621 Type 2 diabetes mellitus with foot ulcer (principal); L97.525 Non-pressure chronic ulcer of other part of left foot with muscle involvement without evidence of necrosis; M86.672 Other chronic osteomyelitis, left ankle and foot; I70.245 Atherosclerosis of native arteries of left leg with ulceration of other part of foot; I70.244 Atherosclerosis of native arteries of left leg with ulceration of heel and midfoot; L97.422 Non-pressure chronic ulcer of left heel and midfoot with fat layer exposed; I70.201 Unspecified atherosclerosis of native arteries of extremities, right leg; E11.69 Type 2 diabetes mellitus with other specified complication; E11.51 Type 2 diabetes mellitus with diabetic peripheral angiopathy without gangrene; E11.42 Type 2 diabetes mellitus with diabetic polyneuropathy; E11.22 Type 2 diabetes mellitus with diabetic chronic kidney disease; I13.0 Hypertensive heart and chronic kidney disease with heart failure and stage 1 through stage 4 chronic kidney disease, or unspecified chronic kidney disease; N18.32 Chronic kidney disease, stage 3b; I50.9 Heart failure, unspecified; D63.1 Anemia in chronic kidney disease; N40.0 Benign prostatic hyperplasia without lower urinary tract symptoms; E78.5 Hyperlipidemia, unspecified; E87.1 Hypo-osmolality and hyponatremia; E66.01 Morbid (severe) obesity due to excess calories; Z68.33 Body mass index [BMI] 33.0-33.9, adult; Z87.891 Personal history of nicotine dependence; Z79.82 Long term (current) use of aspirin; Z89.432 Acquired absence of left foot; Z89.431 Acquired absence of right foot; Z79.899 Other long term (current) drug therapy; Z79.4 Long term (current) use of insulin
CPT/HCPCS: 82948 ×2; G0277

== ENCOUNTER → 2024-11-03 | Outpatient (CLI) | payer OTHER, MEDICARE | END | disposition home or self-care (01) | LOC: WHH 08:12 | PROVIDERS: ATTEND Family Medicine | DX: E11.621 Type 2 diabetes mellitus with foot ulcer (principal); L97.525 Non-pressure chronic ulcer of other part of left foot with muscle involvement without evidence of necrosis; M86.672 Other chronic osteomyelitis, left ankle and foot; I70.245 Atherosclerosis of native arteries of left leg with ulceration of other part of foot; I70.244 Atherosclerosis of native arteries of left leg with ulceration of heel and midfoot; L97.422 Non-pressure chronic ulcer of left heel and midfoot with fat layer exposed; I70.201 Unspecified atherosclerosis of native arteries of extremities, right leg; E11.69 Type 2 diabetes mellitus with other specified complication; E11.51 Type 2 diabetes mellitus with diabetic peripheral angiopathy without gangrene; E11.42 Type 2 diabetes mellitus with diabetic polyneuropathy; E11.22 Type 2 diabetes mellitus with diabetic chronic kidney disease; I13.0 Hypertensive heart and chronic kidney disease with heart failure and stage 1 through stage 4 chronic kidney disease, or unspecified chronic kidney disease; N18.32 Chronic kidney disease, stage 3b; I50.9 Heart failure, unspecified; D63.1 Anemia in chronic kidney disease; N40.0 Benign prostatic hyperplasia without lower urinary tract symptoms; E78.5 Hyperlipidemia, unspecified; E87.1 Hypo-osmolality and hyponatremia; E66.01 Morbid (severe) obesity due to excess calories; Z68.33 Body mass index [BMI] 33.0-33.9, adult; Z87.891 Personal history of nicotine dependence; Z79.82 Long term (current) use of aspirin; Z89.432 Acquired absence of left foot; Z89.431 Acquired absence of right foot; Z79.899 Other long term (current) drug therapy; Z79.4 Long term (current) use of insulin | CPT/HCPCS: 82948; G0277; A6197; A6207 ==

== ENCOUNTER → 2024-11-06 | Outpatient (CLI) | payer OTHER, MEDICARE | END | disposition home or self-care (01) | LOC: WHH 08:03 | PROVIDERS: ATTEND Family Medicine | DX: E11.621 Type 2 diabetes mellitus with foot ulcer (principal); I70.245 Atherosclerosis of native arteries of left leg with ulceration of other part of foot; L97.525 Non-pressure chronic ulcer of other part of left foot with muscle involvement without evidence of necrosis; I70.244 Atherosclerosis of native arteries of left leg with ulceration of heel and midfoot; L97.421 Non-pressure chronic ulcer of left heel and midfoot limited to breakdown of skin; I70.201 Unspecified atherosclerosis of native arteries of extremities, right leg; E11.51 Type 2 diabetes mellitus with diabetic peripheral angiopathy without gangrene; E11.42 Type 2 diabetes mellitus with diabetic polyneuropathy; E11.69 Type 2 diabetes mellitus with other specified complication; M86.672 Other chronic osteomyelitis, left ankle and foot; E11.22 Type 2 diabetes mellitus with diabetic chronic kidney disease; I13.0 Hypertensive heart and chronic kidney disease with heart failure and stage 1 through stage 4 chronic kidney disease, or unspecified chronic kidney disease; N18.32 Chronic kidney disease, stage 3b; I50.9 Heart failure, unspecified; D63.1 Anemia in chronic kidney disease; N40.0 Benign prostatic hyperplasia without lower urinary tract symptoms; E78.5 Hyperlipidemia, unspecified; E87.1 Hypo-osmolality and hyponatremia; E66.01 Morbid (severe) obesity due to excess calories; Z68.33 Body mass index [BMI] 33.0-33.9, adult; Z87.891 Personal history of nicotine dependence; Z79.82 Long term (current) use of aspirin; Z89.432 Acquired absence of left foot; Z89.431 Acquired absence of right foot; Z79.899 Other long term (current) drug therapy; Z79.4 Long term (current) use of insulin | CPT/HCPCS: G0463; A6197; A4450; A6207 ==

== ENCOUNTER → 2024-11-08 | Outpatient (CLI) | payer OTHER, MEDICARE ==
[~2024-11-08] MED LIST changes: -DOXY100C5 PO; -GENT15CR7 TP; -INSU200I4 SQ; -SANTO TP
== END | disposition home or self-care (01) ==
LOC: WHH 08:14
PROVIDERS: ATTEND Family Medicine
DX: E11.621 Type 2 diabetes mellitus with foot ulcer (principal); L97.525 Non-pressure chronic ulcer of other part of left foot with muscle involvement without evidence of necrosis; I70.245 Atherosclerosis of native arteries of left leg with ulceration of other part of foot; M86.672 Other chronic osteomyelitis, left ankle and foot; E11.69 Type 2 diabetes mellitus with other specified complication; I70.244 Atherosclerosis of native arteries of left leg with ulceration of heel and midfoot; L97.422 Non-pressure chronic ulcer of left heel and midfoot with fat layer exposed; I70.201 Unspecified atherosclerosis of native arteries of extremities, right leg; E11.51 Type 2 diabetes mellitus with diabetic peripheral angiopathy without gangrene; E11.42 Type 2 diabetes mellitus with diabetic polyneuropathy; E11.22 Type 2 diabetes mellitus with diabetic chronic kidney disease; I13.0 Hypertensive heart and chronic kidney disease with heart failure and stage 1 through stage 4 chronic kidney disease, or unspecified chronic kidney disease; N18.32 Chronic kidney disease, stage 3b; I50.9 Heart failure, unspecified; D63.1 Anemia in chronic kidney disease; N40.0 Benign prostatic hyperplasia without lower urinary tract symptoms; E78.5 Hyperlipidemia, unspecified; E87.1 Hypo-osmolality and hyponatremia; E66.01 Morbid (severe) obesity due to excess calories; Z68.33 Body mass index [BMI] 33.0-33.9, adult; Z87.891 Personal history of nicotine dependence; Z79.82 Long term (current) use of aspirin; Z89.432 Acquired absence of left foot; Z89.431 Acquired absence of right foot; Z79.899 Other long term (current) drug therapy; Z79.4 Long term (current) use of insulin
CPT/HCPCS: G0463; A6197

== ENCOUNTER → 2024-11-10 | Outpatient (CLI) | payer OTHER, MEDICARE ==
[~2024-11-10] MED LIST changes: +DOXY100C5 PO; +GENT15CR7 TP; +INSU200I4 SQ; +SANTO TP
== END | disposition home or self-care (01) ==
LOC: WHH 08:07
PROVIDERS: ATTEND Family Medicine
DX: E11.621 Type 2 diabetes mellitus with foot ulcer (principal); I70.245 Atherosclerosis of native arteries of left leg with ulceration of other part of foot; L97.525 Non-pressure chronic ulcer of other part of left foot with muscle involvement without evidence of necrosis; I70.244 Atherosclerosis of native arteries of left leg with ulceration of heel and midfoot; L97.421 Non-pressure chronic ulcer of left heel and midfoot limited to breakdown of skin; I70.201 Unspecified atherosclerosis of native arteries of extremities, right leg; E11.51 Type 2 diabetes mellitus with diabetic peripheral angiopathy without gangrene; E11.42 Type 2 diabetes mellitus with diabetic polyneuropathy; E11.69 Type 2 diabetes mellitus with other specified complication; M86.672 Other chronic osteomyelitis, left ankle and foot; E11.22 Type 2 diabetes mellitus with diabetic chronic kidney disease; I13.0 Hypertensive heart and chronic kidney disease with heart failure and stage 1 through stage 4 chronic kidney disease, or unspecified chronic kidney disease; N18.32 Chronic kidney disease, stage 3b; I50.9 Heart failure, unspecified; D63.1 Anemia in chronic kidney disease; N40.0 Benign prostatic hyperplasia without lower urinary tract symptoms; E78.5 Hyperlipidemia, unspecified; E87.1 Hypo-osmolality and hyponatremia; E66.01 Morbid (severe) obesity due to excess calories; Z68.33 Body mass index [BMI] 33.0-33.9, adult; Z87.891 Personal history of nicotine dependence; Z79.82 Long term (current) use of aspirin; Z89.432 Acquired absence of left foot; Z89.431 Acquired absence of right foot; Z79.899 Other long term (current) drug therapy; Z79.4 Long term (current) use of insulin
CPT/HCPCS: G0463; A6197

== ENCOUNTER → 2024-11-13 | Outpatient (CLI) | payer OTHER, MEDICARE | END | disposition home or self-care (01) | LOC: WHH 07:56 | PROVIDERS: ATTEND Family Medicine | DX: E11.621 Type 2 diabetes mellitus with foot ulcer (principal); I70.245 Atherosclerosis of native arteries of left leg with ulceration of other part of foot; L97.525 Non-pressure chronic ulcer of other part of left foot with muscle involvement without evidence of necrosis; I70.244 Atherosclerosis of native arteries of left leg with ulceration of heel and midfoot; L97.421 Non-pressure chronic ulcer of left heel and midfoot limited to breakdown of skin; I70.201 Unspecified atherosclerosis of native arteries of extremities, right leg; E11.51 Type 2 diabetes mellitus with diabetic peripheral angiopathy without gangrene; E11.42 Type 2 diabetes mellitus with diabetic polyneuropathy; E11.69 Type 2 diabetes mellitus with other specified complication; M86.672 Other chronic osteomyelitis, left ankle and foot; E11.22 Type 2 diabetes mellitus with diabetic chronic kidney disease; I13.0 Hypertensive heart and chronic kidney disease with heart failure and stage 1 through stage 4 chronic kidney disease, or unspecified chronic kidney disease; N18.32 Chronic kidney disease, stage 3b; I50.9 Heart failure, unspecified; D63.1 Anemia in chronic kidney disease; N40.0 Benign prostatic hyperplasia without lower urinary tract symptoms; E78.5 Hyperlipidemia, unspecified; E87.1 Hypo-osmolality and hyponatremia; E66.01 Morbid (severe) obesity due to excess calories; Z68.33 Body mass index [BMI] 33.0-33.9, adult; Z87.891 Personal history of nicotine dependence; Z79.82 Long term (current) use of aspirin; Z89.432 Acquired absence of left foot; Z89.431 Acquired absence of right foot; Z79.899 Other long term (current) drug therapy; Z79.4 Long term (current) use of insulin | CPT/HCPCS: G0463 ==

== ENCOUNTER → 2024-12-04 | Outpatient (CLI) | payer OTHER, MEDICARE ==
[~2024-12-04] MED LIST changes: -GENT15CR7 TP; +LIDOCAINE HCL 4% LTA SOL 4 ML VIAL TP ONE; -SANTO TP
== END | disposition home or self-care (01) ==
LOC: WHH 10:25
PROVIDERS: ATTEND Family Medicine
DX: E11.621 Type 2 diabetes mellitus with foot ulcer (principal); I70.245 Atherosclerosis of native arteries of left leg with ulceration of other part of foot; L97.525 Non-pressure chronic ulcer of other part of left foot with muscle involvement without evidence of necrosis; I70.244 Atherosclerosis of native arteries of left leg with ulceration of heel and midfoot; L97.421 Non-pressure chronic ulcer of left heel and midfoot limited to breakdown of skin; I70.201 Unspecified atherosclerosis of native arteries of extremities, right leg; E11.51 Type 2 diabetes mellitus with diabetic peripheral angiopathy without gangrene; E11.42 Type 2 diabetes mellitus with diabetic polyneuropathy; E11.69 Type 2 diabetes mellitus with other specified complication; M86.672 Other chronic osteomyelitis, left ankle and foot; E11.22 Type 2 diabetes mellitus with diabetic chronic kidney disease; I13.0 Hypertensive heart and chronic kidney disease with heart failure and stage 1 through stage 4 chronic kidney disease, or unspecified chronic kidney disease; N18.32 Chronic kidney disease, stage 3b; I50.9 Heart failure, unspecified; D63.1 Anemia in chronic kidney disease; N40.0 Benign prostatic hyperplasia without lower urinary tract symptoms; E78.5 Hyperlipidemia, unspecified; E87.1 Hypo-osmolality and hyponatremia; E66.01 Morbid (severe) obesity due to excess calories; Z68.33 Body mass index [BMI] 33.0-33.9, adult; Z87.891 Personal history of nicotine dependence; Z79.82 Long term (current) use of aspirin; Z89.432 Acquired absence of left foot; Z89.431 Acquired absence of right foot; Z79.899 Other long term (current) drug therapy; Z79.4 Long term (current) use of insulin
CPT/HCPCS: 11042; 11045; A6197; A4450; A6207

== ENCOUNTER → 2024-12-05 | Outpatient (CLI) | payer OTHER, MEDICARE ==
[~2024-12-05] MED LIST changes: -LIDOCAINE HCL 4% LTA SOL 4 ML VIAL TP ONE
== END | disposition home or self-care (01) ==
LOC: WHH 09:52
PROVIDERS: ATTEND Family Medicine
DX: E11.621 Type 2 diabetes mellitus with foot ulcer (principal); I70.245 Atherosclerosis of native arteries of left leg with ulceration of other part of foot; L97.525 Non-pressure chronic ulcer of other part of left foot with muscle involvement without evidence of necrosis; I70.244 Atherosclerosis of native arteries of left leg with ulceration of heel and midfoot; L97.421 Non-pressure chronic ulcer of left heel and midfoot limited to breakdown of skin; I70.201 Unspecified atherosclerosis of native arteries of extremities, right leg; E11.51 Type 2 diabetes mellitus with diabetic peripheral angiopathy without gangrene; E11.42 Type 2 diabetes mellitus with diabetic polyneuropathy; E11.69 Type 2 diabetes mellitus with other specified complication; M86.672 Other chronic osteomyelitis, left ankle and foot; E11.22 Type 2 diabetes mellitus with diabetic chronic kidney disease; I13.0 Hypertensive heart and chronic kidney disease with heart failure and stage 1 through stage 4 chronic kidney disease, or unspecified chronic kidney disease; N18.32 Chronic kidney disease, stage 3b; I50.9 Heart failure, unspecified; D63.1 Anemia in chronic kidney disease; N40.0 Benign prostatic hyperplasia without lower urinary tract symptoms; E78.5 Hyperlipidemia, unspecified; E87.1 Hypo-osmolality and hyponatremia; E66.01 Morbid (severe) obesity due to excess calories; Z68.33 Body mass index [BMI] 33.0-33.9, adult; Z87.891 Personal history of nicotine dependence; Z79.82 Long term (current) use of aspirin; Z89.432 Acquired absence of left foot; Z89.431 Acquired absence of right foot; Z79.899 Other long term (current) drug therapy; Z79.4 Long term (current) use of insulin
CPT/HCPCS: 82948; G0277; A6197 ×2; A6207

== ENCOUNTER → 2024-12-11 | Outpatient (CLI) | payer OTHER, MEDICARE ==
[~2024-12-11] MED LIST changes: +LIDOCAINE HCL 4% LTA SOL 4 ML VIAL TP ONE
== END | disposition home or self-care (01) ==
LOC: WHH 08:18
PROVIDERS: ATTEND Family Medicine
DX: E11.621 Type 2 diabetes mellitus with foot ulcer (principal); I70.245 Atherosclerosis of native arteries of left leg with ulceration of other part of foot; L97.525 Non-pressure chronic ulcer of other part of left foot with muscle involvement without evidence of necrosis; I70.244 Atherosclerosis of native arteries of left leg with ulceration of heel and midfoot; L97.421 Non-pressure chronic ulcer of left heel and midfoot limited to breakdown of skin; I70.201 Unspecified atherosclerosis of native arteries of extremities, right leg; E11.51 Type 2 diabetes mellitus with diabetic peripheral angiopathy without gangrene; E11.42 Type 2 diabetes mellitus with diabetic polyneuropathy; E11.69 Type 2 diabetes mellitus with other specified complication; M86.672 Other chronic osteomyelitis, left ankle and foot; E11.22 Type 2 diabetes mellitus with diabetic chronic kidney disease; I13.0 Hypertensive heart and chronic kidney disease with heart failure and stage 1 through stage 4 chronic kidney disease, or unspecified chronic kidney disease; I50.9 Heart failure, unspecified; N18.9 Chronic kidney disease, unspecified; N40.0 Benign prostatic hyperplasia without lower urinary tract symptoms; E78.5 Hyperlipidemia, unspecified; E87.1 Hypo-osmolality and hyponatremia; E66.01 Morbid (severe) obesity due to excess calories; Z68.33 Body mass index [BMI] 33.0-33.9, adult; Z87.891 Personal history of nicotine dependence; Z79.82 Long term (current) use of aspirin; Z89.432 Acquired absence of left foot; Z89.431 Acquired absence of right foot; Z79.899 Other long term (current) drug therapy; Z79.4 Long term (current) use of insulin
CPT/HCPCS: 11042; 11045; A6197 ×4; A6207

== ENCOUNTER → 2024-12-12 | Outpatient (CLI) | payer OTHER, MEDICARE ==
[~2024-12-12] MED LIST changes: -LIDOCAINE HCL 4% LTA SOL 4 ML VIAL TP ONE
== END | disposition home or self-care (01) ==
LOC: WHH 09:31
PROVIDERS: ATTEND Family Medicine
DX: E11.621 Type 2 diabetes mellitus with foot ulcer (principal); I70.245 Atherosclerosis of native arteries of left leg with ulceration of other part of foot; L97.525 Non-pressure chronic ulcer of other part of left foot with muscle involvement without evidence of necrosis; I70.201 Unspecified atherosclerosis of native arteries of extremities, right leg; E11.51 Type 2 diabetes mellitus with diabetic peripheral angiopathy without gangrene; E11.42 Type 2 diabetes mellitus with diabetic polyneuropathy; E11.69 Type 2 diabetes mellitus with other specified complication; M86.672 Other chronic osteomyelitis, left ankle and foot; E11.22 Type 2 diabetes mellitus with diabetic chronic kidney disease; I13.0 Hypertensive heart and chronic kidney disease with heart failure and stage 1 through stage 4 chronic kidney disease, or unspecified chronic kidney disease; I50.9 Heart failure, unspecified; N18.9 Chronic kidney disease, unspecified; N40.0 Benign prostatic hyperplasia without lower urinary tract symptoms; E78.5 Hyperlipidemia, unspecified; E87.1 Hypo-osmolality and hyponatremia; E66.01 Morbid (severe) obesity due to excess calories; Z68.33 Body mass index [BMI] 33.0-33.9, adult; Z87.891 Personal history of nicotine dependence; Z79.82 Long term (current) use of aspirin; Z89.432 Acquired absence of left foot; Z89.431 Acquired absence of right foot; Z79.899 Other long term (current) drug therapy; Z79.4 Long term (current) use of insulin
CPT/HCPCS: G0277

== ENCOUNTER → 2024-12-13 | Outpatient (CLI) | payer OTHER, MEDICARE | END | disposition home or self-care (01) | LOC: WHH 10:10 | PROVIDERS: ATTEND Podiatrist Foot & Ankle Surgery | DX: E11.621 Type 2 diabetes mellitus with foot ulcer (principal); I70.245 Atherosclerosis of native arteries of left leg with ulceration of other part of foot; L97.525 Non-pressure chronic ulcer of other part of left foot with muscle involvement without evidence of necrosis; I70.244 Atherosclerosis of native arteries of left leg with ulceration of heel and midfoot; L97.421 Non-pressure chronic ulcer of left heel and midfoot limited to breakdown of skin; I70.201 Unspecified atherosclerosis of native arteries of extremities, right leg; E11.51 Type 2 diabetes mellitus with diabetic peripheral angiopathy without gangrene; E11.42 Type 2 diabetes mellitus with diabetic polyneuropathy; E11.69 Type 2 diabetes mellitus with other specified complication; M86.672 Other chronic osteomyelitis, left ankle and foot; E11.22 Type 2 diabetes mellitus with diabetic chronic kidney disease; I13.0 Hypertensive heart and chronic kidney disease with heart failure and stage 1 through stage 4 chronic kidney disease, or unspecified chronic kidney disease; N18.32 Chronic kidney disease, stage 3b; I50.9 Heart failure, unspecified; D63.1 Anemia in chronic kidney disease; N40.0 Benign prostatic hyperplasia without lower urinary tract symptoms; E78.5 Hyperlipidemia, unspecified; E87.1 Hypo-osmolality and hyponatremia; E66.01 Morbid (severe) obesity due to excess calories; Z68.33 Body mass index [BMI] 33.0-33.9, adult; Z87.891 Personal history of nicotine dependence; Z79.82 Long term (current) use of aspirin; Z89.432 Acquired absence of left foot; Z89.431 Acquired absence of right foot; Z79.899 Other long term (current) drug therapy; Z79.4 Long term (current) use of insulin | CPT/HCPCS: 82948; G0277; A6197 ×2; A6260; A6207 ==

== ENCOUNTER → 2024-12-14 | Outpatient (CLI) | payer OTHER, MEDICARE | END | disposition home or self-care (01) | LOC: WHH 10:17 | PROVIDERS: ATTEND Family Medicine | DX: E11.621 Type 2 diabetes mellitus with foot ulcer (principal); I70.245 Atherosclerosis of native arteries of left leg with ulceration of other part of foot; L97.525 Non-pressure chronic ulcer of other part of left foot with muscle involvement without evidence of necrosis; I70.244 Atherosclerosis of native arteries of left leg with ulceration of heel and midfoot; L97.421 Non-pressure chronic ulcer of left heel and midfoot limited to breakdown of skin; I70.201 Unspecified atherosclerosis of native arteries of extremities, right leg; E11.51 Type 2 diabetes mellitus with diabetic peripheral angiopathy without gangrene; E11.42 Type 2 diabetes mellitus with diabetic polyneuropathy; E11.69 Type 2 diabetes mellitus with other specified complication; M86.672 Other chronic osteomyelitis, left ankle and foot; E11.22 Type 2 diabetes mellitus with diabetic chronic kidney disease; I13.0 Hypertensive heart and chronic kidney disease with heart failure and stage 1 through stage 4 chronic kidney disease, or unspecified chronic kidney disease; N18.32 Chronic kidney disease, stage 3b; I50.9 Heart failure, unspecified; D63.1 Anemia in chronic kidney disease; N40.0 Benign prostatic hyperplasia without lower urinary tract symptoms; E78.5 Hyperlipidemia, unspecified; E87.1 Hypo-osmolality and hyponatremia; E66.01 Morbid (severe) obesity due to excess calories; Z68.33 Body mass index [BMI] 33.0-33.9, adult; Z87.891 Personal history of nicotine dependence; Z79.82 Long term (current) use of aspirin; Z89.432 Acquired absence of left foot; Z89.431 Acquired absence of right foot; Z79.899 Other long term (current) drug therapy; Z79.4 Long term (current) use of insulin | CPT/HCPCS: 82948; G0277 ==

== ENCOUNTER → 2024-12-15 | Outpatient (CLI) | payer OTHER, MEDICARE | END | disposition home or self-care (01) | LOC: WHH 10:02 | PROVIDERS: ATTEND Family Medicine | DX: E11.621 Type 2 diabetes mellitus with foot ulcer (principal); I70.245 Atherosclerosis of native arteries of left leg with ulceration of other part of foot; L97.525 Non-pressure chronic ulcer of other part of left foot with muscle involvement without evidence of necrosis; I70.244 Atherosclerosis of native arteries of left leg with ulceration of heel and midfoot; L97.421 Non-pressure chronic ulcer of left heel and midfoot limited to breakdown of skin; I70.201 Unspecified atherosclerosis of native arteries of extremities, right leg; E11.51 Type 2 diabetes mellitus with diabetic peripheral angiopathy without gangrene; E11.42 Type 2 diabetes mellitus with diabetic polyneuropathy; E11.69 Type 2 diabetes mellitus with other specified complication; M86.672 Other chronic osteomyelitis, left ankle and foot; E11.22 Type 2 diabetes mellitus with diabetic chronic kidney disease; I13.0 Hypertensive heart and chronic kidney disease with heart failure and stage 1 through stage 4 chronic kidney disease, or unspecified chronic kidney disease; N18.32 Chronic kidney disease, stage 3b; I50.9 Heart failure, unspecified; D63.1 Anemia in chronic kidney disease; N40.0 Benign prostatic hyperplasia without lower urinary tract symptoms; E78.5 Hyperlipidemia, unspecified; E87.1 Hypo-osmolality and hyponatremia; E66.01 Morbid (severe) obesity due to excess calories; Z68.33 Body mass index [BMI] 33.0-33.9, adult; Z87.891 Personal history of nicotine dependence; Z79.82 Long term (current) use of aspirin; Z89.432 Acquired absence of left foot; Z89.431 Acquired absence of right foot; Z79.899 Other long term (current) drug therapy; Z79.4 Long term (current) use of insulin | CPT/HCPCS: 82948; G0277; A6197 ×4; A6207 ×2 ==

== ENCOUNTER → 2024-12-18 | Outpatient (CLI) | payer OTHER, MEDICARE | END | disposition home or self-care (01) | LOC: WHH 10:15 | PROVIDERS: ATTEND Family Medicine | DX: E11.621 Type 2 diabetes mellitus with foot ulcer (principal); I70.245 Atherosclerosis of native arteries of left leg with ulceration of other part of foot; L97.525 Non-pressure chronic ulcer of other part of left foot with muscle involvement without evidence of necrosis; I70.244 Atherosclerosis of native arteries of left leg with ulceration of heel and midfoot; L97.421 Non-pressure chronic ulcer of left heel and midfoot limited to breakdown of skin; I70.201 Unspecified atherosclerosis of native arteries of extremities, right leg; E11.51 Type 2 diabetes mellitus with diabetic peripheral angiopathy without gangrene; E11.42 Type 2 diabetes mellitus with diabetic polyneuropathy; E11.69 Type 2 diabetes mellitus with other specified complication; M86.672 Other chronic osteomyelitis, left ankle and foot; E11.22 Type 2 diabetes mellitus with diabetic chronic kidney disease; I13.0 Hypertensive heart and chronic kidney disease with heart failure and stage 1 through stage 4 chronic kidney disease, or unspecified chronic kidney disease; I50.9 Heart failure, unspecified; N18.9 Chronic kidney disease, unspecified; N40.0 Benign prostatic hyperplasia without lower urinary tract symptoms; E78.5 Hyperlipidemia, unspecified; E87.1 Hypo-osmolality and hyponatremia; E66.01 Morbid (severe) obesity due to excess calories; Z68.33 Body mass index [BMI] 33.0-33.9, adult; Z87.891 Personal history of nicotine dependence; Z79.82 Long term (current) use of aspirin; Z89.432 Acquired absence of left foot; Z89.431 Acquired absence of right foot; Z79.899 Other long term (current) drug therapy; Z79.4 Long term (current) use of insulin | CPT/HCPCS: G0277; A6197 ×2; A6207 ==

== ENCOUNTER → 2024-12-19 | Outpatient (CLI) | payer OTHER, MEDICARE | END | disposition home or self-care (01) | LOC: WHH 09:58 | PROVIDERS: ATTEND Family Medicine | DX: E11.621 Type 2 diabetes mellitus with foot ulcer (principal); I70.245 Atherosclerosis of native arteries of left leg with ulceration of other part of foot; L97.525 Non-pressure chronic ulcer of other part of left foot with muscle involvement without evidence of necrosis; I70.244 Atherosclerosis of native arteries of left leg with ulceration of heel and midfoot; L97.421 Non-pressure chronic ulcer of left heel and midfoot limited to breakdown of skin; I70.201 Unspecified atherosclerosis of native arteries of extremities, right leg; E11.51 Type 2 diabetes mellitus with diabetic peripheral angiopathy without gangrene; E11.42 Type 2 diabetes mellitus with diabetic polyneuropathy; E11.69 Type 2 diabetes mellitus with other specified complication; M86.672 Other chronic osteomyelitis, left ankle and foot; E11.22 Type 2 diabetes mellitus with diabetic chronic kidney disease; I13.0 Hypertensive heart and chronic kidney disease with heart failure and stage 1 through stage 4 chronic kidney disease, or unspecified chronic kidney disease; I50.9 Heart failure, unspecified; N18.9 Chronic kidney disease, unspecified; N40.0 Benign prostatic hyperplasia without lower urinary tract symptoms; E78.5 Hyperlipidemia, unspecified; E87.1 Hypo-osmolality and hyponatremia; E66.01 Morbid (severe) obesity due to excess calories; Z68.33 Body mass index [BMI] 33.0-33.9, adult; Z79.82 Long term (current) use of aspirin; Z89.432 Acquired absence of left foot; Z89.431 Acquired absence of right foot; Z87.891 Personal history of nicotine dependence; Z79.899 Other long term (current) drug therapy; Z79.4 Long term (current) use of insulin | CPT/HCPCS: 82948; G0277 ==

== ENCOUNTER → 2024-12-20 | Outpatient (CLI) | payer OTHER, MEDICARE | END | disposition home or self-care (01) | LOC: WHH 10:29 | PROVIDERS: ATTEND Podiatrist Foot & Ankle Surgery | DX: E11.621 Type 2 diabetes mellitus with foot ulcer (principal); L97.525 Non-pressure chronic ulcer of other part of left foot with muscle involvement without evidence of necrosis; I70.245 Atherosclerosis of native arteries of left leg with ulceration of other part of foot; I70.244 Atherosclerosis of native arteries of left leg with ulceration of heel and midfoot; L97.421 Non-pressure chronic ulcer of left heel and midfoot limited to breakdown of skin; I70.201 Unspecified atherosclerosis of native arteries of extremities, right leg; E11.51 Type 2 diabetes mellitus with diabetic peripheral angiopathy without gangrene; E11.42 Type 2 diabetes mellitus with diabetic polyneuropathy; E11.69 Type 2 diabetes mellitus with other specified complication; M86.672 Other chronic osteomyelitis, left ankle and foot; E11.22 Type 2 diabetes mellitus with diabetic chronic kidney disease; I13.0 Hypertensive heart and chronic kidney disease with heart failure and stage 1 through stage 4 chronic kidney disease, or unspecified chronic kidney disease; I50.9 Heart failure, unspecified; N18.9 Chronic kidney disease, unspecified; N40.0 Benign prostatic hyperplasia without lower urinary tract symptoms; E87.1 Hypo-osmolality and hyponatremia; E78.5 Hyperlipidemia, unspecified; E66.01 Morbid (severe) obesity due to excess calories; Z68.33 Body mass index [BMI] 33.0-33.9, adult; Z87.891 Personal history of nicotine dependence; Z79.82 Long term (current) use of aspirin; Z89.432 Acquired absence of left foot; Z89.431 Acquired absence of right foot; Z79.899 Other long term (current) drug therapy; Z79.4 Long term (current) use of insulin | CPT/HCPCS: G0277; A6197 ×2; A6260 ==

== ENCOUNTER → 2024-12-21 | Outpatient (CLI) | payer OTHER, MEDICARE | END | disposition home or self-care (01) | LOC: WHH 08:25 | PROVIDERS: ATTEND Family Medicine | DX: E11.621 Type 2 diabetes mellitus with foot ulcer (principal); I70.245 Atherosclerosis of native arteries of left leg with ulceration of other part of foot; L97.525 Non-pressure chronic ulcer of other part of left foot with muscle involvement without evidence of necrosis; I70.244 Atherosclerosis of native arteries of left leg with ulceration of heel and midfoot; L97.421 Non-pressure chronic ulcer of left heel and midfoot limited to breakdown of skin; I70.201 Unspecified atherosclerosis of native arteries of extremities, right leg; E11.51 Type 2 diabetes mellitus with diabetic peripheral angiopathy without gangrene; E11.42 Type 2 diabetes mellitus with diabetic polyneuropathy; E11.69 Type 2 diabetes mellitus with other specified complication; M86.672 Other chronic osteomyelitis, left ankle and foot; E11.22 Type 2 diabetes mellitus with diabetic chronic kidney disease; I13.0 Hypertensive heart and chronic kidney disease with heart failure and stage 1 through stage 4 chronic kidney disease, or unspecified chronic kidney disease; I50.9 Heart failure, unspecified; N18.9 Chronic kidney disease, unspecified; N40.0 Benign prostatic hyperplasia without lower urinary tract symptoms; E87.1 Hypo-osmolality and hyponatremia; E78.5 Hyperlipidemia, unspecified; E66.01 Morbid (severe) obesity due to excess calories; Z68.33 Body mass index [BMI] 33.0-33.9, adult; Z87.891 Personal history of nicotine dependence; Z79.82 Long term (current) use of aspirin; Z89.432 Acquired absence of left foot; Z89.431 Acquired absence of right foot; Z79.899 Other long term (current) drug therapy; Z79.4 Long term (current) use of insulin | CPT/HCPCS: 82948; G0277 ==

== ENCOUNTER → 2024-12-22 | Outpatient (CLI) | payer OTHER, MEDICARE | END | disposition home or self-care (01) | LOC: WHH 08:07 | PROVIDERS: ATTEND Family Medicine | DX: E11.621 Type 2 diabetes mellitus with foot ulcer (principal); I70.245 Atherosclerosis of native arteries of left leg with ulceration of other part of foot; L97.525 Non-pressure chronic ulcer of other part of left foot with muscle involvement without evidence of necrosis; I70.244 Atherosclerosis of native arteries of left leg with ulceration of heel and midfoot; L97.421 Non-pressure chronic ulcer of left heel and midfoot limited to breakdown of skin; I70.201 Unspecified atherosclerosis of native arteries of extremities, right leg; E11.42 Type 2 diabetes mellitus with diabetic polyneuropathy; E11.51 Type 2 diabetes mellitus with diabetic peripheral angiopathy without gangrene; E11.69 Type 2 diabetes mellitus with other specified complication; M86.672 Other chronic osteomyelitis, left ankle and foot; E11.22 Type 2 diabetes mellitus with diabetic chronic kidney disease; I13.0 Hypertensive heart and chronic kidney disease with heart failure and stage 1 through stage 4 chronic kidney disease, or unspecified chronic kidney disease; I50.9 Heart failure, unspecified; N18.9 Chronic kidney disease, unspecified; N40.0 Benign prostatic hyperplasia without lower urinary tract symptoms; E87.1 Hypo-osmolality and hyponatremia; E78.5 Hyperlipidemia, unspecified; E66.01 Morbid (severe) obesity due to excess calories; Z68.33 Body mass index [BMI] 33.0-33.9, adult; Z87.891 Personal history of nicotine dependence; Z79.82 Long term (current) use of aspirin; Z89.432 Acquired absence of left foot; Z89.431 Acquired absence of right foot; Z79.899 Other long term (current) drug therapy; Z79.4 Long term (current) use of insulin | CPT/HCPCS: 82948; G0277; A6197 ×2; A6207 ==

== ENCOUNTER → 2024-12-25 | Outpatient (CLI) | payer OTHER, MEDICARE ==
[~2024-12-25] MED LIST changes: +LIDOCAINE HCL 4% LTA SOL 4 ML VIAL TP ONE
== END | disposition home or self-care (01) ==
LOC: WHH 08:32
PROVIDERS: ATTEND Family Medicine
DX: E11.621 Type 2 diabetes mellitus with foot ulcer (principal); I70.245 Atherosclerosis of native arteries of left leg with ulceration of other part of foot; L97.525 Non-pressure chronic ulcer of other part of left foot with muscle involvement without evidence of necrosis; I70.244 Atherosclerosis of native arteries of left leg with ulceration of heel and midfoot; L97.421 Non-pressure chronic ulcer of left heel and midfoot limited to breakdown of skin; I70.201 Unspecified atherosclerosis of native arteries of extremities, right leg; E11.51 Type 2 diabetes mellitus with diabetic peripheral angiopathy without gangrene; E11.42 Type 2 diabetes mellitus with diabetic polyneuropathy; E11.69 Type 2 diabetes mellitus with other specified complication; M86.672 Other chronic osteomyelitis, left ankle and foot; E11.22 Type 2 diabetes mellitus with diabetic chronic kidney disease; I13.0 Hypertensive heart and chronic kidney disease with heart failure and stage 1 through stage 4 chronic kidney disease, or unspecified chronic kidney disease; I50.9 Heart failure, unspecified; N18.9 Chronic kidney disease, unspecified; N40.0 Benign prostatic hyperplasia without lower urinary tract symptoms; E87.1 Hypo-osmolality and hyponatremia; E78.5 Hyperlipidemia, unspecified; E66.01 Morbid (severe) obesity due to excess calories; Z68.33 Body mass index [BMI] 33.0-33.9, adult; Z87.891 Personal history of nicotine dependence; Z79.82 Long term (current) use of aspirin; Z89.432 Acquired absence of left foot; Z89.431 Acquired absence of right foot; Z79.899 Other long term (current) drug therapy; Z79.4 Long term (current) use of insulin
CPT/HCPCS: 11042; A6196; A6197 ×2; A6260

== ENCOUNTER → 2025-01-01 | Outpatient (CLI) | payer OTHER, MEDICARE ==
[~2025-01-01] MED LIST changes: -LIDOCAINE HCL 4% LTA SOL 4 ML VIAL TP ONE
== END | disposition home or self-care (01) ==
LOC: WHH 08:12
PROVIDERS: ATTEND Family Medicine
DX: E11.621 Type 2 diabetes mellitus with foot ulcer (principal); I70.245 Atherosclerosis of native arteries of left leg with ulceration of other part of foot; L97.525 Non-pressure chronic ulcer of other part of left foot with muscle involvement without evidence of necrosis; I70.244 Atherosclerosis of native arteries of left leg with ulceration of heel and midfoot; L97.421 Non-pressure chronic ulcer of left heel and midfoot limited to breakdown of skin; I70.201 Unspecified atherosclerosis of native arteries of extremities, right leg; E11.42 Type 2 diabetes mellitus with diabetic polyneuropathy; E11.51 Type 2 diabetes mellitus with diabetic peripheral angiopathy without gangrene; E11.69 Type 2 diabetes mellitus with other specified complication; M86.672 Other chronic osteomyelitis, left ankle and foot; E11.22 Type 2 diabetes mellitus with diabetic chronic kidney disease; I13.0 Hypertensive heart and chronic kidney disease with heart failure and stage 1 through stage 4 chronic kidney disease, or unspecified chronic kidney disease; I50.9 Heart failure, unspecified; N18.9 Chronic kidney disease, unspecified; N40.0 Benign prostatic hyperplasia without lower urinary tract symptoms; E87.1 Hypo-osmolality and hyponatremia; E78.5 Hyperlipidemia, unspecified; E66.01 Morbid (severe) obesity due to excess calories; Z68.33 Body mass index [BMI] 33.0-33.9, adult; Z87.891 Personal history of nicotine dependence; Z89.432 Acquired absence of left foot; Z89.431 Acquired absence of right foot; Z79.899 Other long term (current) drug therapy; Z79.82 Long term (current) use of aspirin; Z79.4 Long term (current) use of insulin
CPT/HCPCS: 11042; 82948; 11045; G0277; A6196; A6197 ×2

== ENCOUNTER → 2025-01-05 | Outpatient (CLI) | payer OTHER, MEDICARE | END | disposition home or self-care (01) | LOC: WHH 09:19 | PROVIDERS: ATTEND Family Medicine | DX: E11.621 Type 2 diabetes mellitus with foot ulcer (principal); I70.245 Atherosclerosis of native arteries of left leg with ulceration of other part of foot; L97.525 Non-pressure chronic ulcer of other part of left foot with muscle involvement without evidence of necrosis; I70.244 Atherosclerosis of native arteries of left leg with ulceration of heel and midfoot; L97.421 Non-pressure chronic ulcer of left heel and midfoot limited to breakdown of skin; I70.201 Unspecified atherosclerosis of native arteries of extremities, right leg; E11.42 Type 2 diabetes mellitus with diabetic polyneuropathy; E11.51 Type 2 diabetes mellitus with diabetic peripheral angiopathy without gangrene; E11.69 Type 2 diabetes mellitus with other specified complication; M86.672 Other chronic osteomyelitis, left ankle and foot; E11.22 Type 2 diabetes mellitus with diabetic chronic kidney disease; I13.0 Hypertensive heart and chronic kidney disease with heart failure and stage 1 through stage 4 chronic kidney disease, or unspecified chronic kidney disease; I50.9 Heart failure, unspecified; N18.9 Chronic kidney disease, unspecified; N40.0 Benign prostatic hyperplasia without lower urinary tract symptoms; E87.1 Hypo-osmolality and hyponatremia; E78.5 Hyperlipidemia, unspecified; E66.01 Morbid (severe) obesity due to excess calories; Z68.33 Body mass index [BMI] 33.0-33.9, adult; Z87.891 Personal history of nicotine dependence; Z89.432 Acquired absence of left foot; Z89.431 Acquired absence of right foot; Z79.899 Other long term (current) drug therapy; Z79.82 Long term (current) use of aspirin; Z79.4 Long term (current) use of insulin | CPT/HCPCS: G0277; A6197 ==

== ENCOUNTER → 2025-01-08 | Outpatient (CLI) | payer OTHER, MEDICARE | END | disposition home or self-care (01) | LOC: WHH 07:58 | PROVIDERS: ATTEND Family Medicine | DX: E11.621 Type 2 diabetes mellitus with foot ulcer (principal); I70.245 Atherosclerosis of native arteries of left leg with ulceration of other part of foot; L97.525 Non-pressure chronic ulcer of other part of left foot with muscle involvement without evidence of necrosis; I70.244 Atherosclerosis of native arteries of left leg with ulceration of heel and midfoot; L97.422 Non-pressure chronic ulcer of left heel and midfoot with fat layer exposed; I70.201 Unspecified atherosclerosis of native arteries of extremities, right leg; E11.42 Type 2 diabetes mellitus with diabetic polyneuropathy; E11.51 Type 2 diabetes mellitus with diabetic peripheral angiopathy without gangrene; E11.69 Type 2 diabetes mellitus with other specified complication; M86.672 Other chronic osteomyelitis, left ankle and foot; E11.22 Type 2 diabetes mellitus with diabetic chronic kidney disease; I13.0 Hypertensive heart and chronic kidney disease with heart failure and stage 1 through stage 4 chronic kidney disease, or unspecified chronic kidney disease; I50.9 Heart failure, unspecified; N18.9 Chronic kidney disease, unspecified; N40.0 Benign prostatic hyperplasia without lower urinary tract symptoms; E87.1 Hypo-osmolality and hyponatremia; E78.5 Hyperlipidemia, unspecified; E66.01 Morbid (severe) obesity due to excess calories; Z68.33 Body mass index [BMI] 33.0-33.9, adult; Z87.891 Personal history of nicotine dependence; Z89.432 Acquired absence of left foot; Z89.431 Acquired absence of right foot; Z79.899 Other long term (current) drug therapy; Z79.82 Long term (current) use of aspirin; Z79.4 Long term (current) use of insulin | CPT/HCPCS: 11042; 82948; 11045; G0277; A6209; A6197; A4450; A6260 ==

== ENCOUNTER → 2025-01-09 | Outpatient (CLI) | payer OTHER, MEDICARE | END | disposition home or self-care (01) | LOC: WHH 07:46 | PROVIDERS: ATTEND Family Medicine | DX: E11.621 Type 2 diabetes mellitus with foot ulcer (principal); I70.245 Atherosclerosis of native arteries of left leg with ulceration of other part of foot; L97.525 Non-pressure chronic ulcer of other part of left foot with muscle involvement without evidence of necrosis; I70.244 Atherosclerosis of native arteries of left leg with ulceration of heel and midfoot; L97.421 Non-pressure chronic ulcer of left heel and midfoot limited to breakdown of skin; I70.201 Unspecified atherosclerosis of native arteries of extremities, right leg; E11.42 Type 2 diabetes mellitus with diabetic polyneuropathy; E11.51 Type 2 diabetes mellitus with diabetic peripheral angiopathy without gangrene; E11.69 Type 2 diabetes mellitus with other specified complication; M86.672 Other chronic osteomyelitis, left ankle and foot; E11.22 Type 2 diabetes mellitus with diabetic chronic kidney disease; I13.0 Hypertensive heart and chronic kidney disease with heart failure and stage 1 through stage 4 chronic kidney disease, or unspecified chronic kidney disease; I50.9 Heart failure, unspecified; N18.9 Chronic kidney disease, unspecified; N40.0 Benign prostatic hyperplasia without lower urinary tract symptoms; E87.1 Hypo-osmolality and hyponatremia; E78.5 Hyperlipidemia, unspecified; E66.01 Morbid (severe) obesity due to excess calories; Z68.33 Body mass index [BMI] 33.0-33.9, adult; Z87.891 Personal history of nicotine dependence; Z89.432 Acquired absence of left foot; Z89.431 Acquired absence of right foot; Z79.899 Other long term (current) drug therapy; Z79.82 Long term (current) use of aspirin; Z79.4 Long term (current) use of insulin | CPT/HCPCS: 82948; G0277; A6197; A6260 ==

== ENCOUNTER → 2025-01-10 | Outpatient (CLI) | payer OTHER, MEDICARE | END | disposition home or self-care (01) | LOC: WHH 07:54 | PROVIDERS: ATTEND Podiatrist Foot & Ankle Surgery | DX: E11.621 Type 2 diabetes mellitus with foot ulcer (principal); I70.245 Atherosclerosis of native arteries of left leg with ulceration of other part of foot; L97.525 Non-pressure chronic ulcer of other part of left foot with muscle involvement without evidence of necrosis; I70.244 Atherosclerosis of native arteries of left leg with ulceration of heel and midfoot; L97.421 Non-pressure chronic ulcer of left heel and midfoot limited to breakdown of skin; I70.201 Unspecified atherosclerosis of native arteries of extremities, right leg; E11.42 Type 2 diabetes mellitus with diabetic polyneuropathy; E11.51 Type 2 diabetes mellitus with diabetic peripheral angiopathy without gangrene; E11.69 Type 2 diabetes mellitus with other specified complication; M86.672 Other chronic osteomyelitis, left ankle and foot; E11.22 Type 2 diabetes mellitus with diabetic chronic kidney disease; I13.0 Hypertensive heart and chronic kidney disease with heart failure and stage 1 through stage 4 chronic kidney disease, or unspecified chronic kidney disease; I50.9 Heart failure, unspecified; N18.9 Chronic kidney disease, unspecified; N40.0 Benign prostatic hyperplasia without lower urinary tract symptoms; E87.1 Hypo-osmolality and hyponatremia; E78.5 Hyperlipidemia, unspecified; E66.01 Morbid (severe) obesity due to excess calories; Z87.891 Personal history of nicotine dependence; Z68.33 Body mass index [BMI] 33.0-33.9, adult; Z89.432 Acquired absence of left foot; Z89.431 Acquired absence of right foot; Z79.899 Other long term (current) drug therapy; Z79.82 Long term (current) use of aspirin; Z79.4 Long term (current) use of insulin | CPT/HCPCS: G0277; A6209; A6197 ×2 ==

== ENCOUNTER → 2025-01-11 | Outpatient (CLI) | payer OTHER, MEDICARE | END | disposition home or self-care (01) | LOC: WHH 07:53 | PROVIDERS: ATTEND Family Medicine | DX: E11.621 Type 2 diabetes mellitus with foot ulcer (principal); I70.245 Atherosclerosis of native arteries of left leg with ulceration of other part of foot; L97.525 Non-pressure chronic ulcer of other part of left foot with muscle involvement without evidence of necrosis; I70.244 Atherosclerosis of native arteries of left leg with ulceration of heel and midfoot; L97.421 Non-pressure chronic ulcer of left heel and midfoot limited to breakdown of skin; I70.201 Unspecified atherosclerosis of native arteries of extremities, right leg; E11.42 Type 2 diabetes mellitus with diabetic polyneuropathy; E11.51 Type 2 diabetes mellitus with diabetic peripheral angiopathy without gangrene; E11.69 Type 2 diabetes mellitus with other specified complication; M86.672 Other chronic osteomyelitis, left ankle and foot; E11.22 Type 2 diabetes mellitus with diabetic chronic kidney disease; I13.0 Hypertensive heart and chronic kidney disease with heart failure and stage 1 through stage 4 chronic kidney disease, or unspecified chronic kidney disease; I50.9 Heart failure, unspecified; N18.9 Chronic kidney disease, unspecified; N40.0 Benign prostatic hyperplasia without lower urinary tract symptoms; E87.1 Hypo-osmolality and hyponatremia; E78.5 Hyperlipidemia, unspecified; E66.01 Morbid (severe) obesity due to excess calories; Z68.33 Body mass index [BMI] 33.0-33.9, adult; Z87.891 Personal history of nicotine dependence; Z89.432 Acquired absence of left foot; Z89.431 Acquired absence of right foot; Z79.899 Other long term (current) drug therapy; Z79.82 Long term (current) use of aspirin; Z79.4 Long term (current) use of insulin | CPT/HCPCS: G0277; A6197 ==

== ENCOUNTER → 2025-01-12 | Outpatient (CLI) | payer OTHER, MEDICARE | END | disposition home or self-care (01) | LOC: WHH 08:48 | PROVIDERS: ATTEND Family Medicine | DX: E11.621 Type 2 diabetes mellitus with foot ulcer (principal); I70.245 Atherosclerosis of native arteries of left leg with ulceration of other part of foot; L97.525 Non-pressure chronic ulcer of other part of left foot with muscle involvement without evidence of necrosis; I70.244 Atherosclerosis of native arteries of left leg with ulceration of heel and midfoot; L97.421 Non-pressure chronic ulcer of left heel and midfoot limited to breakdown of skin; I70.201 Unspecified atherosclerosis of native arteries of extremities, right leg; E11.42 Type 2 diabetes mellitus with diabetic polyneuropathy; E11.51 Type 2 diabetes mellitus with diabetic peripheral angiopathy without gangrene; E11.69 Type 2 diabetes mellitus with other specified complication; M86.672 Other chronic osteomyelitis, left ankle and foot; E11.22 Type 2 diabetes mellitus with diabetic chronic kidney disease; I13.0 Hypertensive heart and chronic kidney disease with heart failure and stage 1 through stage 4 chronic kidney disease, or unspecified chronic kidney disease; I50.9 Heart failure, unspecified; N18.9 Chronic kidney disease, unspecified; N40.0 Benign prostatic hyperplasia without lower urinary tract symptoms; E87.1 Hypo-osmolality and hyponatremia; E78.5 Hyperlipidemia, unspecified; E66.01 Morbid (severe) obesity due to excess calories; Z68.33 Body mass index [BMI] 33.0-33.9, adult; Z87.891 Personal history of nicotine dependence; Z89.432 Acquired absence of left foot; Z89.431 Acquired absence of right foot; Z79.899 Other long term (current) drug therapy; Z79.82 Long term (current) use of aspirin; Z79.4 Long term (current) use of insulin | CPT/HCPCS: G0277; A6209; A6260 ==

== ENCOUNTER → 2025-01-15 | Outpatient (CLI) | payer OTHER, MEDICARE | END | disposition home or self-care (01) | LOC: WHH 07:52 | PROVIDERS: ATTEND Family Medicine | DX: E11.621 Type 2 diabetes mellitus with foot ulcer (principal); I70.245 Atherosclerosis of native arteries of left leg with ulceration of other part of foot; L97.525 Non-pressure chronic ulcer of other part of left foot with muscle involvement without evidence of necrosis; I70.244 Atherosclerosis of native arteries of left leg with ulceration of heel and midfoot; L97.421 Non-pressure chronic ulcer of left heel and midfoot limited to breakdown of skin; E11.51 Type 2 diabetes mellitus with diabetic peripheral angiopathy without gangrene; E11.42 Type 2 diabetes mellitus with diabetic polyneuropathy; E11.69 Type 2 diabetes mellitus with other specified complication; M86.672 Other chronic osteomyelitis, left ankle and foot; E11.22 Type 2 diabetes mellitus with diabetic chronic kidney disease; I13.0 Hypertensive heart and chronic kidney disease with heart failure and stage 1 through stage 4 chronic kidney disease, or unspecified chronic kidney disease; I50.9 Heart failure, unspecified; N18.9 Chronic kidney disease, unspecified; E78.5 Hyperlipidemia, unspecified; E46 Unspecified protein-calorie malnutrition; E66.9 Obesity, unspecified; E66.01 Morbid (severe) obesity due to excess calories; N40.0 Benign prostatic hyperplasia without lower urinary tract symptoms; F32.A Depression, unspecified; F41.9 Anxiety disorder, unspecified; Z68.33 Body mass index [BMI] 33.0-33.9, adult; Z79.899 Other long term (current) drug therapy; Z87.891 Personal history of nicotine dependence; Z79.01 Long term (current) use of anticoagulants; Z79.891 Long term (current) use of opiate analgesic; Z89.432 Acquired absence of left foot; Z89.431 Acquired absence of right foot; Z79.4 Long term (current) use of insulin; Z79.82 Long term (current) use of aspirin | CPT/HCPCS: 11042; 11045; A6250; A6209; A6197 ×2 ==

== ENCOUNTER → 2025-01-29 | Outpatient (CLI) | payer OTHER, MEDICARE | END | disposition home or self-care (01) | LOC: WHH 08:09 | PROVIDERS: ATTEND Family Medicine | DX: E11.621 Type 2 diabetes mellitus with foot ulcer (principal); I70.245 Atherosclerosis of native arteries of left leg with ulceration of other part of foot; L97.525 Non-pressure chronic ulcer of other part of left foot with muscle involvement without evidence of necrosis; I70.244 Atherosclerosis of native arteries of left leg with ulceration of heel and midfoot; L97.421 Non-pressure chronic ulcer of left heel and midfoot limited to breakdown of skin; I70.201 Unspecified atherosclerosis of native arteries of extremities, right leg; E11.51 Type 2 diabetes mellitus with diabetic peripheral angiopathy without gangrene; E11.42 Type 2 diabetes mellitus with diabetic polyneuropathy; E11.69 Type 2 diabetes mellitus with other specified complication; M86.672 Other chronic osteomyelitis, left ankle and foot; E11.22 Type 2 diabetes mellitus with diabetic chronic kidney disease; I13.0 Hypertensive heart and chronic kidney disease with heart failure and stage 1 through stage 4 chronic kidney disease, or unspecified chronic kidney disease; I50.9 Heart failure, unspecified; N18.9 Chronic kidney disease, unspecified; E78.5 Hyperlipidemia, unspecified; E46 Unspecified protein-calorie malnutrition; E66.9 Obesity, unspecified; E66.01 Morbid (severe) obesity due to excess calories; N40.0 Benign prostatic hyperplasia without lower urinary tract symptoms; F32.A Depression, unspecified; F41.9 Anxiety disorder, unspecified; Z68.33 Body mass index [BMI] 33.0-33.9, adult; Z79.899 Other long term (current) drug therapy; Z87.891 Personal history of nicotine dependence; Z79.01 Long term (current) use of anticoagulants; Z79.891 Long term (current) use of opiate analgesic; Z89.432 Acquired absence of left foot; Z89.431 Acquired absence of right foot; Z79.4 Long term (current) use of insulin; Z79.82 Long term (current) use of aspirin | CPT/HCPCS: G0463; A6209; A6197 ==

== ENCOUNTER → 2025-02-05 | Outpatient (CLI) | payer OTHER, MEDICARE ==
[~2025-02-05] MED LIST changes: +LIDOCAINE HCL 4% LTA SOL 4 ML VIAL TP ONE
== END | disposition home or self-care (01) ==
LOC: WHH 08:08
PROVIDERS: ATTEND Family Medicine
DX: E11.621 Type 2 diabetes mellitus with foot ulcer (principal); I70.245 Atherosclerosis of native arteries of left leg with ulceration of other part of foot; L97.525 Non-pressure chronic ulcer of other part of left foot with muscle involvement without evidence of necrosis; I70.244 Atherosclerosis of native arteries of left leg with ulceration of heel and midfoot; L97.421 Non-pressure chronic ulcer of left heel and midfoot limited to breakdown of skin; I70.201 Unspecified atherosclerosis of native arteries of extremities, right leg; E11.51 Type 2 diabetes mellitus with diabetic peripheral angiopathy without gangrene; E11.42 Type 2 diabetes mellitus with diabetic polyneuropathy; E11.69 Type 2 diabetes mellitus with other specified complication; M86.672 Other chronic osteomyelitis, left ankle and foot; E11.22 Type 2 diabetes mellitus with diabetic chronic kidney disease; I13.0 Hypertensive heart and chronic kidney disease with heart failure and stage 1 through stage 4 chronic kidney disease, or unspecified chronic kidney disease; I50.9 Heart failure, unspecified; N18.9 Chronic kidney disease, unspecified; E78.5 Hyperlipidemia, unspecified; E46 Unspecified protein-calorie malnutrition; E66.9 Obesity, unspecified; E66.01 Morbid (severe) obesity due to excess calories; N40.0 Benign prostatic hyperplasia without lower urinary tract symptoms; F32.A Depression, unspecified; F41.9 Anxiety disorder, unspecified; Z68.33 Body mass index [BMI] 33.0-33.9, adult; Z79.899 Other long term (current) drug therapy; Z87.891 Personal history of nicotine dependence; Z79.01 Long term (current) use of anticoagulants; Z79.891 Long term (current) use of opiate analgesic; Z89.432 Acquired absence of left foot; Z89.431 Acquired absence of right foot; Z79.4 Long term (current) use of insulin; Z79.82 Long term (current) use of aspirin
CPT/HCPCS: 97606; A4450

== ENCOUNTER → 2025-02-12 | Outpatient (CLI) | payer OTHER, MEDICARE ==
[~2025-02-12] MED LIST changes: -LIDOCAINE HCL 4% LTA SOL 4 ML VIAL TP ONE
== END | disposition home or self-care (01) ==
LOC: WHH 07:57
PROVIDERS: ATTEND Family Medicine
DX: E11.621 Type 2 diabetes mellitus with foot ulcer (principal); I70.245 Atherosclerosis of native arteries of left leg with ulceration of other part of foot; L97.525 Non-pressure chronic ulcer of other part of left foot with muscle involvement without evidence of necrosis; I70.244 Atherosclerosis of native arteries of left leg with ulceration of heel and midfoot; L97.421 Non-pressure chronic ulcer of left heel and midfoot limited to breakdown of skin; I70.201 Unspecified atherosclerosis of native arteries of extremities, right leg; E11.51 Type 2 diabetes mellitus with diabetic peripheral angiopathy without gangrene; E11.42 Type 2 diabetes mellitus with diabetic polyneuropathy; E11.69 Type 2 diabetes mellitus with other specified complication; M86.672 Other chronic osteomyelitis, left ankle and foot; E11.22 Type 2 diabetes mellitus with diabetic chronic kidney disease; I13.0 Hypertensive heart and chronic kidney disease with heart failure and stage 1 through stage 4 chronic kidney disease, or unspecified chronic kidney disease; I50.9 Heart failure, unspecified; N18.9 Chronic kidney disease, unspecified; E78.5 Hyperlipidemia, unspecified; E46 Unspecified protein-calorie malnutrition; E66.9 Obesity, unspecified; E66.01 Morbid (severe) obesity due to excess calories; N40.0 Benign prostatic hyperplasia without lower urinary tract symptoms; F32.A Depression, unspecified; F41.9 Anxiety disorder, unspecified; Z68.33 Body mass index [BMI] 33.0-33.9, adult; Z79.899 Other long term (current) drug therapy; Z87.891 Personal history of nicotine dependence; Z79.01 Long term (current) use of anticoagulants; Z79.891 Long term (current) use of opiate analgesic; Z89.432 Acquired absence of left foot; Z89.431 Acquired absence of right foot; Z79.4 Long term (current) use of insulin; Z79.82 Long term (current) use of aspirin
CPT/HCPCS: 97606; A6234

== ENCOUNTER → 2025-02-19 | Outpatient (CLI) | payer OTHER, MEDICARE | END | disposition home or self-care (01) | LOC: WHH 07:53 | PROVIDERS: ATTEND Family Medicine | DX: E11.621 Type 2 diabetes mellitus with foot ulcer (principal); I70.245 Atherosclerosis of native arteries of left leg with ulceration of other part of foot; L97.525 Non-pressure chronic ulcer of other part of left foot with muscle involvement without evidence of necrosis; I70.244 Atherosclerosis of native arteries of left leg with ulceration of heel and midfoot; L97.421 Non-pressure chronic ulcer of left heel and midfoot limited to breakdown of skin; I70.201 Unspecified atherosclerosis of native arteries of extremities, right leg; E11.51 Type 2 diabetes mellitus with diabetic peripheral angiopathy without gangrene; E11.42 Type 2 diabetes mellitus with diabetic polyneuropathy; E11.69 Type 2 diabetes mellitus with other specified complication; M86.672 Other chronic osteomyelitis, left ankle and foot; E11.22 Type 2 diabetes mellitus with diabetic chronic kidney disease; I13.0 Hypertensive heart and chronic kidney disease with heart failure and stage 1 through stage 4 chronic kidney disease, or unspecified chronic kidney disease; I50.9 Heart failure, unspecified; N18.9 Chronic kidney disease, unspecified; E78.5 Hyperlipidemia, unspecified; E46 Unspecified protein-calorie malnutrition; E66.9 Obesity, unspecified; E66.01 Morbid (severe) obesity due to excess calories; N40.0 Benign prostatic hyperplasia without lower urinary tract symptoms; F32.A Depression, unspecified; F41.9 Anxiety disorder, unspecified; Z68.33 Body mass index [BMI] 33.0-33.9, adult; Z79.899 Other long term (current) drug therapy; Z87.891 Personal history of nicotine dependence; Z79.01 Long term (current) use of anticoagulants; Z79.891 Long term (current) use of opiate analgesic; Z89.432 Acquired absence of left foot; Z89.431 Acquired absence of right foot; Z79.4 Long term (current) use of insulin; Z79.82 Long term (current) use of aspirin | CPT/HCPCS: 97606; A6260; A6234; 97605 ==

== ENCOUNTER → 2025-03-12 | Outpatient (CLI) | payer OTHER, MEDICARE | END | disposition home or self-care (01) | LOC: WHH 07:56 | PROVIDERS: ATTEND Family Medicine | DX: E11.621 Type 2 diabetes mellitus with foot ulcer (principal); I70.245 Atherosclerosis of native arteries of left leg with ulceration of other part of foot; L97.525 Non-pressure chronic ulcer of other part of left foot with muscle involvement without evidence of necrosis; I70.244 Atherosclerosis of native arteries of left leg with ulceration of heel and midfoot; L97.421 Non-pressure chronic ulcer of left heel and midfoot limited to breakdown of skin; I70.201 Unspecified atherosclerosis of native arteries of extremities, right leg; E11.51 Type 2 diabetes mellitus with diabetic peripheral angiopathy without gangrene; E11.42 Type 2 diabetes mellitus with diabetic polyneuropathy; E11.69 Type 2 diabetes mellitus with other specified complication; M86.672 Other chronic osteomyelitis, left ankle and foot; E11.22 Type 2 diabetes mellitus with diabetic chronic kidney disease; I13.0 Hypertensive heart and chronic kidney disease with heart failure and stage 1 through stage 4 chronic kidney disease, or unspecified chronic kidney disease; I50.9 Heart failure, unspecified; N18.9 Chronic kidney disease, unspecified; E78.5 Hyperlipidemia, unspecified; E46 Unspecified protein-calorie malnutrition; E66.01 Morbid (severe) obesity due to excess calories; N40.0 Benign prostatic hyperplasia without lower urinary tract symptoms; F32.A Depression, unspecified; F41.9 Anxiety disorder, unspecified; Z68.33 Body mass index [BMI] 33.0-33.9, adult; Z79.899 Other long term (current) drug therapy; Z87.891 Personal history of nicotine dependence; Z79.01 Long term (current) use of anticoagulants; Z79.891 Long term (current) use of opiate analgesic; Z89.432 Acquired absence of left foot; Z89.431 Acquired absence of right foot; Z79.4 Long term (current) use of insulin; Z79.82 Long term (current) use of aspirin | CPT/HCPCS: 97605; A6250; A6234 ==

== ENCOUNTER → 2025-03-19 | Outpatient (CLI) | payer OTHER, MEDICARE | END | disposition home or self-care (01) | LOC: WHH 08:02 | PROVIDERS: ATTEND Family Medicine | DX: E11.621 Type 2 diabetes mellitus with foot ulcer (principal); I70.245 Atherosclerosis of native arteries of left leg with ulceration of other part of foot; L97.526 Non-pressure chronic ulcer of other part of left foot with bone involvement without evidence of necrosis; I70.244 Atherosclerosis of native arteries of left leg with ulceration of heel and midfoot; L97.421 Non-pressure chronic ulcer of left heel and midfoot limited to breakdown of skin; I70.201 Unspecified atherosclerosis of native arteries of extremities, right leg; E11.51 Type 2 diabetes mellitus with diabetic peripheral angiopathy without gangrene; E11.42 Type 2 diabetes mellitus with diabetic polyneuropathy; E11.69 Type 2 diabetes mellitus with other specified complication; M86.672 Other chronic osteomyelitis, left ankle and foot; E11.22 Type 2 diabetes mellitus with diabetic chronic kidney disease; I13.0 Hypertensive heart and chronic kidney disease with heart failure and stage 1 through stage 4 chronic kidney disease, or unspecified chronic kidney disease; I50.9 Heart failure, unspecified; N18.9 Chronic kidney disease, unspecified; E78.5 Hyperlipidemia, unspecified; E46 Unspecified protein-calorie malnutrition; E66.01 Morbid (severe) obesity due to excess calories; N40.0 Benign prostatic hyperplasia without lower urinary tract symptoms; F32.A Depression, unspecified; F41.9 Anxiety disorder, unspecified; Z68.33 Body mass index [BMI] 33.0-33.9, adult; Z79.899 Other long term (current) drug therapy; Z87.891 Personal history of nicotine dependence; Z79.01 Long term (current) use of anticoagulants; Z79.891 Long term (current) use of opiate analgesic; Z89.432 Acquired absence of left foot; Z89.431 Acquired absence of right foot; Z79.4 Long term (current) use of insulin; Z79.82 Long term (current) use of aspirin | CPT/HCPCS: 97605; A6260; A6234 ==

== ENCOUNTER → 2025-03-26 | Outpatient (CLI) | payer OTHER, MEDICARE ==
[~2025-03-26] MED LIST changes: +SILVER NITRATE APPLICATOR 1 SWAB TP ONE
== END | disposition home or self-care (01) ==
LOC: WHH 08:14
PROVIDERS: ATTEND Family Medicine
DX: E11.621 Type 2 diabetes mellitus with foot ulcer (principal); I70.245 Atherosclerosis of native arteries of left leg with ulceration of other part of foot; L97.526 Non-pressure chronic ulcer of other part of left foot with bone involvement without evidence of necrosis; I70.244 Atherosclerosis of native arteries of left leg with ulceration of heel and midfoot; L97.426 Non-pressure chronic ulcer of left heel and midfoot with bone involvement without evidence of necrosis; I70.201 Unspecified atherosclerosis of native arteries of extremities, right leg; E11.51 Type 2 diabetes mellitus with diabetic peripheral angiopathy without gangrene; E11.42 Type 2 diabetes mellitus with diabetic polyneuropathy; E11.69 Type 2 diabetes mellitus with other specified complication; M86.672 Other chronic osteomyelitis, left ankle and foot; E11.22 Type 2 diabetes mellitus with diabetic chronic kidney disease; I13.0 Hypertensive heart and chronic kidney disease with heart failure and stage 1 through stage 4 chronic kidney disease, or unspecified chronic kidney disease; I50.9 Heart failure, unspecified; N18.9 Chronic kidney disease, unspecified; E78.5 Hyperlipidemia, unspecified; E46 Unspecified protein-calorie malnutrition; E66.01 Morbid (severe) obesity due to excess calories; N40.0 Benign prostatic hyperplasia without lower urinary tract symptoms; F32.A Depression, unspecified; F41.9 Anxiety disorder, unspecified; Z68.33 Body mass index [BMI] 33.0-33.9, adult; Z79.899 Other long term (current) drug therapy; Z87.891 Personal history of nicotine dependence; Z79.01 Long term (current) use of anticoagulants; Z79.891 Long term (current) use of opiate analgesic; Z89.432 Acquired absence of left foot; Z89.431 Acquired absence of right foot; Z79.4 Long term (current) use of insulin; Z79.82 Long term (current) use of aspirin
CPT/HCPCS: 15275; 97605; 15276; Q4121

== ENCOUNTER → 2025-04-02 | Outpatient (CLI) | payer OTHER, MEDICARE ==
[~2025-04-02] MED LIST changes: +LIDOCAINE HCL 4% TOP SOL 50ML TP ONE; -SILVER NITRATE APPLICATOR 1 SWAB TP ONE
== END | disposition home or self-care (01) ==
LOC: WHH 07:33
PROVIDERS: ATTEND Family Medicine
DX: E11.621 Type 2 diabetes mellitus with foot ulcer (principal); I70.245 Atherosclerosis of native arteries of left leg with ulceration of other part of foot; L97.526 Non-pressure chronic ulcer of other part of left foot with bone involvement without evidence of necrosis; I70.244 Atherosclerosis of native arteries of left leg with ulceration of heel and midfoot; L97.426 Non-pressure chronic ulcer of left heel and midfoot with bone involvement without evidence of necrosis; I70.201 Unspecified atherosclerosis of native arteries of extremities, right leg; E11.51 Type 2 diabetes mellitus with diabetic peripheral angiopathy without gangrene; E11.42 Type 2 diabetes mellitus with diabetic polyneuropathy; E11.69 Type 2 diabetes mellitus with other specified complication; M86.672 Other chronic osteomyelitis, left ankle and foot; E11.22 Type 2 diabetes mellitus with diabetic chronic kidney disease; I13.0 Hypertensive heart and chronic kidney disease with heart failure and stage 1 through stage 4 chronic kidney disease, or unspecified chronic kidney disease; I50.9 Heart failure, unspecified; N18.9 Chronic kidney disease, unspecified; E78.5 Hyperlipidemia, unspecified; E46 Unspecified protein-calorie malnutrition; E66.01 Morbid (severe) obesity due to excess calories; N40.0 Benign prostatic hyperplasia without lower urinary tract symptoms; F32.A Depression, unspecified; F41.9 Anxiety disorder, unspecified; Z68.33 Body mass index [BMI] 33.0-33.9, adult; Z79.899 Other long term (current) drug therapy; Z87.891 Personal history of nicotine dependence; Z79.01 Long term (current) use of anticoagulants; Z79.891 Long term (current) use of opiate analgesic; Z89.432 Acquired absence of left foot; Z89.431 Acquired absence of right foot; Z79.4 Long term (current) use of insulin; Z79.82 Long term (current) use of aspirin
CPT/HCPCS: 15275; 87070 ×2; 87086 ×3; 87186 ×3; 97605; 15276; Q4121; A4450; A6234

== ENCOUNTER → 2025-04-09 | Outpatient (CLI) | payer OTHER, MEDICARE ==
[~2025-04-09] MED LIST changes: -LIDOCAINE HCL 4% TOP SOL 50ML TP ONE
== END ==
LOC: WHH 07:52
PROVIDERS: ATTEND Family Medicine
DX: E11.621 Type 2 diabetes mellitus with foot ulcer (principal); I70.245 Atherosclerosis of native arteries of left leg with ulceration of other part of foot; L97.526 Non-pressure chronic ulcer of other part of left foot with bone involvement without evidence of necrosis; I70.244 Atherosclerosis of native arteries of left leg with ulceration of heel and midfoot; L97.426 Non-pressure chronic ulcer of left heel and midfoot with bone involvement without evidence of necrosis; E78.5 Hyperlipidemia, unspecified; E11.51 Type 2 diabetes mellitus with diabetic peripheral angiopathy without gangrene; E11.40 Type 2 diabetes mellitus with diabetic neuropathy, unspecified; E11.22 Type 2 diabetes mellitus with diabetic chronic kidney disease; I12.9 Hypertensive chronic kidney disease with stage 1 through stage 4 chronic kidney disease, or unspecified chronic kidney disease; N18.9 Chronic kidney disease, unspecified; N40.0 Benign prostatic hyperplasia without lower urinary tract symptoms; E66.9 Obesity, unspecified; Z89.421 Acquired absence of other right toe(s); Z89.422 Acquired absence of other left toe(s); Z68.33 Body mass index [BMI] 33.0-33.9, adult
CPT/HCPCS: 15275; 15276; 97605; Q4121; A6197; A6022; A4450

== ENCOUNTER → 2025-04-16 | Outpatient (CLI) | payer OTHER, MEDICARE ==
[~2025-04-16] MED LIST changes: +HONEY 1 APPL/ML TUBE TP ONE
== END | disposition home or self-care (01) ==
LOC: WHH 07:47
PROVIDERS: ATTEND Family Medicine
DX: E11.621 Type 2 diabetes mellitus with foot ulcer (principal); I70.245 Atherosclerosis of native arteries of left leg with ulceration of other part of foot; L97.526 Non-pressure chronic ulcer of other part of left foot with bone involvement without evidence of necrosis; I70.244 Atherosclerosis of native arteries of left leg with ulceration of heel and midfoot; L97.426 Non-pressure chronic ulcer of left heel and midfoot with bone involvement without evidence of necrosis; E78.5 Hyperlipidemia, unspecified; E11.51 Type 2 diabetes mellitus with diabetic peripheral angiopathy without gangrene; E11.40 Type 2 diabetes mellitus with diabetic neuropathy, unspecified; E11.22 Type 2 diabetes mellitus with diabetic chronic kidney disease; I12.9 Hypertensive chronic kidney disease with stage 1 through stage 4 chronic kidney disease, or unspecified chronic kidney disease; N18.9 Chronic kidney disease, unspecified; N40.0 Benign prostatic hyperplasia without lower urinary tract symptoms; E66.9 Obesity, unspecified; Z89.421 Acquired absence of other right toe(s); Z89.422 Acquired absence of other left toe(s); Z68.33 Body mass index [BMI] 33.0-33.9, adult
CPT/HCPCS: 15275; 11042; 97605; 15276; Q4121; A6197; A6022

== ENCOUNTER → 2025-04-23 | Outpatient (CLI) | payer OTHER, MEDICARE | END | disposition home or self-care (01) | LOC: WHH 07:56 | PROVIDERS: ATTEND Family Medicine | DX: E11.621 Type 2 diabetes mellitus with foot ulcer (principal); I70.245 Atherosclerosis of native arteries of left leg with ulceration of other part of foot; L97.526 Non-pressure chronic ulcer of other part of left foot with bone involvement without evidence of necrosis; I70.244 Atherosclerosis of native arteries of left leg with ulceration of heel and midfoot; L97.426 Non-pressure chronic ulcer of left heel and midfoot with bone involvement without evidence of necrosis; E11.51 Type 2 diabetes mellitus with diabetic peripheral angiopathy without gangrene; E11.40 Type 2 diabetes mellitus with diabetic neuropathy, unspecified; E11.22 Type 2 diabetes mellitus with diabetic chronic kidney disease; I12.9 Hypertensive chronic kidney disease with stage 1 through stage 4 chronic kidney disease, or unspecified chronic kidney disease; N18.9 Chronic kidney disease, unspecified; N40.0 Benign prostatic hyperplasia without lower urinary tract symptoms; E78.5 Hyperlipidemia, unspecified; E66.9 Obesity, unspecified; Z89.421 Acquired absence of other right toe(s); Z89.422 Acquired absence of other left toe(s); Z68.33 Body mass index [BMI] 33.0-33.9, adult | CPT/HCPCS: 15275; 11042; 97605; 15276; Q4121; A6197; A6022 ==

== ENCOUNTER → 2025-04-30 | Outpatient (CLI) | payer OTHER, MEDICARE ==
[~2025-04-30] MED LIST changes: -HONEY 1 APPL/ML TUBE TP ONE
== END | disposition home or self-care (01) ==
LOC: WHH 07:54
PROVIDERS: ATTEND Family Medicine
DX: E11.621 Type 2 diabetes mellitus with foot ulcer (principal); I70.245 Atherosclerosis of native arteries of left leg with ulceration of other part of foot; L97.526 Non-pressure chronic ulcer of other part of left foot with bone involvement without evidence of necrosis; I70.244 Atherosclerosis of native arteries of left leg with ulceration of heel and midfoot; L97.426 Non-pressure chronic ulcer of left heel and midfoot with bone involvement without evidence of necrosis; E11.51 Type 2 diabetes mellitus with diabetic peripheral angiopathy without gangrene; E11.40 Type 2 diabetes mellitus with diabetic neuropathy, unspecified; E11.22 Type 2 diabetes mellitus with diabetic chronic kidney disease; I12.9 Hypertensive chronic kidney disease with stage 1 through stage 4 chronic kidney disease, or unspecified chronic kidney disease; N18.9 Chronic kidney disease, unspecified; N40.0 Benign prostatic hyperplasia without lower urinary tract symptoms; E78.5 Hyperlipidemia, unspecified; E66.9 Obesity, unspecified; Z89.421 Acquired absence of other right toe(s); Z89.422 Acquired absence of other left toe(s); Z68.33 Body mass index [BMI] 33.0-33.9, adult
CPT/HCPCS: 15275; 11042; 15276; 97605; Q4121; A6197

== ENCOUNTER → 2025-05-14 | Outpatient (CLI) | payer OTHER, MEDICARE ==
[~2025-05-14] MED LIST changes: -DOXY100C5 PO; +HONEY 1 APPL/ML TUBE TP ONE
== END ==
LOC: WHH 08:16
PROVIDERS: ATTEND Family Medicine
DX: E11.621 Type 2 diabetes mellitus with foot ulcer (principal); I70.244 Atherosclerosis of native arteries of left leg with ulceration of heel and midfoot; L97.426 Non-pressure chronic ulcer of left heel and midfoot with bone involvement without evidence of necrosis; I70.245 Atherosclerosis of native arteries of left leg with ulceration of other part of foot; L97.526 Non-pressure chronic ulcer of other part of left foot with bone involvement without evidence of necrosis; E11.42 Type 2 diabetes mellitus with diabetic polyneuropathy; E11.51 Type 2 diabetes mellitus with diabetic peripheral angiopathy without gangrene; N40.0 Benign prostatic hyperplasia without lower urinary tract symptoms; E11.22 Type 2 diabetes mellitus with diabetic chronic kidney disease; I12.9 Hypertensive chronic kidney disease with stage 1 through stage 4 chronic kidney disease, or unspecified chronic kidney disease; N18.9 Chronic kidney disease, unspecified; E78.5 Hyperlipidemia, unspecified; E66.9 Obesity, unspecified; Z68.33 Body mass index [BMI] 33.0-33.9, adult; Z98.890 Other specified postprocedural states; Z79.82 Long term (current) use of aspirin; Z79.4 Long term (current) use of insulin; Z79.899 Other long term (current) drug therapy
CPT/HCPCS: 15275; 15276; 97605; Q4121; A6197; A4450

== ENCOUNTER → 2025-05-21 | Outpatient (CLI) | payer OTHER, MEDICARE ==
[~2025-05-21] MED LIST changes: -HONEY 1 APPL/ML TUBE TP ONE
== END | disposition home or self-care (01) ==
LOC: WHH 07:43
PROVIDERS: ATTEND Family Medicine
DX: E11.621 Type 2 diabetes mellitus with foot ulcer (principal); I70.244 Atherosclerosis of native arteries of left leg with ulceration of heel and midfoot; L97.426 Non-pressure chronic ulcer of left heel and midfoot with bone involvement without evidence of necrosis; I70.245 Atherosclerosis of native arteries of left leg with ulceration of other part of foot; L97.526 Non-pressure chronic ulcer of other part of left foot with bone involvement without evidence of necrosis; E11.42 Type 2 diabetes mellitus with diabetic polyneuropathy; E11.51 Type 2 diabetes mellitus with diabetic peripheral angiopathy without gangrene; N40.0 Benign prostatic hyperplasia without lower urinary tract symptoms; E11.22 Type 2 diabetes mellitus with diabetic chronic kidney disease; I12.9 Hypertensive chronic kidney disease with stage 1 through stage 4 chronic kidney disease, or unspecified chronic kidney disease; N18.9 Chronic kidney disease, unspecified; E78.5 Hyperlipidemia, unspecified; E66.9 Obesity, unspecified; Z68.33 Body mass index [BMI] 33.0-33.9, adult; Z98.890 Other specified postprocedural states; Z79.82 Long term (current) use of aspirin; Z79.4 Long term (current) use of insulin; Z79.899 Other long term (current) drug therapy
CPT/HCPCS: 15275; 15276; 97605; A6253; Q4121; A6197 ×2

== ENCOUNTER → 2025-05-28 | Outpatient (CLI) | payer OTHER, MEDICARE | END | disposition home or self-care (01) | LOC: WHH 07:49 | PROVIDERS: ATTEND Family Medicine | DX: E11.621 Type 2 diabetes mellitus with foot ulcer (principal); I70.244 Atherosclerosis of native arteries of left leg with ulceration of heel and midfoot; L97.426 Non-pressure chronic ulcer of left heel and midfoot with bone involvement without evidence of necrosis; I70.245 Atherosclerosis of native arteries of left leg with ulceration of other part of foot; L97.526 Non-pressure chronic ulcer of other part of left foot with bone involvement without evidence of necrosis; E11.42 Type 2 diabetes mellitus with diabetic polyneuropathy; E11.51 Type 2 diabetes mellitus with diabetic peripheral angiopathy without gangrene; N40.0 Benign prostatic hyperplasia without lower urinary tract symptoms; E11.22 Type 2 diabetes mellitus with diabetic chronic kidney disease; I12.9 Hypertensive chronic kidney disease with stage 1 through stage 4 chronic kidney disease, or unspecified chronic kidney disease; N18.9 Chronic kidney disease, unspecified; E78.5 Hyperlipidemia, unspecified; E66.9 Obesity, unspecified; Z68.33 Body mass index [BMI] 33.0-33.9, adult; Z98.890 Other specified postprocedural states; Z79.82 Long term (current) use of aspirin; Z79.4 Long term (current) use of insulin; Z79.899 Other long term (current) drug therapy | CPT/HCPCS: 11044; 15275; 15276; 97605; Q4121; A6022; A6234 ==

== ENCOUNTER → 2025-06-05 | Outpatient (CLI) | payer OTHER, MEDICARE | END | disposition home or self-care (01) | LOC: WHH 08:06 | PROVIDERS: ATTEND Family Medicine | DX: E11.621 Type 2 diabetes mellitus with foot ulcer (principal); I70.245 Atherosclerosis of native arteries of left leg with ulceration of other part of foot; L97.526 Non-pressure chronic ulcer of other part of left foot with bone involvement without evidence of necrosis; I70.244 Atherosclerosis of native arteries of left leg with ulceration of heel and midfoot; L97.426 Non-pressure chronic ulcer of left heel and midfoot with bone involvement without evidence of necrosis; E11.42 Type 2 diabetes mellitus with diabetic polyneuropathy; E11.51 Type 2 diabetes mellitus with diabetic peripheral angiopathy without gangrene; N40.0 Benign prostatic hyperplasia without lower urinary tract symptoms; E11.22 Type 2 diabetes mellitus with diabetic chronic kidney disease; I12.9 Hypertensive chronic kidney disease with stage 1 through stage 4 chronic kidney disease, or unspecified chronic kidney disease; N18.9 Chronic kidney disease, unspecified; E78.5 Hyperlipidemia, unspecified; E66.9 Obesity, unspecified; Z68.33 Body mass index [BMI] 33.0-33.9, adult; Z98.890 Other specified postprocedural states; Z79.82 Long term (current) use of aspirin; Z79.4 Long term (current) use of insulin; Z79.899 Other long term (current) drug therapy | CPT/HCPCS: 97605; A4450 ==

== ENCOUNTER → 2025-06-11 | Outpatient (CLI) | payer OTHER, MEDICARE ==
[2025-06-11 09:03] LABS: IMMATURE GRANULOCYTE ABSOLUTE 0.07 K/uL (0-1); NUCLEATED RED BLOOD CELLS 0.0 % (0.0-0.19); PLATELET COUNT (AUTO) 269 K/uL (130-400); RED BLOOD CELL COUNT(AUTO) 4.02 MIL/uL (4.50-6.20); RED CELL DISTRIBUTION WIDTH 16.9 % (11.0-15.5); WHITE BLOOD COUNT (AUTO) 7.0 K/uL (4.8-10.8)
[2025-06-11 09:09] LABS: CREATININE 1.7 mg/dL (0.5-1.3); GLOMERULAR FILTR. RATE CALC 44.0 mL/min (>90); GLUCOSE,RANDOM 169.0 mg/dL (70-105); SODIUM SERUM 136.0 mmol/L (136-145); UREA NITROGEN, BLOOD 39.0 mg/dL (7-18)
[2025-06-11 09:13] LABS: ASPARTATE AMINOTRANSFERASE 19.0 U/L (10-37); TOTAL PROTEIN, SERUM 7.8 g/dL (6.0-8.3)
[2025-06-11 09:21] LABS: ERYTHROCYTE SEDIMENTATION RATE 76 MM/HR (0-20)
--- NOTE | 2025-06-12 00:23 | HMCIMG ---
EXAM: CR left foot, 3 View. CLINICAL HISTORY: DIABETES WITH FOOT ULCERS COMPARISON: None provided. FINDINGS: Partial amputation of left foot. Carpal bones are heterogeneous with ill-defined radiolucencies within. Irregularity along the cuboid bone, cuneiform bones, and along the postero-superior aspect of the calcaneum. Soft tissue swelling in the left foot. Drainage catheter in situ.No dislocation. IMPRESSION: Drainage catheter in situ. Partial amputation of the left foot with concern for multifocal osteomyelitis with soft tissue edema in the left foot. Correlation with the MRI of the left foot is requested. /[place]
== END | disposition home or self-care (01) ==
LOC: WHH 07:43
PROVIDERS: ATTEND Family Medicine
DX: E11.621 Type 2 diabetes mellitus with foot ulcer (principal); I70.245 Atherosclerosis of native arteries of left leg with ulceration of other part of foot; L97.526 Non-pressure chronic ulcer of other part of left foot with bone involvement without evidence of necrosis; I70.244 Atherosclerosis of native arteries of left leg with ulceration of heel and midfoot; L97.426 Non-pressure chronic ulcer of left heel and midfoot with bone involvement without evidence of necrosis; E11.42 Type 2 diabetes mellitus with diabetic polyneuropathy; E11.51 Type 2 diabetes mellitus with diabetic peripheral angiopathy without gangrene; N40.0 Benign prostatic hyperplasia without lower urinary tract symptoms; E11.22 Type 2 diabetes mellitus with diabetic chronic kidney disease; I12.9 Hypertensive chronic kidney disease with stage 1 through stage 4 chronic kidney disease, or unspecified chronic kidney disease; N18.9 Chronic kidney disease, unspecified; E78.5 Hyperlipidemia, unspecified; E66.9 Obesity, unspecified; Z68.33 Body mass index [BMI] 33.0-33.9, adult; Z98.890 Other specified postprocedural states; Z79.82 Long term (current) use of aspirin; Z79.4 Long term (current) use of insulin; Z79.899 Other long term (current) drug therapy
CPT/HCPCS: 15275; 83036; 80053; 85025; 85651; 87086 ×2; 87186 ×2; 86140; 36415; 73630; 97605; 87070; A6209; Q4121; A6022

== ENCOUNTER → 2025-06-18 | Outpatient (CLI) | payer OTHER, MEDICARE | END | disposition home or self-care (01) | LOC: WHH 07:55 | PROVIDERS: ATTEND Family Medicine | DX: E11.621 Type 2 diabetes mellitus with foot ulcer (principal); I70.245 Atherosclerosis of native arteries of left leg with ulceration of other part of foot; L97.526 Non-pressure chronic ulcer of other part of left foot with bone involvement without evidence of necrosis; I70.244 Atherosclerosis of native arteries of left leg with ulceration of heel and midfoot; L97.426 Non-pressure chronic ulcer of left heel and midfoot with bone involvement without evidence of necrosis; I70.201 Unspecified atherosclerosis of native arteries of extremities, right leg; E11.69 Type 2 diabetes mellitus with other specified complication; M86.672 Other chronic osteomyelitis, left ankle and foot; E11.42 Type 2 diabetes mellitus with diabetic polyneuropathy; E11.51 Type 2 diabetes mellitus with diabetic peripheral angiopathy without gangrene; E11.22 Type 2 diabetes mellitus with diabetic chronic kidney disease; I12.9 Hypertensive chronic kidney disease with stage 1 through stage 4 chronic kidney disease, or unspecified chronic kidney disease; N18.9 Chronic kidney disease, unspecified; E78.5 Hyperlipidemia, unspecified; E66.9 Obesity, unspecified; N40.0 Benign prostatic hyperplasia without lower urinary tract symptoms; Z68.33 Body mass index [BMI] 33.0-33.9, adult; Z98.890 Other specified postprocedural states; Z79.82 Long term (current) use of aspirin; Z79.4 Long term (current) use of insulin; Z79.899 Other long term (current) drug therapy | CPT/HCPCS: 97605; A6209; A6022; A6234 ==

== ENCOUNTER → 2025-06-20 | Outpatient (CLI) | payer OTHER, MEDICARE ==
--- NOTE | 2025-06-20 17:50 | HMCIMG ---
EXAM: MR LEFT FOOT WITHOUT CONTRAST CLINICAL HISTORY: 65-year-old male with chronic osteomyelitis. TECHNIQUE: Multiplanar multisequence magnetic resonance images were obtained without contrast. CONTRAST: None COMPARISON: Prior MRI left foot from 08/05/2024 at 12:16 pm. FINDINGS: JOINTS: There is fluid in the subtalar joint space. BONE: There is transmetatarsal amputation of the bases of the first through fifth metatarsals. Extensive bone marrow edema of the remnant tarsal bones and bases of metatarsals is seen. SOFT TISSUES: Edema of the muscles of the midfoot is seen, suggesting myositis. Edema of the subcutaneous soft tissue is seen. Severe asymmetric involvement at the bases of the first through fifth metatarsals is noted, with extensive myositis and surrounding cellulitis. IMPRESSION: 1. Extensive bone marrow edema of the remnant tarsal bones and bases of metatarsals, consistent with acute on chronic osteomyelitis. 2. Severe asymmetric involvement at the bases of the first through fifth metatarsals with extensive myositis and surrounding cellulitis. 3. Findings are new compared to prior MRI left foot from 08/05/2024 at 12:16 pm. /[place]
== END | disposition home or self-care (01) ==
LOC: RAH 09:49
PROVIDERS: ATTEND Family Medicine
DX: L03.032 Cellulitis of left toe (principal); M86.672 Other chronic osteomyelitis, left ankle and foot; M60.872 Other myositis, left ankle and foot; R60.1 Generalized edema
CPT/HCPCS: 73718

== ENCOUNTER → 2025-07-02 | Outpatient (CLI) | payer OTHER, MEDICARE | END | disposition home or self-care (01) | LOC: WHH 08:34 | PROVIDERS: ATTEND Family Medicine | DX: E11.621 Type 2 diabetes mellitus with foot ulcer (principal); I70.245 Atherosclerosis of native arteries of left leg with ulceration of other part of foot; L97.526 Non-pressure chronic ulcer of other part of left foot with bone involvement without evidence of necrosis; I70.244 Atherosclerosis of native arteries of left leg with ulceration of heel and midfoot; L97.426 Non-pressure chronic ulcer of left heel and midfoot with bone involvement without evidence of necrosis; I70.201 Unspecified atherosclerosis of native arteries of extremities, right leg; E11.69 Type 2 diabetes mellitus with other specified complication; M86.672 Other chronic osteomyelitis, left ankle and foot; E11.42 Type 2 diabetes mellitus with diabetic polyneuropathy; E11.51 Type 2 diabetes mellitus with diabetic peripheral angiopathy without gangrene; E11.22 Type 2 diabetes mellitus with diabetic chronic kidney disease; I12.9 Hypertensive chronic kidney disease with stage 1 through stage 4 chronic kidney disease, or unspecified chronic kidney disease; N18.9 Chronic kidney disease, unspecified; E78.5 Hyperlipidemia, unspecified; E66.9 Obesity, unspecified; N40.0 Benign prostatic hyperplasia without lower urinary tract symptoms; Z68.33 Body mass index [BMI] 33.0-33.9, adult; Z98.890 Other specified postprocedural states; Z79.82 Long term (current) use of aspirin; Z79.4 Long term (current) use of insulin; Z79.899 Other long term (current) drug therapy | CPT/HCPCS: 10060; 87070; 87086 ×2; 87186 ×2; A6209 ==

== ENCOUNTER → 2025-07-16 | Outpatient (CLI) | payer OTHER, MEDICARE ==
[2025-07-16 09:31] LABS: IMMATURE GRANULOCYTE ABSOLUTE 0.04 K/uL (0-1); NUCLEATED RED BLOOD CELLS 0.0 % (0.0-0.19); PLATELET COUNT (AUTO) 340 K/uL (130-400); RED BLOOD CELL COUNT(AUTO) 4.36 MIL/uL (4.50-6.20); RED CELL DISTRIBUTION WIDTH 17.2 % (11.0-15.5); WHITE BLOOD COUNT (AUTO) 6.8 K/uL (4.8-10.8)
[2025-07-16 09:38] LABS: CREATININE 2.0 mg/dL (0.5-1.3); GLOMERULAR FILTR. RATE CALC 36.0 mL/min (>90); GLUCOSE,RANDOM 105.0 mg/dL (70-105); SODIUM SERUM 137.0 mmol/L (136-145); UREA NITROGEN, BLOOD 44.0 mg/dL (7-18)
[2025-07-16 09:43] LABS: ASPARTATE AMINOTRANSFERASE 37.0 U/L (10-37); TOTAL PROTEIN, SERUM 6.3 g/dL (6.0-8.3)
== END | disposition home or self-care (01) ==
LOC: WHH 08:30
PROVIDERS: ATTEND Family Medicine
DX: E11.621 Type 2 diabetes mellitus with foot ulcer (principal); I70.245 Atherosclerosis of native arteries of left leg with ulceration of other part of foot; L97.526 Non-pressure chronic ulcer of other part of left foot with bone involvement without evidence of necrosis; I70.244 Atherosclerosis of native arteries of left leg with ulceration of heel and midfoot; L97.426 Non-pressure chronic ulcer of left heel and midfoot with bone involvement without evidence of necrosis; I70.201 Unspecified atherosclerosis of native arteries of extremities, right leg; E11.69 Type 2 diabetes mellitus with other specified complication; M86.672 Other chronic osteomyelitis, left ankle and foot; E11.42 Type 2 diabetes mellitus with diabetic polyneuropathy; E11.51 Type 2 diabetes mellitus with diabetic peripheral angiopathy without gangrene; E11.22 Type 2 diabetes mellitus with diabetic chronic kidney disease; I12.9 Hypertensive chronic kidney disease with stage 1 through stage 4 chronic kidney disease, or unspecified chronic kidney disease; N18.9 Chronic kidney disease, unspecified; E78.5 Hyperlipidemia, unspecified; E66.9 Obesity, unspecified; N40.0 Benign prostatic hyperplasia without lower urinary tract symptoms; Z68.33 Body mass index [BMI] 33.0-33.9, adult; Z98.890 Other specified postprocedural states; Z79.82 Long term (current) use of aspirin; Z79.4 Long term (current) use of insulin; Z79.899 Other long term (current) drug therapy
CPT/HCPCS: 83036; 80053; 85025; 36415; G0463; A6209

== ENCOUNTER → 2025-07-23 | Outpatient (CLI) | payer OTHER, MEDICARE | END | disposition home or self-care (01) | LOC: WHH 08:20 | PROVIDERS: ATTEND Family Medicine | DX: E11.621 Type 2 diabetes mellitus with foot ulcer (principal); I70.245 Atherosclerosis of native arteries of left leg with ulceration of other part of foot; L97.526 Non-pressure chronic ulcer of other part of left foot with bone involvement without evidence of necrosis; I70.244 Atherosclerosis of native arteries of left leg with ulceration of heel and midfoot; L97.426 Non-pressure chronic ulcer of left heel and midfoot with bone involvement without evidence of necrosis; I70.201 Unspecified atherosclerosis of native arteries of extremities, right leg; E11.69 Type 2 diabetes mellitus with other specified complication; M86.672 Other chronic osteomyelitis, left ankle and foot; E11.42 Type 2 diabetes mellitus with diabetic polyneuropathy; E11.51 Type 2 diabetes mellitus with diabetic peripheral angiopathy without gangrene; E11.22 Type 2 diabetes mellitus with diabetic chronic kidney disease; I12.9 Hypertensive chronic kidney disease with stage 1 through stage 4 chronic kidney disease, or unspecified chronic kidney disease; N18.9 Chronic kidney disease, unspecified; E78.5 Hyperlipidemia, unspecified; E66.9 Obesity, unspecified; N40.0 Benign prostatic hyperplasia without lower urinary tract symptoms; Z68.33 Body mass index [BMI] 33.0-33.9, adult; Z98.890 Other specified postprocedural states; Z79.82 Long term (current) use of aspirin; Z79.4 Long term (current) use of insulin; Z79.899 Other long term (current) drug therapy | CPT/HCPCS: G0463; A6209 ==

== ENCOUNTER → 2025-08-06 | Outpatient (CLI) | payer OTHER, MEDICARE | END | disposition home or self-care (01) | LOC: WHH 08:42 | PROVIDERS: ATTEND Family Medicine | DX: E11.621 Type 2 diabetes mellitus with foot ulcer (principal); I70.245 Atherosclerosis of native arteries of left leg with ulceration of other part of foot; L97.526 Non-pressure chronic ulcer of other part of left foot with bone involvement without evidence of necrosis; I70.244 Atherosclerosis of native arteries of left leg with ulceration of heel and midfoot; L97.426 Non-pressure chronic ulcer of left heel and midfoot with bone involvement without evidence of necrosis; I70.201 Unspecified atherosclerosis of native arteries of extremities, right leg; E11.69 Type 2 diabetes mellitus with other specified complication; M86.672 Other chronic osteomyelitis, left ankle and foot; E11.42 Type 2 diabetes mellitus with diabetic polyneuropathy; E11.51 Type 2 diabetes mellitus with diabetic peripheral angiopathy without gangrene; E11.22 Type 2 diabetes mellitus with diabetic chronic kidney disease; I12.9 Hypertensive chronic kidney disease with stage 1 through stage 4 chronic kidney disease, or unspecified chronic kidney disease; N18.9 Chronic kidney disease, unspecified; E78.5 Hyperlipidemia, unspecified; E66.9 Obesity, unspecified; N40.0 Benign prostatic hyperplasia without lower urinary tract symptoms; Z68.33 Body mass index [BMI] 33.0-33.9, adult; Z98.890 Other specified postprocedural states; Z79.82 Long term (current) use of aspirin; Z79.4 Long term (current) use of insulin; Z79.899 Other long term (current) drug therapy | CPT/HCPCS: G0463; A6209; A4450 ==

== ENCOUNTER → 2025-08-13 | Outpatient (CLI) | payer OTHER, MEDICARE | END | disposition home or self-care (01) | LOC: WHH 08:32 | PROVIDERS: ATTEND Family Medicine | DX: E11.621 Type 2 diabetes mellitus with foot ulcer (principal); I70.245 Atherosclerosis of native arteries of left leg with ulceration of other part of foot; L97.526 Non-pressure chronic ulcer of other part of left foot with bone involvement without evidence of necrosis; I70.244 Atherosclerosis of native arteries of left leg with ulceration of heel and midfoot; L97.426 Non-pressure chronic ulcer of left heel and midfoot with bone involvement without evidence of necrosis; I70.201 Unspecified atherosclerosis of native arteries of extremities, right leg; E11.69 Type 2 diabetes mellitus with other specified complication; M86.672 Other chronic osteomyelitis, left ankle and foot; E11.42 Type 2 diabetes mellitus with diabetic polyneuropathy; E11.51 Type 2 diabetes mellitus with diabetic peripheral angiopathy without gangrene; E11.22 Type 2 diabetes mellitus with diabetic chronic kidney disease; I12.9 Hypertensive chronic kidney disease with stage 1 through stage 4 chronic kidney disease, or unspecified chronic kidney disease; N18.9 Chronic kidney disease, unspecified; E78.5 Hyperlipidemia, unspecified; E66.9 Obesity, unspecified; N40.0 Benign prostatic hyperplasia without lower urinary tract symptoms; Z68.33 Body mass index [BMI] 33.0-33.9, adult; Z98.890 Other specified postprocedural states; Z79.82 Long term (current) use of aspirin; Z79.4 Long term (current) use of insulin; Z79.899 Other long term (current) drug therapy | CPT/HCPCS: G0463; A6209; A4450 ==

== ENCOUNTER → 2025-08-20 | Outpatient (CLI) | payer OTHER, MEDICARE ==
[~2025-08-20] MED LIST changes: +HONEY 1 APPL/ML TUBE TP ONE
== END | disposition home or self-care (01) ==
LOC: WHH 09:02
PROVIDERS: ATTEND Family Medicine
DX: E11.621 Type 2 diabetes mellitus with foot ulcer (principal); I70.245 Atherosclerosis of native arteries of left leg with ulceration of other part of foot; L97.526 Non-pressure chronic ulcer of other part of left foot with bone involvement without evidence of necrosis; I70.244 Atherosclerosis of native arteries of left leg with ulceration of heel and midfoot; L97.426 Non-pressure chronic ulcer of left heel and midfoot with bone involvement without evidence of necrosis; I70.201 Unspecified atherosclerosis of native arteries of extremities, right leg; E11.69 Type 2 diabetes mellitus with other specified complication; M86.672 Other chronic osteomyelitis, left ankle and foot; E11.42 Type 2 diabetes mellitus with diabetic polyneuropathy; E11.51 Type 2 diabetes mellitus with diabetic peripheral angiopathy without gangrene; E11.22 Type 2 diabetes mellitus with diabetic chronic kidney disease; I12.9 Hypertensive chronic kidney disease with stage 1 through stage 4 chronic kidney disease, or unspecified chronic kidney disease; N18.9 Chronic kidney disease, unspecified; E78.5 Hyperlipidemia, unspecified; E66.9 Obesity, unspecified; N40.0 Benign prostatic hyperplasia without lower urinary tract symptoms; Z68.33 Body mass index [BMI] 33.0-33.9, adult; Z98.890 Other specified postprocedural states; Z87.891 Personal history of nicotine dependence; Z79.82 Long term (current) use of aspirin; Z79.4 Long term (current) use of insulin; Z79.899 Other long term (current) drug therapy
CPT/HCPCS: G0463; A6248; A6209

== ENCOUNTER → 2025-09-03 | Outpatient (CLI) | payer OTHER, MEDICARE | END | disposition home or self-care (01) | LOC: WHH 09:13 | PROVIDERS: ATTEND Family Medicine | DX: E11.621 Type 2 diabetes mellitus with foot ulcer (principal); I70.245 Atherosclerosis of native arteries of left leg with ulceration of other part of foot; L97.526 Non-pressure chronic ulcer of other part of left foot with bone involvement without evidence of necrosis; I70.244 Atherosclerosis of native arteries of left leg with ulceration of heel and midfoot; L97.426 Non-pressure chronic ulcer of left heel and midfoot with bone involvement without evidence of necrosis; I70.201 Unspecified atherosclerosis of native arteries of extremities, right leg; E11.42 Type 2 diabetes mellitus with diabetic polyneuropathy; E11.51 Type 2 diabetes mellitus with diabetic peripheral angiopathy without gangrene; E11.69 Type 2 diabetes mellitus with other specified complication; M86.672 Other chronic osteomyelitis, left ankle and foot; E11.22 Type 2 diabetes mellitus with diabetic chronic kidney disease; I12.9 Hypertensive chronic kidney disease with stage 1 through stage 4 chronic kidney disease, or unspecified chronic kidney disease; N18.9 Chronic kidney disease, unspecified; E78.5 Hyperlipidemia, unspecified; E66.9 Obesity, unspecified; N40.0 Benign prostatic hyperplasia without lower urinary tract symptoms; Z68.33 Body mass index [BMI] 33.0-33.9, adult; Z98.890 Other specified postprocedural states; Z87.891 Personal history of nicotine dependence; Z79.82 Long term (current) use of aspirin; Z79.4 Long term (current) use of insulin; Z79.899 Other long term (current) drug therapy | CPT/HCPCS: G0463; A6209; A4450 ==

== ENCOUNTER → 2025-09-05 | Outpatient (CLI) | payer OTHER, MEDICARE ==
[~2025-09-05] MED LIST changes: -HONEY 1 APPL/ML TUBE TP ONE
== END | disposition home or self-care (01) ==
LOC: WHH 10:32
PROVIDERS: ATTEND Podiatrist Foot & Ankle Surgery
DX: E11.621 Type 2 diabetes mellitus with foot ulcer (principal); I70.245 Atherosclerosis of native arteries of left leg with ulceration of other part of foot; L97.526 Non-pressure chronic ulcer of other part of left foot with bone involvement without evidence of necrosis; I70.244 Atherosclerosis of native arteries of left leg with ulceration of heel and midfoot; L97.426 Non-pressure chronic ulcer of left heel and midfoot with bone involvement without evidence of necrosis; I70.201 Unspecified atherosclerosis of native arteries of extremities, right leg; E11.42 Type 2 diabetes mellitus with diabetic polyneuropathy; E11.51 Type 2 diabetes mellitus with diabetic peripheral angiopathy without gangrene; E11.69 Type 2 diabetes mellitus with other specified complication; M86.672 Other chronic osteomyelitis, left ankle and foot; E11.22 Type 2 diabetes mellitus with diabetic chronic kidney disease; I12.9 Hypertensive chronic kidney disease with stage 1 through stage 4 chronic kidney disease, or unspecified chronic kidney disease; N18.9 Chronic kidney disease, unspecified; E78.5 Hyperlipidemia, unspecified; E66.9 Obesity, unspecified; N40.0 Benign prostatic hyperplasia without lower urinary tract symptoms; Z68.33 Body mass index [BMI] 33.0-33.9, adult; Z98.890 Other specified postprocedural states; Z87.891 Personal history of nicotine dependence; Z79.82 Long term (current) use of aspirin; Z79.4 Long term (current) use of insulin; Z79.899 Other long term (current) drug therapy
CPT/HCPCS: G0463; A6209

== ENCOUNTER → 2025-09-05 | Outpatient (CLI) | payer OTHER, MEDICARE ==
--- NOTE | 2025-09-06 11:09 | HMCIMG ---
EXAM: CR left foot, 3 View. CLINICAL HISTORY: Type 2 diabetes mellitus with foot ulcer. COMPARISON: MR/SD - MRI FOOT LT WO - 06/20/25 12:01 EDT DX - FOOT COMP 3+VWS LT - 06/11/25 14:07 EDT FINDINGS: BONES: Status post midfoot amputation of the left foot beyond the tarsometatarsal joints. There is extensive osteolysis with heterogeneous sclerosis involving the residual tarsal bones, more pronounced along the plantar aspects, compatible with chronic osteomyelitis in the appropriate clinical context. No acute displaced fracture is identified. JOINTS: Residual hindfoot and ankle joint alignments are preserved. No saniya dislocation. SOFT TISSUES: Soft tissue swelling involves the residual foot stump, ankle, and distal leg. Vascular calcifications are present within the distal leg, ankle, and foot vessels. Soft tissue gas is noted along the plantar aspect of the stump, likely related to an open ulcer or avulsion. No radiopaque foreign body is identified. IMPRESSION: * Post midfoot amputation of the left foot with extensive osteolysis and heterogeneous sclerosis of the residual tarsal bones, most compatible with chronic osteomyelitis in a diabetic foot. * Soft tissue swelling of the stump, ankle, and distal leg with vascular calcifications and plantar soft tissue gas, likely related to an open ulcer or avulsive defect in the setting of diabetic foot infection. * On comparison with prior examinations dated 06/11/25 and 06/20/25, interval changes are overall stable to mildly progressive in keeping with chronic osteomyelitis and postsurgical change, without a new acute fracture. /[place]
== END | disposition home or self-care (01) ==
LOC: RAH 11:49
PROVIDERS: ATTEND Podiatrist Foot & Ankle Surgery
DX: M89.572 Osteolysis, left ankle and foot (principal); E11.621 Type 2 diabetes mellitus with foot ulcer; M79.89 Other specified soft tissue disorders
CPT/HCPCS: 73630; G0463; A6209

== ENCOUNTER → 2025-09-10 | Outpatient (CLI) | payer OTHER, MEDICARE | END | disposition home or self-care (01) | LOC: WHH 08:37 | PROVIDERS: ATTEND Family Medicine | DX: E11.621 Type 2 diabetes mellitus with foot ulcer (principal); I70.245 Atherosclerosis of native arteries of left leg with ulceration of other part of foot; L97.526 Non-pressure chronic ulcer of other part of left foot with bone involvement without evidence of necrosis; I70.244 Atherosclerosis of native arteries of left leg with ulceration of heel and midfoot; L97.426 Non-pressure chronic ulcer of left heel and midfoot with bone involvement without evidence of necrosis; I70.201 Unspecified atherosclerosis of native arteries of extremities, right leg; E11.42 Type 2 diabetes mellitus with diabetic polyneuropathy; E11.51 Type 2 diabetes mellitus with diabetic peripheral angiopathy without gangrene; E11.69 Type 2 diabetes mellitus with other specified complication; M86.672 Other chronic osteomyelitis, left ankle and foot; E11.22 Type 2 diabetes mellitus with diabetic chronic kidney disease; I12.9 Hypertensive chronic kidney disease with stage 1 through stage 4 chronic kidney disease, or unspecified chronic kidney disease; N18.9 Chronic kidney disease, unspecified; E78.5 Hyperlipidemia, unspecified; E66.9 Obesity, unspecified; N40.0 Benign prostatic hyperplasia without lower urinary tract symptoms; Z68.33 Body mass index [BMI] 33.0-33.9, adult; Z98.890 Other specified postprocedural states; Z87.891 Personal history of nicotine dependence; Z79.82 Long term (current) use of aspirin; Z79.4 Long term (current) use of insulin; Z79.899 Other long term (current) drug therapy | CPT/HCPCS: 11042; 82948; A6209; G0463 ==

== ENCOUNTER → 2025-09-12 | Outpatient (CLI) | payer OTHER, MEDICARE | END | disposition home or self-care (01) | LOC: WHH 09:06 | PROVIDERS: ATTEND Podiatrist Foot & Ankle Surgery | DX: E11.621 Type 2 diabetes mellitus with foot ulcer (principal); I70.245 Atherosclerosis of native arteries of left leg with ulceration of other part of foot; L97.526 Non-pressure chronic ulcer of other part of left foot with bone involvement without evidence of necrosis; I70.244 Atherosclerosis of native arteries of left leg with ulceration of heel and midfoot; L97.426 Non-pressure chronic ulcer of left heel and midfoot with bone involvement without evidence of necrosis; I70.201 Unspecified atherosclerosis of native arteries of extremities, right leg; E11.42 Type 2 diabetes mellitus with diabetic polyneuropathy; E11.51 Type 2 diabetes mellitus with diabetic peripheral angiopathy without gangrene; E11.69 Type 2 diabetes mellitus with other specified complication; M86.672 Other chronic osteomyelitis, left ankle and foot; E11.22 Type 2 diabetes mellitus with diabetic chronic kidney disease; I12.9 Hypertensive chronic kidney disease with stage 1 through stage 4 chronic kidney disease, or unspecified chronic kidney disease; N18.9 Chronic kidney disease, unspecified; E78.5 Hyperlipidemia, unspecified; E66.9 Obesity, unspecified; N40.0 Benign prostatic hyperplasia without lower urinary tract symptoms; Z68.33 Body mass index [BMI] 33.0-33.9, adult; Z98.890 Other specified postprocedural states; Z87.891 Personal history of nicotine dependence; Z79.82 Long term (current) use of aspirin; Z79.4 Long term (current) use of insulin; Z79.899 Other long term (current) drug therapy | CPT/HCPCS: G0463; A6248; A6209 ==

== ENCOUNTER → 2025-09-17 | Outpatient (CLI) | payer OTHER, MEDICARE ==
--- NOTE | 2025-09-17 22:43 | HMCIMG ---
STUDY: X-RAY OF THE LEFT FOOT, 3 VIEWS HISTORY: Acquired absence of left foot; history of osteomyelitis. TECHNIQUE: Three views of the residual left foot and ankle are submitted for interpretation. COMPARISON: Left foot radiographs from 09/05/2025 at 12:25 EST. FINDINGS: Bones and joints: Status post midfoot amputation beyond the tarsometatarsal joints. There is extensive osteolysis with heterogeneous sclerosis involving the residual tarsal bones, more pronounced along the plantar aspects, compatible with chronic osteomyelitis in the appropriate clinical context. No acute displaced fracture is identified. Residual hindfoot and ankle joint alignments are preserved without saniya dislocation. Soft tissues: Diffuse soft tissue swelling involves the residual foot stump, ankle, and distal leg. Vascular calcifications are present within the distal leg, ankle, and stump vessels, compatible with peripheral arterial disease. Soft tissue gas is noted along the plantar aspect of the stump, favored to relate to an open ulcer or wound; no radiopaque foreign body is identified. IMPRESSION: * Status post midfoot amputation with extensive osteolysis and heterogeneous sclerosis of the residual tarsal bones, most consistent with chronic osteomyelitis in the appropriate clinical setting. * Soft tissue gas along the plantar aspect of the stump with associated soft tissue swelling, likely related to an open ulcer or wound; gas-forming infection cannot be excluded. Recommend urgent clinical and wound/surgical evaluation and correlation with inflammatory markers to guide further management. * Vascular calcifications of the distal leg, ankle, and stump vessels, compatible with peripheral arterial disease; recommend correlation with vascular risk factors and clinical assessment of limb perfusion. * Compared with left foot radiographs from 09/05/2025, the appearance of post-amputation changes, chronic osteomyelitis, vascular calcifications, and soft tissue gas is overall similar, without new acute displaced fracture or dislocation. /[place]
--- NOTE | 2025-09-17 22:46 | HMCIMG ---
EXAM: CR Chest, 1 View. CLINICAL HISTORY: Acquired absence of left foot; Osteomyelitis, unspecified COMPARISON: Compared with the previous radiograph dated 05/07/2025. FINDINGS: LUNGS: The lungs show no infiltrate or other acute finding. PLEURAL SPACES: No evidence of pleural effusion or pneumothorax. MEDIASTINUM: The cardiomediastinal silhouette is within normal limits. BONES: No aggressively appearing osseous lesion was seen. LINES AND TUBES: Interval removal of a right upper extremity peripherally inserted central catheter. IMPRESSION: 1. No acute cardiopulmonary findings. 2. As compared to the previous radiograph dated 05/07/2025, there is an interval removal of a right upper extremity peripherally inserted central catheter. /[place]
== END ==
LOC: RAH 09:38
PROVIDERS: ATTEND Internal Medicine
DX: I73.9 Peripheral vascular disease, unspecified (principal); M86.9 Osteomyelitis, unspecified; Z89.432 Acquired absence of left foot
CPT/HCPCS: 71045; 73630

== ENCOUNTER 2025-09-19 05:56 | Day surgery (SDC) | payer OTHER, MEDICARE ==
[2025-09-19] VITALS (18 sets, daily range): BP systolic 92–154; BP diastolic 50–88; PULSE 72–96; RESP 14–17; TEMP 96.9–97.7
--- NOTE | 2025-09-19 07:13 | EKG ---
[facility] Test Date: 2025-09-19 Test Time: 06:46:07 Pat Name: KAROLYN ZUNIGA Department: [facility] Room: [facility] Gender: M Enrollment Processor: [id number] : 1960 Requested By: BETTY QUINTEROS Order Number: [id number] Reading MD: Jesus Manuel Reyes Measurements Intervals [place] Rate: 82 P: 36 [place]: 249 QRS: 20 QRSD: 122 T: 12 QT: 398 QTc: 464 Interpretive Statements Sinus rhythm Prolonged MI interval Right bundle branch block Compared to ECG 05/02/2025 16:26:30 First degree AV block now present Sinus tachycardia no longer present Electronically Signed On 09-20-2025 08:41:14 HOME SALES SERVICE PROFESSIONAL by Jesus Manuel Reyes Please click the below link to view image of tracing.
[2025-09-19] MEDS ORDERED: LIDOCAINE HCL 1% 20 ML VIAL ONE (07:15)
[2025-09-19] MEDS: LIDOCAINE HCL 1% 20 ML VIAL MISC ONE (07:16)
[2025-09-19 07:20] LABS: IMMATURE GRANULOCYTE ABSOLUTE 0.02 K/uL (0-1); NUCLEATED RED BLOOD CELLS 0.0 % (0.0-0.19); PLATELET COUNT (AUTO) 270 K/uL (130-400); RED BLOOD CELL COUNT(AUTO) 4.50 MIL/uL (4.50-6.20); RED CELL DISTRIBUTION WIDTH 15.1 % (11.0-15.5); WHITE BLOOD COUNT (AUTO) 7.0 K/uL (4.8-10.8)
[2025-09-19] MEDS ORDERED: MIDAZOLAM HCL 1 MG/ML 2ML VIAL ONE ×2 (07:28→07:30)
[2025-09-19 07:32] LABS: CREATININE 2.0 mg/dL (0.5-1.3); GLOMERULAR FILTR. RATE CALC 36.0 mL/min (>90); GLUCOSE,RANDOM 243.0 mg/dL (70-105); SODIUM SERUM 133.0 mmol/L (136-145); UREA NITROGEN, BLOOD 42.0 mg/dL (7-18)
[2025-09-19] MEDS ORDERED: VANCOMYCIN 2GM/500 ML BAG 500 ML IV ONE (08:00)
[2025-09-19] MEDS ORDERED: NEOMY SULF/BACITRAC ZN/POLY OINT 30GM TUBE TP ONE (08:08)
--- NOTE | 2025-09-19 09:20 | NUR ---
AMADO BANDAGE TO LEFT FOOT. DRESSING DRY AND INTACT. NO ACTIVE BLEEDING OR DRAINAGE NOTED. NO REDNESS OR SWELLING NOTED.
--- NOTE | 2025-09-19 11:39 | OP ---
DATE OF PROCEDURE: 09/19/2025 PREOPERATIVE DIAGNOSIS: Osteomyelitis of the calcaneus, left. POSTOPERATIVE DIAGNOSIS: Osteomyelitis of the calcaneus, left. SURGICAL PROCEDURE: Partial calcanectomy, left. SURGEON: Clement Sorensen DPM. ANESTHESIOLOGIST: Soham Verduzco CRNA. INJECTABLES: 1% Xylocaine and 0.25% Marcaine as an ankle block under IV sedation. ESTIMATED BLOOD LOSS: 5 mL. COMPLICATIONS: None. RATIONALE FOR THE PROCEDURE: This is a 65-year-old male who basically has a history of bilateral transmetatarsal amputation secondary to diabetes and peripheral arterial disease. He has a long history of smoking, quitted approximately 4 years ago. The patient had this nonhealing ulceration of the posterior calcaneus. At this time, the decision was made for partial calcanectomy in order to allow for this wound to heal properly. This is secondary to underlying osteomyelitis. The patient is otherwise stable, alert, well oriented. He denies any chest pain. No palpitations, nausea, vomiting, or diarrhea. DESCRIPTION OF PROCEDURE: The patient was brought into the operating room table, placed in the supine position. Under IV sedation, local anesthesia was achieved via local infiltration of 1% Xylocaine and 0.25% Marcaine. At this time, the foot was prepped and draped in the usual sterile fashion, left. Attention was directed towards the posterior calcaneus where bone to the posterior heel was exposed. Utilizing sharp and blunt instrumentation, dissection was performed along the calcaneal posterior aspect, resecting part of the Achilles tendon, attachment to the calcaneus. Then, utilizing a chisel and osteotome, partial calcanectomy, posterior and plantar was performed at this time. The calcaneal pieces were sent to pathology for examination. At this moment then, the area was irrigated with copious amounts of saline solution. Bone was sent for culture, sensitivity, and pathologic evaluation. Dressing was applied utilizing Adaptic, Neosporin ointment, 4 x 4's, and Kerlix. Prior to this, the wound was irrigated with copious amounts of saline solution. The patient tolerated the procedure well and anesthesia. PLAN: To follow up as an outpatient at the wound center for continued local wound care. The patient was sent on antibiotics to home. He was given also 2 grams of Ancef IV piggyback preoperatively today. TID: [id number] RECEIPT: [id number]
== END 2025-09-19 09:50 | disposition home or self-care (01) ==
LOC: DAH 05:56
PROVIDERS: ATTEND Podiatrist Foot & Ankle Surgery
DX: M86.172 Other acute osteomyelitis, left ankle and foot (principal); I10 Essential (primary) hypertension; E11.9 Type 2 diabetes mellitus without complications; Z87.891 Personal history of nicotine dependence; Z79.899 Other long term (current) drug therapy; Z98.890 Other specified postprocedural states
CPT/HCPCS: 28120; 80048; 85025; 87070; 87076; 87086 ×3; 87186 ×3; 87205; 82948 ×2; 36415; 88311; 88304; 93005; J1815; A4223 ×2; A4663; A4606; J2003 ×2; J0665 ×2; J2250 ×2; J2704; J2765; J3490; J3375; A4649; A4930; A4215; A4213; A4222; A4221; A4216; A6450